=== PATIENT | female | born 2005 | race Caucasian/White ===

== ENCOUNTER 2024-11-19 21:54 | Emergency (ER) | payer MEDICAID, SELFPAY ==
[2024-11-19 22:09] VITALS: BP 130/69; PULSE 77; RESP 18; TEMP 36.3; O2SAT 99; BMI 20.7
[2024-11-19 23:28] LABS: Influenza A PCR NEGATIVE (Negative); Influenza B PCR NEGATIVE (Negative); Resp Syncy Virus RNA Qual PCR NEGATIVE (Negative); SARS COV2 PCR INHOUSE NEGATIVE (Negative)
--- NOTE | 2024-11-20 04:39 | ED.GENADULT ---
HPI - General Adult General Chief complaint: Nausea/Vomiting/Diarrhea Stated complaint: nausea/vomiting/stomach pain Time Seen by Provider: 11/20/24 04:39 History of Present Illness ED Provider: Kvng SARAVIA narrative: The patient is a 19-year-old female who says that she developed abdominal pain, nausea, vomiting this morning on Monday morning. She had symptoms all day long and ultimately came to the emergency room. She says that she has had similar episodes of symptoms like this in the past over the last several months. She says the last time she had an episode like this was around [place], less than 1 month ago. She says that she has been to [facility] for these problems before. She does not feel that she is experiencing related nausea because she has had several similar episodes before becoming . She believes that she is about 12 weeks . Her last menstrual period was on 08/25/2024. She had episodes of similar symptoms prior to her last period. According to records from [facility] the patient was hospitalized from October 22 through October 26 with symptoms of abdominal pain, nausea, and vomiting. The patient had previously been hospitalized from September 15 through September 19 with similar symptoms. At that time she had tested positive for chlamydia and she was treated for PID. Additionally at that time she had a CT of the abdomen and pelvis that showed pancolitis and mild diverticulosis. She had a colonoscopy which was unremarkable and showed no evidence of diverticulosis. At that time she was discharged on oral antibiotics. When the patient was hospitalized on October 22 at [facility] she had a negative right upper quadrant ultrasound and a normal chest x-ray. She was hospitalized on the OB service and treated symptomatically. Gastroenterology was consulted. Ultimately no additional interventions were made and she was continued on Maalox, pantoprazole, promethazine suppositories, and ondansetron. Related Data Allergies Allergy/AdvReac Type Severity Reaction Status Date / Time No Known Allergies Allergy Verified 11/19/24 22:10 Review of Systems Review of Systems: Yes all other systems are reviewed and are negative [facility] Social History Social History Alcohol intake: never Smoked in Last 30 Days: No Use of substances other than those prescribed or required for medical reasons: No Advance Directives: No Advance Directives Information Provided: No Do you have a plan to hurt others: No Plan Patient : Yes Physical Exam ED Vital Signs: Vital Signs - 24 hr 11/19/24 22:09 11/20/24 06:29 11/20/24 08:32 Temperature 97.3 F 98.9 F 98.5 F Pulse Rate 77 84 75 Respiratory Rate 18 18 Blood Pressure 130/69 148/93 H 103/68 Pulse Oximetry 99 100 98 Oxygen Delivery Method Room Air Room Air Room Air 11/20/24 10:13 11/20/24 10:26 Temperature 98 F Pulse Rate 73 Respiratory Rate 20 16 Blood Pressure 105/60 Pulse Oximetry 99 Oxygen Delivery Method Room Air BMI result Body Mass Index 20.7 Const Other: The patient is a slim 19-year-old woman who was awake and alert says she is quite uncomfortable. HENMT Other: Face is symmetrical. Mucous membranes moist. Eyes General: appearance normal, both eyes and all related structures Sclerae: sclerae normal Pupils: Equal, round and reactive pupils present EOM: EOMs intact bilaterally Neck Neck: Yes full ROM Resp Effort & Inspection: normal respiratory effort Auscultation: clear to auscultation bilaterally GI Other: The abdomen is flat and soft. The patient reports tenderness in the mid upper abdomen. No rebound or guarding. Skin Other: Skin is dry and unremarkable Neuro Other: The patient was awake and alert. Cranial nerves seemed grossly intact. She moves her extremities symmetrically and appropriately. Cranial nerves: Yes Equal, round and reactive pupils present Extrem Other: No peripheral edema Medications Administered Discontinued Medications Generic Name Dose Route Start Last Admin Trade Name Freq PRN Reason Stop Dose Admin Diphenhydramine HCl 25 mg 11/20/24 04:42 11/20/24 06:19 Diphenhydramine Hcl 50 Mg/Ml Vial IVPUSH 11/20/24 04:43 25 mg ONCE ONE Administration Famotidine 20 mg 11/20/24 08:44 11/20/24 09:27 Famotidine/Pf 20 Mg/2 Ml Vial IVPUSH 11/20/24 08:45 20 mg ONCE ONE Administration Sodium Chloride 1,000 mls @ 999 mls/hr 11/20/24 04:45 11/20/24 07:07 Ns IV 11/20/24 05:45 Infused .Q1H1M LINDA Infusion Acetaminophen 1,000 mg in 100 mls @ 400 mls/hr 11/20/24 06:21 11/20/24 07:07 Ofirmev IV 11/20/24 06:35 Infused ONCE ONE Infusion Sodium Chloride 1,000 mls @ 999 mls/hr 11/20/24 07:45 11/20/24 09:01 Ns IV 11/20/24 08:45 Infused .Q1H1M LINDA Infusion Metoclopramide HCl 10 mg 11/20/24 04:42 11/20/24 06:19 Metoclopramide Hcl 10 Mg/2 Ml Vial IVPUSH 11/20/24 04:43 10 mg ONCE ONE Administration Morphine Sulfate 2 mg 11/20/24 09:55 11/20/24 10:13 Morphine Sulfate 4 Mg/Ml Cartridge IVPUSH 11/20/24 09:56 2 mg ONCE ONE Administration Protocol Ondansetron HCl 4 mg 11/19/24 22:11 11/19/24 22:14 Ondansetron Odt 4 Mg Tab.Rapdis TRANSLINGU 11/19/24 22:12 Not Given ONCE ONE Sucralfate 1 gm 11/20/24 08:44 11/20/24 09:26 Sucralfate Oral Suspension 1 Gm/10 Ml Oral.Susp PO 11/20/24 08:45 1 gm ONCE ONE Administration Medical Decision Making Medical Decision Making [facility] Narrative: The patient is a 19-year-old female who is approximately 12 weeks . She has been having problems with intermittent episodes of abdominal pain nausea and vomiting for several months, even preceding her . Based on her description of the symptoms I would have a fairly high suspicion for cannabis hyperemesis. Her last menstrual period was 08/25/2024. She was hospitalized in August at [facility] at which time she had a CT of the abdomen and pelvis that allegedly showed pancolitis and diverticulosis but this was followed by a colonoscopy that did not apparently show either of these processes. She was treated for PID. She was subsequently hospitalized a month later at the end of September at [facility]. At that time she had a right upper quadrant ultrasound that was negative as well as a Gastroenterology consult. She was treated symptomatically with proton pump inhibitors and antacids and antiemetics. The patient now returns with symptoms she describes as similar to these previous episodes and to episodes that occurred before August as well. She says that she has had at least 5 episodes of problems with vomiting and abdominal pain. She is testing positive for cannabis today. The patient was treated symptomatically with IV fluids, IV metoclopramide, IV diphenhydramine, and IV acetaminophen. She seemed to feel considerably better although she is still complaining of epigastric pain. The patient was then given a dose of oral sucralfate and IV famotidine. She was observed some more. She did not feel that she was doing any better. She does not feel that she would likely be well enough to go home. I have presented this case to our hospitalist team and they are considering admitting the patient here. I have also contacted the transfer hotline at [facility] to see if the patient can return to the OBGYN service where the patient was hospitalized at the end of September. I will be signing the patient out to my emergency medicine colleagues at change of shift. Lab Data 11/20/24 05:59 11/20/24 05:01 Labs: Lab Results 11/19/24 11/20/24 11/20/24 Range/Units 22:47 05:01 05:59 WBC 16.1 H (4.8-10.8) X10*3/uL RBC 4.04 L (4.20-5.50) X10*6/uL Hgb 12.8 (12.0-16.0) g/dl Hct 35.8 L (37.0-47.0) % MCV 88.6 (80.0-98.0) fL MCH 31.7 (27.0-33.0) pg MCHC 35.8 H (31.0-35.0) g/dl RDW 12.9 (11.0-16.0) % Plt Count 493 H (160-400) X10*3/uL MPV 8.9 L (9.4-12.3) fL Immature Gran % (Auto) 0.4 (0.0-0.4) % Neut % (Auto) 91.2 H (45-73) % Lymph % (Auto) 5.5 L (20-40) % [facility] % (Auto) 2.8 (2-11) % Eos % (Auto) 0.0 (0-4) % Baso % (Auto) 0.1 (0-2) % Lymph # (Auto) 0.9 L (1.2-4.9) X10*3/uL [facility] # (Auto) 0.5 (0.1-1.2) X10*3/uL Eos # (Auto) 0.0 (0.0-0.4) X10*3/uL Baso # (Auto) 0.0 (0.0-0.2) X10*3/uL Abs Immat Gran (auto) 0.07 H (0.00-0.03) X10*3/uL Absolute Neuts (auto) 14.6 H (2.0-8.3) x10*3/uL Absolute Nucleated RBC 0.000 (0.0-0.012) X10*3/uL Nucleated RBC % (auto) 0.0 (0.0-0.2) /100WBC Smear Tech's Comments VERIFIED Sodium 135 (135-145) mmol/L Potassium 3.6 (3.3-5.1) mmol/L Chloride 104 (96-108) mmol/L Carbon Dioxide 20 L (22-29) mmol/L Anion Gap 15 (12-20) BUN 21 H (9-16) mg/dL Creatinine 0.63 (0.5-1.4) mg/dL Estim Creat Clear Calc 112.6 Estimated GFR > 60 Random Glucose 108 (60-115) mg/dL Calcium 10.2 (8.4-10.2) mg/dL Magnesium 2.1 (1.6-2.6) mg/dL Total Bilirubin 0.3 (0.0-1.0) mg/dL Direct Bilirubin 0.1 (0.0-0.5) mg/dL AST 32 H (5-31) U/L ALT 15 (0-31) U/L Alkaline Phosphatase 62 (39-117) U/L C-Reactive Protein 0.73 H (< or = 0.50) mg/dL Total Protein 8.3 H (6.5-8.0) g/dL Albumin 4.2 (3.5-5.0) g/dL Lipase 9 (8-78) U/L Beta HCG, Quant 68765 mIU/mL Urine Color Urine Appearance Urine pH (5.0-9.0) Ur Specific Avery (1.005-1.025) Urine Protein (Neg-Trace) mg/dL Urine Glucose (UA) (Negative) mg/dL Urine Ketones (Negative) mg/dL Urine Blood (Negative) Urine Nitrite (Negative) Ur Leukocyte Esterase (Negative) Urine RBC (0-2) /HPF Urine WBC (0-5) /HPF Ur Squamous Epith Cells (0-2) /HPF Urine Bacteria (None Seen) Hyaline Casts (0-2) /LPF Urine Opiates Screen (Not Detect) Ur Buprenorphine Scrn (Not Detect) ng/mL Ur Oxycodone Screen (Not Detect) ng/mL Urine Methadone Screen (Not Detect) ng/mL Urine Fentanyl Screen (Not Detect) Ur Barbiturates Screen (Not Detect) Ur Phencyclidine Scrn (Not Detect) Ur Amphetamines Screen (Not Detect) U Benzodiazepines Scrn (Not Detect) Urine Cocaine Screen (Not Detect) U Marijuana (THC) Screen (Not Detect) Influenza Type A (PCR) NEGATIVE (Negative) Influenza Type B (PCR) NEGATIVE (Negative) RSV RNA Qual (PCR) NEGATIVE (Negative) SARS-CoV-2 RNA (RT-PCR) NEGATIVE (Negative) 11/20/24 Range/Units 08:05 WBC (4.8-10.8) X10*3/uL RBC (4.20-5.50) X10*6/uL Hgb (12.0-16.0) g/dl Hct (37.0-47.0) % MCV (80.0-98.0) fL MCH (27.0-33.0) pg MCHC (31.0-35.0) g/dl RDW (11.0-16.0) % Plt Count (160-400) X10*3/uL MPV (9.4-12.3) fL Immature Gran % (Auto) (0.0-0.4) % Neut % (Auto) (45-73) % Lymph % (Auto) (20-40) % [facility] % (Auto) (2-11) % Eos % (Auto) (0-4) % Baso % (Auto) (0-2) % Lymph # (Auto) (1.2-4.9) X10*3/uL [facility] # (Auto) (0.1-1.2) X10*3/uL Eos # (Auto) (0.0-0.4) X10*3/uL Baso # (Auto) (0.0-0.2) X10*3/uL Abs Immat Gran (auto) (0.00-0.03) X10*3/uL Absolute Neuts (auto) (2.0-8.3) x10*3/uL Absolute Nucleated RBC (0.0-0.012) X10*3/uL Nucleated RBC % (auto) (0.0-0.2) /100WBC Smear Tech's Comments Sodium (135-145) mmol/L Potassium (3.3-5.1) mmol/L Chloride (96-108) mmol/L Carbon Dioxide (22-29) mmol/L Anion Gap (12-20) BUN (9-16) mg/dL Creatinine (0.5-1.4) mg/dL Estim Creat Clear Calc Estimated GFR Random Glucose (60-115) mg/dL Calcium (8.4-10.2) mg/dL Magnesium (1.6-2.6) mg/dL Total Bilirubin (0.0-1.0) mg/dL Direct Bilirubin (0.0-0.5) mg/dL AST (5-31) U/L ALT (0-31) U/L Alkaline Phosphatase (39-117) U/L C-Reactive Protein (< or = 0.50) mg/dL Total Protein (6.5-8.0) g/dL Albumin (3.5-5.0) g/dL Lipase (8-78) U/L Beta HCG, Quant mIU/mL Urine Color Dark Yellow Urine Appearance Cloudy Urine pH 6.0 (5.0-9.0) Ur Specific Avery >= 1.030 H (1.005-1.025) Urine Protein 100 (2+) H (Neg-Trace) mg/dL Urine Glucose (UA) Negative (Negative) mg/dL Urine Ketones 80 (Negative) mg/dL Urine Blood Negative (Negative) Urine Nitrite Negative (Negative) Ur Leukocyte Esterase Negative (Negative) Urine RBC 0-2 (0-2) /HPF Urine WBC 0-5 (0-5) /HPF Ur Squamous Epith Cells 3-5 (0-2) /HPF Urine Bacteria None Seen (None Seen) Hyaline Casts 3-5 (0-2) /LPF Urine Opiates Screen Not Detected (Not Detect) Ur Buprenorphine Scrn Not Detected (Not Detect) ng/mL Ur Oxycodone Screen Not Detected (Not Detect) ng/mL Urine Methadone Screen Not Detected (Not Detect) ng/mL Urine Fentanyl Screen Not Detected (Not Detect) Ur Barbiturates Screen Not Detected (Not Detect) Ur Phencyclidine Scrn Not Detected (Not Detect) Ur Amphetamines Screen Not Detected (Not Detect) U Benzodiazepines Scrn Not Detected (Not Detect) Urine Cocaine Screen Not Detected (Not Detect) U Marijuana (THC) Screen POSITIVE H (Not Detect) Influenza Type A (PCR) (Negative) Influenza Type B (PCR) (Negative) RSV RNA Qual (PCR) (Negative) SARS-CoV-2 RNA (RT-PCR) (Negative) Discharge Plan Discharge Clinical Impression: Nausea and vomiting, Epigastric pain, with 12 completed weeks gestation Patient Disposition: Still a Patient Print Language: Bahamian
[2024-11-20] MEDS: 0.9 % Sodium Chloride 1,000 ML 999 ML IV ×2 (05:01→07:46)
[2024-11-20 05:33] LABS: Alanine Aminotransferase 15 U/L (0-31); Albumin Level 4.2 g/dL (3.5-5.0); Alkaline Phosphatase 62 U/L (39-117); Anion Gap 15 (12-20); Aspartate Amino Transferase 32 U/L (5-31); Bilirubin Direct 0.1 mg/dL (0.0-0.5); Bilirubin Total 0.3 mg/dL (0.0-1.0); Blood Urea Nitrogen 21 mg/dL (9-16); C Reactive Protein 0.73 mg/dL (< or = 0.50); Calcium 10.2 mg/dL (8.4-10.2); Carbon Dioxide 20 mmol/L (22-29); Chloride 104 mmol/L (96-108); Creatinine Clr Calc Pharmacy 112.6; Estimated Glomerular Filt Rate > 60; Glucose Random 108 mg/dL (60-115); Lipase 9 U/L (8-78); Magnesium 2.1 mg/dL (1.6-2.6); Potassium 3.6 mmol/L (3.3-5.1); Sodium 135 mmol/L (135-145); Total Protein 8.3 g/dL (6.5-8.0)
[2024-11-20 05:49] LABS: HCG Quantitative 84065 mIU/mL
--- NOTE | 2024-11-20 05:56 | PC.NURSE ---
multiple IV attempts, unable to access IV line at this time.
[2024-11-20 06:03] LABS: Basophils Percent Auto 0.1 % (0-2); Hematocrit 35.8 % (37.0-47.0); Hemoglobin 12.8 g/dl (12.0-16.0); Imm Gran Abs Auto 0.07 X10*3/uL (0.00-0.03); Imm Gran Pct Auto 0.4 % (0.0-0.4); Lymphocytes Absolute Auto 0.9 X10*3/uL (1.2-4.9); Lymphocytes Percent Auto 5.5 % (20-40); MANUAL DIFF FLAG SCAN; Mean Corpuscular HGB Conc 35.8 g/dl (31.0-35.0); Mean Corpuscular Hemoglobin 31.7 pg (27.0-33.0); Mean Corpuscular Volume 88.6 fL (80.0-98.0); Mean Platelet Volume 8.9 fL (9.4-12.3); Monocytes Absolute Auto 0.5 X10*3/uL (0.1-1.2); Monocytes Percent Auto 2.8 % (2-11); Neutrophils Absolute Auto 14.6 x10*3/uL (2.0-8.3); Neutrophils Percent Auto 91.2 % (45-73); Platelet Count 493 X10*3/uL (160-400); Red Blood Count 4.04 X10*6/uL (4.20-5.50); Red Cell Distribution Width 12.9 % (11.0-16.0); SCAN SMEAR FLAG 1; White Blood Count 16.1 X10*3/uL (4.8-10.8)
[2024-11-20] MEDS: Metoclopramide HCl 10 MG/2 ML VIAL IVPUSH (06:19)
[2024-11-20] MEDS: diphenhydrAMINE HCL 50 MG/ML VIAL 25 MG IVPUSH (06:19)
[2024-11-20 06:29] VITALS: BP 148/93; PULSE 84; RESP 18; TEMP 37.2; O2SAT 100
[2024-11-20] MEDS: Acetaminophen 1,000 MG/100 ML PIGGYBACK 400 MG IV (06:34)
[2024-11-20 08:09] LABS: SLIDE REVIEW VERIFIED
[2024-11-20 08:16] LABS: Appearance Urine Cloudy; Color Urine Dark Yellow; Glucose Urine UA Negative (Negative); Leukocyte Esterase Urine Negative (Negative); Nitrite Urine Negative (Negative); Specific Gravity - Urine >= 1.030 (1.005-1.025); UMIC TRIGGER UACC YES; Urine Blood Negative (Negative); Urine Ketones 80 mg/dL (Negative); Urine Protein 100 (2+) mg/dL (Neg-Trace)
[2024-11-20 08:18] LABS: Bacteria Urine None Seen (None Seen); RBC Urine 0-2 /HPF (0-2); WBC Urine 0-5 /HPF (0-5)
[2024-11-20 08:23] LABS: Amphetamine Screen Urine Not Detected (Not Detect); Barbiturates, Urine Not Detected (Not Detect); Benzodiazepines Screen Urine Not Detected (Not Detect); Buprenorphine Scr Not Detected (Not Detect); Cannabinoid Screen Urine POSITIVE (Not Detect); Cocaine Screen Urine Not Detected (Not Detect); Fentanyl, urine Not Detected (Not Detect); Methadone Screen, Urine Not Detected (Not Detect); Opiate Screen Urine Not Detected (Not Detect); Oxycodone Screen Urine Not Detected (Not Detect); Phencyclidine Screen Urine Not Detected (Not Detect)
[2024-11-20 08:32] VITALS: BP 103/68; PULSE 75; TEMP 36.9; O2SAT 98
[2024-11-20] MEDS: Sucralfate Oral Suspension 1 GM/10 ML ORAL.SUSP PO (09:26)
[2024-11-20] MEDS: Famotidine/PF 20 MG/2 ML VIAL IVPUSH (09:27)
[2024-11-20 10:13] VITALS: RESP 20
[2024-11-20] MEDS: Morphine Sulfate 4 MG/ML CARTRIDGE 2 MG IVPUSH (10:13)
[2024-11-20 10:26] VITALS: BP 105/60; PULSE 73; RESP 16; TEMP 36.6; O2SAT 99
[2024-11-20] MEDS: Lactated Ringers 1,000 ML 999 ML IV (11:06)
[2024-11-20 12:41] VITALS: BP 129/76; PULSE 78; RESP 16; TEMP 36.9; O2SAT 97
[2024-11-20 13:50] VITALS: BP 129/76; PULSE 78; RESP 16; TEMP 36.9; O2SAT 97
== END 2024-11-20 13:51 | disposition short-term general hospital (02) ==
PROVIDERS: Emergency Provider Emergency Medicine
DX: O21.0 Mild hyperemesis gravidarum (principal); R10.2 Pelvic and perineal pain; R10.13 Epigastric pain; Z3A.12 12 weeks gestation of pregnancy; Z51.81 Encounter for therapeutic drug level monitoring; Z79.899 Other long term (current) drug therapy; Z03.818 Encounter for observation for suspected exposure to other biological agents ruled out
CPT/HCPCS: 0241U; 36415; 80048; 80076; 80307; 81001; 83690; 83735; 84702; 85025; 86140; 96361; 96374; 96375; 99285; J0131; J1200; J2270; J2765; J7120

== ENCOUNTER 2025-08-27 00:52 | Inpatient (IN) | payer OTHER, SELFPAY ==
[2025-08-27 00:56] VITALS: BP 153/70; PULSE 122; RESP 20; TEMP 36.4; O2SAT 97; BMI 27.6
--- NOTE | 2025-08-27 01:06 | ECG_ITS ---
Test Reason : ABD PAIN Blood Pressure : */* mmHG Vent. Rate : 103 BPM Atrial Rate : 103 BPM P-R Int : 130 ms QRS Dur : 76 ms QT Int : 330 ms P-R-T Axes : 92 70 27 degrees QTcB Int : 432 ms Sinus tachycardia Biatrial enlargement ST & T wave abnormality, consider inferior ischemia Abnormal ECG No previous ECGs available Referred By: Carmen Holguin Electronically Signed By: JAYANT STROUD
--- NOTE | 2025-08-27 01:15 | ED_ITS ---
HPI - Abdominal Pain General Chief Complaint: Abdominal Pain Stated Complaint: n/v Time Seen by Provider: 08/27/25 01:03 Source: patient Mode of arrival: ambulatory Limitations: no limitations History of Present Illness ED Provider: Dr. Carmen Holguin HPI narrative: Patient comes to the emergency room complaining of nausea and vomiting for couple of days. Patient states that she has diffuse abdominal discomfort. Denies diarrhea, denies fever chills. Patient states that in the past she has used marijuana but not anymore. Patient denies the probability of being . Patient states that she had a baby 3 months ago. Related Data Allergies Allergy/AdvReac Type Severity Reaction Status Date / Time No Known Allergies Allergy Verified 08/27/25 00:57 Review of Systems Review of Systems Constitutional : No Weight loss, No Fever, No Chills, No Night Sweats, No Fatigue, No Malaise ENT/Mouth : No Hearing loss, No Ear Pain, No Nasal Congestion, No Sinus Pain, No Hoarseness, No sore throat, No Rhinorrhea, No Swallowing Difficulty Eyes: No Eye Pain, No Swelling, No Redness, No Foreign Body, No Discharge, No Vision Changes Cardiovascular : No Chest Pain, No SOB, No Dyspnea on Exertion, No Orthopnea, No Edema, No Palpitations Respiratory : No Cough, No Sputum, No Wheezing, No Smoke Exposure, No Dyspnea Gastrointestinal : Nausea and vomit, No Diarrhea, No Constipation, complaining of diffuse abdominal discomfort, No Hematochezia, No Melena Genitourinary : no irregular bleeding, No Dysuria, No Urinary Frequency, No Hematuria, No Urinary Incontinence, No Urgency, No Flank Pain, No Urinary Flow Changes, No Hesitancy Musculoskeletal : No joint pain, No Myalgias, No Joint Swelling Skin : No Skin Lesions, No rash Neuro : No Weakness, No Numbness, No Paresthesias, No Loss of Consciousness, No Dizziness, No Headache Psych : No Anxiety/Panic, No Depression, No SI/HI/AH/VH, denies any recent use of marijuana or any drugs Heme/Lymph: No Bruising, No Bleeding,No Lymphadenopathy Endocrine : No Polyuria, No Polydipsia, No Temperature Intolerance PMFSH Social History Social History Alcohol intake: never Smoked in Last 30 Days: No Use of substances other than those prescribed or required for medical reasons: Yes Substance Use Type: Marijuana Advance Directives: No Advance Directives Information Provided: Yes Patient : No Physical Exam ED Vital Signs: Vital Signs - 24 hr 08/27/25 00:56 08/27/25 02:17 Temperature 97.6 F Pulse Rate 122 H 71 Respiratory Rate 20 22 H Blood Pressure 153/70 H 135/81 Pulse Oximetry 97 98 Oxygen Delivery Method Room Air Room Air BMI result Body Mass Index 27.6 Course Course Course Narrative: Patient comes in complaining of nausea and vomiting for couple of days. Patient known to use THC, denies any recent use for at least over a month. Patient receiving IV fluids, IV Reglan, ketorolac, Benadryl Depending on the labs and patient's physical exam, we will consider getting a CAT scan. At this time, abdominal pain and nausea/vomiting likely secondary to cyclical vomiting Medical Decision Making Medical Decision Making MDM Narrative: My interpretation of EKG 1: Sinus tachycardia, heart rate 103, no ST segment changes, nonspecific T-wave inversion in lead 3, QTC 610. Patient is very agitated, we will repeat the EKG once she is a bit more calm EKG 2: Sinus rhythm, heart rate 74, no ST segment changes. However, patient's QTC still prolonged, QTC 603. Patient receiving IV magnesium. All of patient's labs are still pending. My interpretation of labs: Patient's white blood cell count 12.6, likely reactive leukocytosis. Chemistry shows a potassium of 3.0, low chloride. Magnesium 2.4, Otherwise no significant abnormality. Patient's potassium was repleted initially IV, patient could not tolerate p.o.. Wants patient tolerates p.o., she will get potassium by mouth After patient received the initial dose of magnesium and potassium was given, EKG 3 was done. My interpretation: Sinus rhythm, heart rate 76, QTC improved to 459 Patient is still unable to tolerate p.o.. Combination of refusing and nausea. Patient was given additional nausea medication. Patient will be given more IV potassium. After rechecking it a 2nd time, there was not much improvement, potassium is still 3.0. Fortunately, the QTC is back to normal. I discussed the above-mentioned with Dr. Dela Cruz from the Medicine team, patient being admitted Until now, patient has not giving us a urine sample. Differential Diagnosis Differential Diagnoses: The differential diagnosis associated with the presentation includes (Cyclical vomiting, gastritis, gastroenteritis) Admission/Observation Consideration of admission/observation: Escalation of care including admission/observation considered Consult Healthcare Provider Management of the patient was discussed with: Hospitalist Lab Data MDM Lab Attestation statement: I reviewed the patient's lab results. 08/27/25 01:18 08/27/25 04:21 Labs: Lab Results 08/27/25 08/27/25 Range/Units 01:18 04:21 WBC 12.6 H (4.8-10.8) X10*3/uL RBC 5.61 H D (4.20-5.50) X10*6/uL Hgb 16.0 D (12.0-16.0) g/dl Hct 45.5 D (37.0-47.0) % MCV 81.1 (80.0-98.0) fL MCH 28.5 (27.0-33.0) pg MCHC 35.2 H (31.0-35.0) g/dl RDW 14.5 (11.0-16.0) % Plt Count 560 H (160-400) X10*3/uL MPV 9.1 L (9.4-12.3) fL Immature Gran % (Auto) 0.4 (0.0-0.4) % Neut % (Auto) 80.3 H (45-73) % Lymph % (Auto) 10.9 L (20-40) % [place] % (Auto) 7.5 (2-11) % Eos % (Auto) 0.8 (0-4) % Baso % (Auto) 0.1 (0-2) % Lymph # (Auto) 1.4 (1.2-4.9) X10*3/uL [place] # (Auto) 1.0 (0.1-1.2) X10*3/uL Eos # (Auto) 0.1 (0.0-0.4) X10*3/uL Baso # (Auto) 0.0 (0.0-0.2) X10*3/uL Abs Immat Gran (auto) 0.05 H (0.00-0.03) X10*3/uL Absolute Neuts (auto) 10.1 H (2.0-8.3) x10*3/uL Absolute Nucleated RBC 0.000 (0.0-0.012) X10*3/uL Nucleated RBC % (auto) 0.0 (0.0-0.2) /100WBC Sodium 142 142 (135-145) mmol/L Potassium 3.0 L 3.0 L (3.3-5.1) mmol/L Chloride 92 L 98 (96-108) mmol/L Carbon Dioxide 31 H 32 H (22-29) mmol/L Anion Gap 22 H 15 (12-20) BUN 32 H 26 H (9-16) mg/dL Creatinine 1.39 1.09 (0.5-1.4) mg/dL Estim Creat Clear Calc 58.5 74.6 Estimated GFR 48 > 60 Random Glucose 134 H 110 (60-115) mg/dL Calcium 10.7 H 9.5 D (8.4-10.2) mg/dL Phosphorus 4.1 (2.7-4.5) mg/dL Magnesium 2.4 (1.6-2.6) mg/dL Total Bilirubin 0.6 (0.0-1.0) mg/dL Direct Bilirubin 0.2 (0.0-0.5) mg/dL AST 30 (5-31) U/L ALT 29 (0-31) U/L Alkaline Phosphatase 115 (39-117) U/L Total Protein 9.5 H (6.5-8.0) g/dL Albumin 5.7 H (3.5-5.0) g/dL Lipase 14 (8-78) U/L Beta HCG, Quant < 2 mIU/mL Independent Interpretation I performed an independent interpretation of an: EKG (Three EKGs as above) Medications Administered Discontinued Medications Generic Name Dose Route Start Last Admin Trade Name Freq PRN Reason Stop Dose Admin Diphenhydramine HCl 50 mg 08/27/25 01:13 08/27/25 01:23 Diphenhydramine Hcl 50 Mg/Ml Vial IVPUSH 08/27/25 01:14 50 mg ONCE ONE Administration Famotidine 20 mg 08/27/25 01:10 08/27/25 01:23 Famotidine/Pf 20 Mg/2 Ml Vial IVPUSH 08/27/25 01:11 20 mg ONCE ONE Administration Sodium Chloride 1,000 mls @ 999 mls/hr 08/27/25 01:10 08/27/25 02:32 Ns IVCONT 08/27/25 02:10 Infused .Q1H1M ONE Infusion Magnesium Sulfate 2 gm in 50 mls @ 25 mls/hr 08/27/25 01:44 08/27/25 04:15 Magnesium Sulfate/H2o IV 08/27/25 03:43 Infused ONCE ONE Infusion Potassium Chloride 10 meq in 100 mls @ 100 mls/hr 08/27/25 02:09 08/27/25 03:35 Potassium Chloride/H20 IV 08/27/25 03:08 Infused ONCE ONE Infusion Ketorolac Tromethamine 30 mg 08/27/25 01:10 08/27/25 01:23 Ketorolac Tromethamine 30 Mg/Ml Vial IVPUSH 08/27/25 01:11 30 mg ONCE ONE Administration Metoclopramide HCl 10 mg 08/27/25 01:10 08/27/25 01:23 Metoclopramide Hcl 10 Mg/2 Ml Vial IVPUSH 08/27/25 01:11 10 mg ONCE ONE Administration Potassium Chloride 40 meq 08/27/25 02:09 08/27/25 04:14 Potassium Chloride Packet 20 Meq Packet PO 08/27/25 02:10 Not Given ONCE ONE Potassium Chloride 20 meq 08/27/25 03:56 08/27/25 04:15 Potassium Chloride Er 20 Meq Tab.Er.Prt PO 08/27/25 03:57 20 meq ONCE ONE Administration Tramadol HCl 50 mg 08/27/25 04:10 08/27/25 04:15 Tramadol Hcl 50 Mg Tablet PO 08/27/25 04:11 50 mg ONCE ONE Administration Critical Care Time Critical Care Time Critical Care Time: Yes Total Critical Care Time: 60 Attestation: I have personally provided critical care time. Time includes review of lab data, radiology results, discussion with consultants, and monitoring for potential decompensation. Intervention performed as documented. Discharge Plan Discharge Clinical Impression: Cyclical vomiting, Acute hypokalemia, Long QT interval Patient Disposition: Admitted As Inpatient Print Language: Belarusian
[2025-08-27 01:22] LABS: MANUAL DIFF FLAG NO
[2025-08-27 01:23] LABS: Hematocrit 45.5 % (37.0-47.0); Hemoglobin 16.0 g/dl (12.0-16.0); Imm Gran Abs Auto 0.05 X10*3/uL (0.00-0.03); Imm Gran Pct Auto 0.4 % (0.0-0.4); Lymphocytes Absolute Auto 1.4 X10*3/uL (1.2-4.9); Mean Corpuscular HGB Conc 35.2 g/dl (31.0-35.0); Mean Corpuscular Hemoglobin 28.5 pg (27.0-33.0); Mean Corpuscular Volume 81.1 fL (80.0-98.0); NRBC Abs Auto 0.000 X10*3/uL (0.0-0.012); NRBC Pct Auto 0.0 /100WBC (0.0-0.2); Platelet Count 560 X10*3/uL (160-400); Red Blood Count 5.61 X10*6/uL (4.20-5.50); White Blood Count 12.6 X10*3/uL (4.8-10.8)
--- NOTE | 2025-08-27 01:40 | ECG_ITS ---
Test Reason : REPEAT Blood Pressure : */* mmHG Vent. Rate : 74 BPM Atrial Rate : 74 BPM P-R Int : 120 ms QRS Dur : 94 ms QT Int : 390 ms P-R-T Axes : 66 15 70 degrees QTcB Int : 433 ms Normal sinus rhythm Incomplete right bundle branch block Nonspecific T wave abnormality Abnormal ECG When compared with ECG of 27-Aug-2025 01:10, T wave inversion no longer evident in Inferior leads Referred By: Carmen Holguin Electronically Signed By: JAYANT STROUD
[2025-08-27] MEDS: Magnesium Sulfate/H2O 2 GM/50 ML PIGGYBACK IV (01:51)
--- OUTSIDE RECORDS SUMMARY | 2025-08-27 01:59 | XMS_ITS | Clinical Summary ---
Author Organization [facility] Address [address] [place] [address] Phone Care Team Providers Care Disease Education Specialist Name Role Phone Shane Licona MD Primary Care Provider [phone] Allergies No known active allergies Medications No known medications Family History Medical History Relation Name Comments Lung cancer Aunt 1 MATERNAL Lung cancer Maternal Grandfather Other: EMPHYSEMA Maternal Grandmother Nephrolithiasis Mother Relation Name Status Comments Aunt 1 Aunt 2 Maternal Grandfather Maternal Grandmother Mother Social History Tobacco Use Types Packs/Day Years Used Date Smoking Tobacco: Never Smokeless Tobacco: Never Alcohol Use Standard Drinks/Week Comments No 0 (1 standard drink = 0.6 oz pur e alcohol) Comments Unknown Sex and Gender Information Value Date Recorded Sex Assigned at Female 12/28/2024 1:34 AM EST Legal Sex Female 1:06 PM EST Gender Identity Female 12/28/2024 1:34 AM EST Sexual Orientation Choose not to disclose 2024 1:34 AM EST Obstetrics History Last Filed Vital Signs Vital Sign Reading Time Taken Comments Blood Pressure 111/59 12/29/2024 5:45 PM EST Pulse 65 12/29/2024 5:45 PM EST Temperature 37.2 C (99 F) 12/29/2024 5:45 PM EST Respiratory Rate 15 12/29/2024 5:45 PM EST Oxygen Saturation 98% 12/29/2024 5:45 PM EST Inhaled Oxygen Concentration - - Weight 54.9 kg (121 lb) 12/29/2024 2:55 PM EST Height 157.5 cm (5' 2 ) 12/29/2024 2:55 PM EST Body Mass Index 22.13 12/29/2024 2:55 PM EST Plan of Treatment Health Maintenance Due Date Last Done Comments Gonorrhea/Chlamydia Screening 2004 Meningococcal B Vaccine (1 of 2 - Standard) 2020 HIV Screening 09/27/2022 Hepatitis C Screening 09/27/2022 Social Influencers of Health Screening 09/27/2022 Annual Well Child Visit (3-21 years old) 02/22/2024 02/21/2023, 10/20/2021, 10/19/2020, Additional history exists Depression Screening 10/30/2024 COVID-19 Vaccine ( season) 2025 09/14/2021, 09/11/2021, 09/02/2021, Additional history exists Influenza Vaccine (#1) 2025 , 10/17/2019, 10/04/2018, Additional history exists DTaP,Tdap,and Td Vaccines (7 - Td or Tdap) 08/29/2026 08/29/2016, 09/10/2009, 06/12/2007, Additional history exists RSV Immunization Adult Patients (1 - 1-dose 75+ series) 2079 Hepatitis B Vaccines Completed 07/27/2005, 04/14/2005, 2004, Additional history exists HIB Vaccines Completed 06/12/2007, 07/01, 07/27/2005, Additional history exists Pneumococcal Vaccine: Pediatrics (0 to 5 Years) and At-Risk Patients (6 to 49 Years) Completed 06/12/2007, 07/27/2005, 04/14/2005, Additional history exists IPV Vaccines Completed 09/10/2009, 07/01, 07/27/2005, Additional history exists MMR Vaccines Completed 09/10/2009, 06/12/2007 Varicella Vaccines Completed 09/10/2009, 10/24/2005 HPV Vaccines Completed 09/29/2017, 08/29/2016 Meningococcal ACWY Vaccine Completed 10/19/2020, Hepatitis A Vaccines Aged Out No long er eligible based on patient's age to complete this topic RSV Immunization Patients Under 20 months Aged Out No longer eligible based on patient's age to complete this topic Insurance MEDICAID - [place] Care Teams Disease Education Specialist Relationship Specialty Start Date End Date Shane Licona MD [address] [place] [id number] PCP - General 12/15/23
[2025-08-27 02:02] LABS: Alanine Aminotransferase 29 U/L (0-31); Albumin Level 5.7 g/dL (3.5-5.0); Alkaline Phosphatase 115 U/L (39-117); Anion Gap 22 (12-20); Aspartate Amino Transferase 30 U/L (5-31); Blood Urea Nitrogen 32 mg/dL (9-16); Calcium 10.7 mg/dL (8.4-10.2); Carbon Dioxide 31 mmol/L (22-29); Chloride 92 mmol/L (96-108); Creatinine Clr Calc Pharmacy 58.5; Estimated Glomerular Filt Rate 48; Lipase 14 U/L (8-78); Magnesium 2.4 mg/dL (1.6-2.6); Potassium 3.0 mmol/L (3.3-5.1); Sodium 142 mmol/L (135-145); Total Protein 9.5 g/dL (6.5-8.0)
[2025-08-27 02:17] VITALS: BP 135/81; PULSE 71; RESP 22; O2SAT 98
[2025-08-27] MEDS: Potassium Chloride/H20 10 MEQ/100 ML PIGGYBACK 100 MEQ IV ×5 (02:20→08:57)
--- NOTE | 2025-08-27 02:32 | PC.NURSE ---
pt unable to tolerate PO potassium. aware
--- NOTE | 2025-08-27 03:34 | ECG_ITS ---
Test Reason : REPEAT Blood Pressure : */* mmHG Vent. Rate : 76 BPM Atrial Rate : 76 BPM P-R Int : 120 ms QRS Dur : 86 ms QT Int : 408 ms P-R-T Axes : 69 20 55 degrees QTcB Int : 459 ms Normal sinus rhythm with sinus arrhythmia Nonspecific ST abnormality Abnormal ECG When compared with ECG of 27-Aug-2025 01:40, No significant changes seen Referred By: Carmen Holguin Electronically Signed By: JAYANT STROUD
--- NOTE | 2025-08-27 03:36 | PC.NURSE ---
pt tolerating PO fluids at this time.
[2025-08-27] MEDS: Potassium Chloride ER 20 MEQ TAB.ER.PRT PO (04:15)
[2025-08-27 04:46] LABS: Anion Gap 15 (12-20); Blood Urea Nitrogen 26 mg/dL (9-16); Calcium 9.5 mg/dL (8.4-10.2); Carbon Dioxide 32 mmol/L (22-29); Chloride 98 mmol/L (96-108); Creatinine Clr Calc Pharmacy 74.6; Estimated Glomerular Filt Rate > 60; Potassium 3.0 mmol/L (3.3-5.1); Sodium 142 mmol/L (135-145)
--- NOTE | 2025-08-27 05:27 | P.HPHOSP_ITS ---
History of Present Illness Date of Service: 08/27/25 Attending physician on admission: Veronica Rush Chief Complaint: intractable N/V, ABD pain Patient is a 19-year-old female with past medical history marijuana use reports last use was over 30 days ago, delivered first baby 3 months prior normal delivery and received Depo-Provera for control post delivery that lasts 3 months and is now 1 week overdue, presents to the emergency department with complaints of nausea, vomiting and significant abdominal pain that started this past Monday. Patient has not been able to keep anything down including fluids. Patient went to [facility] yesterday but the wait was over 9 hours and patient chose not to wait and returned home but her symptoms persisted. Patient denies any diarrhea or constipation. Patient is not having any abnormal vaginal discharge, odor or unusual vaginal bleeding but states she is having her usual cycle noting she gave 3 months prior. Tampons? Patient is not currently . Patient denies any recent travel or exposure to anyone with illness. Patient is reporting some GERD secondary to vomiting and last vomited here in the ED. Patient denies any urinary tract symptoms including dysuria or frequency. Patient also denies any history of STD. Pt denies use of alcohol and illicit drugs and does not smoke tobacco. Pt denies hx of blood clots. In the ED patient was found to be hypokalemic and received supplementation but potassium remained at 3.0. Patient mildly tachycardic but blood pressure and pulse ox are normal. Patient currently in sinus rhythm. Patient has a leukocytosis with neutrophilia but no bandemia. No fever since arrival. Creatinine 1.09, BUN 26, creatinine clearance 74.6 with a GFR greater than 60. Blood glucose 110. LFTs within normal limits. Lipase 14. Beta hCG negative. Urine tox screen pending. UA also pending. ECG with initial prolonged Qtc 610, after K and MG down to 459. Pt received one liter of IVF so far. LA pending. Review of Systems 2 Review of Systems: Patient reporting some GERD, abdominal pain, nausea but the vomiting has resided. Patient denies any diarrhea or constipation issues. Patient gave 3 months prior via normal delivery and is not currently . Patient did start Depo-Provera at time of discharge from her delivery and is now 1 week overdue for the next injection. Patient also states she has not use marijuana for over 30 days. Patient denies any fever or chills. Patient is not having any headaches or visual changes. Yes all other systems are reviewed and are negative [facility] Medical History (Updated 08/27/25 @ 05:43 by THOMAS Johnson) Marijuana use Status post normal delivery in completely normal case Cognitive capacity: A/O X3 Functional capacity: independent ambulation Patient : No Social History Alcohol intake: never Patient Tobacco Use Status: Never used Tobacco Substance Use Type: Marijuana Ebola Risk: Travel/Contact With Anyone From Affected Area/s: No Has Patient Experienced Ebola Symptoms: No Meds Allergies Allergy/AdvReac Type Severity Reaction Status Date / Time No Known Allergies Allergy Verified 08/27/25 00:57 Active Medications: Current Medications Acetaminophen (Acetaminophen 325 Mg Tablet) 650 mg PO Q6H PRN PRN Reason: Pain, Mild 1-3,fever,headache Albuterol/Ipratropium (Albuterol/Iprat 2.5/0.5mg 3 Ml Ampul.Neb) 3 ml INHALE Q4H PRN PRN Reason: Shortness of Breath/Wheezing Calcium Carbonate (Calcium Carbonate 750 Mg Tab.Chew) 750 mg PO Q4H PRN PRN Reason: Heartburn Potassium Chloride (Potassium Chloride/H20) 10 meq in 100 mls @ 100 mls/hr IV Q1H LINDA Stop: 08/27/25 08:59 Sodium Chloride (Ns) 1,000 mls @ 100 mls/hr IVCONT .Q10H LINDA Magnesium Hydroxide (Milk Of Magnesia 30 Ml Oral.Susp) 30 ml PO DAILY PRN PRN Reason: Constipation Melatonin (Melatonin 3 Mg Tablet) 6 mg PO BEDTIME PRN PRN Reason: Insomnia Ondansetron HCl (Ondansetron Hcl 4 Mg/2 Ml Vial) 4 mg IVPUSH Q8H PRN PRN Reason: Nausea and Vomiting Pantoprazole Sodium (Pantoprazole Sodium 40 Mg/10 Ml Vial) 40 mg IVPUSH ONCE ONE Stop: 08/27/25 05:24 Polyethylene Glycol (Polyethylene Glycol 3350 17 Gm Powd.Pack) 17 gm PO DAILY PRN PRN Reason: Constipation Potassium Chloride (Potassium Chloride Packet 20 Meq Packet) 40 meq PO ONCE ONE Stop: 08/27/25 05:24 Sodium Chloride (0.9 % Sodium Chloride Flush 3 Ml Syringe) 3 ml IVFLUSH QSHIFT [facility] Physical Exam 2 Vital Signs and Narrative: Vital Signs: Last Vital Signs Temp 97.6 F 08/27/25 00:56 Pulse 71 08/27/25 02:17 Resp 22 H 08/27/25 02:17 BP 135/81 08/27/25 02:17 Pulse Ox 98 08/27/25 02:17 O2 Del Method Room Air 08/27/25 02:17 BMI result Body Mass Index 27.6 Alert and orientated X3, able to give good history. Neuro: CN II-X11 intact, no deficits, visual acuity intact EYES: PERRLA, EOM intact, sclerae nonicteric, conjunctiva pink ENT: hearing intact, no issues with swallowing, uvula midline, lips moist, nares patent no epistaxis Cardiac: S1 S2 RRR, tachycardic, no murmur, no JVD, no edema in Lower ext Pulmonary: lungs clear to ausculation B Abdominal: BS active in all 4 quadrants, no guarding, mild tenderness, no rebounding, abdomen soft MSK: strength 5/5 upper and lower extremities : no CVA tenderness no bladder distension Extremities: no edema in lower extremities, PT and DP pulses palpable +2 Psych: mood stable, judgement and insight good Skin: No new rashes or lesions Results Labs 08/27/25 01:18 08/27/25 04:21 Labs: Laboratory Results - last 24 hr 08/27/25 08/27/25 01:18 04:21 MCV 81.1 MCH 28.5 MCHC 35.2 H RDW 14.5 Plt Count 560 H MPV 9.1 L Immature Gran % (Auto) 0.4 Neut % (Auto) 80.3 H Lymph % (Auto) 10.9 L [place] % (Auto) 7.5 Eos % (Auto) 0.8 Baso % (Auto) 0.1 Lymph # (Auto) 1.4 [place] # (Auto) 1.0 Eos # (Auto) 0.1 Baso # (Auto) 0.0 Abs Immat Gran (auto) 0.05 H Absolute Neuts (auto) 10.1 H Absolute Nucleated RBC 0.000 Nucleated RBC % (auto) 0.0 Anion Gap 22 H 15 Estim Creat Clear Calc 58.5 74.6 Estimated GFR 48 > 60 Random Glucose 134 H 110 Calcium 10.7 H 9.5 D Phosphorus 4.1 Magnesium 2.4 Total Bilirubin 0.6 Direct Bilirubin 0.2 AST 30 ALT 29 Alkaline Phosphatase 115 Total Protein 9.5 H Albumin 5.7 H Lipase 14 Beta HCG, Quant < 2 ECG Attestation: I personally reviewed and interpreted this ECG as follows: (Repeat EKG sinus tachycardia heart rate 103 QTC improved 459 from 610) Prior ECG tracings: available for review Assessment and Plan (1) Intractable nausea and vomiting: Status: Acute (2) Acute hypokalemia: Status: Acute (3) Long QT interval: Status: Acute (4) Abdominal pain: Qualifiers: Abdominal location: generalized Qualified Code(s): R10.84 - Generalized abdominal pain Status: Acute (5) Status post normal delivery in completely normal case: Status: Acute (6) GERD (gastroesophageal reflux disease): Qualifiers: Esophagitis presence: esophagitis presence not specified Qualified Code(s): K21.9 - Gastro-esophageal reflux disease without esophagitis Status: Acute Plan Patient is a 19-year-old female with past medical history marijuana use reports last use was over 30 days ago, delivered first baby 3 months prior normal delivery and received Depo-Provera for control post delivery that lasts 3 months and is now 1 week overdue, presents to the emergency department with complaints of nausea, vomiting and significant abdominal pain that started this past Monday. Patient states her last use of marijuana was over 30 days prior. Patient is not currently . Patient denies any abnormal vaginal discharge but is currently having her routine cycle. Intractable nausea and vomiting with abdominal pain/ marijuana use (toxicology screen positive)/ possible hyperemsisi cyclical syndrome Noted leukocytosis Pt is one week late for Depoprovera injection for BC, can cause shift in hormones noting pt is 3 months and cause N/V, consider [facility] consult Lactic acid 1.1, no current indication for CT abdomen Continue IV fluids, renal function stable Zofran PRN Capsaicin cream ordered topically Clear diet as tolerated, advance when possible Lipase normal Patient states last use of marijuana was over 30 days ago, toxicology screen positive for marijuana only, no reported history of hyperemesis cyclical syndrome Patient denies any alcohol, illicit drug use or tobacco use No report of diarrhea or recent eating out or recent travel Acute hypokalemia secondary to vomiting Potassium remains 3.0, we will continue supplementation Monitor potassium Prolonged QTC Now corrected to 459 after magnesium and potassium supplementation GERD/esophagitis secondary to vomiting Protonix IV ordered 3 months/ delivered at [facility] Patient reports normal delivery, was induced, not Received Depo-Provera injection at time of discharge from and hospital Patient is now 1 week overdue for her next Depo-Provera injection HCG is currently negative Patient states she is having her routine menses, denies any abnormal vaginal discharge or STDs, not using tampons UA pending, if positive start ABX and consider [facility] consultation DVT prophylaxis: Lovenox MED REC: no RX meds at home, 1 week overdue for depoprovera injection (once every 3 months) FULL CODE Quality Stroke Does the patient have a stroke diagnosis?: No Reason for No Anti-thrombotic by Day Two: N/A - Med Ordered VTE Prior VTE?: No VTE Risk Level:: Medical - moderate - high VTE Device Contraindication: N/A - Device Ordered VTE Drug Contraindication: N/A - Med Ordered
--- NOTE | 2025-08-27 06:04 | PC.NURSE ---
Pt did not tolerate PO potassium, states It alcala my throat . Primary RN made aware.
[2025-08-27 06:09] VITALS: BP 100/68; PULSE 77; RESP 17; TEMP 36.7; O2SAT 97
[2025-08-27 06:10] LABS: MANUAL DIFF FLAG NO
[2025-08-27 06:12] LABS: Appearance Urine Cloudy; Glucose Urine UA Negative (Negative); PH 6.5 (5.0-9.0); Specific Gravity - Urine >= 1.030 (1.005-1.025); UMIC TRIGGER UACC YES
[2025-08-27 06:13] LABS: Hematocrit 40.2 % (37.0-47.0); Hemoglobin 13.8 g/dl (12.0-16.0); Imm Gran Abs Auto 0.03 X10*3/uL (0.00-0.03); Imm Gran Pct Auto 0.3 % (0.0-0.4); Lymphocytes Absolute Auto 1.5 X10*3/uL (1.2-4.9); Mean Corpuscular HGB Conc 34.3 g/dl (31.0-35.0); Mean Corpuscular Hemoglobin 29.1 pg (27.0-33.0); Mean Corpuscular Volume 84.8 fL (80.0-98.0); NRBC Abs Auto 0.000 X10*3/uL (0.0-0.012); NRBC Pct Auto 0.0 /100WBC (0.0-0.2); Platelet Count 400 X10*3/uL (160-400); Red Blood Count 4.74 X10*6/uL (4.20-5.50); White Blood Count 11.1 X10*3/uL (4.8-10.8)
[2025-08-27 06:21] LABS: Cannabinoid Screen Urine POSITIVE (Not Detect)
[2025-08-27] MEDS: Potassium Chloride ER 20 MEQ TAB.ER.PRT 40 MEQ PO (06:35)
[2025-08-27 06:40] LABS: Alanine Aminotransferase 22 U/L (0-31); Albumin Level 4.5 g/dL (3.5-5.0); Alkaline Phosphatase 92 U/L (39-117); Anion Gap 15 (12-20); Aspartate Amino Transferase 32 U/L (5-31); Blood Urea Nitrogen 24 mg/dL (9-16); Calcium 9.0 mg/dL (8.4-10.2); Carbon Dioxide 28 mmol/L (22-29); Chloride 97 mmol/L (96-108); Creatinine Clr Calc Pharmacy 82.2; Estimated Glomerular Filt Rate > 60; Magnesium 3.1 mg/dL (1.6-2.6); Potassium 3.6 mmol/L (3.3-5.1); Sodium 136 mmol/L (135-145); Total Protein 7.7 g/dL (6.5-8.0)
[2025-08-27 07:56] LABS: Free T4 (Free Thyroxine) 1.35 ng/dL (0.71-1.85)
[2025-08-27 08:00] VITALS: BMI 27.6
--- NOTE | 2025-08-27 11:16 | PHA.MEDREC ---
Addendum entered by Jair Linder RPh 08/27/25 11:47: Reviewed by [facility] Original Note: Pharmacy Consult ? Medication Reconciliation Pharmacy has completed the medication reconciliation. Spoke with pt and she confirmed she is not taking any medications at this time.
[2025-08-27 12:00] VITALS: BP 103/68; PULSE 59; RESP 17; O2SAT 99
--- NOTE | 2025-08-27 13:44 | HO.NURTONUR ---
19 y/o F, A/ox3, Full Code, Independent/Ambulatory Admit: Intractable nausea/vomiting and hyperemesis cyclical syndrome Came in from home for nausea/vomiting and generalized abdominal pain x2 days. Denies diarrhea/loose stools. 3 months post Labs: WBC 12.6 --> 11.1, Potassium 3.0 --> 3.0 --> 3.6, BUN 32 --> 26 --> 24, TSH 0.08, Free T4- pending, Utox + marijuana Reports: EKG- Sinus tach, QTc prolong- she is nsr on athletic monitor now, HR 60s-70s. 20g IV Left Forearm She got 1L NS, mag, benadryl, reglan, protonix IVP. They tried PO Potassium but she was unable to tolerate it. She got 1 bag of potassium prior and is now getting 4 bags total (currently on bag 3/4- for a total of 5 bags.) She also has two 500ml NS bolus ordered- first bolus is still going. Maintenance fluids are currently paused until the two bolus are done infusing- NS @100ml/hr. She has not vomited this AM- has been tolerating clear liquids. 1345pm: Pt tolerating PO intake, no vomiting. Potassium/Fluid bolus infused per DEC- maintenance fluids running, NS @100ml/hr. Ind/Ambulatory to bathroom.
--- NOTE | 2025-08-27 13:53 | P.DS_ITS ---
DS: Providers Provider Date of Service: 08/27/25 Date of admission: 08/27/25 05:24 Date of discharge: 08/27/25 Primary care physician: Unknown Physician DS: Diagnosis Discharge Diagnosis (1) Intractable nausea and vomiting: Status: Acute (2) Acute hypokalemia: Status: Acute (3) Long QT interval: Status: Acute (4) Abdominal pain: Status: Acute (5) Status post normal delivery in completely normal case: Status: Acute (6) GERD (gastroesophageal reflux disease): Status: Acute DS: Summary Hospital Course Hospital Course: Patient is a 19-year-old female with past medical history marijuana use reports last use was over 30 days ago, delivered first baby 3 months prior normal delivery and received Depo-Provera for control post delivery that lasts 3 months and is now 1 week overdue, presents to the emergency department with complaints of nausea, vomiting and significant abdominal pain that started this past Monday. Patient stated her last use of marijuana was over 30 days prior. Patient is not currently . Patient denied any abnormal vaginal discharge but is currently having her routine cycle. Intractable nausea and vomiting with abdominal pain/ marijuana use (toxicology screen positive)/ possible hyperemesis cyclical syndrome Urine tox +ve for marijuana Noted leukocytosis, resolved Pt is one week late for Depoprovera injection for BC, can cause shift in hormones noting pt is 3 months and cause N/V, consider [employer] consult Lactic acid 1.1, no current indication for CT abdomen IV fluids inpt, renal function stable Zofran PRN for N/V Capsaicin cream ordered topically lipase wnl. tolerating PO well sx resolved with supportive treatment. Acute hypokalemia secondary to vomiting resolved repleted Prolonged QTC Now corrected to 459 after magnesium and potassium supplementation GERD/esophagitis secondary to vomiting can take OTC Maalox as needed for sx control. 3 months/ delivered at [facility] Patient reports normal delivery, was induced, not Received Depo-Provera injection at time of discharge from and hospital Patient is now 1 week overdue for her next Depo-Provera injection UA -ve see ObGYm outpt. Time spent discussing smoking cessation with patient: more than 10 minutes Time Attestation Discharge Coordination Time (in mins): 40 mins Quality: Safe Use of Opioids Does Pt have an Active Cancer Diagnosis on the Problem List?: No Quality: Stroke Does the patient have a stroke diagnosis?: No Physical Exam Exam: Exam: A&Ox 3 abdomen sift non tender on RA, CTAB no TERRY Heart RRR Vital Signs: Vital Signs: Last Vital Signs Temp 98.0 F 08/27/25 06:09 Pulse 59 08/27/25 12:00 Resp 17 08/27/25 12:00 BP 103/68 08/27/25 12:00 Pulse Ox 99 08/27/25 12:00 O2 Del Method Room Air 08/27/25 12:00 BMI result Body Mass Index 27.6 DS: Data Data Completed and Pending Labs on day of discharge: Laboratory Results - last 24 hr 08/27/25 08/27/25 08/27/25 01:18 04:21 05:30 WBC 12.6 H RBC 5.61 H D Hgb 16.0 D Hct 45.5 D MCV 81.1 MCH 28.5 MCHC 35.2 H RDW 14.5 Plt Count 560 H MPV 9.1 L Immature Gran % (Auto) 0.4 Neut % (Auto) 80.3 H Lymph % (Auto) 10.9 L [facility] % (Auto) 7.5 Eos % (Auto) 0.8 Baso % (Auto) 0.1 Lymph # (Auto) 1.4 [facility] # (Auto) 1.0 Eos # (Auto) 0.1 Baso # (Auto) 0.0 Abs Immat Gran (auto) 0.05 H Absolute Neuts (auto) 10.1 H Absolute Nucleated RBC 0.000 Nucleated RBC % (auto) 0.0 Sodium 142 142 Potassium 3.0 L 3.0 L Chloride 92 L 98 Carbon Dioxide 31 H 32 H Anion Gap 22 H 15 BUN 32 H 26 H Creatinine 1.39 1.09 Estim Creat Clear Calc 58.5 74.6 Estimated GFR 48 > 60 Random Glucose 134 H 110 Lactic Acid Calcium 10.7 H 9.5 D Phosphorus 4.1 Magnesium 2.4 Total Bilirubin 0.6 Direct Bilirubin 0.2 AST 30 ALT 29 Alkaline Phosphatase 115 Total Protein 9.5 H Albumin 5.7 H Lipase 14 TSH Free T4 Beta HCG, Quant < 2 Urine Color Dark Yellow Urine Appearance Cloudy Urine pH 6.5 Ur Specific [place] >= 1.030 H Urine Protein 100 (2+) H Urine Glucose (UA) Negative Urine Ketones 40 Urine Blood Small (1+) H Urine Nitrite Negative Ur Leukocyte Esterase Trace H Urine RBC 3-5 H Urine WBC 0-5 Ur Squamous Epith Cells 3-5 Urine Bacteria None Seen Hyaline Casts >20 Urine Opiates Screen Not Detected Ur Buprenorphine Scrn Not Detected Ur Oxycodone Screen Not Detected Urine Methadone Screen Not Detected Urine Fentanyl Screen Not Detected Ur Barbiturates Screen Not Detected Ur Phencyclidine Scrn Not Detected Ur Amphetamines Screen Not Detected U Benzodiazepines Scrn Not Detected Urine Cocaine Screen Not Detected U Marijuana (THC) Screen POSITIVE H 08/27/25 05:57 WBC 11.1 H RBC 4.74 Hgb 13.8 Hct 40.2 MCV 84.8 MCH 29.1 MCHC 34.3 RDW 14.4 Plt Count 400 D MPV 9.3 L Immature Gran % (Auto) 0.3 Neut % (Auto) 75.8 H Lymph % (Auto) 13.6 L [facility] % (Auto) 10.1 Eos % (Auto) 0.1 Baso % (Auto) 0.1 Lymph # (Auto) 1.5 [facility] # (Auto) 1.1 Eos # (Auto) 0.0 Baso # (Auto) 0.0 Abs Immat Gran (auto) 0.03 Absolute Neuts (auto) 8.5 H Absolute Nucleated RBC 0.000 Nucleated RBC % (auto) 0.0 Sodium 136 Potassium 3.6 Chloride 97 Carbon Dioxide 28 Anion Gap 15 BUN 24 H Creatinine 0.99 Estim Creat Clear Calc 82.2 Estimated GFR > 60 Random Glucose 110 Lactic Acid 1.1 Calcium 9.0 Phosphorus Magnesium 3.1 H Total Bilirubin 0.5 Direct Bilirubin AST 32 H ALT 22 Alkaline Phosphatase 92 Total Protein 7.7 Albumin 4.5 Lipase TSH 0.08 L Free T4 1.35 Beta HCG, Quant Urine Color Urine Appearance Urine pH Ur Specific [place] Urine Protein Urine Glucose (UA) Urine Ketones Urine Blood Urine Nitrite Ur Leukocyte Esterase Urine RBC Urine WBC Ur Squamous Epith Cells Urine Bacteria Hyaline Casts Urine Opiates Screen Ur Buprenorphine Scrn Ur Oxycodone Screen Urine Methadone Screen Urine Fentanyl Screen Ur Barbiturates Screen Ur Phencyclidine Scrn Ur Amphetamines Screen U Benzodiazepines Scrn Urine Cocaine Screen U Marijuana (THC) Screen Discharge Plan Discharge Anticipated Discharge Date/Time: 08/27/25 13:46 Patient Disposition: Home, Self-Care Discharge Diagnosis: 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 Her symtpoms resol mihir with supportive treatment and she was able to tolerate PO without any issues. Pt uses marijuana and was counselled re marijuana use and associated cyclical vomiting syndrome. She is being discharged on Zofran as needed. Health Concerns: see above Plan of Treatment: see above Assessment: see above
[2025-08-27 13:59] VITALS: BP 103/68; PULSE 59; RESP 17; TEMP 36.7; O2SAT 99
== END 2025-08-27 14:02 | disposition home or self-care (01) | DRG 425 ==
LOC: HO.ED 05:03 → HO.EDOVER 05:28 → HO.S3 13:39 → HO.EDOVER 13:52
PROVIDERS: Admitting Provider Nurse Practitioner Family; Emergency Provider Emergency Medicine; Visit Provider Hospitalist
DX: E87.6 Hypokalemia (principal); F12.90 Cannabis use, unspecified, uncomplicated; R11.2 Nausea with vomiting, unspecified; R94.31 Abnormal electrocardiogram [ECG] [EKG]; K21.00 Gastro-esophageal reflux disease with esophagitis, without bleeding
CPT/HCPCS: 36415; 80048; 80053; 80076; 80307; 81001; 83605; 83690; 83735; 84100; 84439; 84443; 84702; 85025; 93005; 99221; 99285; J0737; J1200; J1308; J1885; J2470; J2765; J3475; J3480

== ENCOUNTER → 2025-08-27 01:06 | Outpatient (BNV) | payer OTHER, SELFPAY | PROVIDERS: Admitting Provider Nurse Practitioner Family; Emergency Provider Emergency Medicine; Visit Provider Internal Medicine | DX: R00.0 Tachycardia, unspecified (principal); I51.7 Cardiomegaly; I49.9 Cardiac arrhythmia, unspecified; I45.10 Unspecified right bundle-branch block | CPT/HCPCS: 93010 ==

== ENCOUNTER → 2025-08-27 05:24 | Outpatient (BNV) | payer OTHER, SELFPAY | PROVIDERS: Admitting Provider Nurse Practitioner Family; Emergency Provider Emergency Medicine; Visit Provider Hospitalist | DX: R11.2 Nausea with vomiting, unspecified (principal); E87.6 Hypokalemia; R94.31 Abnormal electrocardiogram [ECG] [EKG]; R10.84 Generalized abdominal pain; O80 Encounter for full-term uncomplicated delivery; K21.9 Gastro-esophageal reflux disease without esophagitis | CPT/HCPCS: 99234; 99499 ==

== ENCOUNTER 2025-08-29 20:06 | Emergency (ER) | payer OTHER, SELFPAY ==
--- OUTSIDE RECORDS SUMMARY | 2025-08-26 07:19 | XMS_ITS | Continuity of Care Document ---
Author Organization [facility] ter Address [address] [place] [id number]- Care Team Providers Care Chief Wellness Officer Name Role Phone Not on Staff, PCP Primary Care Physician Unavail able Encounter [facility] Date(s): 08/26/25 - 08/26/[address] [address]- Discharge Disposition: A-D/C Walkout Attending Physician: Not on Staff, Attending MD Admitting Physician: Not on Staff, Admitting MD Referring Physician: Not on Staff, Referring MD Encounter Type: Disch ES Allergies, Adverse Reactions, Alerts No Known Allergies Immunizations Given and Recorded Vaccine Date Status Refusal Reason tetanus/diphtheria/pertussis, acel(Tdap) 03/06/25 Given tetanus/diphtheria/pertussis, acel(Tdap) 08/29/16 Recorded influenza virus vaccine, inactivated 10/20/21 Brandon rded influenza virus vaccine, inactivated 10/17/19 Brandon rded influenza virus vaccine, inactivated 10/04/18 Brandon rded influenza virus vaccine, inactivated 09/29/17 Brandon rded influenza virus vaccine, inactivated 08/29/16 Brandon rded influenza virus vaccine, inactivated 08/26/15 Brandon rded influenza virus vaccine, inactivated 07/03/14 Brandon rded influenza virus vaccine, inactivated 12/02/10 Brandon rded influenza virus vaccine, inactivated 09/23/08 Brandon rded SARS-CoV-2 (COVID-19) mRNA BNT-162b2 vac 09/14/21 Recorded SARS-CoV-2 (COVID-19) mRNA BNT-162b2 vac 09/11/21 Recorded SARS-CoV-2 (COVID-19) mRNA BNT-162b2 vac 09/02/21 Recorded SARS-CoV-2 (COVID-19) mRNA BNT-162b2 vac 08/12/21 Recorded Meningococcal Conjugate Vaccine 10/19/20 Recorded Meningococcal Conjugate Vaccine 08/29/16 Recorded Human Papillomavirus Vaccine 09/29/17 Recorded Human Papillomavirus Vaccine 08/29/16 Recorded Varicella Virus Vaccine 09/10/09 Recorded Varicella Virus Vaccine 10/24/05 Recorded Poliovirus Vaccine, Inactivated 09/10/09 Recorded Measles/Mumps/Rubella Virus Vaccine 09/10/09 Recor ded Measles/Mumps/Rubella Virus Vaccine 06/12/07 Recor ded diphtheria/tetanus/pertussis, acel(DTaP) 09/10/09 Recorded Diphth/HepB/Pertussis,Acel/Polio/Tet 07/27/05 Brandon rded Diphth/HepB/Pertussis,Acel/Polio/Tet 04/14/05 Brandon rded Diphth/HepB/Pertussis,Acel/Polio/Tet 04 Brandon rded hepatitis B pediatric vaccine 04 Recorded Medications ferrous sulfate 325 mg oral tablet 1 tablet = 325 mg, By Mouth, Daily, # 30 tablet, 6 Refills, Maintenance, 03/21/25 10:40:00 AM EDT, [facility]pharm[facility] #[id number], Partial fill upon patient request if the prescription is for a schedule II opioiddrug., 158, cm, 03/20/25 11:41:00 EDT, Height, 55, kg, 12/26/24 17:55:00 EST, Dry Weight Start Date: 03/21/25 Stop Date: 10/17/25 Status: Ordered Medication Dispense Status: Completed Quantity: 30.0 Unit: tablet Total Allowed Fills: 7 Fills Dispensed: 0 Indications: Anemia complicating , unspecified trimester; omeprazole 40 mg oral enteric coated capsule 1 capsule, By Mouth, 2 times a day, INSTR:30 MIN BEFORE A MEAL, # 180 capsule, 2 Refills, Maintenance, 06/17/25 7:56:00 AM EDT, [facility] STORE [id number], 158, cm, 05/22/25 15:53:00 EDT, Height, 69, kg, 05/18/25 21:11:00 EDT, Dry Weight Start Date: 06/17/25 Status: Ordered Medication Dispense Status: Completed Quantity: 180.0 Unit: capsule Total Allowed Fills: 1 Fills Dispensed: 0 Multivitamins with Folic Acid 1 mg oral tablet 1 tablet, By Mouth, Daily, # 90 tablet, 2 Refills, Maintenance, 01/09/25 12:41:00 PM EDT, Tablet, [id number], Partial fill upon patient request if the prescription is for a schedule II opioid drug., 1 tablet By Mouth Daily, 158, cm, 01/09/25 12:30:00 EDT, Height, 55, kg, 12/26/24 17:55:00 EST, Dry Weight Start Date: 01/09/25 Status: Ordered Medication Dispense Status: Completed Quantity: 90.0 Unit: tablet Total Allowed Fills: 3 Fills Dispensed: 0 Indications: Encounter for supervision of normal , unspecified, unspecified trimester; Mental Status Mental Status Assessment Assessment Assessment Component Result Effecti ve Date [place] coma score total 15 Problem List Condition Confirmation Course Effective Dates Status Health St atus Informant Chlamydia Confirmed 08/2024 Active Epigastric pain Confirmed Active Nausea and vomiting during Confirmed Active Vital Signs Most recent to oldest [Reference Range]: 1 Height 158 cm (08/26/25 5:21 AM) Weight 59.5 kg (08/26/25 5:21 AM) Oxygen Saturation [94-100 %] 96 % (08/26/25 5:21 AM) Pulse Rate [55-90 bpm] 60 bpm (08/26/25 5:21 AM) Body Mass Index [18.5-24.99 kg/m2] 23.83 kg/m2 (08/26/25 5:21 AM) Blood Pressure [90-138/55-84 mm Hg] 122/ 86mm Hg (08/26/25 5:21 AM) Respiratory Rate [16-30 br/min] 17 br/mi n (08/26/25 5:21 AM) Temperature [96.8-100.4 DegF] 98 DegF (08/26/25 5:21 AM) Mode of Delivery (Oxygen) Room air (08/26/25 5:21 AM) Blood pressure sites Arm, right (08/26/25 5:21 AM) Temperature Route Oral (08/26/25 5:21 AM) Dry Weight 59.5 kg (08/26/25 5:21 AM) Social History Social History Type Response Sexual Sexually involved in last 6 months: Yes. Gender identity: Female. Smoking Status Never (less than 100 in lifetime) entered on: 08/08/24 Sex Sex Representation Female (finding) Status Not Patient Care team information Care Team Personnel Name: Julien Davenport RN Position: [facility] RN Member Role: Primary Care Nurse Name: Zoya Gonzales RN Position: S RN Member Role: Primary Care Nurse Name: Shayla Bolanos RN Position: [facility] RN Member Role: Primary Care Nurse Name: Ryann Wilkinson RN Position: [facility] RN Member Role: Primary Care Nurse Name: Not on Staff, PCP Position: [facility] Physician (General Medicine) Member Role: PCP Name: Molly Holguin RN Position: [facility] RN Member Role: Primary Care Nurse Name: Quynh Atkinson RN Position: [facility] RN Member Role: Primary Care Nurse Name: Dora Cherry RN Position: [facility] RN Member Role: Primary Care Nurse Name: Azucena Cochran LPN Position: [facility] RN Member Role: Primary Care Nurse Care Team Related Persons Name: VALERIA DELEON Name: DARIUS PAL Name: KT PAL Insurance Providers Guarantor name: SUJATA Health Plan Information #: 1 Payer: [employer] Payer Identifier: SUJATA Member Number: [id number] Group Number: [id number] Subscriber Identifier: [id number] Relationship to Subscriber: self Coverage Type: MEDICAID Coverage Verification Date: SUJATA Telecom: SUJATA Address:
--- OUTSIDE RECORDS SUMMARY | 2025-08-28 13:38 | XMS_ITS | Encounter Summary ---
Author Organization [facility] Address [address] [place] [address] Care Team Providers Care Asphalt Paver Name Role Phone Shane Licona MD Primary Care Provider [phone] Reason for Visit * Reason Comments Abdominal Pain Encounter Details Date Type Department Care Team (Late st Contact Info) Description 08/28/2025 1:38 PM EDT - 08/28/2025 7:[address] [facility] [address] [place] [id number] Rodolfo Acevedo MD [address] [address] Gastroenteritis (Primary Dx); Nausea and vomiting, unspecified vomiting type Discharge Disposition: Home or Self Care Social History Tobacco Use Types Packs/Day Years [...] not to disclose 2024 1:34 AM EST documented as of this encounter Last Filed Vital Signs Vital Sign Reading Time Taken Comments Blood Pressure 148/101 08/28/2025 2:35 PM EDT Pulse 78 08/28/2025 2:35 PM EDT Temperature 36.8 C (98.2 F) 08/28/2025 2:35 PM EDT Respiratory Rate 16 08/28/2025 2:35 PM EDT Oxygen Saturation 98% 08/28/2025 2:35 PM EDT Inhaled Oxygen Concentration - - Weight 63.5 kg (140 lb) 08/28/2025 12:36 PM EDT Height 157.5 cm (5' 2 ) 08/28/2025 12:36 PM EDT Body Mass Index 25.61 08/28/2025 12:36 PM EDT documented in this encounter Functional Status * Calculated C-SSRS Risk Score (Lifetime/Recent) Answer Date of Assessment Author No Risk Indicated 08/28/2025 12:18 PM EDT Ingris James RN * [place] Suicide Severity Rating Scale (Screener/Recent Self-Report) Question Answer Date of Assessment Author 1. Wish to be (Past 1 Month) No 12:18 PM EDT Ingris James RN 2. Non-Specific Active Suici agustin Thoughts (Past 1 Month) No 08/28/2025 12:18 PM EDT Ingris James RN 6. Suicidal Behavior (Lifetime) No 12:18 PM EDT Ingris James RN documented as of this encounter Discharge Instructions * Discharge Instructions* Tevin Romo MD - 08/28/2025 5:21 PM EDT If your symptoms continue please follow-up with your primary physician stop smoking marijuana. * Attachments The following attachments cannot be sent through Care Everywhere. * Cannabinoid Hyperemesis Syndrome (Italian) * Nausea and Vomiting (Italian) * Clear Liquid Diet: General Info (Italian) documented in this encounter Medications at Time of Discharge capsaicin (ZOSTRIX) 0.075 % cream Apply topically 3 (three) times a day. Apply to abdomen for nausea and vomiting related to cannabis use 28.3 g 08/28/2025 famotidine (PEPCID) 20 mg tablet Take 1 tablet (20 mg total) by mouth 2 (two) times a day for 15 days. 30 tablet 08/28/2025 5 haloperidoL (HALDOL) 5 mg tablet Take 1 tablet (5 mg total) by mouth 4 (four) times a day if needed (Nausea and vomiting or abdominal pain). 120 each 08/28/2025 5 ondansetron ODT (ZOFRAN-ODT) 4 mg disintegrating tablet Let 1 tablet dissolve under the tongue three times daily as needed for nausea or vomiting. 10 tablet 08/28/2025 5 documented as of this encounter Ordered Prescriptions Prescription Sig Dispense Quantity Refills Last Filled Start Date End Date capsaicin (ZOSTRIX) 0.075 % cream Apply topically 3 (three) times a day. Apply to abdomen for nausea and vomiting related to cannabis use 28.3 g 08/28/2025 6 haloperidoL (HALDOL) 5 mg tablet Take 1 tablet (5 mg total) by mouth 4 (four) times a day if needed (Nausea and vomiting or abdominal pain). 120 each 08/28/2025 5 famotidine (PEPCID) 20 mg tablet Take 1 tablet (20 mg total) by mouth 2 (two) times a day for 15 days. 30 tablet 08/28/2025 5 ondansetron ODT (ZOFRAN-ODT) 4 mg disintegrating tablet Let 1 tablet dissolve under the tongue three times daily as needed for nausea or vomiting. 10 tablet 08/28/2025 5 documented in this encounter Discharge Disposition Disposition Code Departure Means Destination Comment s Home or Self Care documented in this encounter Progress Notes * Ingris James RN - 08/28/2025 12:14 PM EDT Pt c/o abd pain that started on Monday +nausea and vomiting documented in this encounter Plan of Treatment Not on file documented as of this encounter Procedures Procedure Name Priority Date/Time Associated Diagnosis Comments URINALYSIS WITH REFLEX MICROSCOPIC STAT 08/28/2025 4:20 PM EDT URINALYSIS WITH REFLEX MICROSCOPIC STAT 08/28/2025 4:20 PM EDT DRUG ABUSE SCREEN 8A PANEL, URINE STAT 08/28/2025 4:[address] ABDOMEN PELVIS W CONTRAST STAT 08/28/2025 2:55 PM EDT CBC WITH AUTO DIFFERENTIAL STAT 08/28/2025 12:48 PM EDT CBC AND DIFFERENTIAL STAT 08/28/2025 12:48 PM EDT HCG, SERUM, QUALITATIVE STAT Add-on 08/28/2025 12:48 PM EDT MAGNESIUM STAT Add-on 08/28/2025 12:48 PM EDT LIPASE STAT 08/28/2025 12:48 PM EDT COMPREHENSIVE METABOLIC PANEL STAT 08/28/2025 12:48 PM EDT documented in this encounter Results * (ABNORMAL) Urinalysis with reflex microscopic (08/28/2025 4:20 PM EDT) Specific [place] Urine >1.045(H) 1.003 - 1.030 LAB URINALYSIS - AUTOMATED METHOD 08/28/2025 4:51 PM EDT [facility] pH, Urine 8.0 5.0 - 8.0 pH LAB URINALYSIS - AUTOMATED METHOD 08/28/2025 4:51 PM EDT [facility] Leukocytes, Urine Negative Negative LAB URINALYSIS - AUTOMATED METHOD 08/28/2025 4:51 PM EDT [facility] Nitrite, Urine Negative Negative LAB URINALYSIS - AUTOMATED METHOD 08/28/2025 4:51 PM EDT [facility] Protein, Urine Negative <=Trace mg/dL LAB URINALYSIS - AUTOMATED METHOD 08/28/2025 4:51 PM EDT [facility] Glucose, Urine Negative Negative mg/dL LAB URINALYSIS - AUTOMATED METHOD 08/28/2025 4:51 PM T [facility] Ketones, Urine 40(A) Negative mg/dL LAB URINALYSIS - AUTOMATED METHOD 08/28/2025 4:51 PM [facility] Urobilinogen , Urine 1.0 0.2 - 1.0 mg/dL LAB URINALYSIS - AUTOMATED METHOD 08/28/2025 4:51 PM [facility] Bilirubin, Urine Negative Negative LAB URINALYSIS - AUTOMATED METHOD 08/28/2025 4:51 PM [facility] Blood, Urine Large(A) Negative LAB URINALYSIS - AUTOMATED METHOD 08/28/2025 4:51 PM [facility] RBC, Urine 28.6(H) 0 - 4 /HPF LAB URINALYSIS - AUTOMATED METHOD 08/28/2025 4:51 PM [facility] WBC, Urine 1.9 0 - 4 /HPF LAB URINALYSIS - AUTOMATED METHOD 08/28/2025 4:51 PM [facility] Squamous Epithelial, Urine 20 0 - 60 /LPF LAB URINALYSIS - AUTOMATED METHOD 08/28/2025 4:51 PM [facility] Bacteria, Urine Negative Negative /HPF LAB URINALYSIS - AUTOMATED METHOD 08/28/2025 4:51 PM [facility] Hyaline Casts, Urine 0.8 0 - 3 /LPF LAB URINALYSIS - AUTOMATED METHOD 08/28/2025 4:51 PM [facility] Urine Urine specimen obtained by clean catch procedure / Unknown Non-blood Collection / Unknown 08/28/2025 4:20 PM EDT 08/28/2025 4:39 PM EDT us Rodolfo Acevedo MD LAB URINE ORDERABLES Final Result [facility] [address] [place] [address], [place] [phone] * (ABNORMAL) Drug abuse screen 8a panel, urine (08/28/2025 4:20 PM EDT) [facility] Signature Amphetamine Screen, Ur Negative Negative [facility] Comment:Certain OTC medicati ons containing ephedrine, phenylephrine, pseudoephedrine and phenylpropanolamine can cause false positive results. Barbiturate Screen, Ur Negative Negative [facility] 5 5[facility] Benzodiazepine Screen, Ur Negative Negative LAB CHEMISTRY METHOD 5 5:00 PM [facility] Cocaine Screen, Ur Negative Negative LAB CHEMISTRY METHOD 5 5:00 PM [facility] Opiate Screen, Ur Positive(A ) Negative LAB CHEMISTRY METHOD 5 5:00 PM [facility] Cannabinoid (THC) Screen, Ur Positive(A ) Negative LAB CHEMISTRY METHOD 5 5:00 PM [facility] Comment:Specimens from patie nts taking pantoprazole sodium (Protonix) have been shown to produce false positive results. Oxycodone Screen, Ur Negative Negative LAB CHEMISTRY METHOD 5 5:00 PM [facility] Fentanyl, Ur Negative Negative LAB CHEMISTRY METHOD 5 5:00 PM [facility] Urine Urine specimen obtained by clean catch procedure / Unknown Non-blood Collection / Unknown 08/28/2025 4:20 PM EDT 08/28/2025 4:39 PM EDT [facility] - 08/28/2025 5:00 PM EDT Assay cutoffs: Amphetamines 1000 ng/mL Barbiturates 200 ng/mL Benzodiazepines 200 ng/mL Cocaine 300 ng/mL Fentanyl 1 ng/mL Opiates 300 ng/mL Oxycodone 100 ng/mL THC 50 ng/mL Semi-quantitative assay for screening purposes only. Unconfirmed screening result should not be used for non-medical purposes. *ALTERNATE METHOD CONFIRMATION DONE UPON REQUEST ONLY* Rodolfo Acevedo MD LAB URINE ORDERABLES Final Result [facility] [address] [place] [address], * CT Abdomen Pelvis w Contrast (08/28/2025 2:55 PM EDT) Anatomical Region Laterality Modality Body Computed Tomogra phy 08/28/2025 4:11 PM EDT Impressions 08/28/2025 4:13 PM EDT Findings could represent sequelae of gastroenteritis. Otherwise no infectious or inflammatory process in the abdomen or pelvis. -------- FINAL REPORT -------- Dictated By: Roseline Tinsley Dictated Date: 08/28/2025 16:11 ET Assigned Physician: Roseline Tinsley Reviewed and Electronically Signed By: Roseline Tinsley Signed Date: 08/28/2025 16:13 ET Workstation ID: [id number] Transcribed By: Self Edit Transcribed Date: 08/28/2025 16:11 ET Narrative 08/28/2025 4:13 PM EDT PROCEDURE: CT ABDOMEN/PELVIS WITH CONTRAST INDICATION: Abdominal pain, acute, no prior medical history TECHNIQUE: CT of the abdomen and pelvis following the intravenous administration of 90cc Isovue 370. Multiplanar reformats. The examination was performed utilizing dose reduction techniques. Total DLP 416 COMPARISON: No priors available. FINDINGS: LOWER THORAX: Lung bases are clear. HEPATOBILIARY: No focal liver lesions. No cholelithiasis or biliary duct dilatation. SPLEEN: No focal lesion. PANCREAS: No focal mass or ductal dilatation. ADRENALS: No nodules. KIDNEYS/URETERS: No hydronephrosis, stones, or solid mass. PELVIC ORGANS/BLADDER: Unremarkable. PERITONEUM / RETROPERITONEUM: No ascites or free air. No retroperitoneal lymphadenopathy. VESSELS: Scattered atherosclerotic calcifications throughout the aorta and its major branches. No aneurysm. GI TRACT: There is fluid in thickened/decompressed small bowel loops as well as the cecum which can be sequelae of gastroenteritis. Thickening of the transverse colon presumably related to underdistention. BONES AND SOFT TISSUES: Scattered degenerative changes seen throughout the bones. Soft tissues are unremarkable. Procedure Note Roseline Tinsley MD - 08/28/2025 PROCEDURE: CT ABDOMEN/PELVIS WITH CONTRAST INDICATION: Abdominal pain, acute, no prior medical history TECHNIQUE: CT of the abdomen and pelvis following the intravenousadministration of 90cc Isovue 370. Multiplanar reformats. The examinationwas performed utilizing dose reduction techniques. Total DLP 416 COMPARISON: No priors available. FINDINGS: LOWER THORAX: Lung bases are clear. HEPATOBILIARY: No focal liver lesions. No cholelithiasis or biliary ductdilatation. SPLEEN: No focal lesion. PANCREAS: No focal mass or ductal dilatation. ADRENALS: No nodules. KIDNEYS/URETERS: No hydronephrosis, stones, or solid mass. PELVIC ORGANS/BLADDER: Unremarkable. PERITONEUM / RETROPERITONEUM: No ascites or free air. No retroperitoneallymphadenopathy. VESSELS: Scattered atherosclerotic calcifications throughout the aorta andits major branches. No aneurysm. GI TRACT: There is fluid in thickened/decompressed small bowel loops aswell as the cecum which can be sequelae of gastroenteritis. Thickening ofthe transverse colon presumably related to underdistention. BONES AND SOFT TISSUES: Scattered degenerative changes seen throughout thebones. Soft tissues are unremarkable. IMPRESSION: Findings could represent sequelae of gastroenteritis. Otherwise noinfectious or inflammatory process in the abdomen or pelvis. -------- FINAL REPORT -------- Dictated By: Roseline Tinsley Dictated Date: 08/28/2025 16:11 ET Assigned Physician: Roseline Tinsley Reviewed and Electronically Signed By: Roseline Tinsley Signed Date: 08/28/2025 16:13 ET Workstation ID: [id number] Transcribed By: Self Edit Transcribed Date: 08/28/2025 16:11 ET us Rodolfo Acevedo MD [facility] PROCEDURES Final Res ult * Magnesium (08/28/2025 12:48 PM EDT) Magnesium 2.5 1.9 - 2.6 mg/dL LAB CHEMISTRY METHOD 08/28/2025 2:04 PM EDT [facility] Blood Venous blood specimen / Unknown Venipuncture / Unknown 08/28/2025 12:48 PM EDT 08/28/2025 1:19 PM EDT Rodolfo Acevedo MD LAB BLOOD ORDERABLES Final Result Performing Organization Address City/[facility]/ZIP Co de Phone Number [facility] [address] [place] [address], [place] [phone] * hCG, serum, qualitative (08/28/2025 12:48 PM EDT) Pathologist [facility] hCG Qual Negative Negative 08/28/2025 2:16 PM EDT [facility] Blood Venous blood specimen / Unknown Venipuncture / Unknown 08/28/2025 12:48 PM EDT 08/28/2025 1:19 PM EDT Rodolfo Acevedo MD LAB BLOOD ORDERABLES Final Result Performing Organization Address City/[facility]/ZIP Co de Phone Number [facility] [address] [place] [address], [place] [phone] * (ABNORMAL) CBC auto differential (08/28/2025 12:48 PM EDT) WBC 10.3 4.8 - 10.8 K/[facility] LAB HEMETOLOGY METHOD 08/28/2025 1:59 PM EDT [facility] RBC 5.00(H) 3.80 - 4.80 M/[facility] LAB HEMETOLOGY METHOD 08/28/2025 1:59 PM EDT [facility] Hemoglobin 14.4 11.5 - 16.0 g/dL LAB HEMETOLOGY METHOD 08/28/2025 1:59 PM EDT [facility] Hematocrit 42.9 35.0 - 47.0 % LAB HEMETOLOGY METHOD 08/28/2025 1:59 PM [facility] MCV 86.0 79.0 - 98.0 FL LAB HEMETOLOGY METHOD 08/28/2025 1:59 PM [facility] MCH 28.9 27.0 - 32.0 pcg LAB HEMETOLOGY METHOD 08/28/2025 1:59 PM [facility] MCHC 33.6 32.0 - 37.0 g/dL LAB HEMETOLOGY METHOD 08/28/2025 1:59 PM [facility] RDW 14.2 11.0 - 15.0 % LAB HEMETOLOGY METHOD 08/28/2025 1:59 PM [facility] Platelets 451(H) 130 - 400 K/mcL LAB HEMETOLOGY METHOD 08/28/2025 1:59 PM [facility] MPV 10.5 7.0 - 11.0 FL LAB HEMETOLOGY METHOD 08/28/2025 1:59 PM [facility] NRBC 0.0 <1.0 % LAB HEMETOLOGY METHOD 08/28/2025 1:59 PM [facility] NRBC Absolute 0.00 <0.10 K/mcL LAB HEMETOLOGY METHOD 08/28/2025 1:59 PM [facility] Neutrophils Relative 79.9 % LAB HEMETOLOGY METHOD 08/28/2025 1:59 PM [facility] Lymphocytes Relative 10.8 % LAB HEMETOLOGY METHOD 08/28/2025 1:59 PM [facility] Monocytes Relative 8.7 % LAB HEMETOLOGY METHOD 08/28/2025 1:59 PM [facility] Eosinophils Relative 0.1 % LAB HEMETOLOGY METHOD 08/28/2025 1:59 PM [facility] Basophils Relative 0.2 % LAB HEMETOLOGY METHOD 08/28/2025 1:59 PM EDT [facility] Immature Granulocytes Relative 0.3 % LAB HEMETOLOGY METHOD 08/28/2025 1:59 PM EDT [facility] Neutrophils Absolute 8.23(H) 1.50 - 7.00 K/mcL LAB HEMETOLOGY METHOD 08/28/2025 1:59 PM EDT [facility] Lymphocytes Absolute 1.11 1.00 - 5.00 K/mcL LAB HEMETOLOGY METHOD 08/28/2025 1:59 PM EDT [facility] Monocytes Absolute 0.90 0.20 - 1.00 K/mcL LAB HEMETOLOGY METHOD 08/28/2025 1:59 PM EDT [facility] Eosinophils Absolute 0.01 0.00 - 0.50 K/mcL LAB HEMETOLOGY METHOD 08/28/2025 1:59 PM EDT [facility] Basophils Absolute 0.02 0.00 - 0.20 K/mcL LAB HEMETOLOGY METHOD 08/28/2025 1:59 PM EDT [facility] Immature Granulocytes Absolute 0.03 0.00 - 0.03 K/mcL LAB HEMETOLOGY METHOD 08/28/2025 1:59 PM EDT [facility] Blood Venous blood specimen / Unknown Venipuncture / Unknown 08/28/2025 12:48 PM EDT 08/28/2025 1:19 PM EDT us Tevin Romo MD LAB BLOOD ORDERABLES Final Resul t [facility] [address] [place] [address], * Lipase (08/28/2025 12:48 PM EDT) Lipase 21 13 - 75 unit/L LAB CHEMISTRY METHOD 08/28/2025 2:04 PM EDT [facility] Blood Venous blood specimen / Unknown Venipuncture / Unknown 08/28/2025 12:48 PM EDT 08/28/2025 1:19 PM EDT us Tevin Romo MD LAB BLOOD ORDERABLES Final Resul t [facility] [address] [place] [address], [place] [phone] * (ABNORMAL) Comprehensive metabolic panel (08/28/2025 12:48 PM EDT) Sodium 135 133 - 145 mmol/L LAB CHEMISTRY METHOD 08/28/2025 2:08 PM [facility] Potassium 3.9 3.5 - 5.5 mmol/L LAB CHEMISTRY METHOD 08/28/2025 2:08 PM [facility] Chloride 101 96 - 110 mmol/L LAB CHEMISTRY METHOD 08/28/2025 2:08 PM [facility] CO2 26 21 - 32 mmol/L LAB CHEMISTRY METHOD 08/28/2025 2:08 PM [facility] Anion Gap 8 3 - 11 LAB CHEMISTRY METHOD 08/28/2025 2:08 PM [facility] Glucose 88 70 - 100 mg/dL LAB CHEMISTRY METHOD 08/28/2025 2:08 PM [facility] BUN 18 5 - 25 mg/dL LAB CHEMISTRY METHOD 08/28/2025 2:08 PM [facility] Creatinine 0.88 0.50 - 1.10 mg/dL LAB CHEMISTRY METHOD 08/28/2025 2:08 PM [facility] eGFR 97 >=60 mL/min/1. 73m2 LAB CHEMISTRY METHOD 08/28/2025 2:08 PM [facility] Comment:Calculation based on the Chronic Kidney Disease Epidemiology Collaboration (CKD-EPI) equation refit without adjustment for race. BUN/Creatinine Ratio 20.5 LAB CHEMISTRY METHOD 08/28/2025 2:08 PM EDT [facility] Calcium 9.7 8.5 - 10.5 mg/dL LAB CHEMISTRY METHOD 08/28/2025 2:08 PM T [facility] AST (SGOT) 70(H) 10 - 42 unit/L LAB CHEMISTRY METHOD 08/28/2025 2:08 PM [facility] ALT (SGPT) 57 10 - 60 unit/L LAB CHEMISTRY METHOD 08/28/2025 2:08 PM EDT [facility] Alkaline Phosphatase 107 42 - 121 unit/L LAB CHEMISTRY METHOD 08/28/2025 2:08 PM T [facility] Total Protein 7.6 6.0 - 8.0 g/dL LAB CHEMISTRY METHOD 08/28/2025 2:08 PM [facility] Albumin 4.2 3.2 - 5.0 g/dL LAB CHEMISTRY METHOD 08/28/2025 2:08 PM [facility] Total Bilirubin 0.7 0.0 - 1.4 mg/dL LAB CHEMISTRY METHOD 08/28/2025 2:08 PM [facility] Blood Venous blood specimen / Unknown Venipuncture / Unknown 08/28/2025 12:48 PM EDT 08/28/2025 1:19 PM EDT us Tevin Romo MD LAB BLOOD ORDERABLES Final Resul t [facility] [address] [place] [address], documented in this encounter Visit Diagnoses Diagnosis Gastroenteritis- Primary Other and unspecified noninfectious gastroenteritis and colitis Nausea and vomiting, unspecified vomiting type documented in this encounter Administered Medications Inactive Administered Medications - up to 3 most recent administrations Medication Order MAR Action Action Date Dose Rate Site aluminum-magnesium hydroxide-simethicone (MAALOX) 200-200-20 mg/5 mL suspension 30 mL 30 mL, oral, Once, On Brittni 08/28/25 at 1637, For 1 dose Given 08/28/2025 5:17 PM EDT 30 mL famotidine (PF) (PEPCID) injection 20 mg 20 mg, intravenous, Administer over 2 Minutes, Once, On Brittni 08/28/25 at 1242, For 1 dose Given 08/28/2025 2:06 PM EDT 20 mg haloperidol lactate (HALDOL) injection 2 mg 2 mg, intramuscular, Once, On Brittni 08/28/25 at 1805, For 1 dose, May be ordered via either intramuscular or intravenous route. If ordered IV, maximum of 5 mg/minute. Given 08/28/2025 6:22 PM EDT 2 mg Right Deltoid iopamidoL (ISOVUE-370) 370 mg iodine /mL (76 %) injection 90 mL 90 mL, intravenous, Once in imaging, Starting on Brittni 08/28/25 at 1447, For 1 dose Given 08/28/2025 2:51 PM EDT 90 mL LORazepam (ATIVAN) injection 1 mg 1 mg, intravenous, Once, On Brittni 08/28/25 at 1636, For 1 dose, Prior to IV use, lorazepam injection should be DILUTED with an equal volume of compatible solution; Rate of administration should NOT exceed 2 mg/min. Given 08/28/2025 5:17 PM EDT 1 mg morphine injection 4 mg 4 mg, intravenous, Once, On Brittni 08/28/25 at 1242, For 1 dose Given 08/28/2025 2:06 PM EDT 4 mg ondansetron (PF) (ZOFRAN) injection 4 mg 4 mg, intravenous, Once, On Brittni 08/28/25 at 1242, For 1 dose Given 08/28/2025 2:06 PM EDT 4 mg sodium chloride 0.9 % bolus 1,000 mL 1,000 mL, intravenous, at 1,000 mL/hr, Administer over 1 Hours, Once, On Brittni 08/28/25 at 1243, For 1 dose New Bag 08/28/2025 2:05 PM EDT 1,000 mL 1000 mL/hr sodium chloride 0.9 % flush 10 mL 10 mL, intravenous, Once, On Brittni 08/28/25 at 1449, For 1 dose Given 08/28/2025 2:51 PM EDT 10 mL documented in this encounter Active and Recently Administered Medications Times are shown in EDT. Scheduled Medication Order 08/26/2025 08/27/2025 08/28/2025 aluminum-magnesium hydroxide-simethicone (MAALOX) 200-200-20 mg/5 mL suspension 30 mL (COMPLETED) 30 mL, oral, Once, On Brittni 08/28/25 at 1637, For 1 dose 1716 (Given - Provid er: Martha Patrick RN) famotidine (PF) (PEPCID) injection 20 mg (COMPLETED) 20 mg, intravenous, Administer over 2 Minutes, Once, On Brittni 08/28/25 at 1242, For 1 dose 140 (Given - Provid er: Martha Patrick RN - Comment: first interaction with pt) haloperidol lactate (HALDOL) injection 2 mg (COMPLETED) 2 mg, intramuscular, Once, On Brittni 08/28/25 at 1805, For 1 dose, May be ordered via either intramuscular or intravenous route. If ordered IV, maximum of 5 mg/minute. 1821 (Given - Provid er: Martha Patrick RN) iopamidoL (ISOVUE-370) 370 mg iodine /mL (76 %) injection 90 mL (COMPLETED) 90 mL, intravenous, Once in imaging, Starting on Brittni 08/28/25 at 1447, For 1 dose 145 (Given - Provid er: Jyoti Hogan) LORazepam (ATIVAN) injection 1 mg (COMPLETED) 1 mg, intravenous, Once, On Brittni 08/28/25 at 1636, For 1 dose, Prior to IV use, lorazepam injection should be DILUTED with an equal volume of compatible solution; Rate of administration should NOT exceed 2 mg/min. 1716 (Given - Provid er: Martha Patrick RN) morphine injection 4 mg (COMPLETED) 4 mg, intravenous, Once, On Brittni 08/28/25 at 1242, For 1 dose 1406 (Given - Provid er: Martha Patrick RN - Comment: first interaction with pt) ondansetron (PF) (ZOFRAN) injection 4 mg (COMPLETED) 4 mg, intravenous, Once, On Brittni 08/28/25 at 1242, For 1 dose 1406 (Given - Provid er: Martha Patrick RN - Comment: first interaction with pt) sodium chloride 0.9 % bolus 1,000 mL (COMPLETED) 1,000 mL, intravenous, at 1,000 mL/hr, Administer over 1 Hours, Once, On Brittni 08/28/25 at 1243, For 1 dose 1405 (New Bag - Prov ider: Martha Patrick RN)1608 (Stopped - Provider: Martha Patrick RN) sodium chloride 0.9 % flush 10 mL (COMPLETED) 10 mL, intravenous, Once, On Brittni 08/28/25 at 1449, For 1 dose 1451 (Given - Provid er: Jyoti Hogan) documented in this encounter Care Teams Asphalt Paver Relationship Specialty Start Date End Date Shane Licona MD [address] [place] [address] [place] [id number] PCP - General 12/15/23 documented as of this encounter
--- NOTE | ~2025-08-29 | US_ITS ---
CLINICAL HISTORY: Elevated AST, ALT, normal alk-phos and lipase --- Additional Notes or Special Instructions: Rule out biliary obstruction, stones. Liver and gallbladder US abdomen limited Comparison: None provided Findings: Majority of the pancreas is obscured by overlying bowel gas. Imaged liver measures 14 cm with mixed echogenicity of the liver. No hydronephrosis of the imaged right kidney, which measures greater than 7 cm by ultrasound. Imaged CBD is nondilated measuring 5 mm diameter. Gallbladder wall is at the upper limits of normal. No significant pericholecystic fluid by ultrasound. Portions of the gallbladder are obscured. No definite shadowing stones in the imaged gallbladder lumen where reverberation artifacts noted. Prominent bowel-gas noted at this time. No right upper quadrant ascites or right pleural effusion in the [id number]. Hepatopetal flow in the imaged main portal vein. IMPRESSION: 1. No definite ultrasound findings of acute cholecystitis at this time. 2. Imaged CBD is nondilated. This document has been electronically signed by: Riley Reyes MD on 08/30/2025 02:24:12
[2025-08-29 20:08] VITALS: BP 134/91; PULSE 77; RESP 18; TEMP 37.1; O2SAT 96; BMI 20.7
--- OUTSIDE RECORDS SUMMARY | 2025-08-29 20:43 | XMS_ITS | Clinical Summary ---
Author Organization [facility] Address [address] [place] [address] Phone Care Team Providers Care Supervisor Chemical Name Role Phone Shane Licona MD Primary Care Provider Allergies No known active allergies Medications ondansetron ODT (ZOFRAN-ODT) 4 mg disintegrating tablet Let 1 tablet dissolve under the tongue three times daily as needed for nausea or vomiting. 10 tablet 5 09/04/20 25 Active famotidine (PEPCID) 20 mg tablet Take 1 tablet (20 mg total) by mouth 2 (two) times a day for 15 days. 30 tablet 5 09/12/20 25 Active haloperidoL (HALDOL) 5 mg tablet Take 1 tablet (5 mg total) by mouth 4 (four) times a day if needed (Nausea and vomiting or abdominal pain). 120 each 5 09/27/20 25 Active capsaicin (ZOSTRIX) 0.075 % cream Apply topically 3 (three) times a day. Apply to abdomen for nausea and vomiting related to cannabis use 28.3 g 5 08/28/20 26 Active Encounters Date Type Department Care Team Description 08/28/2025 1:38 PM EDT - 08/28/2025 7:14 PM EDT Emergency [facility] Emergency [address] [place] [address] Rodolfo Acevedo MD Gastroenteritis (Primary Dx); Nausea and vomiting, unspecified vomiting type Discharge Disposition: Home or Self Care from Last 3 Months Family History Medical History Relation Name Comments [...] Mass Index 25.61 08/28/2025 12:36 PM EDT Plan of Treatment Health Maintenance Due Date [...] 10/04/2018, Additional history exists DTaP,Tdap,and Td Vaccines (8 - Td or Tdap) 03/06/2035 03/06/2025, 08/29/2016, 09/10/2009, Additional history exists RSV Immunization Adult Patients [...] on patient's age to complete this topic Procedures Procedure Name Priority Date/Time Associated Diagnosis Comments URINALYSIS WITH REFLEX MICROSCOPIC STAT 08/28/2025 4:20 PM EDT DRUG ABUSE SCREEN 8A PANEL, URINE STAT 08/28/2025 4:20 PM EDT URINALYSIS WITH REFLEX MICROSCOPIC STAT 08/28/2025 4:[address] ABDOMEN PELVIS W CONTRAST STAT 08/28/2025 2:55 PM EDT MAGNESIUM STAT Add-on 08/28/2025 12:48 PM EDT HCG, SERUM, QUALITATIVE STAT Add-on 08/28/2025 12:48 PM EDT CBC WITH AUTO DIFFERENTIAL STAT 08/28/2025 12:48 PM EDT LIPASE STAT 08/28/2025 12:48 PM EDT COMPREHENSIVE METABOLIC PANEL STAT 08/28/2025 12:48 PM EDT CBC AND DIFFERENTIAL STAT 08/28/2025 12:48 PM EDT from Last 3 Months Results * (ABNORMAL) Urinalysis with reflex microscopic (08/28/2025 4:20 PM EDT) Specific [place] Urine >1.045(H) 1.003 - 1.030 LAB URINALYSIS - AUTOMATED METHOD 08/28/2025 4:[address] [facility] pH, Urine 8.0 5.0 - 8.0 pH LAB URINALYSIS - AUTOMATED METHOD 08/28/2025 4:[address] [facility] Leukocytes, Urine Negative Negative LAB URINALYSIS - AUTOMATED METHOD 08/28/2025 4:[address] [facility] Nitrite, Urine Negative Negative LAB URINALYSIS - AUTOMATED METHOD 08/28/2025 4:[address] [facility] Protein, Urine Negative <=Trace mg/dL LAB URINALYSIS - AUTOMATED METHOD 08/28/2025 4:[address] [facility] Glucose, Urine Negative Negative mg/dL LAB URINALYSIS - AUTOMATED METHOD 08/28/2025 4:[address] [facility] Ketones, Urine 40(A) Negative mg/dL LAB URINALYSIS - AUTOMATED METHOD 08/28/2025 4:[address] [facility] Urobilinogen , Urine 1.0 0.2 - 1.0 mg/dL LAB URINALYSIS - AUTOMATED METHOD 08/28/2025 4:[address] [facility] Bilirubin, Urine Negative Negative LAB URINALYSIS - AUTOMATED METHOD 08/28/2025 4:51 PM EDT [facility] Blood, Urine Large(A) Negative LAB URINALYSIS - AUTOMATED METHOD 08/28/2025 4:51 PM EDT [facility] RBC, Urine 28.6(H) 0 - 4 /HPF LAB URINALYSIS - AUTOMATED METHOD 08/28/2025 4:51 PM EDT [facility] WBC, Urine 1.9 0 - 4 /HPF LAB URINALYSIS - AUTOMATED METHOD 08/28/2025 4:51 PM EDT [facility] Squamous Epithelial, Urine 20 0 - 60 /LPF LAB URINALYSIS - AUTOMATED METHOD 08/28/2025 4:51 PM EDT [facility] Bacteria, Urine Negative Negative /HPF LAB URINALYSIS - AUTOMATED METHOD 08/28/2025 4:51 PM EDT [facility] Hyaline Casts, Urine 0.8 0 - 3 /LPF LAB URINALYSIS - AUTOMATED METHOD 08/28/2025 4:51 PM EDT [facility] Urine Urine specimen obtained by clean catch procedure / Unknown Non-blood Collection / Unknown 08/28/2025 4:20 PM EDT 08/28/2025 4:39 PM EDT us Rodolfo Acevedo MD LAB URINE ORDERABLES Final Result [facility] [address] [place] [address], * (ABNORMAL) Drug abuse screen 8a panel, urine (08/28/2025 4:20 PM EDT) Amphetamine Screen, Ur Negative Negative LAB CHEMISTRY METHOD 5:00 PM EDT [facility] Comment:Certain OTC medicati ons containing ephedrine, phenylephrine, pseudoephedrine and phenylpropanolamine can cause false positive results. Barbiturate Screen, Ur Negative Negative LAB CHEMISTRY METHOD 10/30/202 5 5:00 PM EDT [facility] Benzodiazepine Screen, Ur Negative Negative LAB CHEMISTRY METHOD 5 5:00 PM EDT [facility] Cocaine Screen, Ur Negative Negative LAB CHEMISTRY METHOD 5 5:00 PM EDT [facility] Opiate Screen, Ur Positive(A ) Negative LAB CHEMISTRY METHOD 5 5:00 PM EDT [facility] Cannabinoid (THC) Screen, Ur Positive(A ) Negative LAB CHEMISTRY METHOD 5:00 PM EDT [facility] Comment:Specimens from patie nts taking pantoprazole sodium (Protonix) have been shown to produce false positive results. Oxycodone Screen, Ur Negative Negative LAB CHEMISTRY METHOD 5:00 PM EDT [facility] Fentanyl, Ur Negative Negative LAB CHEMISTRY METHOD 5:00 PM T [facility] Urine Urine specimen obtained by clean catch procedure / Unknown Non-blood Collection / Unknown 08/28/2025 4:20 PM EDT 08/28/2025 4:39 PM EDT Narrative [facility] - 08/28/2025 5:00 PM EDT Assay cutoffs: Amphetamines 1000 ng/mL Barbiturates 200 ng/mL Benzodiazepines 200 ng/mL Cocaine 300 ng/mL Fentanyl 1 ng/mL Opiates 300 ng/mL Oxycodone 100 ng/mL THC 50 ng/mL Semi-quantitative assay for screening purposes only. Unconfirmed screening result should not be used for non-medical purposes. *ALTERNATE METHOD CONFIRMATION DONE UPON REQUEST ONLY* us Rodolfo Aceveod MD LAB URINE ORDERABLES Final Result [facility] [address] [place] [address], * CT Abdomen Pelvis w Contrast (08/28/2025 [...] Signed Date: 08/28/2025 16:13 ET Workstation ID: [id number] Transcribed By: Self Edit Transcribed Date: 08/28/2025 [...] Signed Date: 08/28/2025 16:13 ET Workstation ID: [id number] Transcribed By: Self Edit Transcribed Date: 08/28/2025 16:11 ET Rodolfo Acevedo MD IM CT PROCEDURES Final Res ult * (ABNORMAL) CBC auto differential (08/28/2025 12:48 PM EDT) WBC 10.3 4.8 - 10.8 K/mcL LAB HEMETOLOGY METHOD 08/28/2025 1:59 PM EDT [facility] RBC 5.00(H) 3.80 - 4.80 M/mcL LAB HEMETOLOGY METHOD 08/28/2025 1:59 PM EDT [facility] Hemoglobin 14.4 11.5 - 16.0 g/dL LAB HEMETOLOGY METHOD 08/28/2025 1:59 PM EDT [facility] Hematocrit 42.9 35.0 - 47.0 % LAB HEMETOLOGY METHOD 08/28/2025 1:59 PM EDT [facility] MCV 86.0 79.0 - 98.0 FL LAB HEMETOLOGY METHOD 08/28/2025 1:59 PM EDT [facility] MCH 28.9 27.0 - 32.0 pcg LAB HEMETOLOGY METHOD 08/28/2025 1:59 PM EDT [facility] MCHC 33.6 32.0 - 37.0 g/dL LAB HEMETOLOGY METHOD 08/28/2025 1:59 PM EDT [facility] RDW 14.2 11.0 - 15.0 % LAB HEMETOLOGY METHOD 08/28/2025 1:59 PM EDT [facility] Platelets 451(H) 130 - 400 K/mcL LAB HEMETOLOGY METHOD 08/28/2025 1:59 PM EDT [facility] MPV 10.5 7.0 - 11.0 FL LAB HEMETOLOGY METHOD 08/28/2025 1:59 PM EDT [facility] NRBC 0.0 <1.0 % LAB HEMETOLOGY METHOD 08/28/2025 1:59 PM EDT [facility] NRBC Absolute 0.00 <0.10 K/mcL LAB HEMETOLOGY METHOD 08/28/2025 1:59 PM EDT [facility] Neutrophils Relative 79.9 % LAB HEMETOLOGY METHOD 08/28/2025 1:59 PM EDT [facility] Lymphocytes Relative 10.8 % LAB HEMETOLOGY METHOD 08/28/2025 1:59 PM EDT [facility] Monocytes Relative 8.7 % LAB HEMETOLOGY METHOD 08/28/2025 1:59 PM EDT [facility] Eosinophils Relative 0.1 % LAB HEMETOLOGY METHOD 08/28/2025 1:59 PM EDT [facility] Basophils Relative 0.2 % LAB HEMETOLOGY METHOD 08/28/2025 1:59 PM EDT [facility] Immature Granulocytes Relative 0.3 % LAB HEMETOLOGY METHOD 08/28/2025 1:59 PM EDT [facility] Neutrophils Absolute 8.23(H) 1.50 - 7.00 K/mcL LAB HEMETOLOGY METHOD 08/28/2025 1:59 PM EDT [facility] Lymphocytes Absolute 1.11 1.00 - 5.00 K/mcL LAB HEMETOLOGY METHOD 08/28/2025 1:59 PM EDT [facility] Monocytes Absolute 0.90 0.20 - 1.00 K/mcL LAB HEMETOLOGY METHOD 08/28/2025 1:59 PM EDT [facility] Eosinophils Absolute 0.01 0.00 - 0.50 K/mcL LAB HEMETOLOGY METHOD 08/28/2025 1:59 PM EDT [facility] Basophils Absolute 0.02 0.00 - 0.20 K/mcL LAB HEMETOLOGY METHOD 08/28/2025 1:59 PM EDT [facility] Immature Granulocytes Absolute 0.03 0.00 - 0.03 K/mcL LAB HEMETOLOGY METHOD 08/28/2025 1:59 PM EDT [facility] Blood Venous blood specimen / Unknown Venipuncture / Unknown 08/28/2025 12:48 PM EDT 08/28/2025 1:19 PM EDT us Tevin Romo MD LAB BLOOD ORDERABLES Final Resul t [facility] [address] [place] [address], * hCG, serum, qualitative (08/28/2025 12:48 PM EDT) hCG Qual Negative Negative 08/28/2025 2:16 PM EDT [facility] Blood Venous blood specimen / Unknown Venipuncture / Unknown 08/28/2025 12:48 PM EDT 08/28/2025 1:19 PM EDT us Rodolfo Acevedo MD LAB BLOOD ORDERABLES Final Result Performing Organization Address [facility]/ZIP Co de Phone Number [facility] [address] [place] [address], [place] [phone] * Magnesium (08/28/2025 12:48 PM EDT) Magnesium 2.5 1.9 - 2.6 mg/dL LAB CHEMISTRY METHOD 08/28/2025 2:04 PM EDT [facility] Blood Venous blood specimen / Unknown Venipuncture / Unknown 08/28/2025 12:48 PM EDT 08/28/2025 1:19 PM EDT us Rodolfo Acevedo MD LAB BLOOD ORDERABLES Final Result Performing Organization Address [facility] Co de Phone Number [facility] [address] [place] [address], [place] [phone] * Lipase (08/28/2025 12:48 PM EDT) Lipase 21 13 - 75 unit/L LAB CHEMISTRY METHOD 08/28/2025 2:04 PM EDT [facility] Blood Venous blood specimen / Unknown Venipuncture / Unknown 08/28/2025 12:48 PM EDT 08/28/2025 1:19 PM EDT us Tevin Romo MD LAB BLOOD ORDERABLES Final Resul t Performing Organization Address City/[facility]/ZIP Co de Phone Number [facility] [address] [place] [address], [place] [phone] * (ABNORMAL) Comprehensive metabolic panel (08/28/2025 12:48 PM EDT) Sodium 135 133 - 145 mmol/L LAB CHEMISTRY METHOD 08/28/2025 2:[address] [facility] Potassium 3.9 3.5 - 5.5 mmol/L LAB CHEMISTRY METHOD 08/28/2025 2:[address] [facility] Chloride 101 96 - 110 mmol/L LAB CHEMISTRY METHOD 08/28/2025 2:[address] [facility] CO2 26 21 - 32 mmol/L LAB CHEMISTRY METHOD 08/28/2025 2:[address] [facility] Anion Gap 8 3 - 11 LAB CHEMISTRY METHOD 08/28/2025 2:[address] [facility] Glucose 88 70 - 100 mg/dL LAB CHEMISTRY METHOD 08/28/2025 2:[address] [facility] BUN 18 5 - 25 mg/dL LAB CHEMISTRY METHOD 08/28/2025 2:[address] [facility] Creatinine 0.88 0.50 - 1.10 mg/dL LAB CHEMISTRY METHOD 08/28/2025 2:[address] [facility] eGFR 97 >=60 mL/min/1. 73m2 LAB CHEMISTRY METHOD 08/28/2025 2:[address] [facility] Comment:Calculation based on the Chronic Kidney Disease Epidemiology Collaboration (CKD-EPI) equation refit without adjustment for race. BUN/Creatinine Ratio 20.5 LAB CHEMISTRY METHOD 08/28/2025 2:[address] [facility] Calcium 9.7 8.5 - 10.5 mg/dL LAB CHEMISTRY METHOD 08/28/2025 2:[address] [facility] AST (SGOT) 70(H) 10 - 42 unit/L LAB CHEMISTRY METHOD 08/28/2025 2:[address] [facility] ALT (SGPT) 57 10 - 60 unit/L LAB CHEMISTRY METHOD 08/28/2025 2:[address] [facility] Alkaline Phosphatase 107 42 - 121 unit/L LAB CHEMISTRY METHOD 08/28/2025 2:08 PM EDT [facility] Total Protein 7.6 6.0 - 8.0 g/dL LAB CHEMISTRY METHOD 08/28/2025 2:08 PM EDT [facility] Albumin 4.2 3.2 - 5.0 g/dL LAB CHEMISTRY METHOD 08/28/2025 2:08 PM EDT [facility] Total Bilirubin 0.7 0.0 - 1.4 mg/dL LAB CHEMISTRY METHOD 08/28/2025 2:08 PM EDT [facility] Blood Venous blood specimen / Unknown Venipuncture / Unknown 08/28/2025 12:48 PM EDT 08/28/2025 1:19 PM EDT us Tevin Romo MD LAB BLOOD ORDERABLES Final Resul t [facility] [address] [place] [address], [place] [phone] from Last 3 Months Insurance MEDICAID - [place] Care Teams Supervisor Chemical Relationship Specialty Start Date End Date Shane Licona MD [address] [place] [address] [facility] - General 12/15/23
[2025-08-29 21:09] LABS: MANUAL DIFF FLAG NO
[2025-08-29 21:10] LABS: Hematocrit 43.9 % (37.0-47.0); Hemoglobin 14.6 g/dl (12.0-16.0); Imm Gran Abs Auto 0.02 X10*3/uL (0.00-0.03); Imm Gran Pct Auto 0.2 % (0.0-0.4); Lymphocytes Absolute Auto 1.7 X10*3/uL (1.2-4.9); Mean Corpuscular HGB Conc 33.3 g/dl (31.0-35.0); Mean Corpuscular Hemoglobin 28.5 pg (27.0-33.0); Mean Corpuscular Volume 85.7 fL (80.0-98.0); NRBC Abs Auto 0.000 X10*3/uL (0.0-0.012); NRBC Pct Auto 0.0 /100WBC (0.0-0.2); Platelet Count 450 X10*3/uL (160-400); Red Blood Count 5.12 X10*6/uL (4.20-5.50); White Blood Count 8.2 X10*3/uL (4.8-10.8)
[2025-08-29 21:26] LABS: Alanine Aminotransferase 235 U/L (0-31); Albumin Level 4.6 g/dL (3.5-5.0); Alkaline Phosphatase 102 U/L (39-117); Anion Gap 13 (12-20); Aspartate Amino Transferase 239 U/L (5-31); Blood Urea Nitrogen 16 mg/dL (9-16); Calcium 9.2 mg/dL (8.4-10.2); Carbon Dioxide 25 mmol/L (22-29); Chloride 105 mmol/L (96-108); Creatinine Clr Calc Pharmacy 83.3; Estimated Glomerular Filt Rate > 60; Potassium 4.1 mmol/L (3.3-5.1); Sodium 139 mmol/L (135-145); Total Protein 8.0 g/dL (6.5-8.0)
[2025-08-29 22:00] VITALS: BP 96/55; PULSE 67; RESP 16; TEMP 36.9; O2SAT 96
[2025-08-29 22:04] LABS: Appearance Urine Clear; Glucose Urine UA Negative (Negative); PH 8.0 (5.0-9.0); Specific Gravity - Urine 1.010 (1.005-1.025); UMIC TRIGGER UACC YES
[2025-08-29 22:07] LABS: UPreg QC Valid YES
--- NOTE | 2025-08-29 22:07 | ED.NAVMDI ---
HPI - Nausea/Vomiting/Diarrhea General Chief complaint: Nausea/Vomiting/Diarrhea Stated complaint: 72hrs stomach pain/vomiting Time Seen by Provider: 08/29/25 21:57 Source: patient Mode of arrival: ambulatory Limitations: no limitations History of Present Illness ED Provider: Dr. Reji Freitas HPI Narrative: 19-year-old female with past medical history cyclic vomiting, marijuana use, times 3 months from uncommon vaginal delivery who presents emergency department for evaluation of diffuse, severe, abdominal pain with intractable nausea and vomiting x 5 days (symptoms starting on Monday08/25/2025). Patient was seen in the emergency department on 08/27/2025 for intractable vomiting, admitted for 1 day to the hospitalist service. Patient had hypokalemia at that time. Patient states after she is discharged she continued to have abdominal pain, nausea and vomiting and was seen at [facility]. She was treated and discharged with prescriptions for famotidine 20 mg q.day, Zofran 4 mg q.8 hours and Haldol 5 mg q.i.d.. She states she has been taking these medications without any relief for symptoms. She is complaining of 10/10 abdominal pain. She denied diarrhea, fever, chills, chest pain or shortness of breath. The patient states that a heating pad does help with her pain and she is currently using her own heating pad here in the emergency department. Related Data Previous Rx's ?Medication ?Instructions ?Recorded ondansetron 4 mg disintegrating 4 mg PO Q8H PRN nausea and 08/27/25 tablet vomiting #7 tabs ondansetron 4 mg disintegrating 4 mg PO Q6-8H PRN nausea and 08/30/25 tablet vomiting #20 tabs Allergies Allergy/AdvReac Type Severity Reaction Status Date / Time No Known Allergies Allergy Verified 08/29/25 20:09 Review of Systems Review of Systems: Yes all other systems are reviewed and are negative [facility] Past Medical History [facility] Narrative: Social history: She denies tobacco and alcohol use. She states that she does not smoke marijuana however she did have a urine tox screen that has positive for THC on 08/27/2025. Medical History (Updated 08/30/25 @ 02:23 by Reji Freitas MD) Marijuana use Status post normal delivery in completely normal case Social History Social History Alcohol intake: never Patient Tobacco Use Status: Never used Tobacco Substance Use Type: Marijuana Physical Exam Vital Signs: Vital Signs: Last Vital Signs Temp 97.6 F 08/30/25 03:02 Pulse 70 08/30/25 03:02 Resp 18 08/30/25 03:02 BP 130/79 08/30/25 03:02 Pulse Ox 99 08/30/25 03:02 O2 Del Method Room Air 08/30/25 03:02 BMI result Body Mass Index 20.7 Vital signs were normal Exam: General: Awake, alert, appears to be in distress secondary to abdominal pain. Head: Normocephalic, atraumatic EENT: PERRL, sclera and conjunctiva are normal, mouth with no erythema or exudates Neck: Supple, no adenopathy Lung: breath sounds symmetric, no wheezing, no rales and no rhonchi Chest: symmetric movement, nontender Heart: regular rate and rhythm, normal S1, S2 no murmurs or rubs Abdomen: soft, mild to moderate diffuse abdominal tenderness, negative Ortiz sign Back: no vertebral tenderness, no CVAT Extremities: no deformities, moves all extremities symmetrically, no edema Neuro: Awake, alert, oriented, normal speech, cranial nerves 2-12 intact, moves all extremities symmetrically Psych: Pleasant, cooperative Medications Administered Discontinued Medications Generic Name Dose Route Start Last Admin Trade Name Paulq PRN Reason Stop Dose Admin Diphenhydramine HCl 50 mg 08/29/25 22:40 08/29/25 22:48 Diphenhydramine Hcl 50 Mg/Ml Vial IVPUSH 08/29/25 22:41 50 mg ONCE STA Administration Sodium Chloride 1,000 mls @ 999 mls/hr 08/29/25 22:40 08/30/25 00:51 Ns IV 08/29/25 23:40 Infused .Q1H1M STA Infusion Ketorolac Tromethamine 15 mg 08/29/25 22:40 08/29/25 22:48 Ketorolac Tromethamine 15 Mg/Ml Vial IVPUSH 08/29/25 22:41 15 mg ONCE STA Administration Metoclopramide HCl 10 mg 08/29/25 22:40 08/29/25 22:51 Metoclopramide Hcl 10 Mg/2 Ml Vial IVPUSH 08/29/25 22:41 10 mg ONCE STA Administration Morphine Sulfate 4 mg 08/29/25 23:46 08/29/25 23:58 Morphine Sulfate 4 Mg/Ml Cartridge IVPUSH 08/29/25 23:47 4 mg ONCE STA Administration Protocol Morphine Sulfate 4 mg 08/30/25 01:55 08/30/25 02:22 Morphine Sulfate 4 Mg/Ml Cartridge IVPUSH 08/30/25 01:56 4 mg ONCE STA Administration Protocol Medical Decision Making Medical Decision Making [facility] Narrative: 19-year-old female with past medical history cyclic vomiting, marijuana use, times 3 months from uncommon vaginal delivery who presents emergency department for evaluation of diffuse, severe, abdominal pain with intractable nausea and vomiting x 5 days (symptoms starting on Monday08/25/2025). Patient was seen in the emergency department on 08/27/2025 for intractable vomiting, admitted for 1 day to the hospitalist service. Patient had hypokalemia at that time. Patient states after she is discharged she continued to have abdominal pain, nausea and vomiting and was seen at [facility]. She was treated and discharged with prescriptions for famotidine 20 mg q.day, Zofran 4 mg q.8 hours and Haldol 5 mg q.i.d.. She states she has been taking these medications without any relief for symptoms. She is complaining of 10/10 abdominal pain. She denied diarrhea, fever, chills, chest pain or shortness of breath. The patient states that a heating pad does help with her pain and she is currently using her own heating pad here in the emergency department. Vital signs were normal. Exam revealed diffuse abdominal tenderness with no localizing tenderness, negative Ortiz sign. Differential diagnosis: ?Includes but is not limited to cyclic vomiting syndrome, marijuana hyperemesis syndrome, pancreatitis, diverticulitis, gastritis, cholecystitis, anemia, electrolyte abnormalities Course: 22:49 My interpretation patient's laboratory evaluation is as follows: Platelet count elevated 450,000. CMP revealed elevated AST and ALT of 239 and 235 with a normal alk-phos and normal total bilirubin. Lipase is pending. Patient's presentation is consistent with cyclic vomiting syndrome most likely caused by marijuana use. I did discuss this with her. I ordered Toradol 15 mg, Reglan 10 mg, Benadryl 50 mg IV. Patient will also be treated with normal saline IV x1 L. given her elevated transaminases, therefore I will order a right upper quadrant ultrasound. 02:04 The patient's right upper quadrant ultrasound revealed no gallstones or other significant abnormalities. The patient got relief of her nausea with the above treatment however she continued to complain of abdominal pain. She received 2 doses of morphine 4 mg IV with significant improvement of her discomfort. Patient was able to drink apple juice with out any vomiting. Patient was given a prescription for Zofran 4 mg ODT q.6 hours as needed. I instructed her to take the medications prescribed by [facility] as well . I told her that the haloperidol as for nausea and abdominal pain in the famotidine in his to help reduce the acid in her stomach. Differential Diagnosis Differential Diagnoses: The differential diagnosis associated with the presentation includes Admission/Observation Consideration of admission/observation: Escalation of care including admission/observation considered (Yes) Lab Data MDM Lab Attestation statement: I reviewed the patient's lab results. 08/29/25 21:01 08/29/25 21:01 Labs: Lab Results 08/29/25 08/29/25 Range/Units 21:01 21:57 WBC 8.2 (4.8-10.8) X10*3/uL RBC 5.12 (4.20-5.50) X10*6/uL Hgb 14.6 (12.0-16.0) g/dl Hct 43.9 (37.0-47.0) % MCV 85.7 (80.0-98.0) fL MCH 28.5 (27.0-33.0) pg MCHC 33.3 (31.0-35.0) g/dl RDW 13.9 (11.0-16.0) % Plt Count 450 H (160-400) X10*3/uL MPV 9.0 L (9.4-12.3) fL Immature Gran % (Auto) 0.2 (0.0-0.4) % Neut % (Auto) 69.5 (45-73) % Lymph % (Auto) 20.4 (20-40) % [place] % (Auto) 8.9 (2-11) % Eos % (Auto) 0.6 (0-4) % Baso % (Auto) 0.4 (0-2) % Lymph # (Auto) 1.7 (1.2-4.9) X10*3/uL [place] # (Auto) 0.7 (0.1-1.2) X10*3/uL Eos # (Auto) 0.1 (0.0-0.4) X10*3/uL Baso # (Auto) 0.0 (0.0-0.2) X10*3/uL Abs Immat Gran (auto) 0.02 (0.00-0.03) X10*3/uL Absolute Neuts (auto) 5.7 (2.0-8.3) x10*3/uL Absolute Nucleated RBC 0.000 (0.0-0.012) X10*3/uL Nucleated RBC % (auto) 0.0 (0.0-0.2) /100WBC Sodium 139 (135-145) mmol/L Potassium 4.1 (3.3-5.1) mmol/L Chloride 105 (96-108) mmol/L Carbon Dioxide 25 (22-29) mmol/L Anion Gap 13 (12-20) BUN 16 (9-16) mg/dL Creatinine 0.99 (0.5-1.4) mg/dL Estim Creat Clear Calc 83.3 Estimated GFR > 60 Random Glucose 101 (60-115) mg/dL Calcium 9.2 (8.4-10.2) mg/dL Total Bilirubin 0.7 (0.0-1.0) mg/dL AST 239 H (5-31) U/L ALT 235 H (0-31) U/L Alkaline Phosphatase 102 (39-117) U/L Total Protein 8.0 (6.5-8.0) g/dL Albumin 4.6 (3.5-5.0) g/dL Lipase 16 (8-78) U/L Urine Color Yellow Urine Appearance Clear Urine pH 8.0 (5.0-9.0) Ur Specific Agency 1.010 (1.005-1.025) Urine Protein Trace (Neg-Trace) mg/dL Urine Glucose (UA) Negative (Negative) mg/dL Urine Ketones Trace (Negative) mg/dL Urine Blood Large (3+) H (Negative) Urine Nitrite Negative (Negative) Ur Leukocyte Esterase Trace H (Negative) Urine RBC 0-2 (0-2) /HPF Urine WBC 0-5 (0-5) /HPF Ur Squamous Epith Cells 0-2 (0-2) /HPF Urine Bacteria None Seen (None Seen) Hyaline Casts 0-2 (0-2) /LPF Urine Test NEGATIVE (NEGATIVE) Independent Interpretation I performed an independent interpretation of an: Ultrasound Radiology Impression Discussion of test interpretation with radiology: I have reviewed the radiologist's reading. Radiologist Impression: Majority of the pancreas is obscured by overlying bowel gas. Imaged liver measures 14 cm with mixed echogenicity of the liver. No hydronephrosis of the imaged right kidney, which measures greater than 7 cm by ultrasound. Imaged CBD is nondilated measuring 5 mm diameter. Gallbladder wall is at the upper limits of normal. No significant pericholecystic fluid by ultrasound. Portions of the gallbladder are obscured. No definite shadowing stones in the imaged gallbladder lumen where reverberation artifacts noted. Prominent bowel-gas noted at this time. No right upper quadrant ascites or right pleural effusion in the [id number]. Hepatopetal flow in the imaged main portal vein. IMPRESSION: 1. No definite ultrasound findings of acute cholecystitis at this time. 2. Imaged CBD is nondilated Critical Care Time Critical Care Time Critical Care Time: Yes Total Critical Care Time: 45 Attestation: Critical Care: The patient was critically ill with a high probability of imminent or life threatening deterioration. I spent greater than 30 minutes of discontinuous time evaluating the patient,delivering critical care at the bedside, discussing and evaluating pertinent data with consultants. Critical care time does not include time spent performing separately billable procedures or teaching. Total time spent performing critical care was 45 minutes. Discharge Plan Discharge Clinical Impression: Cyclical vomiting, Abdominal pain, Elevated liver transaminase level Patient Disposition: Home, Self-Care Instructions: Cyclic Vomiting Syndrome (ED) Additional Instructions: Your persistent nausea vomiting and abdominal pain is caused by your marijuana use. Smoking marijuana multiple times a day can lead to cannabis (marijuana) hyperemesis syndrome which is a form of cyclic vomiting syndrome (see printed instructions). Smoking marijuana daily changes your brain chemistries and these changes activate the ?nausea and vomiting center? in your brain. The treatment is to stop smoking marijuana for 3-6 months and this will reset your brain chemistries and eventually cause your symptoms to go away. [facility] prescribed the following medications: Famotidine 20 mg pills, take 1 pill once a day. This medication reduces the amount of acid in your stomach and helps your stomach heal. Haloperidol, 1 pill 4 times a day. This i medication helps with nausea, vomiting and abdominal pain caused by cyclic vomiting syndrome Take Zofran ODT 4 mg pills, 1 pill dissolved in your mouth every 8 hours as needed for nausea and vomiting. Your liver tests were elevated and I believe this has caused by your nausea and vomiting. The ultrasound of your liver did not reveal any significant abnormalities which is reassuring. Follow-up with your doctor in 2 days. Please return to the emergency department if your symptoms get worse or if you develop any symptoms that are concerning to you. Prescriptions: New ondansetron 4 mg tablet,disintegrating 4 mg PO Q6-8H PRN (Reason: nausea and vomiting) Qty: 20 0RF No Action ondansetron 4 mg tablet,disintegrating 4 mg PO Q8H PRN (Reason: nausea and vomiting) Qty: 7 0RF Interventions: ED Discharge Assessment Last Done: 08/30/25 03:02 Discharge Date/Time: 08/30/25 03:15 Print Language: [place]
[2025-08-29 23:01] LABS: Lipase 16 U/L (8-78)
[2025-08-29 23:58] VITALS: RESP 16
[2025-08-30 00:01] VITALS: BP 107/69; PULSE 73
[2025-08-30 02:06] VITALS: BP 142/97; PULSE 70; RESP 16; TEMP 36.4; O2SAT 100
[2025-08-30 02:22] VITALS: RESP 18
--- NOTE | 2025-08-30 02:34 | PC.NURSE ---
drank apple juice, states very mild increase in abd pain, no vomiting
[2025-08-30 03:02] VITALS: BP 130/79; PULSE 70; RESP 18; TEMP 36.4; O2SAT 99
--- NOTE | 2025-08-30 03:15 | PC.NURSE ---
states she is ready or d/c, requests ice and apple juice to go. ambulates steadily no assist, family member picking up from dept
== END 2025-08-30 03:15 | disposition home or self-care (01) ==
PROVIDERS: Emergency Medicine Emergency Medical Services; Emergency Provider Emergency Medicine
DX: R11.15 Cyclical vomiting syndrome unrelated to migraine (principal); R10.9 Unspecified abdominal pain; R74.01 Elevation of levels of liver transaminase levels; F12.10 Cannabis abuse, uncomplicated
CPT/HCPCS: 36415; 76705; 80053; 81001; 81025; 83690; 85025; 96361; 96374; 96375; 96376; 99284; J1200; J1885; J2270; J2765

== ENCOUNTER → 2025-08-30 | Outpatient (BNV) | payer OTHER, SELFPAY | PROVIDERS: Emergency Provider Emergency Medicine; Visit Provider Radiology Neuroradiology | DX: R74.01 Elevation of levels of liver transaminase levels (principal) | CPT/HCPCS: 76705 ==

== ENCOUNTER 2025-08-31 09:18 | Observation (INO) | payer OTHER, SELFPAY ==
[2025-08-31] VITALS (9 sets, daily range): BP systolic 107–179; BP diastolic 67–107; PULSE 72–154; RESP 18–48; TEMP 36.8–37.2; O2SAT 95–99; BMI 24.9; BMI 25.7
--- NOTE | 2025-08-31 09:24 | ED.GENADULT ---
HPI - General Adult General Chief complaint: General Medical Stated complaint: allergic rection Time Seen by Provider: 08/31/25 09:22 Source: patient and family (patient's mother in law) Mode of arrival: wheelchair Limitations: physical limitation (difficulty speaking) History of Present Illness ED Provider: Lo Lock PA-C HPI narrative: Patient is a 19 year old assigned female at with a history of GERD, prolonged QT, and cyclical vomiting presenting to the emergency department today with a possible allergic reaction. Patient's mother in law states that the patient was recently seen at [facility] emergency department for nausea, vomiting, and abdominal pain and was discharged home on PO Haldol. Patient's mother in law states that the patient took the Haldol and began to have sweating and act bizarre. Patient unable to participate in HPI at this time as she is having difficulty speaking. Related Data Home Medications ?Medication ?Instructions ?Recorded ?Confirmed acetaminophen 325 mg tablet 650 mg PO Q4H PRN pain, 08/31/25 08/31/25 alternating with ibuprofen famotidine 20 mg tablet 20 mg PO BID 08/31/25 08/31/25 haloperidol 5 mg tablet 5 mg PO QID 08/31/25 08/31/25 ibuprofen 200 mg tablet 200 mg PO Q6H PRN pain, 08/31/25 08/31/25 alternating with tylenol Previous Rx's ?Medication ?Instructions ?Recorded ondansetron 4 mg disintegrating 4 mg PO Q8H PRN nausea and 08/27/25 tablet vomiting #7 tabs Allergies Allergy/AdvReac Type Severity Reaction Status Date / Time No Known Allergies Allergy Verified 08/31/25 09:35 Review of Systems Constitutional: Constitutional: Reports as per HPI Eyes: Eyes: Reports as per HPI ENT: Reports as per HPI Cardiovascular: Cardiovascular: Reports as per HPI Respiratory: Respiratory: Reports as per HPI Gastrointestinal: Gastrointestinal: Reports as per HPI Genitourinary: Genitourinary: Reports as per HPI Musculoskeletal: Musculoskeletal: Reports as per HPI Integumentary/Breasts: Skin/Breast: Reports as per HPI Neurologic: Reports as per HPI Psychiatric: Psychiatric: Reports as per HPI Endocrine: Endocrine: Reports as per HPI Hematologic/Lymphatic: Hematologic/Lymphatic: Reports as per HPI Allergic/Immunologic: Allergic/Immunologic: Reports as per HPI [facility] Past Medical History Attestation statement: The following information was validated with the patient. (all information validated with the patient's mother in law) Source: old records reviewed, obtained from family (patient's mother in law provided additional history and confirmed the history provided by the patient. ) and nursing notes reviewed Medical History Marijuana use Status post normal delivery in completely normal case Social History Social History Alcohol intake: never Patient Tobacco Use Status: Never used Tobacco Smoked in Last 30 Days: No Substance Use Type: Marijuana Advance Directives: No Advance Directives Information Provided: Yes Do you have a plan to hurt others: No Plan Patient : No Physical Exam ED Vital Signs: Vital Signs - 24 hr 08/31/25 09:32 08/31/25 11:06 Temperature 98.4 F Pulse Rate 154 H 92 Respiratory Rate 48 H 23 H Blood Pressure 179/107 H 114/67 Pulse Oximetry 96 98 Oxygen Delivery Method Room Air Room Air BMI result Body Mass Index 24.9 Const General: alert, awake and in distress moderate Nutritional Appearance: well nourished Orientation/consciousness: oriented to person and oriented to place HENMT Head: Yes normal to inspection and Yes atraumatic Ears: hearing grossly normal bilaterally and external ears normal General nose exam: Normal external nose present, no nasal discharge noted and no epistaxis Face and sinus: Yes normal facial exam, No abrasion and No laceration Mouth: Normal oral and palatal mucosa present, no drooling and no muffled voice Eyes General: appearance normal, both eyes and all related structures Periorbital: periorbital findings normal Eyelids: Yes eyelids normal Conjunctivae: conjunctivae normal Pupils: Equal, round and reactive pupils present EOM: EOMs intact bilaterally Neck Neck: Yes normal visual inspection and Yes full ROM Resp Effort & Inspection: normal respiratory effort and able to speak in complete sentences Cardio Rate: tachycardic Rhythm: regular rhythm Skin Other: diaphoretic Neuro General: oriented to person, oriented to place, moves all extremities and CN's II-XI intact bilaterally Cranial nerves: Yes Equal, round and reactive pupils present Cognition (Neuro): normal cognition Extrem Other: contractured right hand General: Yes full ROM and Yes capillary refill normal Psych Appearance: grossly normal Mental Status: mental status grossly normal Affect: normal affect Attitude: cooperative Thought process: Normal thought process present Thought content: Normal thought content present Insight: Good insight present (Psych) Medications Administered Discontinued Medications Generic Name Dose Route Start Last Admin Trade Name Paulq PRN Reason Stop Dose Admin Benztropine Mesylate 1 mg 08/31/25 11:01 08/31/25 11:15 Benztropine Mesylate 2 Mg/2 Ml Vial IVPUSH 08/31/25 11:02 1 mg ONCE ONE Administration Dexamethasone Sodium Phosphate 10 mg 08/31/25 09:25 08/31/25 09:37 Dexamethasone Sod Phosphate 10 Mg/Ml Vial IVPUSH 08/31/25 09:26 10 mg ONCE ONE Administration Diazepam 5 mg 08/31/25 09:25 08/31/25 09:36 Diazepam 10 Mg/2 Ml Cartridge IVPUSH 08/31/25 09:26 5 mg STAT STA Administration Diazepam 5 mg 08/31/25 11:01 08/31/25 11:02 Diazepam 10 Mg/2 Ml Cartridge IVPUSH 08/31/25 11:02 5 mg STAT STA Administration Diazepam 5 mg 08/31/25 13:27 08/31/25 13:29 Diazepam 10 Mg/2 Ml Cartridge IVPUSH 08/31/25 13:28 5 mg STAT STA Administration Diphenhydramine HCl 25 mg 08/31/25 09:25 08/31/25 09:36 Diphenhydramine Hcl 50 Mg/Ml Vial IVPUSH 08/31/25 09:26 25 mg ONCE ONE Administration Sodium Chloride 1,000 mls @ 999 mls/hr 08/31/25 09:30 08/31/25 10:14 Ns IV 08/31/25 10:30 Infused .Q1H1M LINDA Infusion Magnesium Sulfate 2 gm in 50 mls @ 25 mls/hr 08/31/25 10:03 08/31/25 12:45 Magnesium Sulfate/H2o IV 08/31/25 12:02 Infused ONCE ONE Infusion Medical Decision Making Medical Decision Making MDM Narrative: Patient is a 19 year old assigned female at with a history of GERD, prolonged QT, and cyclical vomiting presenting to the emergency department today with a medication reaction. Patient's physical exam was as noted in the physical exam portion of this note and consistent with a dyskinetic type reaction. Patient's blood work showed Calcium 8.3, AST 91, ALT 132, total CK 757, and albumin 3.4. Patient's EKG showed prolonged QTC of 469 but otherwise unremarkable I explained my physical exam findings as well as all test results to the patient and the patient's mother in law. I answered all questions asked by the patient and the patient's mother in law. Patient was given IV Benadryl (25mg), 5mg of IV Valium, 10mg of IV decadron, and IV fluids which helped her symptoms significantly. Patient was re-assessed and back to baseline with no contractures, resolved tachycardia, resolved diaphoresis, and stated she felt much better. Approximately 1.5 hours after resolution of symptoms - the patient had another episode where she became tachycardic + diaphoretic + and her right hand began to contracture / spasm. Patient was given Valium + cogentin (recommended by my attending physician, Dr. Quesada). Patient was given 2 grams of IV magnesium for prolonged QTC. Given the patient continues to have these episodes - I spoke with the hospitalist team who agreed to admission for continued observation. Patient and the patient's mother in law verbalized agreement and understanding with this treatment plan and admission. Differential Diagnosis Differential Diagnoses: The differential diagnosis associated with the presentation includes Dyskinetic reaction Medication reaction Allergic reaction Admission/Observation Consideration of admission/observation: Escalation of care including admission/observation considered Patient admitted as noted in the MDM Rationale portion of this note. Consult Healthcare Provider Management of the patient was discussed with: Hospitalist (agreed to admission as noted in the MDM Rationale portion of this note. ) Lab Data [facility] Lab Attestation statement: I reviewed the patient's lab results. My interpretation of these results are in the MDM Rationale portion of this note. 08/31/25 09:31 08/31/25 10:27 Labs: Lab Results 08/31/25 08/31/25 Range/Units 09:31 10:27 WBC 9.4 (4.8-10.8) X10*3/uL RBC 5.05 (4.20-5.50) X10*6/uL Hgb 14.5 (12.0-16.0) g/dl Hct 44.0 (37.0-47.0) % MCV 87.1 (80.0-98.0) fL MCH 28.7 (27.0-33.0) pg MCHC 33.0 (31.0-35.0) g/dl RDW 14.2 (11.0-16.0) % Plt Count 435 H (160-400) X10*3/uL MPV 9.6 (9.4-12.3) fL Immature Gran % (Auto) 0.2 (0.0-0.4) % Neut % (Auto) 62.3 (45-73) % Lymph % (Auto) 27.7 (20-40) % [place] % (Auto) 6.1 (2-11) % Eos % (Auto) 3.2 (0-4) % Baso % (Auto) 0.5 (0-2) % Lymph # (Auto) 2.6 (1.2-4.9) X10*3/uL [place] # (Auto) 0.6 (0.1-1.2) X10*3/uL Eos # (Auto) 0.3 (0.0-0.4) X10*3/uL Baso # (Auto) 0.1 (0.0-0.2) X10*3/uL Abs Immat Gran (auto) 0.02 (0.00-0.03) X10*3/uL Absolute Neuts (auto) 5.8 (2.0-8.3) x10*3/uL Absolute Nucleated RBC 0.000 (0.0-0.012) X10*3/uL Nucleated RBC % (auto) 0.0 (0.0-0.2) /100WBC Smear Tech's Comments VERIFIED Sodium 139 (135-145) mmol/L Potassium 4.5 (3.3-5.1) mmol/L Chloride 114 H (96-108) mmol/L Carbon Dioxide 15 L (22-29) mmol/L Anion Gap 15 (12-20) BUN 12 (9-16) mg/dL Creatinine 0.95 (0.5-1.4) mg/dL Estim Creat Clear Calc 81.7 Estimated GFR > 60 Random Glucose 101 (60-115) mg/dL Calcium 8.3 L D (8.4-10.2) mg/dL Total Bilirubin 0.4 (0.0-1.0) mg/dL AST 91 H (5-31) U/L ALT 132 H (0-31) U/L Alkaline Phosphatase 96 (39-117) U/L Total Creatine Kinase 757 H (26-140) U/L Total Protein 6.9 (6.5-8.0) g/dL Albumin 3.4 L (3.5-5.0) g/dL TSH 0.01 L (0.32-4.0) uIU/mL Free T4 1.34 (0.71-1.85) ng/dL Independent Interpretation I performed an independent interpretation of an: EKG Interpretation: I independently interpreted this EKG and am in agreement with the below findings: Vent. Rate: 95 BPM Atrial Rate: 95 BPM P-R Int: 120 ms QRS Dur: 82 ms QT Int: 374 ms P-R-T Axes: 39 27 14 degrees QTcB Int: 469 ms Normal sinus rhythm Nonspecific T wave abnormality When compared with ECG of 27-Aug-2025 03:37, Nonspecific T wave abnormality now evident in Inferior leads Referred By: Lo Lock Electronically Signed By: GAVIN STROUD Dictated By: Gavin Stroud MD Signed By: Electronically signed by Gavin Stroud MD 08/31/25 [id number] Independent Historian Clinical information obtained from an independent historian. History obtained from or confirmed by: Other (patient's mother in law provided additional history and confirmed the history provided by the patient. ) Critical Care Time Critical Care Time Critical Care Time: Yes Total Critical Care Time: 46 Attestation: I spent 46 minutes of Critical Care Time with this patient. This does not include time spent on separately reported billable procedures. Discharge Plan Discharge Clinical Impression: Dyskinesia Patient Disposition: Admitted as Observation
--- NOTE | 2025-08-31 09:26 | ECG_ITS ---
Test Reason : ALLERGIC REACTION Blood Pressure : */* mmHG Vent. Rate : 95 BPM Atrial Rate : 95 BPM P-R Int : 120 ms QRS Dur : 82 ms QT Int : 374 ms P-R-T Axes : 39 27 14 degrees QTcB Int : 469 ms Normal sinus rhythm Nonspecific T wave abnormality Borderline ECG When compared with ECG of 27-Aug-2025 03:37, Nonspecific T wave abnormality now evident in Inferior leads Referred By: Lo Lock Electronically Signed By: JAYANT STROUD
[2025-08-31] MEDS: diazePAM 10 MG/2 ML CARTRIDGE 5 MG IVPUSH ×3 (09:36→13:29)
[2025-08-31 09:40] LABS: Hematocrit 44.0 % (37.0-47.0); Hemoglobin 14.5 g/dl (12.0-16.0); Imm Gran Abs Auto 0.02 X10*3/uL (0.00-0.03); Imm Gran Pct Auto 0.2 % (0.0-0.4); Lymphocytes Absolute Auto 2.6 X10*3/uL (1.2-4.9); MANUAL DIFF FLAG SCAN; Mean Corpuscular HGB Conc 33.0 g/dl (31.0-35.0); Mean Corpuscular Hemoglobin 28.7 pg (27.0-33.0); Mean Corpuscular Volume 87.1 fL (80.0-98.0); NRBC Abs Auto 0.000 X10*3/uL (0.0-0.012); NRBC Pct Auto 0.0 /100WBC (0.0-0.2); Platelet Count 435 X10*3/uL (160-400); Red Blood Count 5.05 X10*6/uL (4.20-5.50); SCAN SMEAR FLAG 1; White Blood Count 9.4 X10*3/uL (4.8-10.8)
--- NOTE | 2025-08-31 10:14 | PC.NURSE ---
Back charting to pt arrival, this RN was notified that pt was being brought back from triage d/t unknown allergic reaction/ distonic reaction, pt recently started on halidol q4 hours from [facility], Resp called to bedside, PA at bedside, IV obtained, MAR meds given and had good effect. Pt stopped douglas, was able to retract her tongue, and swallow effectively. Pt became less diaphoretic. IVF just stopped d/t infusion completing. [facility] providing information to ED staff at this time. At this time currently of 1015 pt able to walk to bathroom with steady gait, vitals remain stable, on return she reports no dizziness or CP or SOB
[2025-08-31] MEDS: Magnesium Sulfate/H2O 2 GM/50 ML PIGGYBACK IV (10:35)
[2025-08-31 11:07] LABS: Alanine Aminotransferase 132 U/L (0-31); Albumin Level 3.4 g/dL (3.5-5.0); Alkaline Phosphatase 96 U/L (39-117); Anion Gap 15 (12-20); Aspartate Amino Transferase 91 U/L (5-31); Blood Urea Nitrogen 12 mg/dL (9-16); Calcium 8.3 mg/dL (8.4-10.2); Carbon Dioxide 15 mmol/L (22-29); Chloride 114 mmol/L (96-108); Creatinine Clr Calc Pharmacy 81.7; Estimated Glomerular Filt Rate > 60; Potassium 4.5 mmol/L (3.3-5.1); Sodium 139 mmol/L (135-145); Total Protein 6.9 g/dL (6.5-8.0)
--- NOTE | 2025-08-31 12:30 | PM.IMHP ---
History of Present Illness Date of Service: 08/31/25 Attending physician on admission: Sarthak Castaneda Chief Complaint: tongue swelling This is a 19-year-old female with a history of cyclical vomiting syndrome who was recently seen at [facility] for the same and was prescribed Haldol reportedly for 4 times daily to be taken in conjunction with famotidine and Zofran. One month supply was prescribed and she was told to take it until completion. She began taking the medication on and had no issues until today. Today she reports taking a dose of Haldol falling which time she had tongue swelling and difficulty swallowing associated with chest tightness and leg numbness. She reportedly had associated tachycardia and diaphoresis. In the emergency department she received IV Benadryl and Cogentin with improvement in her symptoms. She denies any previous similar episodes. She is not allergic to any other medication. Review of Systems Review of Systems: Yes all other systems are reviewed and are negative Constitutional: Constitutional: Denies chills and Denies fever(s) Cardiovascular: Cardiovascular: Denies dyspnea Respiratory: Respiratory: Denies cough and Denies dyspnea [facility] Medical History Marijuana use Status post normal delivery in completely normal case Social History Household Members: Family Housing: House Do you presently have visiting nurse or other home services: No Alcohol intake: never Patient Tobacco Use Status: Never used Tobacco Smoked in Last 30 Days: No Substance Use Type: Marijuana Currently Displaying Signs/Symptoms of Drug Intoxication Withdrawal: No Advance Directives: No Advance Directives Information Provided: Yes Do you have a plan to hurt others: No Plan Recently lost weight without trying: No Nutrition Risks: No Nutritional Risk Patient : No (currently menstruating) : No service: No Meds Allergies Allergy/AdvReac Type Severity Reaction Status Date / Time No Known Allergies Allergy Verified 08/31/25 09:35 Home Medications ?Medication ?Instructions ?Recorded ?Confirmed ?Last Taken ?Type acetaminophen 325 mg tablet 650 mg PO Q4H PRN pain, 08/31/25 08/31/25 08/31/25 08:00 History alternating with ibuprofen famotidine 20 mg tablet 20 mg PO BID 08/31/25 08/31/25 08/31/25 08:00 History Physical Exam Vital Signs and Narrative: Vital Signs: Last Vital Signs Temp 98.5 F 08/31/25 12:06 Pulse 92 08/31/25 11:06 Resp 23 H 08/31/25 11:06 BP 114/67 08/31/25 11:06 Pulse Ox 98 08/31/25 11:06 O2 Del Method Room Air 08/31/25 11:06 BMI result Body Mass Index 24.9 Const: General: cooperative, comfortable, alert and awake Nutritional Appearance: average body habitus Orientation/consciousness: patient oriented x3 HEENT: Other: no tongue or lips swelling Resp: Effort & Inspection: normal respiratory effort, able to speak in complete sentences, no respiratory distress and no use of accessory muscles GI: Inspection: No distended Palpation (GI): Soft to palpation and nontender Neuro: General: patient oriented x3, moves all extremities and CN's II-XI intact bilaterally Results Labs 09/01/25 06:24 08/31/25 10:27 Labs: Laboratory Results - last 24 hr 08/31/25 08/31/25 09:31 10:27 MCV 87.1 MCH 28.7 MCHC 33.0 RDW 14.2 Plt Count 435 H MPV 9.6 Immature Gran % (Auto) 0.2 Neut % (Auto) 62.3 Lymph % (Auto) 27.7 [place] % (Auto) 6.1 Eos % (Auto) 3.2 Baso % (Auto) 0.5 Lymph # (Auto) 2.6 [place] # (Auto) 0.6 Eos # (Auto) 0.3 Baso # (Auto) 0.1 Abs Immat Gran (auto) 0.02 Absolute Neuts (auto) 5.8 Absolute Nucleated RBC 0.000 Nucleated RBC % (auto) 0.0 Smear Tech's Comments VERIFIED Anion Gap 15 Estim Creat Clear Calc 81.7 Estimated GFR > 60 Random Glucose 101 Calcium 8.3 L D Total Bilirubin 0.4 AST 91 H ALT 132 H Alkaline Phosphatase 96 Total Creatine Kinase 757 H Total Protein 6.9 Albumin 3.4 L TSH 0.01 L Assessment and Plan (1) Allergic reaction: Status: Acute Plan This is a 19-year-old female with a history of cyclical vomiting syndrome who presents to the emergency department with tongue swelling Allergic reaction Likely due to Haldol which was recently started due to nausea/vomiting Symptoms including tongue swelling, chest tightness, tachycardia seem more like allergic rxn but also having intermittent muscle contractions and drooling are more c/w sever dystonic reaction ?atypical NMS also possible. d/w psych less likely without fever, but will trend CPK, WBC and LDH q6h no tongue swelling at this time, able to manage secretions, no sob continue prn benedryl, valium stop haldol cogentin 0.5 bid IV hydration mild rhabdo cpk 757 IVF trend mild transaminitis appears chronic, lower then previous dvt ppx - early ambulation, mechaincal devices Quality Stroke Does the patient have a stroke diagnosis?: No VTE Prior VTE?: No VTE Risk Level:: Medical - low VTE Device Contraindication: N/A - Device Ordered VTE Drug Contraindication: Treatment Not Indicated
[2025-08-31 12:33] LABS: Free T4 (Free Thyroxine) 1.34 ng/dL (0.71-1.85)
--- NOTE | 2025-08-31 12:38 | PHA.MEDREC ---
Pharmacy Consult ? Medication Reconciliation Pharmacy has completed the medication reconciliation. Spoke with patient and family at bedside. Patient also had RX bottles at bedside. Patient stated she took all her medications this morning including tylenol and ibuprofen for pain. She also states she was taking her zofran around the clock. Patient stated she had a rxn to her haldol this AM. Patient also stated she will only be on famotidine for 15 days so last administration should be on 09/12
--- NOTE | 2025-08-31 13:51 | PC.NURSE ---
At approx 1330, family member came out to alert staff pt was having another episode, pt noted to be having the same symptoms as prior episodes (stops being able to speak, starts drooling, her extremities get very contracted, tongue starts to stick out) ED provider ordered 5mg Valium to be given IVP, this RN reached out to admitting PA to alert of situation, noted that there is Benadryl PRN this RN did discuss medications that have been given, and situation, at this time no new orders. Primary RN aware.
[2025-08-31] MEDS: Lactated Ringers 1,000 ML 100 ML IVCONT (14:31)
[2025-08-31] MEDS: 0.9 % Sodium Chloride Flush 3 ML SYRINGE IVFLUSH (20:42)
[2025-08-31] MEDS: Lactated Ringers 1,000 ML 125 ML IVCONT (23:04)
[2025-09-01 03:01] VITALS: BP 98/60; PULSE 65; RESP 18; TEMP 37.2; O2SAT 97
[2025-09-01 06:44] LABS: Hematocrit 35.3 % (37.0-47.0); Hemoglobin 11.4 g/dl (12.0-16.0); Mean Corpuscular HGB Conc 32.3 g/dl (31.0-35.0); Mean Corpuscular Hemoglobin 28.6 pg (27.0-33.0); Mean Corpuscular Volume 88.5 fL (80.0-98.0); NRBC Abs Auto 0.000 X10*3/uL (0.0-0.012); NRBC Pct Auto 0.0 /100WBC (0.0-0.2); Platelet Count 282 X10*3/uL (160-400); Red Blood Count 3.99 X10*6/uL (4.20-5.50); White Blood Count 8.5 X10*3/uL (4.8-10.8)
[2025-09-01] MEDS: Lactated Ringers 1,000 ML 125 ML IVCONT (07:26)
[2025-09-01 08:00] VITALS: BP 112/88; PULSE 76; RESP 20; TEMP 36.7; O2SAT 100
--- NOTE | 2025-09-01 08:24 | MHC.CM.PN ---
CM met with Patient at bedside and addressed the JOHNSON with her, providing Patient with the original and a copy has been placed on the chart. Patient lives in a house with her Parents, 3 siblings and her 3 month old Son. Patient is functionally independent and home self care is her goal. CM has initiated and will follow for dc planning. PCP is from [facility] and Parents will transport @ dc.
--- NOTE | 2025-09-01 11:08 | P.DS_ITS ---
DS: Providers Provider Date of Service: 09/01/25 Date of admission: 08/31/25 12:01 Date of discharge: 09/01/25 Primary care physician: [facility] DS: Diagnosis Discharge Diagnosis (1) Allergic reaction: Status: Acute DS: Summary Hospital Course Hospital Course: 19-year-old female with a history of cyclical vomiting syndrome who was recently seen at [facility] for the same and was prescribed Haldol reportedly for 4 times daily to be taken in conjunction with famotidine and Zofran. One month supply was prescribed and she was told to take it until completion. She began taking the medication on and had no issues until today. Today she reports taking a dose of Haldol falling which time she had tongue swelling and difficulty swallowing associated with chest tightness and leg numbness. She reportedly had associated tachycardia and diaphoresis. In the emergency department she received IV Benadryl and Cogentin with improvement in her symptoms. She denies any previous similar episodes. She is not allergic to any other medication. [facility] Patient admitted to telemetry where monitor failed to demonstrate any dysrhythmias. She had no further symptoms overnight and today she is feeling well without nausea or vomiting or signs of reaction. She will be discharged home and will not take any Haldol further. She is strongly advised to stop smoking marijuana Time Attestation Discharge Coordination Time (in mins): 35 Quality: Safe Use of Opioids Does Pt have an Active Cancer Diagnosis on the Problem List?: No Quality: Stroke Does the patient have a stroke diagnosis?: No Physical Exam Vital Signs: Vital Signs: Last Vital Signs Temp 98.1 F 09/01/25 08:00 Pulse 76 09/01/25 08:00 Resp 20 09/01/25 08:00 BP 112/88 09/01/25 08:00 Pulse Ox 100 09/01/25 08:00 O2 Del Method Room Air 09/01/25 08:00 BMI result Body Mass Index 25.7 Const: Other: Awake alert no acute distress Resp: Other: Clear to auscultation bilaterally no rales rhonchi or wheezes Cardio: Other: No S4; positive S1-S2; no S3 murmurs rubs or gallops GI: Other: Soft nontender nondistended normoactive bowel sounds Extrem: Other: No edema bilaterally DS: Data Data Completed and Pending Labs on day of discharge: Laboratory Results - last 24 hr 08/31/25 08/31/25 08/31/25 10:27 13:03 18:33 WBC RBC Hgb Hct MCV MCH MCHC RDW Plt Count MPV Absolute Nucleated RBC Nucleated RBC % (auto) Lactate Dehydrogenase 593 H 259 H Total Creatine Kinase TSH 0.01 L Free T4 1.34 Beta HCG, Quant < 2 09/01/25 06:24 WBC 8.5 RBC 3.99 L D Hgb 11.4 L D Hct 35.3 L MCV 88.5 MCH 28.6 MCHC 32.3 RDW 14.2 Plt Count 282 D MPV 10.9 Absolute Nucleated RBC 0.000 Nucleated RBC % (auto) 0.0 Lactate Dehydrogenase Total Creatine Kinase 285 H TSH Free T4 Beta HCG, Quant Discharge Plan Discharge Anticipated Discharge Date/Time: 09/01/25 11:04 Patient Disposition: Home, Self-Care Discharge Diagnosis: Allergic reaction Referrals: Group,[facility] [Primary Care Provider, Primary Care] - 1 Week Discharge Medications: Continued acetaminophen 325 mg Tablet 650 mg PO Q4H PRN (Reason: pain, alternating with ibuprofen) famotidine 20 mg tablet 20 mg PO BID Rx Instructions: for 15 days, last day should be 09/12/25 ondansetron 4 mg tablet,disintegrating 4 mg PO Q8H PRN (Reason: nausea and vomiting) Qty: 7 0RF Discontinued haloperidol 5 mg tablet 5 mg PO QID ibuprofen 200 mg Tablet 200 mg PO Q6H PRN (Reason: pain, alternating with tylenol) Discharge Orders: Discharge Order (Routine); Ordered 09/01/25 Ordered By: Sarthak Castaneda Diet: Advance to usual diet Activity on Discharge: As tolerated Stand Alone Forms: Patient Portal Discharge page Print Language: Citizen Of [place] Care Plan Goals: Stop Haldol and Benadryl at this time. Health Concerns: Avoid smoking cannabis Plan of Treatment: Resume all meds as taken prior except for the Haldol Assessment: See discharge summary
--- NOTE | 2025-09-01 11:18 | MHC.CM.PN ---
Patient has been medically cleared for dc to home today, self care.
[2025-09-01 12:00] VITALS: BP 114/68; PULSE 62; RESP 16; TEMP 36.7; O2SAT 98
== END 2025-09-01 14:48 | disposition home or self-care (01) ==
LOC: HO.ED 11:55 → HO.EDOVER 12:35 → HO.IMC 16:34
PROVIDERS: Physician Assistant Medical; Admitting Provider Physician Assistant Medical; Emergency Provider Emergency Medicine Emergency Medical Services; Visit Provider Hospitalist
DX: T78.49XA Other allergy, initial encounter (principal); X58.XXXA Exposure to other specified factors, initial encounter; Y92.9 Unspecified place or not applicable; R11.2 Nausea with vomiting, unspecified; G24.9 Dystonia, unspecified; R00.0 Tachycardia, unspecified; R61 Generalized hyperhidrosis; R07.89 Other chest pain; K14.9 Disease of tongue, unspecified; R74.01 Elevation of levels of liver transaminase levels; R10.9 Unspecified abdominal pain; Z79.899 Other long term (current) drug therapy
CPT/HCPCS: 36415; 80053; 82550; 83615; 84439; 84443; 84702; 85025; 85027; 93005; 96361; 96365; 96366; 96372; 96375; 96376; 99222; 99285; J0515; J1100; J1200; J1650; J3360; J3475; J7120

== ENCOUNTER → 2025-08-31 09:26 | Outpatient (BNV) | payer OTHER, SELFPAY | PROVIDERS: Admitting Provider Physician Assistant Medical; Emergency Provider Emergency Medicine Emergency Medical Services; Visit Provider Internal Medicine | DX: R53.1 Weakness (principal) | CPT/HCPCS: 93010 ==

== ENCOUNTER → 2025-08-31 12:01 | Outpatient (BNV) | payer OTHER, SELFPAY | PROVIDERS: Admitting Provider Physician Assistant Medical; Emergency Provider Emergency Medicine Emergency Medical Services; Visit Provider Physician Assistant Medical | DX: T78.40XA Allergy, unspecified, initial encounter (principal) | CPT/HCPCS: 99222; 99239 ==

== ENCOUNTER 2025-09-09 13:09 | Emergency (ER) | payer OTHER, SELFPAY ==
[2025-09-09 13:14] VITALS: BP 131/93; PULSE 101; O2SAT 98
[2025-09-09 13:28] VITALS: BP 136/80; PULSE 118; RESP 20; TEMP 35.7; O2SAT 98; BMI 24.2
--- NOTE | 2025-09-09 13:29 | ED.GENADULT ---
HPI - General Adult General Chief complaint: Abdominal Pain Stated complaint: ABD PAIN,N/V PER EMS Related Data Home Medications ?Medication ?Instructions ?Recorded ?Confirmed acetaminophen 325 mg tablet 650 mg PO Q4H PRN pain, 08/31/25 09/12/25 alternating with ibuprofen Previous Rx's ?Medication ?Instructions ?Recorded ondansetron 4 mg disintegrating 4 mg PO Q8H PRN nausea and 09/10/25 tablet vomiting #7 tabs Allergies Allergy/AdvReac Type Severity Reaction Status Date / Time haloperidol (From Haldol) Allergy Mild Anaphylaxis Verified 09/11/25 19:11 [facility] Past Medical History Medical History GERD (gastroesophageal reflux disease) Long QT interval Acute hypokalemia Marijuana use Status post normal delivery in completely normal case Social History Social History Household Members: Family Housing: House Do you presently have visiting nurse or other home services: No Alcohol intake: never Patient Tobacco Use Status: Never used Tobacco Substance Use Type: Marijuana service: No Physical Exam ED Vital Signs: BMI result Body Mass Index 24.2 Course Course Course Narrative: This is a rapid medical exam performed by Yvonne Pace NP: Additional HPI, ROS, PE not included below will be deferred to primary provider. Patient is a 19-year-old female with history of GERD, prolonged, QT, and marijuana use presenting with complaint of epigastric pain, nausea, vomiting, and blood tinged emesis. Denies cannabis use. Plan: EKG, labs, viral swabs Patient left the emergency department before myself or any of the other clinicians could review or explain physical exam findings, test results, need or lack there of for additional testing, treatment options, or a treatment plan. Medical Decision Making Lab Data Labs: Lab Results 09/09/25 Range/Units 14:01 Influenza Type A (PCR) NEGATIVE (Negative) Influenza Type B (PCR) NEGATIVE (Negative) RSV RNA Qual (PCR) NEGATIVE (Negative) SARS-CoV-2 RNA (RT-PCR) NEGATIVE (Negative) Discharge Plan Discharge Clinical Impression: Abdominal pain Patient Disposition: Left W/O Completing Treatment Prescriptions: No Action acetaminophen 325 mg Tablet 650 mg PO Q4H PRN (Reason: pain, alternating with ibuprofen) ondansetron 4 mg tablet,disintegrating 4 mg PO Q8H PRN (Reason: nausea and vomiting) Qty: 7 0RF Discharge Date/Time: 09/09/25 14:46
--- NOTE | 2025-09-09 13:31 | ECG_ITS ---
Test Reason : ABD PAIN Blood Pressure : */* mmHG Vent. Rate : 109 BPM Atrial Rate : 109 BPM P-R Int : 150 ms QRS Dur : 82 ms QT Int : 334 ms P-R-T Axes : 67 41 39 degrees QTcB Int : 449 ms Sinus tachycardia Otherwise normal ECG When compared with ECG of 31-Aug-2025 09:39, Nonspecific T wave abnormality no longer evident in Anterior leads Referred By: Isaura Pace Electronically Signed By: NANDINI SANTACRUZ MD
--- NOTE | 2025-09-09 13:40 | MHC.EDTECH ---
Addendum entered by Gladis Khoury 09/09/25 14:00: Pt responded on third attempt. EKG completed at 1356. Original Note: Attempted to call Pt back for EKG 2x with no response at 1334 and 1340.
--- NOTE | 2025-09-09 14:12 | MHC.EDTECH ---
Difficult stick, no labs obtained. Pt did not want to be stuck again.
[2025-09-09 14:50] LABS: Resp Syncy Virus RNA Qual PCR NEGATIVE (Negative); SARS COV2 PCR INHOUSE NEGATIVE (Negative)
--- OUTSIDE RECORDS SUMMARY | 2025-09-09 15:54 | XMS_ITS | Clinical Summary ---
Author Organization [facility] Address [address] [place] [address] Phone Care Team Providers Care Control Systems Technician Name Role Phone Shane Licona MD Primary Care Provider [phone] Allergies No known active allergies Medications famotidine (PEPCID) 20 mg tablet Take 1 tablet (20 mg total) by mouth 2 (two) times a day for 15 days. 30 tablet 5 025 Active haloperidoL (HALDOL) 5 mg tablet Take 1 tablet (5 mg total) by mouth 4 (four) times a day if needed (Nausea and vomiting or abdominal pain). 120 each 5 025 Active capsaicin (ZOSTRIX) 0.075 % cream Apply topically 3 (three) times a day. Apply to abdomen for nausea and vomiting related to cannabis use 28.3 g 5 026 Active ondansetron ODT (ZOFRAN-ODT) 4 mg disintegrating tablet Let 1 tablet dissolve under the tongue three times daily as needed for nausea or vomiting. 10 tablet 5 025 Encounters Date Type Department Care Team Description 08/28/2025 1:38 PM EDT - 08/28/2025 7:14 PM EDT Emergency [facility] Emergency [address] [place] [address] Rodolfo Acevedo MD Gastroenteritis (Primary [...] reflex microscopic (08/28/2025 4:20 PM EDT) Specific [place] Urine >1.045(H) 1.003 - 1.030 LAB URINALYSIS - AUTOMATED METHOD 08/28/2025 4:51 PM [facility] pH, Urine 8.0 5.0 - 8.0 pH LAB URINALYSIS - AUTOMATED METHOD 08/28/2025 4:51 PM [facility] Leukocytes, Urine Negative Negative LAB URINALYSIS - AUTOMATED METHOD 08/28/2025 4:51 PM [facility] Nitrite, Urine Negative Negative LAB URINALYSIS - AUTOMATED METHOD 08/28/2025 4:51 PM [facility] Protein, Urine Negative <=Trace mg/dL LAB URINALYSIS - AUTOMATED METHOD 08/28/2025 4:51 PM [facility] Glucose, Urine Negative Negative mg/dL LAB URINALYSIS - AUTOMATED METHOD 08/28/2025 4:51 PM [facility] Ketones, Urine 40(A) Negative mg/dL LAB URINALYSIS - AUTOMATED METHOD 08/28/2025 4:51 PM [facility] Urobilinogen , Urine 1.0 0.2 - 1.0 mg/dL LAB URINALYSIS - AUTOMATED METHOD 08/28/2025 4:51 PM [facility] Bilirubin, Urine Negative Negative LAB URINALYSIS - AUTOMATED METHOD 08/28/2025 4:51 PM EDT [facility] Blood, Urine Large(A) Negative LAB URINALYSIS - AUTOMATED METHOD 08/28/2025 4:51 PM EDT [facility] RBC, Urine 28.6(H) 0 - 4 /HPF LAB URINALYSIS - AUTOMATED METHOD 08/28/2025 4:51 PM EDT [facility] WBC, Urine 1.9 0 - 4 /HPF LAB URINALYSIS - AUTOMATED METHOD 08/28/2025 4:51 PM EDT [facility] Squamous Epithelial, Urine 20 0 - 60 /LPF LAB URINALYSIS - AUTOMATED METHOD 08/28/2025 4:51 PM EDT [facility] Bacteria, Urine Negative Negative /HPF LAB URINALYSIS - AUTOMATED METHOD 08/28/2025 4:51 PM EDT [facility] Hyaline Casts, Urine 0.8 0 - 3 /LPF LAB URINALYSIS - AUTOMATED METHOD 08/28/2025 4:51 PM EDT [facility] Urine Urine specimen obtained by clean catch procedure / Unknown Non-blood Collection / Unknown 08/28/2025 4:20 PM EDT 08/28/2025 4:39 PM EDT us Rodolfo Acevedo MD LAB URINE ORDERABLES Final Result [facility] [address] [place] [address], * (ABNORMAL) Drug abuse screen 8a panel, urine (08/28/2025 4:20 PM EDT) Amphetamine Screen, Ur Negative Negative LAB CHEMISTRY METHOD 5:00 PM EDT [facility] Comment:Certain OTC medicati ons containing ephedrine, phenylephrine, pseudoephedrine and phenylpropanolamine can cause false positive results. Barbiturate Screen, Ur Negative Negative LAB CHEMISTRY METHOD 5 5:00 PM EDT [facility] Benzodiazepine Screen, Ur Negative Negative LAB CHEMISTRY METHOD 5 5:00 PM EDT [facility] Cocaine Screen, Ur Negative Negative LAB CHEMISTRY METHOD 5 5:00 PM EDT [facility] Opiate Screen, Ur Positive(A ) Negative LAB CHEMISTRY METHOD 5 5:00 PM EDT [facility] Cannabinoid (THC) Screen, Ur Positive(A ) Negative LAB CHEMISTRY METHOD 5:00 PM EDT [facility] Comment:Specimens from patie nts taking pantoprazole sodium (Protonix) have been shown to produce false positive results. Oxycodone Screen, Ur Negative Negative LAB CHEMISTRY METHOD 5:00 PM EDT [facility] Fentanyl, Ur Negative Negative LAB CHEMISTRY METHOD 5:00 PM T [facility] Urine Urine specimen obtained by clean catch procedure / Unknown Non-blood Collection / Unknown 08/28/2025 4:20 PM EDT 08/28/2025 4:39 PM EDT Narrative [facility] - 08/28/2025 5:00 PM EDT Assay cutoffs: Amphetamines 1000 ng/mL Barbiturates 200 ng/mL Benzodiazepines 200 ng/mL Cocaine 300 ng/mL Fentanyl 1 ng/mL Opiates 300 ng/mL Oxycodone 100 ng/mL THC 50 ng/mL Semi-quantitative assay for screening purposes only. Unconfirmed screening result should not be used for non-medical purposes. *ALTERNATE METHOD CONFIRMATION DONE UPON REQUEST ONLY* us Rodolfo Acevedo MD LAB URINE ORDERABLES Final Result [facility] [address] [place] [address], * CT Abdomen Pelvis w Contrast (08/28/2025 [...] Signed Date: 08/28/2025 16:13 ET Workstation ID: [id number] Transcribed By: Self Edit Transcribed Date: 08/28/2025 [...] Signed Date: 08/28/2025 16:13 ET Workstation ID: [id number] Transcribed By: Self Edit Transcribed Date: 08/28/2025 16:11 ET Rodolfo Acevedo MD IM CT PROCEDURES Final Res ult * (ABNORMAL) CBC auto differential (08/28/2025 12:48 PM EDT) WBC 10.3 4.8 - 10.8 K/mcL LAB HEMETOLOGY METHOD 08/28/2025 1:59 PM EDT [facility] RBC 5.00(H) 3.80 - 4.80 M/mcL LAB HEMETOLOGY METHOD 08/28/2025 1:59 PM EDT [facility] Hemoglobin 14.4 11.5 - 16.0 g/dL LAB HEMETOLOGY METHOD 08/28/2025 1:59 PM EDT [facility] Hematocrit 42.9 35.0 - 47.0 % LAB HEMETOLOGY METHOD 08/28/2025 1:59 PM EDT [facility] MCV 86.0 79.0 - 98.0 FL LAB HEMETOLOGY METHOD 08/28/2025 1:59 PM EDT [facility] MCH 28.9 27.0 - 32.0 pcg LAB HEMETOLOGY METHOD 08/28/2025 1:59 PM EDT [facility] MCHC 33.6 32.0 - 37.0 g/dL LAB HEMETOLOGY METHOD 08/28/2025 1:59 PM EDT [facility] RDW 14.2 11.0 - 15.0 % LAB HEMETOLOGY METHOD 08/28/2025 1:59 PM EDT [facility] Platelets 451(H) 130 - 400 K/mcL LAB HEMETOLOGY METHOD 08/28/2025 1:59 PM EDT [facility] MPV 10.5 7.0 - 11.0 FL LAB HEMETOLOGY METHOD 08/28/2025 1:59 PM EDT [facility] NRBC 0.0 <1.0 % LAB HEMETOLOGY METHOD 08/28/2025 1:59 PM EDT [facility] NRBC Absolute 0.00 <0.10 K/mcL LAB HEMETOLOGY METHOD 08/28/2025 1:59 PM EDT [facility] Neutrophils Relative 79.9 % LAB HEMETOLOGY METHOD 08/28/2025 1:59 PM EDT [facility] Lymphocytes Relative 10.8 % LAB HEMETOLOGY METHOD 08/28/2025 1:59 PM EDT [facility] Monocytes Relative 8.7 % LAB HEMETOLOGY METHOD 08/28/2025 1:59 PM EDT [facility] Eosinophils Relative 0.1 % LAB HEMETOLOGY METHOD 08/28/2025 1:59 PM EDT [facility] Basophils Relative 0.2 % LAB HEMETOLOGY METHOD 08/28/2025 1:59 PM EDT [facility] Immature Granulocytes Relative 0.3 % LAB HEMETOLOGY METHOD 08/28/2025 1:59 PM EDT [facility] Neutrophils Absolute 8.23(H) 1.50 - 7.00 K/mcL LAB HEMETOLOGY METHOD 08/28/2025 1:59 PM EDT [facility] Lymphocytes Absolute 1.11 1.00 - 5.00 K/mcL LAB HEMETOLOGY METHOD 08/28/2025 1:59 PM EDT [facility] Monocytes Absolute 0.90 0.20 - 1.00 K/mcL LAB HEMETOLOGY METHOD 08/28/2025 1:59 PM EDT [facility] Eosinophils Absolute 0.01 0.00 - 0.50 K/mcL LAB HEMETOLOGY METHOD 08/28/2025 1:59 PM EDT [facility] Basophils Absolute 0.02 0.00 - 0.20 K/mcL LAB HEMETOLOGY METHOD 08/28/2025 1:59 PM EDT [facility] Immature Granulocytes Absolute 0.03 0.00 - 0.03 K/mcL LAB HEMETOLOGY METHOD 08/28/2025 1:59 PM EDT [facility] Blood Venous blood specimen / Unknown Venipuncture / Unknown 08/28/2025 12:48 PM EDT 08/28/2025 1:19 PM EDT us Tevin Romo MD LAB BLOOD ORDERABLES Final Resul t [facility] [address] [place] [address], * hCG, serum, qualitative (08/28/2025 12:48 PM EDT) hCG Qual Negative Negative 08/28/2025 2:16 PM EDT [facility] Blood Venous blood specimen / Unknown Venipuncture / Unknown 08/28/2025 12:48 PM EDT 08/28/2025 1:19 PM EDT us Rodolfo Acevedo MD LAB BLOOD ORDERABLES Final Result Performing Organization Address [facility]/ZIP Co de Phone Number [facility] [address] [place] [address], [place] [phone] * Magnesium (08/28/2025 12:48 PM EDT) Magnesium 2.5 1.9 - 2.6 mg/dL LAB CHEMISTRY METHOD 08/28/2025 2:04 PM EDT [facility] Blood Venous blood specimen / Unknown Venipuncture / Unknown 08/28/2025 12:48 PM EDT 08/28/2025 1:19 PM EDT Rodolfo Acevedo MD LAB BLOOD ORDERABLES Final Result Performing Organization Address [facility] Co de Phone Number [facility] [address] [place] [address], [place] [phone] * Lipase (08/28/2025 12:48 PM EDT) Lipase 21 13 - 75 unit/L LAB CHEMISTRY METHOD 08/28/2025 2:04 PM EDT [facility] Blood Venous blood specimen / Unknown Venipuncture / Unknown 08/28/2025 12:48 PM EDT 08/28/2025 1:19 PM EDT us Tevin Romo MD LAB BLOOD ORDERABLES Final Resul t Performing Organization Address City/[facility]/ZIP Co de Phone Number [facility] [address] [place] [address], [place] [phone] * (ABNORMAL) Comprehensive metabolic panel (08/28/2025 12:48 PM EDT) Sodium 135 133 - 145 mmol/L LAB CHEMISTRY METHOD 08/28/2025 2:08 PM [facility] Potassium 3.9 3.5 - 5.5 mmol/L LAB CHEMISTRY METHOD 08/28/2025 2:08 PM [facility] Chloride 101 96 - 110 mmol/L LAB CHEMISTRY METHOD 08/28/2025 2:08 PM [facility] CO2 26 21 - 32 mmol/L LAB CHEMISTRY METHOD 08/28/2025 2:08 PM [facility] Anion Gap 8 3 - 11 LAB CHEMISTRY METHOD 08/28/2025 2:08 PM [facility] Glucose 88 70 - 100 mg/dL LAB CHEMISTRY METHOD 08/28/2025 2:08 PM [facility] BUN 18 5 - 25 mg/dL LAB CHEMISTRY METHOD 08/28/2025 2:08 PM [facility] Creatinine 0.88 0.50 - 1.10 mg/dL LAB CHEMISTRY METHOD 08/28/2025 2:08 PM [facility] eGFR 97 >=60 mL/min/1. 73m2 LAB CHEMISTRY METHOD 08/28/2025 2:08 PM [facility] Comment:Calculation based on the Chronic Kidney Disease Epidemiology Collaboration (CKD-EPI) equation refit without adjustment for race. BUN/Creatinine Ratio 20.5 LAB CHEMISTRY METHOD 08/28/2025 2:08 PM [facility] Calcium 9.7 8.5 - 10.5 mg/dL LAB CHEMISTRY METHOD 08/28/2025 2:08 PM [facility] AST (SGOT) 70(H) 10 - 42 unit/L LAB CHEMISTRY METHOD 08/28/2025 2:08 PM [facility] ALT (SGPT) 57 10 - 60 unit/L LAB CHEMISTRY METHOD 08/28/2025 2:08 PM [facility] Alkaline Phosphatase 107 42 - 121 unit/L LAB CHEMISTRY METHOD 08/28/2025 2:08 PM EDT [facility] Total Protein 7.6 6.0 - 8.0 g/dL LAB CHEMISTRY METHOD 08/28/2025 2:08 PM EDT [facility] Albumin 4.2 3.2 - 5.0 g/dL LAB CHEMISTRY METHOD 08/28/2025 2:08 PM EDT [facility] Total Bilirubin 0.7 0.0 - 1.4 mg/dL LAB CHEMISTRY METHOD 08/28/2025 2:08 PM EDT [facility] Blood Venous blood specimen / Unknown Venipuncture / Unknown 08/28/2025 12:48 PM EDT 08/28/2025 1:19 PM EDT us Tevin Romo MD LAB BLOOD ORDERABLES Final Resul t [facility] [address] [place] [address], [place] [phone] from Last 3 Months Insurance MEDICAID - [place] Care Teams Control Systems Technician Relationship Specialty Start Date End Date Shane Licona MD [address] [place] [address] [facility] - General 12/15/23
== END 2025-09-09 14:46 | disposition left against medical advice (07) ==
PROVIDERS: Registered Nurse Emergency; Emergency Provider Emergency Medicine
DX: R10.9 Unspecified abdominal pain (principal); R11.2 Nausea with vomiting, unspecified; Z03.818 Encounter for observation for suspected exposure to other biological agents ruled out; R00.0 Tachycardia, unspecified; Z53.29 Procedure and treatment not carried out because of patient's decision for other reasons
CPT/HCPCS: 87637; 93005; 99283

== ENCOUNTER → 2025-09-09 13:31 | Outpatient (BNV) | payer OTHER, SELFPAY | PROVIDERS: Emergency Provider Emergency Medicine; Visit Provider Internal Medicine Cardiovascular Disease | DX: R00.0 Tachycardia, unspecified (principal) | CPT/HCPCS: 93010 ==

== ENCOUNTER 2025-09-09 18:02 | Emergency (ER) | payer OTHER, SELFPAY ==
--- NOTE | ~2025-09-09 | XR_ITS ---
CLINICAL HISTORY: pain constipation - Patient refused to remove belly piercing for x-ray. 1 view abdomen Comparison: None provided Findings: No pneumoperitoneum or pneumatosis. No abnormal calcifications. No acute fractures. IMPRESSION: Normal bowel gas pattern This document has been electronically signed by: Ernesto Martinez MD, PHD on 09/10/2025 02:44:52
[2025-09-09 18:48] VITALS: BP 151/91; PULSE 96; RESP 18; TEMP 36.2; O2SAT 100; BMI 24.0
--- NOTE | 2025-09-09 18:58 | ED_ITS ---
HPI - General Adult General Chief complaint: Abdominal Pain Stated complaint: Nausea Vomiting Diarrhea Time Seen by Provider: 09/09/25 22:36 Source: patient Limitations: no limitations History of Present Illness ED Provider: Charlotte Piña PA-C HPI narrative: 19-year-old female with a history of cyclic vomiting secondary to marijuana use, presents with upper abdominal pain with nausea vomiting since this morning. Associated diarrhea at times. History limited as the patient is quite hostile and belligerent, screaming at staff to ?give me pain medicine?. The patient denies recent hospitalization, use the antibiotics or travel. No sick contacts with similar symptoms. Related Data Home Medications ?Medication ?Instructions ?Recorded ?Confirmed acetaminophen 325 mg tablet 650 mg PO Q4H PRN pain, 08/31/25 alternating with ibuprofen famotidine 20 mg tablet 20 mg PO BID 08/31/25 Previous Rx's ?Medication ?Instructions ?Recorded ondansetron 4 mg disintegrating 4 mg PO Q8H PRN nausea and 08/27/25 tablet vomiting #7 tabs dicyclomine 20 mg tablet 20 mg PO TID PRN abdominal p ain 09/10/25 #10 tabs ondansetron 4 mg disintegrating 4 mg PO Q8H PRN nausea and 09/10/25 tablet vomiting #7 tabs Allergies Allergy/AdvReac Type Severity Reaction Status Date / Time haloperidol (From Haldol) Allergy Anaphylaxis Verified 09/09/25 18:50 Review of Systems 2 Review of Systems: Unable to completely obtain secondary to the fact that the patient is quite hostile and belligerent Yes all other systems are reviewed and are negative [facility] Past Medical History Attestation statement: The following information was validated with the patient. Medical History Marijuana use Status post normal delivery in completely normal case Social History Social History Household Members: Family Housing: House Do you presently have visiting nurse or other home services: No Alcohol intake: never Patient Tobacco Use Status: Never used Tobacco Smoked in Last 30 Days: No Use of substances other than those prescribed or required for medical reasons: No Substance Use Type: Marijuana Advance Directives: No Advance Directives Information Provided: Yes Do you have a plan to hurt others: No Plan Patient : No service: No Physical Exam ED Vital Signs: Vital Signs - 24 hr 09/09/25 18:48 09/10/25 01:10 Temperature 97.2 F 98.4 F Pulse Rate 96 86 Respiratory Rate 18 16 Blood Pressure 151/91 H 139/96 H Pulse Oximetry 100 97 Oxygen Delivery Method Room Air Room Air BMI result Body Mass Index 24.0 Const Other: Alert, on her phone speaking to someone while I am trying to assess her Orientation/consciousness: patient oriented x3 Resp Effort & Inspection: normal respiratory effort Cardio Other: Normal peripheral perfusion GI Other: Soft nontender nondistended no guarding with distraction Skin Other: Warm dry no rash Neuro General: patient oriented x3, gait normal, no focal motor deficits and CN's II- XI intact bilaterally Psych Other: Uncooperative, hostile, belligerent, Course Course Course Narrative: This is a rapid medical exam performed by Yvonne Pace NP: Additional HPI, ROS, PE not included below will be deferred to primary provider. Patient is a 19y/o F pmhx GERD, prolonged QT, and marijuana use presenting with epigastric pain, nausea and vomiting since this am. Presented to this ED via EMS earlier today but left from waiting room without completing treatment prior to labs being drawn. Plan: labs Reevaluation(s) Reevaluation #1: The moment that I walked out of her exam room, after obtaining an ultrasound- guided IV, the patient began yelling ?no one is doing anything, I want apple juice? Reevaluation #2: Patient has not vomited since arrival, she is asking for more apple juice, she has been tolerating oral intake Reevaluation #3: Patient was just up to the bathroom, she reported to nursing staff that she threw up in the bathroom. KUB is pending at this point, x-ray just took her for her film Additional Reevaluation(s): 405 am at the time of discharge, after the patient's nurse removed her ultrasound-guided IV, The patient then stated that she had just vomited in the bathroom after drinking yet more apple juice. The patient has not had any active nausea /vomiting for over an hour, she has been sleeping. I verbalized her discharge instructions with her at bedside. I relayed to her that it is concerning that she has presented to the emergency department multiple times with the same presentation, then in turn required hospital admission, and has been seen at outside facility for same presentation. She has been instructed on numerous occasions that she should strongly consider abstaining from the use of marijuana. Her urine toxicology screen has continually been positive for marijuana. Her mom is at bed side, I relayed the same information to the mother. I also provided a list of outpatient resources for detox, if the patient felt she needed help to stop using marijuana. I inquired if she was breast-feeding her child, the child is just about 4-month-old, she states she is not breast-feeding the child drinks formula. I also expressed concern that there is an in the home, in the setting of ongoing substance use, that this is a concerning scenario. Medications Administered Discontinued Medications Generic Name Dose Route Start Last Admin Trade Name Freq PRN Reason Stop Dose Admin Diazepam 5 mg 09/09/25 23:45 09/10/25 00:08 Diazepam 10 Mg/2 Ml Cartridge IVPUSH 09/09/25 23:46 5 mg STAT STA Administration Dicyclomine HCl 20 mg 09/09/25 23:43 09/10/25 00:06 Dicyclomine Hcl 10 Mg Capsule PO 09/09/25 23:44 20 mg ONCE ONE Administration Famotidine 20 mg 09/10/25 00:51 09/10/25 01:21 Famotidine/Pf 20 Mg/2 Ml Vial IVPUSH 09/10/25 00:52 20 mg ONCE ONE Administration Sodium Chloride 1,000 mls @ 999 mls/hr 09/09/25 22:45 09/10/25 02:00 Ns IV 09/09/25 23:45 Infused .Q1H1M LINDA Infusion Sodium Chloride 1,000 mls @ 999 mls/hr 09/09/25 23:45 09/10/25 02:00 Ns IV 09/10/25 00:45 Infused .Q1H1M LINDA Infusion Ketorolac Tromethamine 15 mg 09/09/25 23:43 09/10/25 00:08 Ketorolac Tromethamine 15 Mg/Ml Vial IVPUSH 09/09/25 23:44 15 mg ONCE ONE Administration Midazolam HCl 2 mg 09/10/25 02:53 09/10/25 03:20 Midazolam Hcl 2 Mg/2 Ml Vial IVPUSH 09/10/25 02:54 2 mg ONCE ONE Administration Sucralfate 1 gm 09/10/25 00:51 09/10/25 01:21 Sucralfate Oral Suspension 1 Gm/10 Ml Oral.Susp PO 09/10/25 00:52 1 gm ONCE ONE Administration Procedures Procedure Narrative Procedure Narrative: Ultrasound-guided IV 20 gauge 1-3/4 inch IV placed in right upper extremity. Adequate blood return, flushes well secured with Tegaderm Medical Decision Making Medical Decision Making [facility] Narrative: 19-year-old female with a history of cyclic vomiting secondary to marijuana use, presents with upper abdominal pain with nausea vomiting since this morning. Associated diarrhea at times. History limited as the patient is quite hostile and belligerent, screaming at staff to ?give me pain medicine?. The patient denies recent hospitalization, use the antibiotics or travel. No sick contacts with similar symptoms. Problem: Cannabinoid induced hyperemesis History: Per patient which is limited I have considered the following differential diagnoses: Cyclic vomiting, cannabinoid hyperemesis, biliary colic, cholecystitis, GERD, pancreatitis, viral gastritis , viral gastroenteritis, C diff, traveler's diarrhea Plan: Per the patient she is having upper abdominal discomfort, then she states she is having a diffuse pain. I have considered underlying gastric versus biliary versus pancreatic etiology as cause for her symptoms. With distraction her exam was completely unremarkable, her screening labs were completed from triage, she has no elevation in her LFTs or lipase. Her presentation is quite consistent with cannabinoid hyperemesis, I see she has an allergy to Haldol, she has been prescribed in the past, we will give Valium, Toradol and dicyclomine with the IV fluid. Obtaining a KUB. She has no sick contacts to suggest viral gastroenteritis. She has no risk factors for C diff or traveler's diarrhea. I have independently reviewed the following tests: Labs: Leukocytosis of 13.3, not anemic, no electrolyte abnormality, not , urine not infected, viral panel negative KUB: Comparison: None provided Findings: No pneumoperitoneum or pneumatosis. No abnormal calcifications. No acute fractures. IMPRESSION: Normal bowel gas pattern Differential Diagnosis Differential Diagnoses: The differential diagnosis associated with the presentation includes See medical decision-making Admission/Observation Consideration of admission/observation: Escalation of care including admission/observation considered Not applicable Lab Data [facility] Lab Attestation statement: I reviewed the patient's lab results. 09/09/25 19:12 09/09/25 19:12 Labs: Lab Results 09/09/25 09/09/25 09/09/25 Range/Units 19:12 22:33 22:55 WBC 13.3 H (4.8-10.8) X10*3/uL RBC 4.61 (4.20-5.50) X10*6/uL Hgb 13.3 (12.0-16.0) g/dl Hct 40.3 (37.0-47.0) % MCV 87.4 (80.0-98.0) fL MCH 28.9 (27.0-33.0) pg MCHC 33.0 (31.0-35.0) g/dl RDW 14.3 (11.0-16.0) % Plt Count 447 H D (160-400) X10*3/uL MPV 8.7 L (9.4-12.3) fL Immature Gran % (Auto) 0.3 (0.0-0.4) % Neut % (Auto) 94.7 H (45-73) % Lymph % (Auto) 4.0 L (20-40) % [place] % (Auto) 0.9 L (2-11) % Eos % (Auto) 0.0 (0-4) % Baso % (Auto) 0.1 (0-2) % Lymph # (Auto) 0.5 L (1.2-4.9) X10*3/uL [place] # (Auto) 0.1 (0.1-1.2) X10*3/uL Eos # (Auto) 0.0 (0.0-0.4) X10*3/uL Baso # (Auto) 0.0 (0.0-0.2) X10*3/uL Abs Immat Gran (auto) 0.04 H (0.00-0.03) X10*3/uL Absolute Neuts (auto) 12.6 H (2.0-8.3) x10*3/uL Absolute Nucleated RBC 0.000 (0.0-0.012) X10*3/uL Nucleated RBC % (auto) 0.0 (0.0-0.2) /100WBC Smear Tech's Comments VERIFIED Sodium 142 (135-145) mmol/L Potassium 3.7 (3.3-5.1) mmol/L Chloride 106 (96-108) mmol/L Carbon Dioxide 26 (22-29) mmol/L Anion Gap 14 (12-20) BUN 17 H (9-16) mg/dL Creatinine 0.76 (0.5-1.4) mg/dL Estim Creat Clear Calc 93.3 Estimated GFR > 60 Random Glucose 127 H (60-115) mg/dL Calcium 9.4 D (8.4-10.2) mg/dL Total Bilirubin 0.3 (0.0-1.0) mg/dL AST 26 (5-31) U/L ALT 46 H (0-31) U/L Alkaline Phosphatase 105 (39-117) U/L Total Protein 7.6 (6.5-8.0) g/dL Albumin 4.6 (3.5-5.0) g/dL Lipase 8 (8-78) U/L Beta HCG, Quant < 2 mIU/mL Urine Color Yellow Urine Appearance Clear Urine pH 8.5 (5.0-9.0) Ur Specific [place] >= 1.030 H (1.005-1.025) Urine Protein 100 (2+) H (Neg-Trace) mg/dL Urine Glucose (UA) Negative (Negative) mg/dL Urine Ketones Trace (Negative) mg/dL Urine Blood Negative (Negative) Urine Nitrite Negative (Negative) Ur Leukocyte Esterase Trace H (Negative) Urine RBC 0-2 (0-2) /HPF Urine WBC 0-5 (0-5) /HPF Ur Squamous Epith Cells 0-2 (0-2) /HPF Urine Bacteria None Seen (None Seen) Hyaline Casts 0-2 (0-2) /LPF Urine Opiates Screen Not Detected (Not Detect) Ur Buprenorphine Scrn Not Detected (Not Detect) ng/mL Ur Oxycodone Screen Not Detected (Not Detect) ng/mL Urine Methadone Screen Not Detected (Not Detect) ng/mL Urine Fentanyl Screen Not Detected (Not Detect) Ur Barbiturates Screen Not Detected (Not Detect) Ur Phencyclidine Scrn Not Detected (Not Detect) Ur Amphetamines Screen Not Detected (Not Detect) U Benzodiazepines Scrn POSITIVE H (Not Detect) Urine Cocaine Screen Not Detected (Not Detect) U Marijuana (THC) Screen POSITIVE H (Not Detect) Ethyl Alcohol < 10 mg/dL COVID-19 (FILIBERTO) Negative (Negative) COVID-19 Clin Com See Note Influenza Type A (BEBETO) Negative (Negative) Influenza Type B (BEBETO) Negative (Negative) Influenza A & B Note See Note Radiology Impression Discussion of test interpretation with radiology: I have reviewed the radiologist's reading. Discharge Plan Discharge Clinical Impression: Cannabis abuse, Cyclic vomiting syndrome Patient Disposition: Home, Self-Care Instructions: Cannabis Use Disorder (ED), Cyclic Vomiting Syndrome (ED) Additional Instructions: You were treated for your marijuana induced cyclic vomiting syndrome. You had no lab abnormalities today. Your urine is not infected. The viral panel was negative, you were screened for influenza and COVID. The abdominal film was negative. Given you have had multiple recent hospital admissions, secondary to your cyclic vomiting, you should seriously consider abstaining from the use of marijuana. It is medically proven that taking a hot shower can alleviate your symptoms associated with the cyclic vomiting caused by your marijuana use. Use of dicyclomine as needed for abdominal pain. Uses Zofran as needed for nausea Prescriptions: New dicyclomine 20 mg tablet 20 mg PO TID PRN (Reason: abdominal pain) Qty: 10 0RF ondansetron 4 mg tablet,disintegrating 4 mg PO Q8H PRN (Reason: nausea and vomiting) Qty: 7 0RF No Action acetaminophen 325 mg Tablet 650 mg PO Q4H PRN (Reason: pain, alternating with ibuprofen) famotidine 20 mg tablet 20 mg PO BID Rx Instructions: for 15 days, last day should be 09/12/25 ondansetron 4 mg tablet,disintegrating 4 mg PO Q8H PRN (Reason: nausea and vomiting) Qty: 7 0RF Print Language: Micronesian
[2025-09-09 19:22] LABS: Hematocrit 40.3 % (37.0-47.0); Hemoglobin 13.3 g/dl (12.0-16.0); Imm Gran Abs Auto 0.04 X10*3/uL (0.00-0.03); Imm Gran Pct Auto 0.3 % (0.0-0.4); Lymphocytes Absolute Auto 0.5 X10*3/uL (1.2-4.9); MANUAL DIFF FLAG SCAN; Mean Corpuscular HGB Conc 33.0 g/dl (31.0-35.0); Mean Corpuscular Hemoglobin 28.9 pg (27.0-33.0); Mean Corpuscular Volume 87.4 fL (80.0-98.0); NRBC Abs Auto 0.000 X10*3/uL (0.0-0.012); NRBC Pct Auto 0.0 /100WBC (0.0-0.2); Platelet Count 447 X10*3/uL (160-400); Red Blood Count 4.61 X10*6/uL (4.20-5.50); SCAN SMEAR FLAG 1; White Blood Count 13.3 X10*3/uL (4.8-10.8)
[2025-09-09 19:38] LABS: Alanine Aminotransferase 46 U/L (0-31); Albumin Level 4.6 g/dL (3.5-5.0); Alkaline Phosphatase 105 U/L (39-117); Anion Gap 14 (12-20); Aspartate Amino Transferase 26 U/L (5-31); Blood Urea Nitrogen 17 mg/dL (9-16); Calcium 9.4 mg/dL (8.4-10.2); Carbon Dioxide 26 mmol/L (22-29); Chloride 106 mmol/L (96-108); Creatinine Clr Calc Pharmacy 93.3; Estimated Glomerular Filt Rate > 60; Lipase 8 U/L (8-78); Potassium 3.7 mmol/L (3.3-5.1); Sodium 142 mmol/L (135-145); Total Protein 7.6 g/dL (6.5-8.0)
[2025-09-09 22:49] LABS: Appearance Urine Clear; Glucose Urine UA Negative (Negative); PH 8.5 (5.0-9.0); Specific Gravity - Urine >= 1.030 (1.005-1.025); UMIC TRIGGER UACC YES
[2025-09-09 23:17] LABS: COVID-19 Test Negative (Negative); IDNOW Serial# 58CA691E
[2025-09-09 23:35] LABS: IDNOW Serial# 08D9AD1C; Influenza B2 Negative (Negative)
[2025-09-10] MEDS: diazePAM 10 MG/2 ML CARTRIDGE 5 MG IVPUSH (00:08)
--- NOTE | 2025-09-10 00:12 | PC.NURSE ---
report received and care assumed around 0000. Pt could be heard from the nurses station yelling they aren't doing anything for me . RN to bedside with patient's medications and she was noted to be awake, alert, skin warm and dry, without apparent distress however whining and conversing on the phone. The pt is endorsing 10/10 abdominal pain. MISBAH was just previously at bedside placing an US guided IV to allow for medication administration. Pt inquired about what pain medications she was set to receive and was advised that this is like any other visit she has had for similar as the patient is well known and presents often for abdominal pain. Pt encouraged to use her callbell vs yelling out and disturbing the area which she verbalized understanding to. Medication administered per MAR, lights dimmed and door closed for comfort. RN will continue to reassess
[2025-09-10 01:10] VITALS: BP 139/96; PULSE 86; RESP 16; TEMP 36.9; O2SAT 97
[2025-09-10] MEDS: Sucralfate Oral Suspension 1 GM/10 ML ORAL.SUSP PO (01:21)
[2025-09-10 02:31] LABS: Cannabinoid Screen Urine POSITIVE (Not Detect)
--- NOTE | 2025-09-10 05:03 | PC.NURSE ---
RN to bedside at approx 0410 to review and discuss dc. Pt found to be resting comfortably in the stretcher with eyes closed, respirations even/unlabored and no distress noted. The pt was easily arousable. She verbalized understanding of dc instructions, allowed this RN to removed her US Guided IV and offered no complaints, even going as far as to ask for additional Apple juice. Upon RN's return to the room the pt reports (after returning from the bathroom) that she is still vomiting and still in discomfort. MISBAH made aware and new orders obtained. The pt is certainly more calm and overall more well appearing than before. MISBAH to bedside to discuss findings with the pt and plan for additional IM medication prior to dc. Pt's mother arrived at bedside shortly thereafter and was educated on the same, questions/concerns addressed. All parties agreeable to plan, pt noted to be more conversational and well appearing upon mom's arrival, with no vomiting, outward s/s of discomfort noted. She denies smoking cannabis in 2 weeks however did later admit to continuing to use maritza adding that it is nicotine and thc carts that she uses/smokes; pt advised that any form of THC or cannabis can negatively impact her cannabis induced cyclical vomiting. Pt ambulated out of the ed with even and steady gait.
[2025-09-10 05:12] VITALS: BP 139/96; PULSE 86; RESP 16; TEMP 36.9; O2SAT 97
== END 2025-09-10 05:13 | disposition home or self-care (01) ==
PROVIDERS: Physician Assistant Medical; Registered Nurse Emergency; Emergency Provider Emergency Medicine
DX: F12.10 Cannabis abuse, uncomplicated (principal); R11.15 Cyclical vomiting syndrome unrelated to migraine; R10.9 Unspecified abdominal pain; R19.7 Diarrhea, unspecified; Z03.818 Encounter for observation for suspected exposure to other biological agents ruled out; R11.0 Nausea
CPT/HCPCS: 36415; 74018; 80053; 80307; 81001; 83690; 84702; 85025; 87502; 87635; 96361; 96372; 96374; 96375; 99284; J0737; J1200; J1308; J1885; J2250; J3360

== ENCOUNTER → 2025-09-10 01:40 | Outpatient (BNV) | payer OTHER, SELFPAY | PROVIDERS: Emergency Provider Emergency Medicine; Visit Provider General Practice | DX: R10.10 Upper abdominal pain, unspecified (principal) | CPT/HCPCS: 74018 ==

== ENCOUNTER 2025-09-11 02:02 | Emergency (ER) | payer OTHER, SELFPAY ==
--- NOTE | ~2025-09-11 | CT_ITS ---
CLINICAL HISTORY: pain out of proprotion upper abdomen CT abdomen and pelvis with contrast Comparison: None provided Findings: No consolidation or effusion. Unremarkable gallbladder and solid organs. No urolithiasis. No bowel obstruction, pneumoperitoneum, or pneumatosis. Pelvic contents unremarkable. Normal appendix. No fluid collections or adenopathy. No vascular dilation. No acute fracture. No destructive osseous lesion. IMPRESSION: No acute findings. This document has been electronically signed by: Lili Schwartz MD on 09/11/2025 05:27:23
[2025-09-11 02:09] VITALS: BP 141/80; PULSE 89; RESP 20; TEMP 36.1; O2SAT 96; BMI 23.9
--- OUTSIDE RECORDS SUMMARY | 2025-09-11 02:21 | XMS_ITS | Clinical Summary ---
Author Organization [facility] Address [address] [place] [address] Phone Care Team Providers Care Creative Coordinator Name Role Phone Shane Licona MD Primary Care Provider [phone] Allergies No known active allergies Medications famotidine [...] EDT - 08/28/2025 7:14 PM EDT Emergency [facility] Emergency [address] [place] [address] Rodolfo Acevedo MD Gastroenteritis (Primary [...] reflex microscopic (08/28/2025 4:20 PM EDT) Specific [place] Urine >1.045(H) 1.003 - 1.030 LAB URINALYSIS - AUTOMATED METHOD 08/28/2025 4:51 PM [facility] pH, Urine 8.0 5.0 - 8.0 pH LAB URINALYSIS - AUTOMATED METHOD 08/28/2025 4:51 PM [facility] Leukocytes, Urine Negative Negative LAB URINALYSIS - AUTOMATED METHOD 08/28/2025 4:51 PM [facility] Nitrite, Urine Negative Negative LAB URINALYSIS - AUTOMATED METHOD 08/28/2025 4:51 PM [facility] Protein, Urine Negative <=Trace mg/dL LAB URINALYSIS - AUTOMATED METHOD 08/28/2025 4:51 PM [facility] Glucose, Urine Negative Negative mg/dL LAB URINALYSIS - AUTOMATED METHOD 08/28/2025 4:51 PM [facility] Ketones, Urine 40(A) Negative mg/dL LAB URINALYSIS - AUTOMATED METHOD 08/28/2025 4:51 PM [facility] Urobilinogen , Urine 1.0 0.2 - 1.0 mg/dL LAB URINALYSIS - AUTOMATED METHOD 08/28/2025 4:51 PM [facility] Bilirubin, Urine Negative Negative LAB URINALYSIS - AUTOMATED METHOD 08/28/2025 4:51 PM EDT [facility] Blood, Urine Large(A) Negative LAB URINALYSIS - AUTOMATED METHOD 08/28/2025 4:51 PM EDT [facility] RBC, Urine 28.6(H) 0 - 4 /HPF LAB URINALYSIS - AUTOMATED METHOD 08/28/2025 4:51 PM EDT [facility] WBC, Urine 1.9 0 - 4 /HPF LAB URINALYSIS - AUTOMATED METHOD 08/28/2025 4:51 PM EDT [facility] Squamous Epithelial, Urine 20 0 - 60 /LPF LAB URINALYSIS - AUTOMATED METHOD 08/28/2025 4:51 PM EDT [facility] Bacteria, Urine Negative Negative /HPF LAB URINALYSIS - AUTOMATED METHOD 08/28/2025 4:51 PM EDT [facility] Hyaline Casts, Urine 0.8 0 - 3 /LPF LAB URINALYSIS - AUTOMATED METHOD 08/28/2025 4:51 PM EDT [facility] Urine Urine specimen obtained by clean catch procedure / Unknown Non-blood Collection / Unknown 08/28/2025 4:20 PM EDT 08/28/2025 4:39 PM EDT us Rodolfo Acevedo MD LAB URINE ORDERABLES Final Result [facility] [address] [place] [address], * (ABNORMAL) Drug abuse screen 8a panel, urine (08/28/2025 4:20 PM EDT) Amphetamine Screen, Ur Negative Negative LAB CHEMISTRY METHOD 5:00 PM EDT [facility] Comment:Certain OTC medicati ons containing ephedrine, phenylephrine, pseudoephedrine and phenylpropanolamine can cause false positive results. Barbiturate Screen, Ur Negative Negative LAB CHEMISTRY METHOD 5 5:00 PM EDT [facility] Benzodiazepine Screen, Ur Negative Negative LAB CHEMISTRY METHOD 5 5:00 PM EDT [facility] Cocaine Screen, Ur Negative Negative LAB CHEMISTRY METHOD 5 5:00 PM EDT [facility] Opiate Screen, Ur Positive(A ) Negative LAB CHEMISTRY METHOD 5 5:00 PM EDT [facility] Cannabinoid (THC) Screen, Ur Positive(A ) Negative LAB CHEMISTRY METHOD 5:00 PM EDT [facility] Comment:Specimens from patie nts taking pantoprazole sodium (Protonix) have been shown to produce false positive results. Oxycodone Screen, Ur Negative Negative LAB CHEMISTRY METHOD 5:00 PM EDT [facility] Fentanyl, Ur Negative Negative LAB CHEMISTRY METHOD 5:00 PM T [facility] Urine Urine specimen obtained by clean catch procedure / Unknown Non-blood Collection / Unknown 08/28/2025 4:20 PM EDT 08/28/2025 4:39 PM EDT Narrative [facility] - 08/28/2025 5:00 PM EDT Assay [...] Acevedo MD LAB URINE ORDERABLES Final Result [facility] [address] [place] [address], * CT Abdomen Pelvis w Contrast (08/28/2025 [...] Signed Date: 08/28/2025 16:13 ET Workstation ID: [id number] Transcribed By: Self Edit Transcribed Date: 08/28/2025 [...] Signed Date: 08/28/2025 16:13 ET Workstation ID: [id number] Transcribed By: Self Edit Transcribed Date: 08/28/2025 16:11 ET Rodolfo Acevedo MD IM CT PROCEDURES Final Res ult * (ABNORMAL) CBC auto differential (08/28/2025 12:48 PM EDT) WBC 10.3 4.8 - 10.8 K/mcL LAB HEMETOLOGY METHOD 08/28/2025 1:59 PM EDT [facility] RBC 5.00(H) 3.80 - 4.80 M/mcL LAB HEMETOLOGY METHOD 08/28/2025 1:59 PM EDT [facility] Hemoglobin 14.4 11.5 - 16.0 g/dL LAB HEMETOLOGY METHOD 08/28/2025 1:59 PM EDT [facility] Hematocrit 42.9 35.0 - 47.0 % LAB HEMETOLOGY METHOD 08/28/2025 1:59 PM EDT [facility] MCV 86.0 79.0 - 98.0 FL LAB HEMETOLOGY METHOD 08/28/2025 1:59 PM EDT [facility] MCH 28.9 27.0 - 32.0 pcg LAB HEMETOLOGY METHOD 08/28/2025 1:59 PM EDT [facility] MCHC 33.6 32.0 - 37.0 g/dL LAB HEMETOLOGY METHOD 08/28/2025 1:59 PM EDT [facility] RDW 14.2 11.0 - 15.0 % LAB HEMETOLOGY METHOD 08/28/2025 1:59 PM EDT [facility] Platelets 451(H) 130 - 400 K/mcL LAB HEMETOLOGY METHOD 08/28/2025 1:59 PM EDT [facility] MPV 10.5 7.0 - 11.0 FL LAB HEMETOLOGY METHOD 08/28/2025 1:59 PM EDT [facility] NRBC 0.0 <1.0 % LAB HEMETOLOGY METHOD 08/28/2025 1:59 PM EDT [facility] NRBC Absolute 0.00 <0.10 K/mcL LAB HEMETOLOGY METHOD 08/28/2025 1:59 PM EDT [facility] Neutrophils Relative 79.9 % LAB HEMETOLOGY METHOD 08/28/2025 1:59 PM EDT [facility] Lymphocytes Relative 10.8 % LAB HEMETOLOGY METHOD 08/28/2025 1:59 PM EDT [facility] Monocytes Relative 8.7 % LAB HEMETOLOGY METHOD 08/28/2025 1:59 PM EDT [facility] Eosinophils Relative 0.1 % LAB HEMETOLOGY METHOD 08/28/2025 1:59 PM EDT [facility] Basophils Relative 0.2 % LAB HEMETOLOGY METHOD 08/28/2025 1:59 PM EDT [facility] Immature Granulocytes Relative 0.3 % LAB HEMETOLOGY METHOD 08/28/2025 1:59 PM EDT [facility] Neutrophils Absolute 8.23(H) 1.50 - 7.00 K/mcL LAB HEMETOLOGY METHOD 08/28/2025 1:59 PM EDT [facility] Lymphocytes Absolute 1.11 1.00 - 5.00 K/mcL LAB HEMETOLOGY METHOD 08/28/2025 1:59 PM EDT [facility] Monocytes Absolute 0.90 0.20 - 1.00 K/mcL LAB HEMETOLOGY METHOD 08/28/2025 1:59 PM EDT [facility] Eosinophils Absolute 0.01 0.00 - 0.50 K/mcL LAB HEMETOLOGY METHOD 08/28/2025 1:59 PM EDT [facility] Basophils Absolute 0.02 0.00 - 0.20 K/mcL LAB HEMETOLOGY METHOD 08/28/2025 1:59 PM EDT [facility] Immature Granulocytes Absolute 0.03 0.00 - 0.03 K/mcL LAB HEMETOLOGY METHOD 08/28/2025 1:59 PM EDT [facility] Blood Venous blood specimen / Unknown Venipuncture / Unknown 08/28/2025 12:48 PM EDT 08/28/2025 1:19 PM EDT us Tevin Romo MD LAB BLOOD ORDERABLES Final Resul t [facility] [address] [place] [address], * hCG, serum, qualitative (08/28/2025 12:48 PM EDT) hCG Qual Negative Negative 08/28/2025 2:16 PM EDT [facility] Blood Venous blood specimen / Unknown Venipuncture / Unknown 08/28/2025 12:48 PM EDT 08/28/2025 1:19 PM EDT us Rodolfo Acevedo MD LAB BLOOD ORDERABLES Final Result Performing Organization Address [facility]/ZIP Co de Phone Number [facility] [address] [place] [address], [place] [phone] * Magnesium (08/28/2025 12:48 PM EDT) Magnesium 2.5 1.9 - 2.6 mg/dL LAB CHEMISTRY METHOD 08/28/2025 2:04 PM EDT [facility] Blood Venous blood specimen / Unknown Venipuncture / Unknown 08/28/2025 12:48 PM EDT 08/28/2025 1:19 PM EDT Rodolfo Acevedo MD LAB BLOOD ORDERABLES Final Result Performing Organization Address [facility] Co de Phone Number [facility] [address] [place] [address], [place] [phone] * Lipase (08/28/2025 12:48 PM EDT) Lipase 21 13 - 75 unit/L LAB CHEMISTRY METHOD 08/28/2025 2:04 PM EDT [facility] Blood Venous blood specimen / Unknown Venipuncture / Unknown 08/28/2025 12:48 PM EDT 08/28/2025 1:19 PM EDT us Tevin Romo MD LAB BLOOD ORDERABLES Final Resul t Performing Organization Address City/[facility]/ZIP Co de Phone Number [facility] [address] [place] [address], [place] [phone] * (ABNORMAL) Comprehensive metabolic panel (08/28/2025 12:48 PM EDT) Sodium 135 133 - 145 mmol/L LAB CHEMISTRY METHOD 08/28/2025 2:08 PM [facility] Potassium 3.9 3.5 - 5.5 mmol/L LAB CHEMISTRY METHOD 08/28/2025 2:08 PM [facility] Chloride 101 96 - 110 mmol/L LAB CHEMISTRY METHOD 08/28/2025 2:08 PM [facility] CO2 26 21 - 32 mmol/L LAB CHEMISTRY METHOD 08/28/2025 2:08 PM [facility] Anion Gap 8 3 - 11 LAB CHEMISTRY METHOD 08/28/2025 2:08 PM [facility] Glucose 88 70 - 100 mg/dL LAB CHEMISTRY METHOD 08/28/2025 2:08 PM [facility] BUN 18 5 - 25 mg/dL LAB CHEMISTRY METHOD 08/28/2025 2:08 PM [facility] Creatinine 0.88 0.50 - 1.10 mg/dL LAB CHEMISTRY METHOD 08/28/2025 2:08 PM [facility] eGFR 97 >=60 mL/min/1. 73m2 LAB CHEMISTRY METHOD 08/28/2025 2:08 PM [facility] Comment:Calculation based on the Chronic Kidney Disease Epidemiology Collaboration (CKD-EPI) equation refit without adjustment for race. BUN/Creatinine Ratio 20.5 LAB CHEMISTRY METHOD 08/28/2025 2:08 PM [facility] Calcium 9.7 8.5 - 10.5 mg/dL LAB CHEMISTRY METHOD 08/28/2025 2:08 PM [facility] AST (SGOT) 70(H) 10 - 42 unit/L LAB CHEMISTRY METHOD 08/28/2025 2:08 PM [facility] ALT (SGPT) 57 10 - 60 unit/L LAB CHEMISTRY METHOD 08/28/2025 2:08 PM [facility] Alkaline Phosphatase 107 42 - 121 unit/L LAB CHEMISTRY METHOD 08/28/2025 2:08 PM EDT [facility] Total Protein 7.6 6.0 - 8.0 g/dL LAB CHEMISTRY METHOD 08/28/2025 2:08 PM EDT [facility] Albumin 4.2 3.2 - 5.0 g/dL LAB CHEMISTRY METHOD 08/28/2025 2:08 PM EDT [facility] Total Bilirubin 0.7 0.0 - 1.4 mg/dL LAB CHEMISTRY METHOD 08/28/2025 2:08 PM EDT [facility] Blood Venous blood specimen / Unknown Venipuncture / Unknown 08/28/2025 12:48 PM EDT 08/28/2025 1:19 PM EDT us Tevin Romo MD LAB BLOOD ORDERABLES Final Resul t [facility] [address] [place] [address], [place] [phone] from Last 3 Months Insurance MEDICAID - [place] Care Teams Creative Coordinator Relationship Specialty Start Date End Date Shane Licona MD [address] [place] [address] [facility] - General 12/15/23
[2025-09-11 02:38] LABS: MANUAL DIFF FLAG NO
[2025-09-11 02:41] LABS: Appearance Urine Clear; Glucose Urine UA Negative (Negative); Hematocrit 39.6 % (37.0-47.0); Hemoglobin 13.1 g/dl (12.0-16.0); Imm Gran Abs Auto 0.03 X10*3/uL (0.00-0.03); Imm Gran Pct Auto 0.3 % (0.0-0.4); Lymphocytes Absolute Auto 2.2 X10*3/uL (1.2-4.9); Mean Corpuscular HGB Conc 33.1 g/dl (31.0-35.0); Mean Corpuscular Hemoglobin 29.0 pg (27.0-33.0); Mean Corpuscular Volume 87.8 fL (80.0-98.0); NRBC Abs Auto 0.000 X10*3/uL (0.0-0.012); NRBC Pct Auto 0.0 /100WBC (0.0-0.2); PH 6.0 (5.0-9.0); Platelet Count 449 X10*3/uL (160-400); Red Blood Count 4.51 X10*6/uL (4.20-5.50); Specific Gravity - Urine 1.025 (1.005-1.025); White Blood Count 10.8 X10*3/uL (4.8-10.8)
--- NOTE | 2025-09-11 02:42 | ED.GENADULT ---
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 The patient was seen in the emergency room last night for the same presentation. No change in symptoms. Related Data Home Medications ?Medication ?Instructions ?Recorded ?Confirmed acetaminophen 325 mg tablet 650 mg PO Q4H PRN pain, 08/31/25 08/31/25 alternating with ibuprofen famotidine 20 mg tablet 20 mg PO BID 08/31/25 08/31/25 Previous Rx's ?Medication ?Instructions ?Recorded ondansetron 4 mg disintegrating 4 mg PO Q8H PRN nausea and 08/27/25 tablet vomiting #7 tabs dicyclomine 20 mg tablet 20 mg PO TID PRN abdominal pain 09/10/25 #10 tabs ondansetron 4 mg disintegrating 4 mg PO Q8H PRN nausea and 09/10/25 tablet vomiting #7 tabs sucralfate 100 mg/mL oral 10 ml PO QID PRN indigestion #400 09/11/25 suspension (Carafate) mL Allergies Allergy/AdvReac Type Severity Reaction Status Date / Time haloperidol (From Haldol) Allergy Mild Anaphylaxis Verified 09/11/25 02:10 Review of Systems Review of Systems: Yes all other systems are reviewed and are negative Constitutional: Constitutional: Denies fatigue and Denies fever(s) Cardiovascular: Cardiovascular: Denies chest pain and Denies dyspnea Respiratory: Respiratory: Denies dyspnea Gastrointestinal: Gastrointestinal: Reports abdominal pain, Reports nausea and Reports vomiting Endocrine: Endocrine: Denies fatigue PMF Past Medical History Attestation statement: The following information was validated with the patient. Medical History Marijuana use Status post normal delivery in completely normal case Social History Social History Household Members: Family Housing: House Do you presently have visiting nurse or other home services: No Alcohol intake: never Patient Tobacco Use Status: Never used Tobacco Substance Use Type: Marijuana Advance Directives: No Advance Directives Information Provided: Yes Do you have a plan to hurt others: No Plan service: No Physical Exam ED Vital Signs: Vital Signs - 24 hr 09/11/25 02:09 09/11/25 03:57 Temperature 97.0 F 99.0 F Pulse Rate 89 86 Respiratory Rate 20 18 Blood Pressure 141/80 H 142/85 H Pulse Oximetry 96 98 Oxygen Delivery Method Room Air Room Air BMI result Body Mass Index 23.9 Const Other: Alert Orientation/consciousness: patient oriented x3 Resp Effort & Inspection: normal respiratory effort Cardio Other: Normal peripheral perfusion GI Other: Guarding against my exam performed palpating the abdomen. Otherwise soft, no focality of pain that has objective Skin Other: Warm dry no rash Neuro General: patient oriented x3, gait normal, no focal motor deficits and CN's II-XI intact bilaterally Psych Other: Uncooperative at times Course Reevaluation(s) Reevaluation #1: speaking with Tatyana from the Care team, I discussed my concern in regard to the patient's repeated visits over the past 2 weeks, that she has a child at home. I relayed to Tatyana that I gave the patient and her family member resources for outpatient detox, if she felt she required help to abstain from using marijuana. I want to offer quality assurance coach to the patient, I will make the patient aware that we are considering filing 51A. I had obtain records from [facility], surrounding her obstetric care and delivery, there was no comments made about concern for cannabinoid induced hyperemesis. In chart review, the patient was seen here on November 20 of this year, she was positive for marijuana at that time, she was 12 weeks , there was concern for cannabinoid induced hyperemesis at that time. Umm, is the 5th visit for very similar presentation, her U tox remains positive for marijuana, she states she has not used in 2 weeks. However, her symptoms remain refractory, they are not improving. If she is abstaining from the use of marijuana, she should not have severe ongoing symptoms. Time: 04:19 Reevaluation #2: Tatyana from the care team is on the phone with DCF right now....... There was no value in filing at this time, the patient is stating that she is abstaining from her marijuana use, even though we have suspicion that she is not. We have no suspicion that the child is in harms way at this time. Tatyana and I had further discussion with the patient again at bedside together, I reiterated all the information that I had told the patient yesterday, that we do have concern for the welfare of the child and for the patient, and that we want to help. She is aware that we are not filing today, however if this pattern continues, we will be forced to file a 51 a. The patient verbalizes understanding. Time: 05:43 Medications Administered Discontinued Medications Generic Name Dose Route Start Last Admin Trade Name Freq PRN Reason Stop Dose Admin Diphenhydramine HCl 50 mg 09/11/25 02:36 09/11/25 02:47 Diphenhydramine Hcl 50 Mg/Ml Vial IVPUSH 09/11/25 02:37 50 mg ONCE ONE Administration Famotidine 20 mg 09/11/25 03:52 09/11/25 04:09 Famotidine/Pf 20 Mg/2 Ml Vial IVPUSH 09/11/25 03:53 20 mg ONCE ONE Administration Lactated Ringer's 1,000 mls @ 999 mls/hr 09/11/25 02:45 09/11/25 03:52 Lr IV 09/11/25 03:45 Infused .Q1H1M LINDA Infusion Potassium Chloride 10 meq in 100 mls @ 100 mls/hr 09/11/25 03:30 09/11/25 05:00 Potassium Chloride/H20 IV 09/11/25 05:29 100 mls/hr Q1H LINDA Administration Sodium Chloride 500 mls @ 500 mls/hr 09/11/25 04:00 09/11/25 04:09 Ns IV 09/11/25 04:59 500 mls/hr .Q1H ONE Administration Iohexol 85 ml 09/11/25 03:47 09/11/25 03:48 Iohexol 350 Mg/Ml 100 Ml Infus..Btl IV 09/11/25 03:48 85 ml ONCE ONE Administration Ondansetron HCl 4 mg 09/11/25 04:00 09/11/25 04:09 Ondansetron Hcl 4 Mg/2 Ml Vial IVPUSH 09/11/25 04:01 4 mg ONCE ONE Administration Prochlorperazine Edisylate 10 mg 09/11/25 02:36 09/11/25 02:47 Prochlorperazine Edisylate 10 Mg/2 Ml Vial IVPUSH 09/11/25 02:37 10 mg ONCE ONE Administration Procedures Procedure Narrative Procedure Narrative: Ultrasound-guided IV 20 gauge 1-3/4 inch IV placed in left upper extremity. 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 The patient was seen in the emergency room last night for the same presentation. No change in symptoms. Problem: Cannabinoid induced hyperemesis History: Per patient which is limited I have considered the following differential diagnoses: Cyclic vomiting, cannabinoid hyperemesis, biliary colic, cholecystitis, GERD, pancreatitis, viral gastritis , Plan: Patient here with same presentation as last evening, she is not complaining of diarrhea tonight. Pt complains of upper abdominal discomfort. I have considered underlying gastric versus biliary versus pancreatic etiology as cause for her symptoms. With distraction her exam was completely unremarkable. The patient had a KUB that was negative last night. She has also had a recent upper abdominal ultrasound on August 30, that was also unremarkable. I will be again screening broad labs with ethanol and drug screen. Today I will obtain a CT scan of the abdomen and pelvis, to assess for any objective intra-abdominal pathology. We will be starting fluids giving Compazine and Benadryl. Again, I had discussion with the patient and her mother at the time of discharge yesterday, that it is concerning that the patient repeatedly returns to the emergency room, with cyclic vomiting secondary to her marijuana use, in the setting that she has been advised to abstain from cannabinoid use, yet still continues to use, and she has a 4-month-old under her care. In chart review, the patient was seen here on November 20, she was 12 weeks at that time, her U tox was positive for marijuana. Her presentation was concerning for cannabinoid induced hyperemesis at that time. The patient states, she abstained from marijuana use throughout her . To note, we obtained records from [facility] surrounding her labor and delivery, there was no mention of marijuana use at that time. She sts she started using again 2 months after the of her child; in April, then started using in June. She has been seen in the emergency department on August 18August 29 of August 31, September 09 and now September 11, and admitted to the hospital following 2 of her ED visits. I have independently reviewed the following tests: Labs: No leukocytosis, chronic thrombocytosis noted, no anemia, potassium subtly low at 3.2, no additional electrolyte abnormalities, not , urine not infected, ethanol less than 10, drug screen positive for marijuana and benzodiazepine, although she did receive both Valium and Versed last night, she could potentially still have the Valium in her system as the half-life is arrange of 20-[address] abdomen and pelvis:Findings: No consolidation or effusion. Unremarkable gallbladder and solid organs. No urolithiasis. No bowel obstruction, pneumoperitoneum, or pneumatosis. Pelvic contents unremarkable. Normal appendix. No fluid collections or adenopathy. No vascular dilation. No acute fracture. No destructive osseous lesion. IMPRESSION: No acute findings. Differential Diagnosis Differential Diagnoses: The differential diagnosis associated with the presentation includes See medical decision-making Admission/Observation Consideration of admission/observation: Escalation of care including admission/observation considered Lab Data MDM Lab Attestation statement: I reviewed the patient's lab results. 09/11/25 02:22 09/11/25 02:22 Labs: Lab Results 09/11/25 Range/Units 02:22 WBC 10.8 (4.8-10.8) X10*3/uL RBC 4.51 (4.20-5.50) X10*6/uL Hgb 13.1 (12.0-16.0) g/dl Hct 39.6 (37.0-47.0) % MCV 87.8 (80.0-98.0) fL MCH 29.0 (27.0-33.0) pg MCHC 33.1 (31.0-35.0) g/dl RDW 14.4 (11.0-16.0) % Plt Count 449 H (160-400) X10*3/uL MPV 8.6 L (9.4-12.3) fL Immature Gran % (Auto) 0.3 (0.0-0.4) % Neut % (Auto) 70.6 (45-73) % Lymph % (Auto) 20.6 (20-40) % [place] % (Auto) 8.1 (2-11) % Eos % (Auto) 0.1 (0-4) % Baso % (Auto) 0.3 (0-2) % Lymph # (Auto) 2.2 (1.2-4.9) X10*3/uL [place] # (Auto) 0.9 (0.1-1.2) X10*3/uL Eos # (Auto) 0.0 (0.0-0.4) X10*3/uL Baso # (Auto) 0.0 (0.0-0.2) X10*3/uL Abs Immat Gran (auto) 0.03 (0.00-0.03) X10*3/uL Absolute Neuts (auto) 7.6 (2.0-8.3) x10*3/uL Absolute Nucleated RBC 0.000 (0.0-0.012) X10*3/uL Nucleated RBC % (auto) 0.0 (0.0-0.2) /100WBC Sodium 143 (135-145) mmol/L Potassium 3.2 L (3.3-5.1) mmol/L Chloride 107 (96-108) mmol/L Carbon Dioxide 26 (22-29) mmol/L Anion Gap 13 (12-20) BUN 15 (9-16) mg/dL Creatinine 0.74 (0.5-1.4) mg/dL Estim Creat Clear Calc 95.9 Estimated GFR > 60 Random Glucose 105 (60-115) mg/dL Calcium 9.2 (8.4-10.2) mg/dL Magnesium 2.2 (1.6-2.6) mg/dL Total Bilirubin 0.6 (0.0-1.0) mg/dL AST 48 H (5-31) U/L ALT 44 H (0-31) U/L Alkaline Phosphatase 99 (39-117) U/L Total Protein 7.5 (6.5-8.0) g/dL Albumin 4.5 (3.5-5.0) g/dL Lipase 22 (8-78) U/L Beta HCG, Quant < 2 mIU/mL Urine Color Yellow Urine Appearance Clear Urine pH 6.0 (5.0-9.0) Ur Specific [place] 1.025 (1.005-1.025) Urine Protein Trace (Neg-Trace) mg/dL Urine Glucose (UA) Negative (Negative) mg/dL Urine Ketones 15 (Negative) mg/dL Urine Blood Negative (Negative) Urine Nitrite Negative (Negative) Ur Leukocyte Esterase Negative (Negative) Urine Opiates Screen Not Detected (Not Detect) Ur Buprenorphine Scrn Not Detected (Not Detect) ng/mL Ur Oxycodone Screen Not Detected (Not Detect) ng/mL Urine Methadone Screen Not Detected (Not Detect) ng/mL Urine Fentanyl Screen Not Detected (Not Detect) Ur Barbiturates Screen Not Detected (Not Detect) Ur Phencyclidine Scrn Not Detected (Not Detect) Ur Amphetamines Screen Not Detected (Not Detect) U Benzodiazepines Scrn POSITIVE H (Not Detect) Urine Cocaine Screen Not Detected (Not Detect) U Marijuana (THC) Screen POSITIVE H (Not Detect) Ethyl Alcohol < 10 mg/dL Radiology Impression Discussion of test interpretation with radiology: I have reviewed the radiologist's reading. Discharge Plan Discharge Clinical Impression: Cannabis abuse, Cannabinoid hyperemesis syndrome Patient Disposition: Home, Self-Care Instructions: Cannabis Use Disorder (ED) Additional Instructions: All of your screening labs were normal with the exception that your potassium was subtly low, it was replenished with IV potassium. The CT scan was completely normal of the abdomen and pelvis. We discussed resources, in regard to outpatient detox, to help you abstain from marijuana use. You were given a pamphlet yesterday. Use the prescribed gastrointestinal associated medications as directed, for abdominal pain, nausea and indigestion. Follow up with your primary care provider as needed. Prescriptions: New sucralfate [Carafate] 100 mg/mL suspension 10 ml PO QID PRN (Reason: indigestion) Qty: 400 0RF Rx Instructions: swish in mouth and swallow; use after food/drink No Action acetaminophen 325 mg Tablet 650 mg PO Q4H PRN (Reason: pain, alternating with ibuprofen) famotidine 20 mg tablet 20 mg PO BID Rx Instructions: for 15 days, last day should be 09/12/25 dicyclomine 20 mg tablet 20 mg PO TID PRN (Reason: abdominal pain) Qty: 10 0RF ondansetron 4 mg tablet,disintegrating 4 mg PO Q8H PRN (Reason: nausea and vomiting) Qty: 7 0RF ondansetron 4 mg tablet,disintegrating 4 mg PO Q8H PRN (Reason: nausea and vomiting) Qty: 7 0RF Print Language: Lao
[2025-09-11] MEDS: Lactated Ringers 1,000 ML 999 ML IV (02:51)
--- NOTE | 2025-09-11 02:54 | PC.NURSE ---
Briana LUIS obtained u/s IV to [facility] and obtained labs as pt is known to be a difficult stick. patient yelling from room upon her exit someone needs to help me. Briana LUSI back in room to educate needs to order meds for patient to be given. meds ordered per dec. pt heard to be crying before entering room upon entering crying stopped. pt asked what meds am i being given. educated on meds ordered. meds given per dec. pt noted to be resting comfortably and call mauricio within reach upon exiting room. pt also given emesis bag per request.
[2025-09-11 02:57] LABS: Cannabinoid Screen Urine POSITIVE (Not Detect)
[2025-09-11 03:10] LABS: Alanine Aminotransferase 44 U/L (0-31); Albumin Level 4.5 g/dL (3.5-5.0); Alkaline Phosphatase 99 U/L (39-117); Anion Gap 13 (12-20); Aspartate Amino Transferase 48 U/L (5-31); Blood Urea Nitrogen 15 mg/dL (9-16); Calcium 9.2 mg/dL (8.4-10.2); Carbon Dioxide 26 mmol/L (22-29); Chloride 107 mmol/L (96-108); Creatinine Clr Calc Pharmacy 95.9; Estimated Glomerular Filt Rate > 60; Lipase 22 U/L (8-78); Magnesium 2.2 mg/dL (1.6-2.6); Potassium 3.2 mmol/L (3.3-5.1); Sodium 143 mmol/L (135-145); Total Protein 7.5 g/dL (6.5-8.0)
[2025-09-11] MEDS: iohexoL 350 MG/ML 100 ML INFUS..BTL 85 ML IV (03:48)
[2025-09-11] MEDS: Potassium Chloride/H20 10 MEQ/100 ML PIGGYBACK 100 MEQ IV ×2 (03:56→05:00)
[2025-09-11 03:57] VITALS: BP 142/85; PULSE 86; RESP 18; TEMP 37.2; O2SAT 98
--- NOTE | 2025-09-11 05:19 | PC.NURSE ---
Pt provided with heat packs for abd discomfort
--- NOTE | 2025-09-11 05:54 | PC.NURSE ---
Pt given apple juice and saltines for PO trial.
[2025-09-11 06:10] VITALS: BP 142/85; PULSE 86; RESP 18; TEMP 37.2; O2SAT 98
== END 2025-09-11 06:10 | disposition home or self-care (01) ==
PROVIDERS: Physician Assistant Medical; Emergency Provider Emergency Medicine
DX: R11.16 Cannabis hyperemesis syndrome (principal); R11.2 Nausea with vomiting, unspecified; R10.22 Pelvic and perineal pain left side; Z51.81 Encounter for therapeutic drug level monitoring
CPT/HCPCS: 36415; 74177; 80053; 80307; 81003; 83690; 83735; 84702; 85025; 99284; J0737; J1200; J1308; J2405; J3480; J7120; Q9967

== ENCOUNTER → 2025-09-11 02:35 | Outpatient (BNV) | payer OTHER, SELFPAY | PROVIDERS: Emergency Provider Emergency Medicine; Visit Provider Radiology Diagnostic Radiology | DX: R10.10 Upper abdominal pain, unspecified (principal) | CPT/HCPCS: 74177 ==

== ENCOUNTER 2025-09-11 19:08 | Inpatient (IN) | payer OTHER, SELFPAY ==
[2025-09-11 19:08] VITALS: BP 118/89; BP 145/92; PULSE 76; PULSE 82; RESP 22; TEMP 36.9; O2SAT 100; O2SAT 99; BMI 26.2
--- OUTSIDE RECORDS SUMMARY | 2025-09-11 20:05 | XMS_ITS | Clinical Summary ---
Author Organization [facility] Address [address] [place] [address] Phone Care Team Providers Care Cabin Supervisor Name Role Phone Shane Licona MD Primary Care Provider [phone] Allergies No known active allergies Medications famotidine [...] EDT - 08/28/2025 7:14 PM EDT Emergency [facility] Emergency [address] [place] [address] Rodolfo Acevedo MD Gastroenteritis (Primary [...] reflex microscopic (08/28/2025 4:20 PM EDT) Specific [place] Urine >1.045(H) 1.003 - 1.030 LAB URINALYSIS [...] - AUTOMATED METHOD 08/28/2025 4:51 PM EDT [facility] Blood, Urine Large(A) Negative LAB URINALYSIS - AUTOMATED METHOD 08/28/2025 4:51 PM EDT [facility] RBC, Urine 28.6(H) 0 - 4 /HPF LAB URINALYSIS - AUTOMATED METHOD 08/28/2025 4:51 PM EDT [facility] WBC, Urine 1.9 0 - 4 /HPF LAB URINALYSIS - AUTOMATED METHOD 08/28/2025 4:51 PM EDT [facility] Squamous Epithelial, Urine 20 0 - 60 /LPF LAB URINALYSIS - AUTOMATED METHOD 08/28/2025 4:51 PM EDT [facility] Bacteria, Urine Negative Negative /HPF LAB URINALYSIS - AUTOMATED METHOD 08/28/2025 4:51 PM EDT [facility] Hyaline Casts, Urine 0.8 0 - 3 /LPF LAB URINALYSIS - AUTOMATED METHOD 08/28/2025 4:51 PM EDT [facility] Urine Urine specimen obtained by clean catch procedure / Unknown Non-blood Collection / Unknown 08/28/2025 4:20 PM EDT 08/28/2025 4:39 PM EDT us Rodolfo Acevedo MD LAB URINE ORDERABLES Final Result [facility] [address] [place] [address], * (ABNORMAL) Drug abuse screen 8a panel, urine (08/28/2025 4:20 PM EDT) Amphetamine Screen, Ur Negative Negative LAB CHEMISTRY METHOD 5:00 PM EDT [facility] Comment:Certain OTC medicati ons containing ephedrine, phenylephrine, pseudoephedrine and phenylpropanolamine can cause false positive results. Barbiturate Screen, Ur Negative Negative LAB CHEMISTRY METHOD 5 5:00 PM EDT [facility] Benzodiazepine Screen, Ur Negative Negative LAB CHEMISTRY METHOD 5 5:00 PM EDT [facility] Cocaine Screen, Ur Negative Negative LAB CHEMISTRY METHOD 5 5:00 PM EDT [facility] Opiate Screen, Ur Positive(A ) Negative LAB CHEMISTRY METHOD 5 5:00 PM EDT [facility] Cannabinoid (THC) Screen, Ur Positive(A ) Negative LAB CHEMISTRY METHOD 5:00 PM EDT [facility] Comment:Specimens from patie nts taking pantoprazole sodium (Protonix) have been shown to produce false positive results. Oxycodone Screen, Ur Negative Negative LAB CHEMISTRY METHOD 5:00 PM EDT [facility] Fentanyl, Ur Negative Negative LAB CHEMISTRY METHOD 5:00 PM T [facility] Urine Urine specimen obtained by clean catch procedure / Unknown Non-blood Collection / Unknown 08/28/2025 4:20 PM EDT 08/28/2025 4:39 PM EDT Narrative [facility] - 08/28/2025 5:00 PM EDT [...] Acevedo MD LAB URINE ORDERABLES Final Result [facility] [address] [place] [address], * CT Abdomen Pelvis w Contrast (08/28/2025 [...] Signed Date: 08/28/2025 16:13 ET Workstation ID: [id number] Transcribed By: Self Edit Transcribed Date: 08/28/2025 [...] Signed Date: 08/28/2025 16:13 ET Workstation ID: [id number] Transcribed By: Self Edit Transcribed Date: 08/28/2025 16:11 ET Rodolfo Acevedo MD IM CT PROCEDURES Final Res ult * (ABNORMAL) CBC auto differential (08/28/2025 12:48 PM EDT) WBC 10.3 4.8 - 10.8 K/mcL LAB HEMETOLOGY METHOD 08/28/2025 1:59 PM EDT [facility] RBC 5.00(H) 3.80 - 4.80 M/mcL LAB HEMETOLOGY METHOD 08/28/2025 1:59 PM EDT [facility] Hemoglobin 14.4 11.5 - 16.0 g/dL LAB HEMETOLOGY METHOD 08/28/2025 1:59 PM EDT [facility] Hematocrit 42.9 35.0 - 47.0 % LAB HEMETOLOGY METHOD 08/28/2025 1:59 PM EDT [facility] MCV 86.0 79.0 - 98.0 FL LAB HEMETOLOGY METHOD 08/28/2025 1:59 PM EDT [facility] MCH 28.9 27.0 - 32.0 pcg LAB HEMETOLOGY METHOD 08/28/2025 1:59 PM EDT [facility] MCHC 33.6 32.0 - 37.0 g/dL LAB HEMETOLOGY METHOD 08/28/2025 1:59 PM EDT [facility] RDW 14.2 11.0 - 15.0 % LAB HEMETOLOGY METHOD 08/28/2025 1:59 PM EDT [facility] Platelets 451(H) 130 - 400 K/mcL LAB HEMETOLOGY METHOD 08/28/2025 1:59 PM EDT [facility] MPV 10.5 7.0 - 11.0 FL LAB HEMETOLOGY METHOD 08/28/2025 1:59 PM EDT [facility] NRBC 0.0 <1.0 % LAB HEMETOLOGY METHOD 08/28/2025 1:59 PM EDT [facility] NRBC Absolute 0.00 <0.10 K/mcL LAB HEMETOLOGY METHOD 08/28/2025 1:59 PM EDT [facility] Neutrophils Relative 79.9 % LAB HEMETOLOGY METHOD 08/28/2025 1:59 PM EDT [facility] Lymphocytes Relative 10.8 % LAB HEMETOLOGY METHOD 08/28/2025 1:59 PM EDT [facility] Monocytes Relative 8.7 % LAB HEMETOLOGY METHOD 08/28/2025 1:59 PM EDT [facility] Eosinophils Relative 0.1 % LAB HEMETOLOGY METHOD 08/28/2025 1:59 PM EDT [facility] Basophils Relative 0.2 % LAB HEMETOLOGY METHOD 08/28/2025 1:59 PM EDT [facility] Immature Granulocytes Relative 0.3 % LAB HEMETOLOGY METHOD 08/28/2025 1:59 PM EDT [facility] Neutrophils Absolute 8.23(H) 1.50 - 7.00 K/mcL LAB HEMETOLOGY METHOD 08/28/2025 1:59 PM EDT [facility] Lymphocytes Absolute 1.11 1.00 - 5.00 K/mcL LAB HEMETOLOGY METHOD 08/28/2025 1:59 PM EDT [facility] Monocytes Absolute 0.90 0.20 - 1.00 K/mcL LAB HEMETOLOGY METHOD 08/28/2025 1:59 PM EDT [facility] Eosinophils Absolute 0.01 0.00 - 0.50 K/mcL LAB HEMETOLOGY METHOD 08/28/2025 1:59 PM EDT [facility] Basophils Absolute 0.02 0.00 - 0.20 K/mcL LAB HEMETOLOGY METHOD 08/28/2025 1:59 PM EDT [facility] Immature Granulocytes Absolute 0.03 0.00 - 0.03 K/mcL LAB HEMETOLOGY METHOD 08/28/2025 1:59 PM EDT [facility] Blood Venous blood specimen / Unknown Venipuncture / Unknown 08/28/2025 12:48 PM EDT 08/28/2025 1:19 PM EDT us Tevin Romo MD LAB BLOOD ORDERABLES Final Resul t [facility] [address] [place] [address], * hCG, serum, qualitative (08/28/2025 12:48 PM EDT) hCG Qual Negative Negative 08/28/2025 2:16 PM EDT [facility] Blood Venous blood specimen / Unknown Venipuncture / Unknown 08/28/2025 12:48 PM EDT 08/28/2025 1:19 PM EDT us Rodolfo Acevedo MD LAB BLOOD ORDERABLES Final Result Performing Organization Address [facility]/ZIP Co de Phone Number [facility] [address] [place] [address], [place] [phone] * Magnesium (08/28/2025 12:48 PM EDT) Magnesium 2.5 1.9 - 2.6 mg/dL LAB CHEMISTRY METHOD 08/28/2025 2:04 PM EDT [facility] Blood Venous blood specimen / Unknown Venipuncture / Unknown 08/28/2025 12:48 PM EDT 08/28/2025 1:19 PM EDT Rodolfo Acevedo MD LAB BLOOD ORDERABLES Final Result Performing Organization Address [facility] Co de Phone Number [facility] [address] [place] [address], [place] [phone] * Lipase (08/28/2025 12:48 PM EDT) Lipase 21 13 - 75 unit/L LAB CHEMISTRY METHOD 08/28/2025 2:04 PM EDT [facility] Blood Venous blood specimen / Unknown Venipuncture / Unknown 08/28/2025 12:48 PM EDT 08/28/2025 1:19 PM EDT us Tevin Romo MD LAB BLOOD ORDERABLES Final Resul t Performing Organization Address City/[facility]/ZIP Co de Phone Number [facility] [address] [place] [address], [place] [phone] * (ABNORMAL) Comprehensive metabolic panel (08/28/2025 12:48 [...] LAB CHEMISTRY METHOD 08/28/2025 2:08 PM EDT [facility] Total Protein 7.6 6.0 - 8.0 g/dL LAB CHEMISTRY METHOD 08/28/2025 2:08 PM EDT [facility] Albumin 4.2 3.2 - 5.0 g/dL LAB CHEMISTRY METHOD 08/28/2025 2:08 PM EDT [facility] Total Bilirubin 0.7 0.0 - 1.4 mg/dL LAB CHEMISTRY METHOD 08/28/2025 2:08 PM EDT [facility] Blood Venous blood specimen / Unknown Venipuncture / Unknown 08/28/2025 12:48 PM EDT 08/28/2025 1:19 PM EDT us Tevin Romo MD LAB BLOOD ORDERABLES Final Resul t [facility] [address] [place] [address], [place] [phone] from Last 3 Months Insurance MEDICAID - [place] Care Teams Cabin Supervisor Relationship Specialty Start Date End Date Shane Licona MD [address] [place] [address] [facility] - General 12/15/23
--- NOTE | 2025-09-11 20:14 | PC.NURSE ---
MD Valle made aware pt had similar work up last night and she is a tough stick, Briana LUIS stated she will be in to obtain an u/s IV & labs. pt was previously given heat pack per request and has been calm/resting since.
--- NOTE | 2025-09-11 20:14 | ED.GENADULT ---
HPI - General Adult General Chief complaint: Abdominal Pain Stated complaint: NAUSEA AND VOMITING ER EMS Time Seen by Provider: 09/11/25 20:02 Source: patient and EMS Mode of arrival: EMS Limitations: no limitations History of Present Illness ED Provider: DR. Valle HPI narrative: 19-year-old female history of cyclic vomiting syndrome and cannabinoid induced hyperemesis today is her 3rd visit to our ED for evaluation of persistent vomiting and generalized body ache. Patient stated that she is trying to stop smoking marijuana last smoke was Monday. Patient was sent home yesterday and Carafate and ondansetron returned today for persistent of the symptoms. Patient had CT abdomen pelvis yesterday was unremarkable. Related Data Home Medications ?Medication ?Instructions ?Recorded ?Confirmed acetaminophen 325 mg tablet 650 mg PO Q4H PRN pain, 08/31/25 08/31/25 alternating with ibuprofen famotidine 20 mg tablet 20 mg PO BID 08/31/25 08/31/25 haloperidol 5 mg tablet 5 mg PO QID PRN NAUSEA/VOMITING OR 09/11/25 ABDOMINAL PAIN Previous Rx's ?Medication ?Instructions ?Recorded dicyclomine 20 mg tablet 20 mg PO TID PRN abdominal pain 09/10/25 #10 tabs ondansetron 4 mg disintegrating 4 mg PO Q8H PRN nausea and 09/10/25 tablet vomiting #7 tabs sucralfate 100 mg/mL oral 10 ml PO QID PRN indigestion #400 09/11/25 suspension (Carafate) mL Allergies Allergy/AdvReac Type Severity Reaction Status Date / Time haloperidol (From Haldol) Allergy Mild Anaphylaxis Verified 09/11/25 19:11 Review of Systems Review of Systems: All other systems are reviewed and are negative Constitutional: Reports as per HPI and Reports no additional constitutional complaints Eyes: Reports as per HPI and Reports no additional eye complaints Reports system reviewed and no additional complaints, except as documented Cardiovascular: Reports as per HPI and Reports no additional cardiovascular complaints Respiratory: Reports as per HPI and Reports no additional respiratory complaints Gastrointestinal: Reports as per HPI and Reports no additional gastrointestinal complaints Genitourinary: Reports no additional female genitourinary complaints Musculoskeletal: Reports no additional musculoskeletal complaints Skin/Breast: Reports system reviewed and no additional complaints, except as docu Psychiatric: Reports no additional psychiatric complaints Endocrine: Reports no additional endocrine complaints Hematologic/Lymphatic: Reports no additional hematologic/lymphatic complaints Allergic/Immunologic: Reports no additional allergic/immunologic complaints Reports system reviewed and no additional complaints, except as documented and Reports Abnormal speech present [facility] Past Medical History Medical History GERD (gastroesophageal reflux disease) Long QT interval Acute hypokalemia Marijuana use Status post normal delivery in completely normal case Social History Social History Household Members: Family Housing: House Do you presently have visiting nurse or other home services: No Alcohol intake: never Patient Tobacco Use Status: Never used Tobacco Substance Use Type: Marijuana Advance Directives: No Advance Directives Information Provided: No Nutrition Risks: Acute nausea or vomiting x1 week service: No Physical Exam ED Vital Signs: Vital Signs - 24 hr 09/11/25 19:08 Temperature 98.4 F Pulse Rate 76 Respiratory Rate 22 H Blood Pressure 118/89 Pulse Oximetry 100 Oxygen Delivery Method Room Air BMI result Body Mass Index 26.2 Vital signs have been reviewed and appear to be correct. Blood pressure elevated. Heart rate normal. Respiratory rate normal. Temperature normal. Oxygen saturation normal. Appearance: Alert. Oriented X3. No acute distress. Head: Normal external exam. Normocephalic. Atraumatic. No Lopez signs noted. No raccoon eyes noted Eyes: PERRLA. EOMI. Conjunctiva and sclera normal. Eyelids normal. ENT: TM's Normal. Pharynx normal. Uvula midline. Moist mucous membranes. No trismus noted. No drooling noted. No muffled voice noted. Neck: Normal inspection. Neck supple. FROM. No adenopathy. Thyroid Normal. No meningeal signs. No neck mass noted. CVS: Normal heart rate and rhythm. Heart sound normal. No murmurs noted. Pulses normal throughout. Respiratory: No respiratory distress. Painless inspiration. Breath sounds normal. No wheezes/rales/rhonchi noted. Chest nontender. No accessory muscle usage noted or decreased air movement noted. Abdomen: Soft and nontender. Bowel sounds normal in all 4 quadrants. No distention noted. No organomegaly noted. No visible injury noted. Back: No CVA tenderness. Full range of motion noted. Skin: Skin warm and dry. Normal skin color. Normal skin turgor. No rashes/lesions/lacerations noted. Extremities: No lower extremity edema. Extremities exhibit normal range of motion. Extremities nontender. Neuro: Oriented X 3. Cranial nerve exam: II-XII are grossly intact No motor deficit. No sensory deficit. Reflexes normal. Course Reevaluation(s) Reevaluation #1: multiple ED visits last week for persistent nausea and vomiting likely after smoking marijuana, patient failed multiple outpatient therapy keep returning to the ED. Will admit this time for inpatient IV treatment. Time: 21:12 Medications Administered Generic Name Dose Route Start Last Admin Trade Name Freq PRN Reason Stop Dose Admin Famotidine 20 mg 09/11/25 21:00 09/11/25 21:06 Famotidine/Pf 20 Mg/2 Ml Vial IVPUSH 20 mg BID LINDA Administration Lactated Ringer's 1,000 mls @ 125 mls/hr 09/11/25 21:00 09/11/25 21:40 Lr IVCONT 09/12/25 04:59 125 mls/hr .Q8H LINDA Administration Metoclopramide HCl 5 mg 09/11/25 22:00 09/11/25 21:47 Metoclopramide Hcl 10 Mg/2 Ml Vial IVPUSH 5 mg Q6H LINDA Administration Sodium Chloride 3 ml 09/12/25 00:00 09/11/25 21:07 0.9 % Sodium Chloride Flush 3 Ml Syringe IVFLUSH Not Given QSHIFT LINDA Discontinued Medications Generic Name Dose Route Start Last Admin Trade Name Paulq PRN Reason Stop Dose Admin Diazepam 5 mg 09/11/25 20:34 09/11/25 20:46 Diazepam 10 Mg/2 Ml Cartridge IVPUSH 09/11/25 20:35 5 mg STAT STA Administration Sodium Chloride 1,000 mls @ 999 mls/hr 09/11/25 20:12 09/11/25 21:40 Ns IV 09/11/25 21:12 Infused .Q1H1M ONE Infusion Omeprazole 40 mg 09/11/25 20:45 09/11/25 21:39 Omeprazole/Na Bicarb Oral Susp 20 Mg/10 Ml Ud Cup PO 09/11/25 20:46 40 mg ONCE ONE Administration Ondansetron HCl 4 mg 09/11/25 20:34 09/11/25 20:46 Ondansetron Hcl 4 Mg/2 Ml Vial IVPUSH 09/11/25 20:35 4 mg ONCE ONE Administration Promethazine HCl 12.5 mg 09/11/25 20:12 09/11/25 20:32 Promethazine Hcl 25 Mg/Ml Vial IM 09/11/25 20:13 12.5 mg ONCE ONE Administration Procedures Procedure Narrative Procedure Narrative: ultrasound-guided IV 20 gauge 1-3/4 inch IV placed in left upper extremity, adequate blood return, flushes well secured with Tegaderm. Performed by Charlotte Piña PA-C Medical Decision Making Differential Diagnosis Differential Diagnoses: The differential diagnosis associated with the presentation includes ( Electrolyte derangement, severe dehydration, severe anemia, cyclic vomiting syndrome, , cannabinoid hyperemesis syndrome. Gastritis.) Admission/Observation Consideration of admission/observation: Escalation of care including admission/observation considered Consult Healthcare Provider Management of the patient was discussed with: Hospitalist ( Dr. Dela Cruz) Lab Data MDM Lab Attestation statement: I reviewed the patient's lab results. 09/11/25 20:28 09/11/25 20:28 Labs: Lab Results 09/11/25 09/11/25 Range/Units 20:27 20:28 WBC 9.0 (4.8-10.8) X10*3/uL RBC 4.57 (4.20-5.50) X10*6/uL Hgb 13.3 (12.0-16.0) g/dl Hct 39.6 (37.0-47.0) % MCV 86.7 (80.0-98.0) fL MCH 29.1 (27.0-33.0) pg MCHC 33.6 (31.0-35.0) g/dl RDW 13.9 (11.0-16.0) % Plt Count 430 H (160-400) X10*3/uL MPV 8.5 L (9.4-12.3) fL Immature Gran % (Auto) 0.3 (0.0-0.4) % Neut % (Auto) 80.0 H (45-73) % Lymph % (Auto) 14.5 L (20-40) % Owen % (Auto) 4.9 (2-11) % Eos % (Auto) 0.0 (0-4) % Baso % (Auto) 0.3 (0-2) % Lymph # (Auto) 1.3 (1.2-4.9) X10*3/uL [place] # (Auto) 0.4 (0.1-1.2) X10*3/uL Eos # (Auto) 0.0 (0.0-0.4) X10*3/uL Baso # (Auto) 0.0 (0.0-0.2) X10*3/uL Abs Immat Gran (auto) 0.03 (0.00-0.03) X10*3/uL Absolute Neuts (auto) 7.2 (2.0-8.3) x10*3/uL Absolute Nucleated RBC 0.000 (0.0-0.012) X10*3/uL Nucleated RBC % (auto) 0.0 (0.0-0.2) /100WBC Sodium 138 (135-145) mmol/L Potassium 3.5 (3.3-5.1) mmol/L Chloride 104 (96-108) mmol/L Carbon Dioxide 22 (22-29) mmol/L Anion Gap 16 (12-20) BUN 8 L (9-16) mg/dL Creatinine 0.70 (0.5-1.4) mg/dL Estim Creat Clear Calc 113.3 Estimated GFR > 60 Random Glucose 97 (60-115) mg/dL Calcium 9.1 (8.4-10.2) mg/dL Total Bilirubin 0.6 (0.0-1.0) mg/dL Direct Bilirubin 0.2 (0.0-0.5) mg/dL AST 47 H (5-31) U/L ALT 42 H (0-31) U/L Alkaline Phosphatase 102 (39-117) U/L Total Protein 7.6 (6.5-8.0) g/dL Albumin 4.6 (3.5-5.0) g/dL Lipase 12 (8-78) U/L Beta HCG, Quant < 2 mIU/mL Urine Color Yellow Urine Appearance Cloudy Urine pH >= 9.0 (5.0-9.0) Ur Specific [place] 1.020 (1.005-1.025) Urine Protein Trace (Neg-Trace) mg/dL Urine Glucose (UA) Negative (Negative) mg/dL Urine Ketones 80 (Negative) mg/dL Urine Blood Negative (Negative) Urine Nitrite Negative (Negative) Ur Leukocyte Esterase Trace H (Negative) Urine RBC 0-2 (0-2) /HPF Urine WBC 0-5 (0-5) /HPF Ur Squamous Epith Cells 3-5 (0-2) /HPF Urine Bacteria Trace (None Seen) Hyaline Casts 0-2 (0-2) /LPF Discharge Plan Discharge Clinical Impression: Cyclical vomiting, intractable Patient Disposition: Admitted As Inpatient
[2025-09-11 20:31] LABS: MANUAL DIFF FLAG NO
[2025-09-11 20:33] LABS: Hematocrit 39.6 % (37.0-47.0); Hemoglobin 13.3 g/dl (12.0-16.0); Imm Gran Abs Auto 0.03 X10*3/uL (0.00-0.03); Imm Gran Pct Auto 0.3 % (0.0-0.4); Lymphocytes Absolute Auto 1.3 X10*3/uL (1.2-4.9); Mean Corpuscular HGB Conc 33.6 g/dl (31.0-35.0); Mean Corpuscular Hemoglobin 29.1 pg (27.0-33.0); Mean Corpuscular Volume 86.7 fL (80.0-98.0); NRBC Abs Auto 0.000 X10*3/uL (0.0-0.012); NRBC Pct Auto 0.0 /100WBC (0.0-0.2); Platelet Count 430 X10*3/uL (160-400); Red Blood Count 4.57 X10*6/uL (4.20-5.50); White Blood Count 9.0 X10*3/uL (4.8-10.8)
[2025-09-11 20:35] LABS: Appearance Urine Cloudy; Glucose Urine UA Negative (Negative); PH >= 9.0 (5.0-9.0); Specific Gravity - Urine 1.020 (1.005-1.025); UMIC TRIGGER UACC YES
[2025-09-11] MEDS: diazePAM 10 MG/2 ML CARTRIDGE 5 MG IVPUSH (20:46)
--- NOTE | 2025-09-11 20:47 | PC.NURSE ---
pt ambulated with steady gait to the bathroom and back to obtain urine sample. jose manuel rendon obtained u/s iv to [facility]. labs and ua sent. pt medicated per dec. valium order changed to ivp per MD as now IV available. pt medicated per dec. PO Konvomep not available in [facility]. pharmacy notified awaiting arrival to ed. pt resting comfortably at this time.
--- NOTE | 2025-09-11 20:50 | PC.NURSE ---
Ultrasound guided IV 20 g placed in the left upper arm by provider.
[2025-09-11 20:59] LABS: Alanine Aminotransferase 42 U/L (0-31); Albumin Level 4.6 g/dL (3.5-5.0); Alkaline Phosphatase 102 U/L (39-117); Anion Gap 16 (12-20); Aspartate Amino Transferase 47 U/L (5-31); Blood Urea Nitrogen 8 mg/dL (9-16); Calcium 9.1 mg/dL (8.4-10.2); Carbon Dioxide 22 mmol/L (22-29); Chloride 104 mmol/L (96-108); Creatinine Clr Calc Pharmacy 113.3; Estimated Glomerular Filt Rate > 60; Lipase 12 U/L (8-78); Potassium 3.5 mmol/L (3.3-5.1); Sodium 138 mmol/L (135-145); Total Protein 7.6 g/dL (6.5-8.0)
--- NOTE | 2025-09-11 21:14 | HO.NURTONUR ---
Addendum entered by Jewell Allred RN 09/11/25 21:19: Medicated per MAR orders. LR running at 125 mL/hr. Original Note: Pt is a 19 y.o. female coming in with n/v and abd pain. Pt has been seen multiple times this week for the same, all work-ups negative. Pt has cyclic vomiting from marijuana use and reports last use Monday. Labs today are unremarkable. Urine negative. 20 g IV in the left upper arm, ultrasound guided. A&Ox4, ambulates independently. Pt needs frequent redirection on using the call mauricio and that it is not appropriate to yell out from her room.
--- NOTE | 2025-09-11 21:29 | PM.IMHP ---
History of Present Illness Date of Service: 09/11/25 Attending physician on admission: Veronica Rush Chief Complaint: vomiting Lidia Trejo is a 19 years old woman with no significant past medical history presents to the emergency department for the 3rd time with same symptoms including nausea, vomiting and generalized abdominal pain. HPI was limited as the patient was very sleepy. Denied diarrhea or fever. She smokes marijuana, last use Monday. Denied illicit drug use. In the ED, she was found to have stable vital signs. Blood workup showed no leukocytosis. Hemoglobin is 13.3 and platelets 430. There are no significant electrolyte imbalances. BUN is 8 and creatinine 0.70. Transaminases are mildly elevated, normal alk-phos arm bilirubin. Lipase is normal and test is negative. UA showed no obvious evidence of UTI, various ketonuria. Toxicology test is positive for benzos and marijuana. Abdominal pelvis CT scan with IV contrast showed no acute findings.. ED tx: Phenergan 12.5 mg IM, Valium 5 mg IM, NS 1 L bolus, Valium 5 mg IV, Zofran 4 mg IV, omeprazole 40 mg p.o. Review of Systems Review of Systems: limited, pt very sleepy [facility] Medical History GERD (gastroesophageal reflux disease) Long QT interval Acute hypokalemia Marijuana use Status post normal delivery in completely normal case Social History Household Members: Family Housing: House Do you presently have visiting nurse or other home services: No Alcohol intake: never Patient Tobacco Use Status: Never used Tobacco Substance Use Type: Marijuana Advance Directives: No Advance Directives Information Provided: No Nutrition Risks: Acute nausea or vomiting x1 week service: No Meds Allergies Allergy/AdvReac Type Severity Reaction Status Date / Time haloperidol (From Haldol) Allergy Mild Anaphylaxis Verified 09/11/25 19:11 Active Medications: Current Medications Acetaminophen (Acetaminophen 325 Mg Tablet) 650 mg PO Q6H PRN PRN Reason: Pain, Mild 1-3,fever,headache Calcium Carbonate (Calcium Carbonate 750 Mg Tab.Chew) 750 mg PO Q4H PRN PRN Reason: Heartburn Enoxaparin Sodium (Enoxaparin Sodium 40 Mg/0.4 Ml Syringe) 40 mg SUBCUT Q24H [facility] Famotidine (Famotidine/Pf 20 Mg/2 Ml Vial) 20 mg IVPUSH BID [facility] Last Admin: 09/11/25 21:06 Dose: 20 mg Lactated Ringer's (Lr) 1,000 mls @ 125 mls/hr IVCONT .Q8H [facility] Stop: 09/12/25 04:59 Magnesium Hydroxide (Milk Of Magnesia 30 Ml Oral.Susp) 30 ml PO DAILY PRN PRN Reason: Constipation Melatonin (Melatonin 3 Mg Tablet) 6 mg PO BEDTIME PRN PRN Reason: Insomnia Metoclopramide HCl (Metoclopramide Hcl 10 Mg/2 Ml Vial) 5 mg IVPUSH Q6H [facility] Ondansetron HCl (Ondansetron Hcl 4 Mg/2 Ml Vial) 4 mg IVPUSH Q8H PRN PRN Reason: Nausea and Vomiting Sodium Chloride (0.9 % Sodium Chloride Flush 3 Ml Syringe) 3 ml IVFLUSH QSHIFT [facility] Last Admin: 09/11/25 21:07 Dose: Not Given Home Medications ?Medication ?Instructions ?Recorded ?Confirmed ?Last Taken ?Type acetaminophen 325 mg tablet 650 mg PO Q4H PRN pain, 08/31/25 08/31/25 08/31/25 08:00 History alternating with ibuprofen famotidine 20 mg tablet 20 mg PO BID 08/31/25 08/31/25 08/31/25 08:00 History haloperidol 5 mg tablet 5 mg PO QID PRN NAUSEA/VOMITING OR 09/11/25 Unknown History ABDOMINAL PAIN Physical Exam Vital Signs and Narrative: Vital Signs: Last Vital Signs Temp 98.4 F 09/11/25 19:08 Pulse 76 09/11/25 19:08 Resp 22 H 09/11/25 19:08 BP 118/89 09/11/25 19:08 Pulse Ox 100 09/11/25 19:08 O2 Del Method Room Air 09/11/25 19:08 BMI result Body Mass Index 26.2 General: Somnolent. Well nourished and cooperative. Afebrile. HEENT: Head normocephalic, atraumatic. PER, EOMI. Sclerae anicteric, conjunctiva clear. Mucous membranes dry Neck: Supple. Heart: RRR, no murmurs, rubs or gallops. Lungs: Clear to auscultation bilaterally. No wheezes, rales, or rhonchi. Normal respiratory effort. Abdomen: Soft, generalized tenderness to palpation without rebound or guarding, nondistended, encouraged bowel sounds. No hepatosplenomegaly, masses or masses. Extremities: No calf tenderness bilaterally, no swelling Musculoskeletal: Full range of motion. No joint swelling, deformity, or tenderness. Normal muscle tone and strength. Skin: Warm/Dry. No pallor. No jaundice. Neurologic: Alert & oriented x4. Moving all extremities spontaneously. Normal speech. Psychological: Normal mood and affect. Thought process coherent. Results Labs 09/11/25 20:28 09/11/25 20:28 Labs: Laboratory Results - last 24 hr 09/11/25 09/11/25 20:27 20:28 MCV 86.7 MCH 29.1 MCHC 33.6 RDW 13.9 Plt Count 430 H MPV 8.5 L Immature Gran % (Auto) 0.3 Neut % (Auto) 80.0 H Lymph % (Auto) 14.5 L [place] % (Auto) 4.9 Eos % (Auto) 0.0 Baso % (Auto) 0.3 Lymph # (Auto) 1.3 [place] # (Auto) 0.4 Eos # (Auto) 0.0 Baso # (Auto) 0.0 Abs Immat Gran (auto) 0.03 Absolute Neuts (auto) 7.2 Absolute Nucleated RBC 0.000 Nucleated RBC % (auto) 0.0 Anion Gap 16 Estim Creat Clear Calc 113.3 Estimated GFR > 60 Random Glucose 97 Calcium 9.1 Total Bilirubin 0.6 Direct Bilirubin 0.2 AST 47 H ALT 42 H Alkaline Phosphatase 102 Total Protein 7.6 Albumin 4.6 Lipase 12 Beta HCG, Quant < 2 Urine Color Yellow Urine Appearance Cloudy Urine pH >= 9.0 Ur Specific [place] 1.020 Urine Protein Trace Urine Glucose (UA) Negative Urine Ketones 80 Urine Blood Negative Urine Nitrite Negative Ur Leukocyte Esterase Trace H Urine RBC 0-2 Urine WBC 0-5 Ur Squamous Epith Cells 3-5 Urine Bacteria Trace Hyaline Casts 0-2 Assessment and Plan (1) Cannabinoid hyperemesis syndrome: Status: Acute (2) Cyclical vomiting, intractable: Status: Acute (3) Elevated transaminase level: Status: Acute Plan Lidia Trejo is a 19 y/o who presents with: Hyperemesis cannabinoid syndrome. Marijuana use abstinence. Supportive therapy with IV fluids, antiemetic therapy and anti-reflux therapy. Diet as tolerated. Elevated transaminases, chronic. Unclear etiology. Abdominal pelvis CT scan showed normal liver. Abd US (Aug 30) normal. Check lipid panel. Code status: Full DVT prophylaxis: Lovenox Patient will need hospitalization for at least 2 midnights for hyperemesis cannabinoid syndrome treatment with IV antiemetic and IV fluids; patient has been seen in the emergency department 3 times recently with recurrent symptoms. This documentation was generated using dictation software; minor spreading or library monitor errors may be present. Quality Stroke Does the patient have a stroke diagnosis?: No VTE Prior VTE?: No VTE Risk Level:: Medical - moderate - high VTE Device Contraindication: Treatment Not Indicated VTE Drug Contraindication: N/A - Med Ordered
[2025-09-11] MEDS: Omeprazole/Na Bicarb Oral Susp 20 MG/10 ML UD Cup 40 MG PO (21:39)
[2025-09-11] MEDS: Lactated Ringers 1,000 ML 125 ML IVCONT (21:40)
[2025-09-11 21:50] VITALS: BP 150/86; PULSE 76; RESP 18; TEMP 37; O2SAT 98
[2025-09-12] VITALS: BP 111/65; PULSE 77; RESP 18; TEMP 36.3; O2SAT 98
[2025-09-12 03:19] VITALS: BP 118/62; PULSE 80; RESP 18; TEMP 36.3; O2SAT 94
[2025-09-12 06:59] LABS: Hematocrit 38.9 % (37.0-47.0); Hemoglobin 13.1 g/dl (12.0-16.0); Mean Corpuscular HGB Conc 33.7 g/dl (31.0-35.0); Mean Corpuscular Hemoglobin 29.0 pg (27.0-33.0); Mean Corpuscular Volume 86.1 fL (80.0-98.0); NRBC Abs Auto 0.000 X10*3/uL (0.0-0.012); NRBC Pct Auto 0.0 /100WBC (0.0-0.2); Platelet Count 394 X10*3/uL (160-400); Red Blood Count 4.52 X10*6/uL (4.20-5.50); White Blood Count 7.9 X10*3/uL (4.8-10.8)
[2025-09-12 07:15] LABS: Anion Gap 16 (12-20); Blood Urea Nitrogen 6 mg/dL (9-16); Calcium 8.9 mg/dL (8.4-10.2); Carbon Dioxide 21 mmol/L (22-29); Chloride 105 mmol/L (96-108); Creatinine Clr Calc Pharmacy 122.1; Estimated Glomerular Filt Rate > 60; Magnesium 1.8 mg/dL (1.6-2.6); Potassium 3.5 mmol/L (3.3-5.1); Sodium 138 mmol/L (135-145)
[2025-09-12 07:38] LABS: HBS Num1 3.92 mIU/mL (0-7.99); HBc Num1 0.09 S/CO (0.00-0.79); HBsAGNum1 0.54 S/CO (0.00-0.99); Hepatitis A Antibody IgM 0.22 Index (0-0.79); Hepatitis B Surface Antigen Negative (Negative); ~HepC Num1 0.08 S/CO (0.00-0.79); ~Hepatitis A Antibody IgM Nonreactive (Nonreactive); ~Hepatitis B Surface Antibody NONREACTIVE (Nonreactive); ~Hepatitis C Antibody Nonreactive (Nonreactive)
[2025-09-12 07:44] VITALS: BP 129/83; PULSE 67; RESP 16; TEMP 36.4; O2SAT 98
[2025-09-12] MEDS: 0.9 % Sodium Chloride Flush 3 ML SYRINGE IVFLUSH (08:02)
--- NOTE | 2025-09-12 10:28 | PHA.MEDREC ---
Pharmacy Consult ? Medication Reconciliation Pharmacy has completed the medication reconciliation. Spoke to patient to confirm medication list. Per patient, she took a dose of sucralfate (10 ml) and dicyclomine 20 mg and then her body/chest/stomach felt tight so she assumed those meds caused that bad reaction. Those meds were removed from patient's med list, Dr. Tinsley was made aware of reaction.
--- NOTE | 2025-09-12 11:28 | PM.DS ---
DS: Providers Provider Date of Service: 09/12/25 Date of admission: 09/11/25 20:51 Date of discharge: 09/12/25 Primary care physician: Unknown Physician Attending physician on discharge: Tomas Tinsley Discharging clinician: Tomas Tinsley DS: Diagnosis Discharge Diagnosis (1) Cannabinoid hyperemesis syndrome: Status: Inactive (2) Cyclical vomiting, intractable: Status: Acute (3) Elevated transaminase level: Status: Acute DS: Summary Hospital Course Hospital Course: HPI: 19 years old woman with no significant past medical history presents to the emergency department for the 3rd time with same symptoms including nausea, vomiting and generalized abdominal pain. HPI was limited as the patient was very sleepy. Denied diarrhea or fever. She smokes marijuana, last use Monday. Denied illicit drug use. In the ED, she was found to have stable vital signs. Blood workup showed no leukocytosis. Hemoglobin is 13.3 and platelets 430. There are no significant electrolyte imbalances. BUN is 8 and creatinine 0.70. Transaminases are mildly elevated, normal alk-phos arm bilirubin. Lipase is normal and test is negative. UA showed no obvious evidence of UTI, various ketonuria. Toxicology test is positive for benzos and marijuana. Abdominal pelvis CT scan with IV contrast showed no acute findings.. ED tx: Phenergan 12.5 mg IM, Valium 5 mg IM, NS 1 L bolus, Valium 5 mg IV, Zofran 4 mg IV, omeprazole 40 mg p.o. Hospital course: Patient was admitted for nausea vomiting secondary to marijuana use- Improved with the hydration, antiemetics, if tolerates diet the will be going home. patient was strongly advised to abstain from marijuana use. Patient has mild elevated LFTs which is improving- chronic. Unclear etiology. Abdominal pelvis CT scan showed normal liver. Abd US (Aug 30) normal.follow Lft's outpatient and follow up with pcp. advised strongly to avoid hepatotoxic medications. Plan: Avoid further marijuana use Encouraged for p.o. hydration and intake Monitor LFT outpatient and further workup outpatient Above management discussed with the patient detail length she understand and in agreement with the above plan, time spent 45 minute. Time Attestation Total time managing care of this patient today: 45 mintues. Discharge Coordination Time (in mins): 45 minute Quality: Safe Use of Opioids Does Pt have an Active Cancer Diagnosis on the Problem List?: No Quality: Stroke Does the patient have a stroke diagnosis?: No Physical Exam Exam: Exam: Appearance: Alert.? Oriented X3.? cvs: rrr, [id number] , no murmur res: clear to auscultation ,no rhonchii or wheezing abd: no rebound or guarding ,nt, bs present. ext pulses present , no cyanosis. neuro: axo3 , nonfocal. Vital Signs: Vital Signs: Last Vital Signs Temp 97.5 F 09/12/25 07:44 Pulse 67 09/12/25 07:44 Resp 16 09/12/25 07:44 BP 129/83 09/12/25 07:44 Pulse Ox 98 09/12/25 07:44 O2 Del Method Room Air 09/12/25 07:44 BMI result Body Mass Index 26.2 DS: Data Data Completed and Pending Labs on day of discharge: Laboratory Results - last 24 hr 09/11/25 09/11/25 09/12/25 20:27 20:28 06:51 WBC 9.0 7.9 RBC 4.57 4.52 Hgb 13.3 13.1 Hct 39.6 38.9 MCV 86.7 86.1 MCH 29.1 29.0 MCHC 33.6 33.7 RDW 13.9 13.6 Plt Count 430 H 394 MPV 8.5 L 8.6 L Immature Gran % (Auto) 0.3 Neut % (Auto) 80.0 H Lymph % (Auto) 14.5 L [place] % (Auto) 4.9 Eos % (Auto) 0.0 Baso % (Auto) 0.3 Lymph # (Auto) 1.3 [place] # (Auto) 0.4 Eos # (Auto) 0.0 Baso # (Auto) 0.0 Abs Immat Gran (auto) 0.03 Absolute Neuts (auto) 7.2 Absolute Nucleated RBC 0.000 0.000 Nucleated RBC % (auto) 0.0 0.0 Sodium 138 138 Potassium 3.5 3.5 Chloride 104 105 Carbon Dioxide 22 21 L Anion Gap 16 16 BUN 8 L 6 L Creatinine 0.70 0.65 Estim Creat Clear Calc 113.3 122.1 Estimated GFR > 60 > 60 Random Glucose 97 81 Calcium 9.1 8.9 Magnesium 1.8 Total Bilirubin 0.6 Direct Bilirubin 0.2 AST 47 H ALT 42 H Alkaline Phosphatase 102 Total Protein 7.6 Albumin 4.6 Lipase 12 Beta HCG, Quant < 2 Urine Color Yellow Urine Appearance Cloudy Urine pH >= 9.0 Ur Specific [place] 1.020 Urine Protein Trace Urine Glucose (UA) Negative Urine Ketones 80 Urine Blood Negative Urine Nitrite Negative Ur Leukocyte Esterase Trace H Urine RBC 0-2 Urine WBC 0-5 Ur Squamous Epith Cells 3-5 Urine Bacteria Trace Hyaline Casts 0-2 Hepatitis A IgM Ab Nonreactive Hep Bs Antigen Negative Hep Bs Antibody NONREACTIVE Hep B Core Total Ab Nonreactive Hepatitis C Ab (EIA) Nonreactive Discharge Plan Discharge Anticipated Discharge Date/Time: 09/12/25 11:14 Patient Disposition: Home, Self-Care Discharge Diagnosis: Intractable nausea vomiting likely secondary to marijuana use. Referrals: Physician,Unknown J [Primary Care Provider, Medical] - 1 Week Discharge Medications: Continued ondansetron 4 mg tablet,disintegrating 4 mg PO Q8H PRN (Reason: nausea and vomiting) Qty: 7 0RF Discontinued acetaminophen 325 mg Tablet 650 mg PO Q4H PRN (Reason: pain, alternating with ibuprofen) Discharge Orders: Discharge Order (Routine); Ordered 09/12/25 Ordered By: Tomas Tinsley Diet: Advance to usual diet Activity on Discharge: As tolerated Stand Alone Forms: Patient Portal Discharge page Print Language: Trinidadian Care Plan Goals: Patient was admitted for nausea vomiting secondary to marijuana use- Improved with the hydration, antiemetics, if tolerates diet the will be going home. patient was strongly advised to abstain from marijuana use. Patient has mild elevated LFTs which is improving- chronic. Unclear etiology. Abdominal pelvis CT scan showed normal liver. Abd US (Aug 30) normal.follow Lft's outpatient and follow up with pcp. advised strongly to avoid hepatotoxic medications. Health Concerns: as above. Plan of Treatment: as above. Assessment: as above. Discharge Date/Time: 09/12/25 12:16
[2025-09-12 12:00] VITALS: BP 113/72; PULSE 67; RESP 17; TEMP 36.2; O2SAT 97
--- NOTE | 2025-09-12 13:32 | MHC.CM.PN ---
PT REPORTS SHE LIVES WITH FAMILY AND IS INDEPENDENT WITH CARE SHE HAS NO DME OR SERVICES DECLINES A HCP PCP @ [facility] PT CLEARED TO DC HOME TODAY WITH NO SERVICES PT TO ARRANGE TRANSPORT
== END 2025-09-12 12:16 | disposition home or self-care (01) | DRG 249 ==
LOC: HO.ED 20:42 → HO.EDOVER 20:55 → HO.S3 23:56
PROVIDERS: Admitting Provider Internal Medicine; Emergency Provider Emergency Medicine; Visit Provider Internal Medicine
DX: R11.16 Cannabis hyperemesis syndrome (principal); F12.99 Cannabis use, unspecified with unspecified cannabis-induced disorder; R74.01 Elevation of levels of liver transaminase levels
CPT/HCPCS: 36415; 80048; 80076; 81001; 83690; 83735; 84702; 85025; 85027; 86704; 86706; 86709; 86803; 87340; 99285; J1171; J1308; J1650; J2405; J2550; J2765; J3360; J7120

== ENCOUNTER → 2025-09-11 20:51 | Outpatient (BNV) | payer OTHER, SELFPAY | PROVIDERS: Admitting Provider Internal Medicine; Emergency Provider Emergency Medicine; Visit Provider Internal Medicine | DX: R11.2 Nausea with vomiting, unspecified (principal); F12.90 Cannabis use, unspecified, uncomplicated; R11.15 Cyclical vomiting syndrome unrelated to migraine; R74.01 Elevation of levels of liver transaminase levels | CPT/HCPCS: 99222 ==

== ENCOUNTER 2025-09-15 14:09 | Emergency (ER) | payer OTHER, SELFPAY ==
[2025-09-15 14:25] VITALS: BP 125/85; PULSE 109; O2SAT 98
[2025-09-15 15:09] VITALS: BP 149/91; PULSE 108; RESP 18; TEMP 36.1; O2SAT 99; BMI 21.9
--- NOTE | 2025-09-15 15:12 | ED_ITS ---
HPI - General Adult General Chief complaint: Abdominal Pain Stated complaint: ABD PAIN,VOMITING, ABD PAIN,STS NO CHANCE OF PREG Time Seen by Provider: 09/15/25 17:04 Source: patient, RN notes reviewed and old records reviewed Mode of arrival: EMS Limitations: no limitations History of Present Illness ED Provider: Stewart SARAVIA narrative: 19-year-old female presents for evaluation of nausea and vomiting. This is the patient's 8th visit to this ER in the last 3 weeks for similar complaints. She was diagnosed with cyclic vomiting and cannabis hyperemesis syndrome. She was admitted overnight on 09/11/2025 and discharged the following day The patient reports continued upper abdominal pain that radiates into her chest, her pain is described as burning She reports that she is unable tolerate anything orally Denies any fevers or chills pain She does endorse a dry cough She did have a CT scan ordered on 09/11/2025 that did not show any acute findings Related Data Previous Rx's ?Medication ?Instructions ?Recorded ondansetron 4 mg disintegrating 4 mg PO Q8H PRN nausea and 09/10/25 tablet vomiting #7 tabs Allergies Allergy/AdvReac Type Severity Reaction Status Date / Time haloperidol (From Haldol) Allergy Mild Anaphylaxis Verified 09/15/25 15:11 Review of Systems 2 Constitutional: Constitutional: Denies body ache(s), Denies chills and Denies fever(s) Eyes: Eyes: Denies blurry vision ENT: Denies dizziness Cardiovascular: Cardiovascular: Reports chest pain, Reports Epigastric Pain, Reports epigastric discomfort and Denies dyspnea on exertion Respiratory: Respiratory: Reports cough and Denies dyspnea on exertion Gastrointestinal: Gastrointestinal: Reports abdominal pain, Denies melena, Denies hematochezia, Reports nausea and Reports vomiting Genitourinary: Genitourinary: Denies pelvic pain Musculoskeletal: Musculoskeletal: Denies back pain Integumentary/Breasts: Skin/Breast: Denies rash Neurologic: Denies dizziness PMFSH Past Medical History Medical History GERD (gastroesophageal reflux disease) Long QT interval Acute hypokalemia Marijuana use Status post normal delivery in completely normal case Social History Social History Household Members: Family Housing: House Do you presently have visiting nurse or other home services: No Alcohol intake: never Patient Tobacco Use Status: Never used Tobacco Substance Use Type: Marijuana Advance Directives: No Advance Directives Information Provided: No Do you have a plan to hurt others: No Plan service: No Physical Exam ED Vital Signs: Vital Signs - 24 hr 09/15/25 15:09 09/15/25 18:03 09/15/25 19:14 Temperature 97 F 98.1 F Pulse Rate 108 H 88 Respiratory Rate 18 16 16 Blood Pressure 149/91 H 110/74 Pulse Oximetry 99 97 Oxygen Delivery Method Room Air Room Air 09/15/25 19:14 09/15/25 20:36 Temperature 98.3 F Pulse Rate 82 93 Respiratory Rate 16 Blood Pressure 141/88 H 148/96 H Pulse Oximetry 96 Oxygen Delivery Method Room Air BMI result Body Mass Index 21.9 Const General: healthy appearing, comfortable, no acute distress, alert and awake Nutritional Appearance: well nourished Orientation/consciousness: patient oriented x3 HENMT Head: Yes normocephalic and Yes atraumatic Eyes Eyelids: Yes eyelids normal Conjunctivae: conjunctivae normal Sclerae: sclerae normal Corneas: corneas normal Pupils: Equal, round and reactive pupils present EOM: EOMs intact bilaterally Neck Neck: Yes full ROM Resp Effort & Inspection: normal respiratory effort, able to speak in complete sentences and not labored Cardio Rate: regular rate Rhythm: regular rhythm Skin General skin exam: elasticity normal Neuro General: patient oriented x3 Cranial nerves: Yes Equal, round and reactive pupils present and Yes Bilaterally intact EOM present Cognition (Neuro): normal cognition Extrem Other: Moving all extremities well without any obvious deformities Course Course Course Narrative: RME: 19-year-old female presents to ED for vomiting abdominal pain. Patient has been to the ED multiple times for same complaint. Repeat labs ordered Reevaluation(s) Reevaluation #1: Patient continues to complain of abdominal pain after receiving morphine 2 mg IV. She specifically requests Dilaudid that she was given on her last admission. I discussed long-term treatment of chronic abdominal pain. Opiates are not a good source of management for chronic pain of any type especially abdominal pain. This will likely cause constipation. The patient is requesting a dose of Dilaudid. I agree to give her your a 0.25 mg IV. She still has a reassuring exam and workup I do not see any indication for CT imaging. The patient needs to follow up with GI for likely upper endoscopy and chronic abdominal pain Time: 20:28 Medications Administered Discontinued Medications Generic Name Dose Route Start Last Admin Trade Name Michael PRN Reason Stop Dose Admin Hydromorphone HCl 0.25 mg 09/15/25 20:27 09/15/25 20:37 Hydromorphone Hcl 0.5 Mg/0.5 Ml Syringe IVPUSH 09/15/25 20:28 0.25 mg ONCE ONE Administration Protocol Lactated Ringer's 1,000 mls @ 999 mls/hr 09/15/25 17:30 09/15/25 18:45 Lr IV 09/15/25 18:30 Infused .Q1H1M LINDA Infusion Morphine Sulfate 2 mg 09/15/25 19:09 09/15/25 19:14 Morphine Sulfate 4 Mg/Ml Cartridge IVPUSH 09/15/25 19:10 2 mg ONCE ONE Administration Protocol Ondansetron HCl 4 mg 09/15/25 17:21 09/15/25 17:48 Ondansetron Hcl 4 Mg/2 Ml Vial IVPUSH 09/15/25 17:22 4 mg ONCE ONE Administration Pantoprazole Sodium 40 mg 09/15/25 17:20 09/15/25 17:48 Pantoprazole Sodium 40 Mg/10 Ml Vial IVPUSH 09/15/25 17:21 40 mg ONCE ONE Administration Potassium Chloride 60 meq 09/15/25 17:20 09/15/25 19:04 Potassium Chloride Er 20 Meq Tab.Er.Prt PO 09/15/25 17:21 60 meq ONCE ONE Administration Medical Decision Making Medical Decision Making [facility] Narrative: 19-year-old female presents for evaluation of abdominal pain nausea and vomiting. I reviewed her recent ER and inpatient notes. She was diagnosed with cyclic vomiting and cannabis hyperemesis syndrome. She reports that she last saw GI about a year ago. The patient has an allergy listed to haloperidol which is listed its anaphylaxis. Her external medication history shows that few filled a prescription for haloperidol 5 mg tablets on 08/28/2025 with instructions to take q.6 hours as needed for nausea and vomiting. The patient states that her [id number] picks up the prescription and she is not sure if she is taking it. She believes that she had an allergy to Haldol when it was given to her in the emergency department. The patient is quite well appearing, she has a mild leukocytosis which is likely due to her vomiting. She is not . At the moment I do not see any indication for repeat imaging at this time. Potassium is low at 3.1, we will treat with IV fluids, lactated Ringer's, oral potassium as well as pantoprazole, Zofran Differential Diagnosis Differential Diagnoses: The differential diagnosis associated with the presentation includes Cannabis hyperemesis syndrome Hypokalemia Cyclic vomiting Gastroenteritis Crohn's disease Lab Data MDM Lab Attestation statement: I reviewed the patient's lab results. Mild leukocytosis, no significant anemia. Electrolytes significant for a slightly low potassium of 3.1 and an elevated BUN to 20 both knees are likely due to vomiting and GI loss. The patient has a very slight elevation of ALT which she has had in the past, her AST has normalized and alk phos within normal limits. The patient is not 09/15/25 15:19 09/15/25 15:19 Labs: Lab Results 09/15/25 09/15/25 Range/Units 15:19 19:01 WBC 13.3 H (4.8-10.8) X10*3/uL RBC 5.14 (4.20-5.50) X10*6/uL Hgb 15.0 (12.0-16.0) g/dl Hct 44.5 (37.0-47.0) % MCV 86.6 (80.0-98.0) fL MCH 29.2 (27.0-33.0) pg MCHC 33.7 (31.0-35.0) g/dl RDW 13.7 (11.0-16.0) % Plt Count 539 H D (160-400) X10*3/uL MPV 8.7 L (9.4-12.3) fL Immature Gran % (Auto) 0.2 (0.0-0.4) % Neut % (Auto) 81.6 H (45-73) % Lymph % (Auto) 13.0 L (20-40) % [place] % (Auto) 4.7 (2-11) % Eos % (Auto) 0.3 (0-4) % Baso % (Auto) 0.2 (0-2) % Lymph # (Auto) 1.7 (1.2-4.9) X10*3/uL [place] # (Auto) 0.6 (0.1-1.2) X10*3/uL Eos # (Auto) 0.0 (0.0-0.4) X10*3/uL Baso # (Auto) 0.0 (0.0-0.2) X10*3/uL Abs Immat Gran (auto) 0.03 (0.00-0.03) X10*3/uL Absolute Neuts (auto) 10.8 H (2.0-8.3) x10*3/uL Absolute Nucleated RBC 0.000 (0.0-0.012) X10*3/uL Nucleated RBC % (auto) 0.0 (0.0-0.2) /100WBC Sodium 138 (135-145) mmol/L Potassium 3.1 L (3.3-5.1) mmol/L Chloride 101 (96-108) mmol/L Carbon Dioxide 27 (22-29) mmol/L Anion Gap 13 (12-20) BUN 20 H (9-16) mg/dL Creatinine 0.96 (0.5-1.4) mg/dL Estim Creat Clear Calc 73.9 Estimated GFR > 60 Random Glucose 106 (60-115) mg/dL Calcium 9.6 D (8.4-10.2) mg/dL Total Bilirubin 0.6 (0.0-1.0) mg/dL AST 30 (5-31) U/L ALT 38 H (0-31) U/L Alkaline Phosphatase 107 (39-117) U/L Total Protein 8.0 (6.5-8.0) g/dL Albumin 4.8 (3.5-5.0) g/dL Lipase 11 (8-78) U/L Beta HCG, Quant < 2 mIU/mL Urine Color Dark Yellow Urine Appearance Cloudy Urine pH 8.5 (5.0-9.0) Ur Specific [place] >= 1.030 H (1.005-1.025) Urine Protein 100 (2+) H (Neg-Trace) mg/dL Urine Glucose (UA) Negative (Negative) mg/dL Urine Ketones >=160 (Negative) mg/dL Urine Blood Negative (Negative) Urine Nitrite Negative (Negative) Ur Leukocyte Esterase Trace H (Negative) Urine RBC 0-2 (0-2) /HPF Urine WBC 0-5 (0-5) /HPF Ur Squamous Epith Cells 6-10 (0-2) /HPF Urine Bacteria 2+ (None Seen) Hyaline Casts 0-2 (0-2) /LPF Urine Opiates Screen Not Detected (Not Detect) Ur Buprenorphine Scrn Not Detected (Not Detect) ng/mL Ur Oxycodone Screen Not Detected (Not Detect) ng/mL Urine Methadone Screen Not Detected (Not Detect) ng/mL Urine Fentanyl Screen Not Detected (Not Detect) Ur Barbiturates Screen Not Detected (Not Detect) Ur Phencyclidine Scrn Not Detected (Not Detect) Ur Amphetamines Screen Not Detected (Not Detect) U Benzodiazepines Scrn POSITIVE H (Not Detect) Urine Cocaine Screen Not Detected (Not Detect) U Marijuana (THC) Screen POSITIVE H (Not Detect) Influenza Type A (PCR) NEGATIVE (Negative) Influenza Type B (PCR) NEGATIVE (Negative) RSV RNA Qual (PCR) NEGATIVE (Negative) SARS-CoV-2 RNA (RT-PCR) NEGATIVE (Negative) S. pyogenes GrpA BEBETO Negative (Negative) Discharge Plan Discharge Clinical Impression: Abdominal pain, chronic, epigastric, Acute hypokalemia Patient Disposition: Home, Self-Care Instructions: Cannabis Use Disorder (ED), Abdominal Pain (ED) Additional Instructions: Your workup in the ER today was reassuring. Your potassium was slightly low and was repleted with IV fluids and oral potassium. You should follow up with your primary doctor next week to have your blood work rechecked In his important that you follow up with GI. You will likely require an upper endoscopy. Prescriptions: No Action ondansetron 4 mg tablet,disintegrating 4 mg PO Q8H PRN (Reason: nausea and vomiting) Qty: 7 0RF Referrals: [facility] [place] [facility] [Provider Group, Gastroenterology] Referral Note: chronic abdominal pain, recurrent ER visits Discharge Date/Time: 09/15/25 21:38 Print Language: Prydeinig
[2025-09-15 15:27] LABS: MANUAL DIFF FLAG NO
[2025-09-15 15:28] LABS: Hematocrit 44.5 % (37.0-47.0); Hemoglobin 15.0 g/dl (12.0-16.0); Imm Gran Abs Auto 0.03 X10*3/uL (0.00-0.03); Imm Gran Pct Auto 0.2 % (0.0-0.4); Lymphocytes Absolute Auto 1.7 X10*3/uL (1.2-4.9); Mean Corpuscular HGB Conc 33.7 g/dl (31.0-35.0); Mean Corpuscular Hemoglobin 29.2 pg (27.0-33.0); Mean Corpuscular Volume 86.6 fL (80.0-98.0); NRBC Abs Auto 0.000 X10*3/uL (0.0-0.012); NRBC Pct Auto 0.0 /100WBC (0.0-0.2); Platelet Count 539 X10*3/uL (160-400); Red Blood Count 5.14 X10*6/uL (4.20-5.50); White Blood Count 13.3 X10*3/uL (4.8-10.8)
[2025-09-15 15:36] LABS: IDNOW Serial# 58CA691E; Strep A Nucleic Acid Negative (Negative)
[2025-09-15 16:06] LABS: Alanine Aminotransferase 38 U/L (0-31); Albumin Level 4.8 g/dL (3.5-5.0); Alkaline Phosphatase 107 U/L (39-117); Anion Gap 13 (12-20); Aspartate Amino Transferase 30 U/L (5-31); Blood Urea Nitrogen 20 mg/dL (9-16); Calcium 9.6 mg/dL (8.4-10.2); Carbon Dioxide 27 mmol/L (22-29); Chloride 101 mmol/L (96-108); Creatinine Clr Calc Pharmacy 73.9; Estimated Glomerular Filt Rate > 60; Lipase 11 U/L (8-78); Potassium 3.1 mmol/L (3.3-5.1); Sodium 138 mmol/L (135-145); Total Protein 8.0 g/dL (6.5-8.0)
[2025-09-15 16:07] LABS: Resp Syncy Virus RNA Qual PCR NEGATIVE (Negative); SARS COV2 PCR INHOUSE NEGATIVE (Negative)
[2025-09-15] MEDS: Lactated Ringers 1,000 ML 999 ML IV (17:42)
[2025-09-15 18:03] VITALS: BP 110/74; PULSE 88; RESP 16; TEMP 36.7; O2SAT 97
[2025-09-15] MEDS: Potassium Chloride ER 20 MEQ TAB.ER.PRT 60 MEQ PO (19:04)
[2025-09-15 19:10] LABS: Appearance Urine Cloudy; Glucose Urine UA Negative (Negative); PH 8.5 (5.0-9.0); Specific Gravity - Urine >= 1.030 (1.005-1.025); UMIC TRIGGER UACC YES
[2025-09-15 19:14] VITALS: BP 141/88; PULSE 82; RESP 16
[2025-09-15 19:21] LABS: Cannabinoid Screen Urine POSITIVE (Not Detect)
[2025-09-15 20:36] VITALS: BP 148/96; PULSE 93; RESP 16; TEMP 36.8; O2SAT 96
--- OUTSIDE RECORDS SUMMARY | 2025-09-16 07:33 | XMS_ITS | Clinical Summary ---
Author Organization [facility] Address [address] [place] [address] Phone Care Team Providers Care Chin Strap Cutter Name Role Phone Shane Licona MD Primary Care Provider [phone] Allergies No known active allergies Medications haloperidoL (HALDOL) 5 mg tablet Take 1 [...] nausea or vomiting. 10 tablet 5 025 famotidine (PEPCID) 20 mg tablet Take 1 tablet (20 mg total) by mouth 2 (two) times a day for 15 days. 30 tablet 5 025 Encounters Date Type Department Care Team Description 08/28/2025 1:38 PM EDT - 08/28/2025 7:14 PM EDT Emergency [facility] Emergency [address] [place] [address] Rodolfo Acevedo MD Gastroenteritis (Primary [...] reflex microscopic (08/28/2025 4:20 PM EDT) Specific [place] Urine >1.045(H) 1.003 - 1.030 LAB URINALYSIS - AUTOMATED METHOD 08/28/2025 4:51 PM [facility] pH, Urine 8.0 5.0 - 8.0 pH LAB URINALYSIS - AUTOMATED METHOD 08/28/2025 4:51 PM [facility] Leukocytes, Urine Negative Negative LAB URINALYSIS - AUTOMATED METHOD 08/28/2025 4:51 PM [facility] Nitrite, Urine Negative Negative LAB URINALYSIS - AUTOMATED METHOD 08/28/2025 4:51 PM [facility] Protein, Urine Negative <=Trace mg/dL LAB URINALYSIS - AUTOMATED METHOD 08/28/2025 4:51 PM [facility] Glucose, Urine Negative Negative mg/dL LAB URINALYSIS - AUTOMATED METHOD 08/28/2025 4:51 PM [facility] Ketones, Urine 40(A) Negative mg/dL LAB URINALYSIS - AUTOMATED METHOD 08/28/2025 4:51 PM [facility] Urobilinogen , Urine 1.0 0.2 - 1.0 mg/dL LAB URINALYSIS - AUTOMATED METHOD 08/28/2025 4:51 PM [facility] Bilirubin, Urine Negative Negative LAB URINALYSIS - AUTOMATED METHOD 08/28/2025 4:51 PM EDT [facility] Blood, Urine Large(A) Negative LAB URINALYSIS - AUTOMATED METHOD 08/28/2025 4:51 PM EDT [facility] RBC, Urine 28.6(H) 0 - 4 /HPF LAB URINALYSIS - AUTOMATED METHOD 08/28/2025 4:51 PM EDT [facility] WBC, Urine 1.9 0 - 4 /HPF LAB URINALYSIS - AUTOMATED METHOD 08/28/2025 4:51 PM EDT [facility] Squamous Epithelial, Urine 20 0 - 60 /LPF LAB URINALYSIS - AUTOMATED METHOD 08/28/2025 4:51 PM EDT [facility] Bacteria, Urine Negative Negative /HPF LAB URINALYSIS - AUTOMATED METHOD 08/28/2025 4:51 PM EDT [facility] Hyaline Casts, Urine 0.8 0 - 3 /LPF LAB URINALYSIS - AUTOMATED METHOD 08/28/2025 4:51 PM EDT [facility] Urine Urine specimen obtained by clean catch procedure / Unknown Non-blood Collection / Unknown 08/28/2025 4:20 PM EDT 08/28/2025 4:39 PM EDT us Rodolfo Acevedo MD LAB URINE ORDERABLES Final Result [facility] [address] [place] [address], * (ABNORMAL) Drug abuse screen 8a panel, urine (08/28/2025 4:20 PM EDT) Amphetamine Screen, Ur Negative Negative LAB CHEMISTRY METHOD 5:00 PM EDT [facility] Comment:Certain OTC medicati ons containing ephedrine, phenylephrine, pseudoephedrine and phenylpropanolamine can cause false positive results. Barbiturate Screen, Ur Negative Negative LAB CHEMISTRY METHOD 5 5:00 PM EDT [facility] Benzodiazepine Screen, Ur Negative Negative LAB CHEMISTRY METHOD 5 5:00 PM EDT [facility] Cocaine Screen, Ur Negative Negative LAB CHEMISTRY METHOD 5 5:00 PM EDT [facility] Opiate Screen, Ur Positive(A ) Negative LAB CHEMISTRY METHOD 5 5:00 PM EDT [facility] Cannabinoid (THC) Screen, Ur Positive(A ) Negative LAB CHEMISTRY METHOD 5 5:00 PM EDT [facility] Comment:Specimens from patie nts taking pantoprazole sodium (Protonix) have been shown to produce false positive results. Oxycodone Screen, Ur Negative Negative LAB CHEMISTRY METHOD 5 5:00 PM EDT [facility] Fentanyl, Ur Negative Negative LAB CHEMISTRY METHOD 5 5:00 PM T [facility] Urine Urine specimen obtained by clean catch procedure / Unknown Non-blood Collection / Unknown 08/28/2025 4:20 PM EDT 08/28/2025 4:39 PM EDT Narrative [facility] - 08/28/2025 5:00 PM EDT [...] Acevedo MD LAB URINE ORDERABLES Final Result [facility] [address] [place] [address], * CT Abdomen Pelvis w Contrast (08/28/2025 [...] Signed Date: 08/28/2025 16:13 ET Workstation ID: [id number] Transcribed By: Self Edit Transcribed Date: 08/28/2025 [...] Signed Date: 08/28/2025 16:13 ET Workstation ID: [id number] Transcribed By: Self Edit Transcribed Date: 08/28/2025 16:11 ET Rodolfo Acevedo MD IM CT PROCEDURES Final Res ult * (ABNORMAL) CBC auto differential (08/28/2025 12:48 PM EDT) WBC 10.3 4.8 - 10.8 K/mcL LAB HEMETOLOGY METHOD 08/28/2025 1:59 PM EDT [facility] RBC 5.00(H) 3.80 - 4.80 M/mcL LAB HEMETOLOGY METHOD 08/28/2025 1:59 PM EDT [facility] Hemoglobin 14.4 11.5 - 16.0 g/dL LAB HEMETOLOGY METHOD 08/28/2025 1:59 PM EDT [facility] Hematocrit 42.9 35.0 - 47.0 % LAB HEMETOLOGY METHOD 08/28/2025 1:59 PM EDT [facility] MCV 86.0 79.0 - 98.0 FL LAB HEMETOLOGY METHOD 08/28/2025 1:59 PM EDT [facility] MCH 28.9 27.0 - 32.0 pcg LAB HEMETOLOGY METHOD 08/28/2025 1:59 PM EDT [facility] MCHC 33.6 32.0 - 37.0 g/dL LAB HEMETOLOGY METHOD 08/28/2025 1:59 PM EDT [facility] RDW 14.2 11.0 - 15.0 % LAB HEMETOLOGY METHOD 08/28/2025 1:59 PM EDT [facility] Platelets 451(H) 130 - 400 K/mcL LAB HEMETOLOGY METHOD 08/28[facility]2025 1:[facility] MPV 10.5 7.0 - 11.0 FL LAB HEMETOLOGY METHOD 08/28/2025 1:59 PM EDT [facility] NRBC 0.0 <1.0 % LAB HEMETOLOGY METHOD 08/28/2025 1:59 PM EDT [facility] NRBC Absolute 0.00 <0.10 K/mcL LAB HEMETOLOGY METHOD 08/28/2025 1:59 [facility] Neutrophils Relative 79.9 % LAB HEMETOLOGY METHOD 08/28/2025 1:59 PM EDT [facility] Lymphocytes Relative 10.8 % LAB HEMETOLOGY METHOD 08/28/2025 1:59 PM EDT [facility] Monocytes Relative 8.7 % LAB HEMETOLOGY METHOD 08/28/2025 1:59 PM EDT [facility] Eosinophils Relative 0.1 % LAB HEMETOLOGY METHOD 08/28/2025 1:59 PM EDT [facility] Basophils Relative 0.2 % LAB HEMETOLOGY METHOD 08/28/2025 1:59 PM EDT [facility] Immature Granulocytes Relative 0.3 % LAB HEMETOLOGY METHOD 08/28/2025 1:59 PM EDT [facility] Neutrophils Absolute 8.23(H) 1.50 - 7.00 K/mcL LAB HEMETOLOGY METHOD 08/28/2025 1:59 PM EDT [facility] Lymphocytes Absolute 1.11 1.00 - 5.00 K/mcL LAB HEMETOLOGY METHOD 08/28/2025 1:59 PM EDT [facility] Monocytes Absolute 0.90 0.20 - 1.00 K/mcL LAB HEMETOLOGY METHOD 08/28/2025 1:59 PM EDT [facility] Eosinophils Absolute 0.01 0.00 - 0.50 K/mcL LAB HEMETOLOGY METHOD 08/28/2025 1:59 PM EDT [facility] Basophils Absolute 0.02 0.00 - 0.20 K/mcL LAB HEMETOLOGY METHOD 08/28/2025 1:59 PM EDT [facility] Immature Granulocytes Absolute 0.03 0.00 - 0.03 K/mcL LAB HEMETOLOGY METHOD 08/28/2025 1:59 PM EDT [facility] Blood Venous blood specimen / Unknown Venipuncture / Unknown 08/28/2025 12:48 PM EDT 08/28/2025 1:19 PM EDT us Tevin Romo MD LAB BLOOD ORDERABLES Final Resul t [facility] [address] [place] [address], * hCG, serum, qualitative (08/28/2025 12:48 PM EDT) hCG Qual Negative Negative 08/28/2025 2:16 PM EDT [facility] Blood Venous blood specimen / Unknown Venipuncture / Unknown 08/28/2025 12:48 PM EDT 08/28/2025 1:19 PM EDT Rodolfo Acevedo MD LAB BLOOD ORDERABLES Final Result Performing Organization Address [facility]/ZIP Co de Phone Number [facility] [address] [place] [address], [place] [phone] * Magnesium (08/28/2025 12:48 PM EDT) Magnesium 2.5 1.9 - 2.6 mg/dL LAB CHEMISTRY METHOD 08/28/2025 2:04 PM EDT [facility] Blood Venous blood specimen / Unknown Venipuncture / Unknown 08/28/2025 12:48 PM EDT 08/28/2025 1:19 PM EDT Rodolfo Acevedo MD LAB BLOOD ORDERABLES Final Result Performing Organization Address [facility] Co de Phone Number [facility] [address] [place] [address], [place] [phone] * Lipase (08/28/2025 12:48 PM EDT) Lipase 21 13 - 75 unit/L LAB CHEMISTRY METHOD 08/28/2025 2:04 PM EDT [facility] Blood Venous blood specimen / Unknown Venipuncture / Unknown 08/28/2025 12:48 PM EDT 08/28/2025 1:19 PM EDT us Tevin Romo MD LAB BLOOD ORDERABLES Final Resul t Performing Organization Address City/[facility]/ZIP Co de Phone Number [facility] [address] [place] [address], [place] [phone] * (ABNORMAL) Comprehensive metabolic panel (08/28/2025 12:48 PM EDT) Sodium 135 133 - 145 mmol/L LAB CHEMISTRY METHOD 08/28/2025 2:08 PM [facility] Potassium 3.9 3.5 - 5.5 mmol/L LAB CHEMISTRY METHOD 08/28/2025 2:08 PM [facility] Chloride 101 96 - 110 mmol/L LAB CHEMISTRY METHOD 08/28/2025 2:08 PM [facility] CO2 26 21 - 32 mmol/L LAB CHEMISTRY METHOD 08/28/2025 2:08 PM [facility] Anion Gap 8 3 - 11 LAB CHEMISTRY METHOD 08/28/2025 2:08 PM [facility] Glucose 88 70 - 100 mg/dL LAB CHEMISTRY METHOD 08/28/2025 2:08 PM [facility] BUN 18 5 - 25 mg/dL LAB CHEMISTRY METHOD 08/28/2025 2:08 PM [facility] Creatinine 0.88 0.50 - 1.10 mg/dL LAB CHEMISTRY METHOD 08/28/2025 2:08 PM [facility] eGFR 97 >=60 mL/min/1. 73m2 LAB CHEMISTRY METHOD 08/28/2025 2:08 PM [facility] Comment:Calculation based on the Chronic Kidney Disease Epidemiology Collaboration (CKD-EPI) equation refit without adjustment for race. BUN/Creatinine Ratio 20.5 LAB CHEMISTRY METHOD 08/28/2025 2:08 PM [facility] Calcium 9.7 8.5 - 10.5 mg/dL LAB CHEMISTRY METHOD 08/28/2025 2:08 PM [facility] AST (SGOT) 70(H) 10 - 42 unit/L LAB CHEMISTRY METHOD 08/28/2025 2:08 PM [facility] ALT (SGPT) 57 10 - 60 unit/L LAB CHEMISTRY METHOD 08/28/2025 2:08 PM [facility] Alkaline Phosphatase 107 42 - 121 unit/L LAB CHEMISTRY METHOD 08/28/2025 2:08 PM EDT [facility] Total Protein 7.6 6.0 - 8.0 g/dL LAB CHEMISTRY METHOD 08/28/2025 2:08 PM EDT [facility] Albumin 4.2 3.2 - 5.0 g/dL LAB CHEMISTRY METHOD 08/28/2025 2:08 PM EDT [facility] Total Bilirubin 0.7 0.0 - 1.4 mg/dL LAB CHEMISTRY METHOD 08/28/2025 2:08 PM EDT [facility] Blood Venous blood specimen / Unknown Venipuncture / Unknown 08/28/2025 12:48 PM EDT 08/28/2025 1:19 PM EDT us Tevin Romo MD LAB BLOOD ORDERABLES Final Resul t [facility] [address] [place] [address], [place] [phone] from Last 3 Months Insurance MEDICAID - [place] Care Teams Chin Strap Cutter Relationship Specialty Start Date End Date Shane Licona MD [address] [place] [address] PCP - General 12/15/23
== END 2025-09-15 21:38 | disposition home or self-care (01) ==
PROVIDERS: Physician Assistant; Emergency Provider Emergency Medicine
DX: R10.13 Epigastric pain (principal); E87.6 Hypokalemia; R11.2 Nausea with vomiting, unspecified; R11.16 Cannabis hyperemesis syndrome; Z03.818 Encounter for observation for suspected exposure to other biological agents ruled out; Z79.899 Other long term (current) drug therapy; Z51.81 Encounter for therapeutic drug level monitoring
CPT/HCPCS: 80053; 80307; 81001; 83690; 84702; 85025; 87637; 87651; 96365; 96375; 99284; J1171; J2270; J2405; J2470; J7120

== ENCOUNTER 2025-09-16 09:08 | Emergency (ER) | payer OTHER, SELFPAY ==
[2025-09-16 09:12] VITALS: BP 128/94; BP 143/96; PULSE 84; PULSE 89; RESP 18; TEMP 36.6; O2SAT 100; O2SAT 98; BMI 23.6
--- NOTE | 2025-09-16 09:38 | ED_ITS ---
HPI - Abdominal Pain General Chief Complaint: Abdominal Pain Stated Complaint: ABD PAIN Time Seen by Provider: 09/16/25 09:14 Source: patient and old records reviewed Mode of arrival: ambulatory Limitations: no limitations History of Present Illness ED Provider: AYDEN SARAVIA narrative: 19-year-old female with past medical history of cyclical vomiting and recurrent positive THC toxicology test who presents again with complaint of epigastric burning pain and nausea vomiting. This is her 9th visit in 4 weeks for similar issue she states she has abstained from THC use for 1 week. During her recent 4 week workup in our ED with a normal CT scan, ultrasound as well of the gallbladder and CBD. She states she is having similar symptoms she has pain only he improves it. She has no fevers. She can not eat or drink. She has no diarrhea, she notes no prior abdominal surgery. MD elicited complaint: abdominal pain Pertinent past history: other Onset (ago): month(s) Pain Consistency: constant Location: epigastric Severity: severe Quality: sharp and burning Radiation: epigastric Migration to: no migration Exacerbating factors: eating and vomiting Relieving factors: nothing Context: other (Marijuana use) Associated symptoms: nausea and vomiting Related Data Previous Rx's ?Medication ?Instructions ?Recorded ondansetron 4 mg disintegrating 4 mg PO Q8H PRN nausea and 09/10/25 tablet vomiting #7 tabs lorazepam 1 mg tablet (Ativan) 1 mg PO BEDTIME PRN anx iety #7 tabs 09/16/25 promethazine 25 mg rectal 25 mg IL Q6H PRN nausea and 09/16/25 suppository vomiting #12 ea Allergies Allergy/AdvReac Type Severity Reaction Status Date / Time haloperidol (From Haldol) Allergy Mild Anaphylaxis Verified 09/16/25 09:15 Review of Systems Review of Systems Constitutional : No Weight loss, No Fever, No Chills ENT/Mouth : No sore throat, No Rhinorrhea Eyes: No Swelling, No Redness Cardiovascular : No Chest Pain, No SOB, NoEdema Respiratory : No Cough, No Sputum, No Wheezing Gastrointestinal : Positive Nausea, Positive Vomiting, no Diarrhea, positive abdominal Pain, No Hematochezia, No Melena Genitourinary : No Dysuria, No Urinary Frequency, No Hematuria, No Urgency Musculoskeletal : No joint pain, No Myalgias, No Joint Swelling Skin : No Skin Lesions, No rash All other systems reviewed and are negative. Yes all other systems are reviewed and are negative [facility] Past Medical History Attestation statement: The following information was validated with the patient. Source: old records reviewed Medical History GERD (gastroesophageal reflux disease) Long QT interval Acute hypokalemia Marijuana use Status post normal delivery in completely normal case Social History Social History Household Members: Family Housing: House Do you presently have visiting nurse or other home services: No Alcohol intake: never Patient Tobacco Use Status: Never used Tobacco Smoked in Last 30 Days: No Use of substances other than those prescribed or required for medical reasons: No Substance Use Type: Marijuana Advance Directives: No Advance Directives Information Provided: Yes Do you have a plan to hurt others: No Plan Patient : No service: No Physical Exam ED Vital Signs: Vital Signs - 24 hr 09/16/25 09:12 09/16/25 10:52 09/16/25 11:34 Temperature 98 F 97.6 F Pulse Rate 89 88 Respiratory Rate 18 15 18 Blood Pressure 143/96 H 91/69 Pulse Oximetry 100 100 Oxygen Delivery Method Room Air Room Air 09/16/25 11:58 Temperature Pulse Rate 92 Respiratory Rate 16 Blood Pressure 126/79 Pulse Oximetry Oxygen Delivery Method BMI result Body Mass Index 23.6 Appearance: Alert. Oriented X3. Anxious crying out loud, mild acute distress. The patient has marijuana odor Eyes: Pupils equal, round and reactive to light. ENT: Pharynx mildly dry mucous membranes Neck: Normal inspection. Neck supple. CVS: Normal heart rate and rhythm. Pulses normal. Respiratory: No respiratory distress. Breath sounds normal. Abdomen: Soft but has diffuse epigastric tenderness to palpation, no rebound Skin: Skin warm and dry. Normal skin color. Normal skin turgor. Extremities: No lower extremity edema. Neuro: Oriented X 3. No motor deficit. No sensory deficit. Course Course Course Narrative: 11:52 AM 09/16/2025 (AYDEN RODRIGUEZ): Patient again loud and screaming after IV Valium at this time I have ordered Zofran, Toradol, IV morphine Reevaluation(s) Reevaluation #1: 1:34 PM 09/16/2025 (AYDEN DO): Her symptoms have improved she can be discharged home with supportive meds Medical Decision Making Medical Decision Making [facility] Narrative: 19-year-old female with past medical history of cyclical vomiting and recurrent positive THC toxicology test who is here again with similar symptoms this is her 9th visit in about 4 weeks I can still smell marijuana on her some not sure if she is truly abstaining are there is a individual in her house who is still actively using but she adamantly denies at this time we will obtain basic labs, hydrate, attempt IV Valium, EKG for history of prolonged QT Differential Diagnosis Differential Diagnoses: The differential diagnosis associated with the presentation includes Cyclical vomiting syndrome, marijuana use Admission/Observation Consideration of admission/observation: Escalation of care including admission/observation considered Patient is able to tolerate p.o. she feels much better at this time stable for DC Lab Data [facility] Lab Attestation statement: I reviewed the patient's lab results. 09/16/25 10:11 09/16/25 10:11 Labs: Lab Results 09/16/25 Range/Units 10:11 WBC 11.9 H (4.8-10.8) X10*3/uL RBC 4.73 (4.20-5.50) X10*6/uL Hgb 13.8 (12.0-16.0) g/dl Hct 41.4 (37.0-47.0) % MCV 87.5 (80.0-98.0) fL MCH 29.2 (27.0-33.0) pg MCHC 33.3 (31.0-35.0) g/dl RDW 14.1 (11.0-16.0) % Plt Count 491 H (160-400) X10*3/uL MPV 9.0 L (9.4-12.3) fL Immature Gran % (Auto) 0.3 (0.0-0.4) % Neut % (Auto) 80.2 H (45-73) % Lymph % (Auto) 12.4 L (20-40) % [place] % (Auto) 6.1 (2-11) % Eos % (Auto) 0.7 (0-4) % Baso % (Auto) 0.3 (0-2) % Lymph # (Auto) 1.5 (1.2-4.9) X10*3/uL [place] # (Auto) 0.7 (0.1-1.2) X10*3/uL Eos # (Auto) 0.1 (0.0-0.4) X10*3/uL Baso # (Auto) 0.0 (0.0-0.2) X10*3/uL Abs Immat Gran (auto) 0.03 (0.00-0.03) X10*3/uL Absolute Neuts (auto) 9.6 H (2.0-8.3) x10*3/uL Absolute Nucleated RBC 0.000 (0.0-0.012) X10*3/uL Nucleated RBC % (auto) 0.0 (0.0-0.2) /100WBC Sodium 138 (135-145) mmol/L Potassium 3.4 (3.3-5.1) mmol/L Chloride 106 (96-108) mmol/L Carbon Dioxide 24 (22-29) mmol/L Anion Gap 11 L (12-20) BUN 18 H (9-16) mg/dL Creatinine 0.96 (0.5-1.4) mg/dL Estim Creat Clear Calc 73.9 Estimated GFR > 60 Random Glucose 101 (60-115) mg/dL Calcium 9.2 (8.4-10.2) mg/dL Magnesium 2.1 (1.6-2.6) mg/dL Total Bilirubin 0.8 (0.0-1.0) mg/dL Direct Bilirubin 0.2 (0.0-0.5) mg/dL AST 31 (5-31) U/L ALT 35 H (0-31) U/L Alkaline Phosphatase 99 (39-117) U/L Total Protein 7.3 (6.5-8.0) g/dL Albumin 4.4 (3.5-5.0) g/dL Lipase 11 (8-78) U/L Beta HCG, Quant < 2 mIU/mL Independent Interpretation I performed an independent interpretation of an: EKG Interpretation: Rate: 96 Rhythm: Normal sinus rhythm [place]: So normal Normal P waves. Normal ERYN. Appearance of incomplete right bundle-branch block ST T wave : Inverted T-waves V1 no ST-elevation qTC: 464 prior studies: No acute ischemia The study has been interpreted contemporaneously by me. . External Record Review External record reviewed: Outpatient record, Prior outpatient labs and Prior outpatient radiology Prescription Management I considered prescription management with: Other Medications Administered Generic Name Dose Route Start Last Admin Trade Name Freq PRN Reason Stop Dose Admin Capsaicin 1 appl 09/16/25 09:54 09/16/25 11:31 Capsaicin 0.025% Cream 60 Gm Tube TOPICAL 1 appl BID PRN Administration abdominal pain Protocol Discontinued Medications Generic Name Dose Route Start Last Admin Trade Name Freq PRN Reason Stop Dose Admin Diazepam 5 mg 09/16/25 09:54 09/16/25 10:05 Diazepam 10 Mg/2 Ml Cartridge IVPUSH 09/16/25 09:55 5 mg STAT STA Administration Lactated Ringer's 1,000 mls @ 999 mls/hr 09/16/25 09:54 09/16/25 11:34 Lr IV 09/16/25 10:54 Infused .Q1H1M ONE Infusion Ketorolac Tromethamine 15 mg 09/16/25 11:37 09/16/25 11:54 Ketorolac Tromethamine 15 Mg/Ml Vial IVPUSH 09/16/25 11:38 15 mg ONCE ONE Administration Morphine Sulfate 4 mg 09/16/25 11:37 09/16/25 11:54 Morphine Sulfate 4 Mg/Ml Cartridge IVPUSH 09/16/25 11:38 4 mg ONCE ONE Administration Protocol Ondansetron HCl 4 mg 09/16/25 11:37 09/16/25 11:54 Ondansetron Hcl 4 Mg/2 Ml Vial IVPUSH 09/16/25 11:38 4 mg ONCE ONE Administration Critical Care Time Critical Care Time Critical Care Time: Yes Total Critical Care Time: 35 Attestation: Time is exclusive of separately billable procedures. Time includes: direct patient care, patient reassessment, coordination of patient care, interpretation of data (laboratory data, pulse oximetry, arterial blood gases and chest xrays), review of patient's medical records, medical consultation and documentation of patient care. IV morphine, with improvement in pain Procedures excluded from critical care time: electrocardiography. I attest to this time spent taking care of the patient Discharge Plan Discharge Clinical Impression: Cyclical vomiting syndrome Patient Disposition: Home, Self-Care Instructions: Cyclic Vomiting Syndrome (ED) Additional Instructions: Please continue to not use marijuana Your labs are reassuring at this time Rest and stay hydrated, please advance her diet slowly over 48 hours, drink plenty of fluids Prescriptions: New promethazine 25 mg suppository 25 mg IL Q6H PRN (Reason: nausea and vomiting) Qty: 12 0RF lorazepam [Ativan] 1 mg tablet 1 mg PO BEDTIME PRN (Reason: anxiety) Qty: 7 0RF No Action ondansetron 4 mg tablet,disintegrating 4 mg PO Q8H PRN (Reason: nausea and vomiting) Qty: 7 0RF Print Language: Mongolian
[2025-09-16] MEDS: Lactated Ringers 1,000 ML 999 ML IV (10:05)
[2025-09-16] MEDS: diazePAM 10 MG/2 ML CARTRIDGE 5 MG IVPUSH (10:05)
--- NOTE | 2025-09-16 10:11 | ECG_ITS ---
Test Reason : QT CHECK Blood Pressure : */* mmHG Vent. Rate : 96 BPM Atrial Rate : 96 BPM P-R Int : 122 ms QRS Dur : 84 ms QT Int : 368 ms P-R-T Axes : 79 22 48 degrees QTcB Int : 464 ms Normal sinus rhythm Normal ECG When compared with ECG of 09-Sep-2025 13:56, Nonspecific T wave abnormality now evident in Anterior leads Referred By: Annita Cuevas Electronically Signed By: JAYANT STROUD
[2025-09-16 10:14] LABS: MANUAL DIFF FLAG NO
[2025-09-16 10:30] LABS: Hematocrit 41.4 % (37.0-47.0); Hemoglobin 13.8 g/dl (12.0-16.0); Imm Gran Abs Auto 0.03 X10*3/uL (0.00-0.03); Imm Gran Pct Auto 0.3 % (0.0-0.4); Lymphocytes Absolute Auto 1.5 X10*3/uL (1.2-4.9); Mean Corpuscular HGB Conc 33.3 g/dl (31.0-35.0); Mean Corpuscular Hemoglobin 29.2 pg (27.0-33.0); Mean Corpuscular Volume 87.5 fL (80.0-98.0); NRBC Abs Auto 0.000 X10*3/uL (0.0-0.012); NRBC Pct Auto 0.0 /100WBC (0.0-0.2); Platelet Count 491 X10*3/uL (160-400); Red Blood Count 4.73 X10*6/uL (4.20-5.50); White Blood Count 11.9 X10*3/uL (4.8-10.8)
[2025-09-16 10:39] LABS: Alanine Aminotransferase 35 U/L (0-31); Albumin Level 4.4 g/dL (3.5-5.0); Alkaline Phosphatase 99 U/L (39-117); Anion Gap 11 (12-20); Aspartate Amino Transferase 31 U/L (5-31); Blood Urea Nitrogen 18 mg/dL (9-16); Calcium 9.2 mg/dL (8.4-10.2); Carbon Dioxide 24 mmol/L (22-29); Chloride 106 mmol/L (96-108); Creatinine Clr Calc Pharmacy 73.9; Estimated Glomerular Filt Rate > 60; Lipase 11 U/L (8-78); Magnesium 2.1 mg/dL (1.6-2.6); Potassium 3.4 mmol/L (3.3-5.1); Sodium 138 mmol/L (135-145); Total Protein 7.3 g/dL (6.5-8.0)
[2025-09-16 10:52] VITALS: RESP 15
[2025-09-16 11:34] VITALS: BP 91/69; PULSE 88; RESP 18; TEMP 36.4; O2SAT 100
[2025-09-16 11:58] VITALS: BP 126/79; PULSE 92; RESP 16
--- NOTE | 2025-09-16 12:09 | PC.NURSE ---
pt noted to be screaming out reporting increase in abd pain despite previous medication administration. pt remedicated per provider order. effectiveness pending.
--- NOTE | 2025-09-16 13:30 | PC.NURSE ---
pt provided w/ gingerale/crackers. passed PO challenge w/o difficulty. provider aware.
[2025-09-16 13:45] VITALS: BP 126/79; PULSE 92; RESP 16; TEMP 36.4; O2SAT 100
== END 2025-09-16 13:57 | disposition home or self-care (01) ==
PROVIDERS: Emergency Provider Emergency Medicine
DX: R11.15 Cyclical vomiting syndrome unrelated to migraine (principal); F12.91 Cannabis use, unspecified, in remission; Z88.8 Allergy status to other drugs, medicaments and biological substances
CPT/HCPCS: 36415; 80048; 80076; 83690; 83735; 84702; 85025; 93005; 96361; 96374; 96375; 99284; 99285; J1885; J2270; J2405; J3360; J7120

== ENCOUNTER → 2025-09-16 10:11 | Outpatient (BNV) | payer OTHER, SELFPAY | PROVIDERS: Emergency Provider Emergency Medicine; Visit Provider Internal Medicine | DX: Z13.6 Encounter for screening for cardiovascular disorders (principal) | CPT/HCPCS: 93010 ==

== ENCOUNTER 2025-10-07 09:38 | Emergency (ER) | payer OTHER, SELFPAY ==
[2025-10-07 09:40] VITALS: BP 122/71; PULSE 86; O2SAT 98
== END 2025-10-07 11:50 | disposition left against medical advice (07) ==
PROVIDERS: Emergency Provider Emergency Medicine
DX: R11.2 Nausea with vomiting, unspecified (principal); R19.7 Diarrhea, unspecified; Z53.21 Procedure and treatment not carried out due to patient leaving prior to being seen by health care provider

== ENCOUNTER 2025-10-08 03:04 | Emergency (ER) | payer OTHER, SELFPAY ==
[2025-10-08] VITALS (9 sets, daily range): BP systolic 96–122; BP diastolic 50–77; PULSE 68–108; RESP 16–20; TEMP 36.6–37; O2SAT 94–97; BMI 22.0
[2025-10-08 04:35] LABS: MANUAL DIFF FLAG NO
[2025-10-08 04:36] LABS: Hematocrit 43.6 % (37.0-47.0); Hemoglobin 14.9 g/dl (12.0-16.0); Imm Gran Abs Auto 0.04 X10*3/uL (0.00-0.03); Imm Gran Pct Auto 0.3 % (0.0-0.4); Lymphocytes Absolute Auto 1.6 X10*3/uL (1.2-4.9); Mean Corpuscular HGB Conc 34.2 g/dl (31.0-35.0); Mean Corpuscular Hemoglobin 29.2 pg (27.0-33.0); Mean Corpuscular Volume 85.5 fL (80.0-98.0); NRBC Abs Auto 0.000 X10*3/uL (0.0-0.012); NRBC Pct Auto 0.0 /100WBC (0.0-0.2); Platelet Count 588 X10*3/uL (160-400); Red Blood Count 5.10 X10*6/uL (4.20-5.50); White Blood Count 12.1 X10*3/uL (4.8-10.8)
[2025-10-08 04:40] LABS: Appearance Urine Cloudy; Glucose Urine UA Negative (Negative); PH 5.5 (5.0-9.0); Specific Gravity - Urine >= 1.030 (1.005-1.025); UMIC TRIGGER UACC YES
[2025-10-08 04:51] LABS: UACC Culture Trigger YES
[2025-10-08 05:05] LABS: Alanine Aminotransferase 19 U/L (0-31); Albumin Level 4.8 g/dL (3.5-5.0); Alkaline Phosphatase 98 U/L (39-117); Anion Gap 20 (12-20); Aspartate Amino Transferase 27 U/L (5-31); Blood Urea Nitrogen 25 mg/dL (9-16); Calcium 9.6 mg/dL (8.4-10.2); Carbon Dioxide 24 mmol/L (22-29); Chloride 96 mmol/L (96-108); Creatinine Clr Calc Pharmacy 73.9; Estimated Glomerular Filt Rate > 60; Lipase 9 U/L (8-78); Potassium 2.9 mmol/L (3.3-5.1); Sodium 137 mmol/L (135-145); Total Protein 8.3 g/dL (6.5-8.0)
[2025-10-08 05:15] LABS: Resp Syncy Virus RNA Qual PCR NEGATIVE (Negative); SARS COV2 PCR INHOUSE NEGATIVE (Negative)
--- NOTE | 2025-10-08 07:01 | ED_ITS ---
HPI - Abdominal Pain General Chief Complaint: Abdominal Pain Stated Complaint: n/v/d left AMA earlier Time Seen by Provider: 10/08/25 06:28 Source: patient and old records reviewed Mode of arrival: ambulatory Limitations: no limitations History of Present Illness ED Provider: AYDEN SARAVIA narrative: 19-year-old female with past medical history of recurrent cyclical vomiting syndrome and repeat positive THC urine test she has been seen here 7 or 8 times in the last month she presents again with the same complaint. she notes on Monday she ate Villegas[employer] and after that became sick again with nausea and vomiting. She denies any urinary symptoms or diarrhea. She states there is no change from her prior visits and this is her similar nausea vomiting. She was not able to take any medications prior to arrival. In the past she has had abdominal ultrasounds that were negative for any biliary colic. She also had a normal CT scan on 09/11/2025 MD elicited complaint: abdominal pain Pertinent past history: other Onset (ago): day(s) ( started Monday) Pain Consistency: constant Location: epigastric and periumbilical Severity: severe Quality: stabbing Radiation: none Migration to: no migration Exacerbating factors: eating and movement Relieving factors: nothing Context: history of similar episodes Associated symptoms: nausea and vomiting Related Data Previous Rx's ?Medication ?Instructions ?Recorded ondansetron 4 mg disintegrating 4 mg PO Q8H PRN nausea and 09/10/25 tablet vomiting #7 tabs lorazepam 1 mg tablet (Ativan) 1 mg PO BEDTIME PRN anx iety #7 tabs 09/16/25 promethazine 25 mg rectal 25 mg SC Q6H PRN nausea and 09/16/25 suppository vomiting #12 ea ondansetron HCl 4 mg tablet 4 mg PO Q8H PRN nausea and 10/08/25 vomiting #14 tabs Allergies Allergy/AdvReac Type Severity Reaction Status Date / Time haloperidol (From Haldol) Allergy Mild Anaphylaxis Verified 10/08/25 03:50 Review of Systems Review of Systems Constitutional : No Weight loss, No Fever, No Chills ENT/Mouth : No sore throat, No Rhinorrhea Eyes: No Swelling, No Redness Cardiovascular : No Chest Pain, No SOB, NoEdema Respiratory : No Cough, No Sputum, No Wheezing Gastrointestinal : Positive Nausea, Positive Vomiting, no Diarrhea, positive abdominal Pain, No Hematochezia, No Melena Genitourinary : No Dysuria, No Urinary Frequency, No Hematuria, No Urgency Musculoskeletal : No joint pain, No Myalgias, No Joint Swelling Skin : No Skin Lesions, No rash All other systems reviewed and are negative. [facility] Past Medical History Attestation statement: The following information was validated with the patient. Source: old records reviewed Medical History GERD (gastroesophageal reflux disease) Long QT interval Acute hypokalemia Marijuana use Status post normal delivery in completely normal case Social History Social History Household Members: Family Housing: House Do you presently have visiting nurse or other home services: No Unable to assess alcohol history related to: Unknown Alcohol intake: never Patient Tobacco Use Status: Never used Tobacco Use of substances other than those prescribed or required for medical reasons: Unknown Substance Use Type: Marijuana Advance Directives: No Advance Directives Information Provided: Yes service: No Physical Exam ED Vital Signs: Vital Signs - 24 hr 10/08/25 03:45 10/08/25 06:31 10/08/25 07:37 Temperature 98.6 F 98.5 F Pulse Rate 108 H 81 Respiratory Rate 18 20 20 Blood Pressure 117/56 L 106/71 Pulse Oximetry 94 97 Oxygen Delivery Method Room Air Room Air 10/08/25 07:41 10/08/25 10:28 10/08/25 10:35 Temperature 97.8 F Pulse Rate 85 69 Respiratory Rate 16 16 16 Blood Pressure 115/77 109/50 L Pulse Oximetry 96 96 Oxygen Delivery Method Room Air Room Air 10/08/25 13:29 Temperature Pulse Rate 68 Respiratory Rate 18 Blood Pressure 96/56 L Pulse Oximetry 97 Oxygen Delivery Method Room Air BMI result Body Mass Index 22.0 Appearance: Alert. Oriented X3. No acute distress. Eyes: Pupils equal, round and reactive to light. ENT: Pharynx dry MM Neck: Normal inspection. Neck supple. CVS: Normal heart rate and rhythm. Pulses normal. Respiratory: No respiratory distress. Breath sounds normal. Abdomen: Soft and mild diffuse tenderness to palpation no Skin: Skin warm and dry. Normal skin color. Normal skin turgor. Extremities: No lower extremity edema. No calf ttp Neuro: Oriented X 3. No motor deficit. No sensory deficit. Course Reevaluation(s) Reevaluation #1: Did take over for this patient repeat potassium still pending. I evaluated patient at the bedside she states she is feeling much better at this time. No longer having nausea and vomiting she is tolerating p.o. eating Jack crackers and drinking juice. As long as potassium improves patient will be discharged home Time: 12:48 Reevaluation #2: Potassium improved 3.5. Educated patient on diagnosis and treatment plan, answered all question, patient verbalizes understanding. At this time patient will be discharged home, advised to return with new or worsening symptoms. Educated on worrisome signs and symptoms and when to return. At this time I feel comfortable discharge home. Time: 14:07 Medical Decision Making Medical Decision Making [facility] Narrative: 19-year-old female with cyclical vomiting and persistent THC positive studies of the urine she comes in again with complaint of abdominal pain after eating Villegas's on Monday and nausea vomiting. She has had recent negative CT scan and ultrasound in the last month for her symptoms. At this time she will need basic labs, IV analgesia and IV fluids x2 L. given no change in the history of her symptoms I am going to not proceed with any further imaging. I suspect her potassium will be low I have ordered repletion at this time if she is able to tolerate p.o. I will start her on oral capsules as well Differential Diagnosis Differential Diagnoses: The differential diagnosis associated with the presentation includes cyclical vomiting, electrolyte abdomen Admission/Observation Consideration of admission/observation: Escalation of care including admission/observation considered if tolerated PO would DC and sign out to Basim LUIS Lab Data [facility] Lab Attestation statement: I reviewed the patient's lab results. potassium 2.9 started IV repletion 10/08/25 04:28 10/08/25 13:36 Labs: Lab Results 10/08/25 10/08/25 Range/Units 04:28 13:36 WBC 12.1 H (4.8-10.8) X10*3/uL RBC 5.10 (4.20-5.50) X10*6/uL Hgb 14.9 (12.0-16.0) g/dl Hct 43.6 (37.0-47.0) % MCV 85.5 (80.0-98.0) fL MCH 29.2 (27.0-33.0) pg MCHC 34.2 (31.0-35.0) g/dl RDW 14.3 (11.0-16.0) % Plt Count 588 H (160-400) X10*3/uL MPV 9.2 L (9.4-12.3) fL Immature Gran % (Auto) 0.3 (0.0-0.4) % Neut % (Auto) 77.7 H (45-73) % Lymph % (Auto) 13.3 L (20-40) % [place] % (Auto) 8.3 (2-11) % Eos % (Auto) 0.1 (0-4) % Baso % (Auto) 0.3 (0-2) % Lymph # (Auto) 1.6 (1.2-4.9) X10*3/uL [place] # (Auto) 1.0 (0.1-1.2) X10*3/uL Eos # (Auto) 0.0 (0.0-0.4) X10*3/uL Baso # (Auto) 0.0 (0.0-0.2) X10*3/uL Abs Immat Gran (auto) 0.04 H (0.00-0.03) X10*3/uL Absolute Neuts (auto) 9.4 H (2.0-8.3) x10*3/uL Absolute Nucleated RBC 0.000 (0.0-0.012) X10*3/uL Nucleated RBC % (auto) 0.0 (0.0-0.2) /100WBC Sodium 137 (135-145) mmol/L Potassium 2.9 L* 3.5 D (3.3-5.1) mmol/L Chloride 96 (96-108) mmol/L Carbon Dioxide 24 (22-29) mmol/L Anion Gap 20 (12-20) BUN 25 H (9-16) mg/dL Creatinine 0.96 (0.5-1.4) mg/dL Estim Creat Clear Calc 73.9 Estimated GFR > 60 Random Glucose 99 (60-115) mg/dL Calcium 9.6 (8.4-10.2) mg/dL Total Bilirubin 0.9 (0.0-1.0) mg/dL AST 27 (5-31) U/L ALT 19 (0-31) U/L Alkaline Phosphatase 98 (39-117) U/L Total Protein 8.3 H (6.5-8.0) g/dL Albumin 4.8 (3.5-5.0) g/dL Lipase 9 (8-78) U/L Beta HCG, Quant < 2 mIU/mL Urine Color Dark Yellow Urine Appearance Cloudy Urine pH 5.5 (5.0-9.0) Ur Specific [place] >= 1.030 H (1.005-1.025) Urine Protein 100 (2+) H (Neg-Trace) mg/dL Urine Glucose (UA) Negative (Negative) mg/dL Urine Ketones 15 (Negative) mg/dL Urine Blood Negative (Negative) Urine Nitrite Negative (Negative) Ur Leukocyte Esterase Small (1+) H (Negative) Urine RBC 0-2 (0-2) /HPF Urine WBC >50 H (0-5) /HPF Ur Squamous Epith Cells 11-20 (0-2) /HPF Urine Bacteria 4+ (None Seen) Hyaline Casts 3-5 (0-2) /LPF Urine Opiates Screen Not Detected (Not Detect) Ur Buprenorphine Scrn Not Detected (Not Detect) ng/mL Ur Oxycodone Screen Not Detected (Not Detect) ng/mL Urine Methadone Screen Not Detected (Not Detect) ng/mL Urine Fentanyl Screen Not Detected (Not Detect) Ur Barbiturates Screen Not Detected (Not Detect) Ur Phencyclidine Scrn Not Detected (Not Detect) Ur Amphetamines Screen Not Detected (Not Detect) U Benzodiazepines Scrn Not Detected (Not Detect) Urine Cocaine Screen Not Detected (Not Detect) U Marijuana (THC) Screen POSITIVE H (Not Detect) Influenza Type A (PCR) NEGATIVE (Negative) Influenza Type B (PCR) NEGATIVE (Negative) RSV RNA Qual (PCR) NEGATIVE (Negative) SARS-CoV-2 RNA (RT-PCR) NEGATIVE (Negative) Independent Interpretation I performed an independent interpretation of an: EKG Interpretation: Rate: 65 Rhythm: NSR [place]: normal Normal P waves. Normal ERYN. Normal QRS complex. ST T wave : inverted T-wave V1, no JEAN MARIE qTC: 430 prior studies: no acute ischemia The study has been interpreted contemporaneously by me. . Independent Historian Clinical information obtained from an independent historian. History obtained from or confirmed by: Spouse External Record Review External record reviewed: Outpatient record, Prior outpatient labs and Prior outpatient radiology Medications Administered Generic Name Dose Route Start Last Admin Trade Name Freq PRN Reason Stop Dose Admin Lactated Ringer's 1,000 mls @ 80 mls/hr 10/08/25 06:30 10/08/25 08:23 Lr IVCONT Not Given .[id number] LINDA Discontinued Medications Generic Name Dose Route Start Last Admin Trade Name Freq PRN Reason Stop Dose Admin Diazepam 5 mg 10/08/25 06:29 10/08/25 07:37 Diazepam 10 Mg/2 Ml Cartridge IVPUSH 10/08/25 06:30 5 mg STAT STA Administration Potassium Chloride 10 meq in 100 mls @ 100 mls/hr 10/08/25 06:30 10/08/25 13:27 Potassium Chloride/H20 IV 10/08/25 10:29 Infused Q1H LINDA Infusion Lactated Ringer's 1,000 mls @ 999 mls/hr 10/08/25 06:29 10/08/25 08:54 Lr IV 10/08/25 07:29 Infused .Q1H1M ONE Infusion Lactated Ringer's 1,000 mls @ 999 mls/hr 10/08/25 07:31 10/08/25 11:24 Lr IV 10/08/25 08:31 Infused .Q1H1M ONE Infusion Morphine Sulfate 2 mg 10/08/25 06:29 10/08/25 07:37 Morphine Sulfate 4 Mg/Ml Cartridge IVPUSH 10/08/25 06:30 2 mg ONCE ONE Administration Protocol Morphine Sulfate 4 mg 10/08/25 09:38 10/08/25 10:28 Morphine Sulfate 4 Mg/Ml Cartridge IVPUSH 10/08/25 09:39 4 mg ONCE ONE Administration Protocol Potassium Chloride 20 meq 10/08/25 08:13 10/08/25 10:43 Potassium Chloride Packet 20 Meq Packet PO 10/08/25 08:14 20 meq ONCE ONE Administration Critical Care Time Critical Care Time Critical Care Time: Yes Total Critical Care Time: 45 Attestation: Time is exclusive of separately billable procedures. Time includes: direct patient care, patient reassessment, coordination of patient care, interpretation of data (laboratory data, pulse oximetry, repeat labs), review of patient's medical records, medical consultation and documentation of patient care. Procedures excluded from critical care time: electrocardiography. I attest to this time spent taking care of the patient Discharge Plan Discharge Clinical Impression: Cyclical vomiting syndrome, Hypokalemia Patient Disposition: Home, Self-Care Instructions: Hypokalemia (ED), Acute Nausea and Vomiting (ED), Cyclic Vomiting Syndrome (ED) Additional Instructions: your labs showed mild dehydration and a low potassium remember to avoid triggers such as spicy food, fatty food, fried food, heavy dairy you should be eating a well-balanced bland diet bland diet Please avoid triggers such as marijuana use return for any worsening symptoms or concerns Prescriptions: New ondansetron HCl 4 mg tablet 4 mg PO Q8H PRN (Reason: nausea and vomiting) Qty: 14 0RF No Action ondansetron 4 mg tablet,disintegrating 4 mg PO Q8H PRN (Reason: nausea and vomiting) Qty: 7 0RF promethazine 25 mg suppository 25 mg SC Q6H PRN (Reason: nausea and vomiting) Qty: 12 0RF lorazepam [Ativan] 1 mg tablet 1 mg PO BEDTIME PRN (Reason: anxiety) Qty: 7 0RF Referrals: Aris Owens MD [Primary Care Provider, Medical] Print Language: Tajik
[2025-10-08 07:04] LABS: Cannabinoid Screen Urine POSITIVE (Not Detect)
[2025-10-08] MEDS: Potassium Chloride/H20 10 MEQ/100 ML PIGGYBACK 100 MEQ IV ×4 (07:37→11:53)
[2025-10-08] MEDS: diazePAM 10 MG/2 ML CARTRIDGE 5 MG IVPUSH (07:37)
[2025-10-08] MEDS: Lactated Ringers 1,000 ML 999 ML IV ×2 (07:38→08:52)
--- NOTE | 2025-10-08 07:47 | ECG_ITS ---
Test Reason : hypok Blood Pressure : */* mmHG Vent. Rate : 65 BPM Atrial Rate : 65 BPM P-R Int : 100 ms QRS Dur : 76 ms QT Int : 414 ms P-R-T Axes : 54 28 36 degrees QTcB Int : 430 ms Sinus rhythm with short MI Otherwise normal ECG When compared with ECG of 16-Sep-2025 10:18, Nonspecific T wave abnormality no longer evident in Anterior leads Referred By: Annita Cuevas Electronically Signed By: NANDINI SANTACRUZ MD
--- NOTE | 2025-10-08 08:24 | PC.NURSE ---
Patient medicated per the MAR. IV established in the R AC. Resting quietly, call mauricio placed within reach.
[2025-10-08] MEDS: Potassium Chloride Packet 20 MEQ PACKET PO (10:43)
[2025-10-08 13:55] LABS: Potassium 3.5 mmol/L (3.3-5.1)
== END 2025-10-08 14:21 | disposition home or self-care (01) ==
PROVIDERS: Emergency Provider Emergency Medicine; PCP Internal Medicine
DX: R11.15 Cyclical vomiting syndrome unrelated to migraine (principal); E87.6 Hypokalemia; F12.90 Cannabis use, unspecified, uncomplicated; Z03.818 Encounter for observation for suspected exposure to other biological agents ruled out; Z79.899 Other long term (current) drug therapy
CPT/HCPCS: 36415; 80053; 80307; 81001; 83690; 84132; 84702; 85025; 87086; 87637; 93005; 96365; 96366; 96375; 96376; 99285; 99291; J2270; J3360; J3480; J7120

== ENCOUNTER → 2025-10-08 07:47 | Outpatient (BNV) | payer OTHER, SELFPAY | PROVIDERS: Emergency Provider Emergency Medicine; PCP Internal Medicine; Visit Provider Internal Medicine Cardiovascular Disease | DX: Z13.6 Encounter for screening for cardiovascular disorders (principal) | CPT/HCPCS: 93010 ==

== ENCOUNTER 2025-10-19 05:57 | Emergency (ER) | payer OTHER, SELFPAY ==
[2025-10-19] VITALS (7 sets, daily range): BP systolic 117–160; BP diastolic 00–98; PULSE 87–105; RESP 14–26; TEMP 36.3–36.6; O2SAT 95–100; BMI 25.1
--- NOTE | 2025-10-19 | ECG_ITS ---
Test Reason : ABD PAIN Blood Pressure : */* mmHG Vent. Rate : 87 BPM Atrial Rate : 87 BPM P-R Int : 112 ms QRS Dur : 86 ms QT Int : 368 ms P-R-T Axes : 76 49 60 degrees QTcB Int : 442 ms Normal sinus rhythm with sinus arrhythmia Normal ECG When compared with ECG of 08-Oct-2025 08:47, T wave amplitude has increased in Anterior leads Referred By: Reji Freitas Electronically Signed By: Arsenio Banks
--- NOTE | 2025-10-19 06:10 | ED_ITS ---
HPI - Abdominal Pain General Chief Complaint: Abdominal Pain Stated Complaint: Ab pain Time Seen by Provider: 10/19/25 06:06 Source: patient Mode of arrival: EMS Limitations: no limitations History of Present Illness ED Provider: Dr. Reji Freitas HPI narrative: 20-year-old female with a history of GERD, cyclic vomiting syndrome, marijuana use disorder who presents emergency department for evaluation of nausea, vomiting abdominal pain. Patient states that she had sudden onset of sharp, severe, abdominal pain associated with several episodes of vomiting and dry heaving. The patient's has a history of cyclic vomiting syndrome most cannabis hyperemesis syndrome. On presentation to the emergency department the patient appears to be in significant distress secondary to her abdominal pain, she is screaming and writhing on the bed. Related Data Previous Rx's ?Medication ?Instructions ?Recorded ondansetron 4 mg disintegrating 4 mg PO Q8H PRN nausea and 09/10/25 tablet vomiting #7 tabs lorazepam 1 mg tablet (Ativan) 1 mg PO BEDTIME PRN anx iety #7 tabs 09/16/25 promethazine 25 mg rectal 25 mg WA Q6H PRN nausea and 09/16/25 suppository vomiting #12 ea ondansetron HCl 4 mg tablet 4 mg PO Q8H PRN nausea and 10/08/25 vomiting #14 tabs diphenhydramine HCl 25 mg capsule 50 mg (2 x 25 mg) PO Q6H PRN 10/19/25 headache, nausea, vomiting #20 caps metoclopramide HCl 10 mg tablet 10 mg PO Q6H PRN Heada jinny, nausea 10/19/25 (Reglan) and vomiting #20 tabs Allergies Allergy/AdvReac Type Severity Reaction Status Date / Time haloperidol (From Haldol) Allergy Mild Anaphylaxis Verified 10/19/25 06:03 Review of Systems Review of Systems Yes Unobtainable due to mental status (Severe pain) PMFSH Past Medical History Medical History GERD (gastroesophageal reflux disease) Long QT interval Acute hypokalemia Marijuana use Status post normal delivery in completely normal case Social History Social History Household Members: Family Housing: House Do you presently have visiting nurse or other home services: No Alcohol intake: never Patient Tobacco Use Status: Never used Tobacco Substance Use Type: Marijuana Advance Directives: No Advance Directives Information Provided: Yes service: No Physical Exam ED Vital Signs: Vital Signs - 24 hr 10/19/25 06:01 10/19/25 06:08 10/19/25 07:06 Temperature 97.4 F 97.6 F 97.8 F Pulse Rate 96 95 91 Respiratory Rate 24 H 26 H 14 Blood Pressure 147/92 H 150/98 H Pulse Oximetry 100 100 95 Oxygen Delivery Method Room Air Room Air Room Air 10/19/25 09:28 10/19/25 11:04 10/19/25 12:12 Temperature 97.3 F Pulse Rate 95 105 H 87 Respiratory Rate 26 H 18 24 H Blood Pressure 139/91 H 117/81 130/85 Pulse Oximetry 100 99 99 Oxygen Delivery Method Room Air Room Air Room Air BMI result Body Mass Index 25.1 Initial vital signs revealed an elevated respiratory rate of 24 otherwise unremarkable Exam: General: Awake, in distress secondary to abdominal pain Head: Normocephalic, atraumatic EENT: PERRL, sclera and conjunctiva are normal, mouth with no erythema or exudates Neck: Supple, no adenopathy Lung: breath sounds symmetric, no wheezing, no rales and no rhonchi Chest: symmetric movement, nontender Heart: regular rate and rhythm, normal S1, S2 no murmurs or rubs Abdomen: soft, moderate diffuse tenderness, voluntary guarding Extremities: no deformities, moves all extremities symmetrically, no edema Neuro: Awake, alert, oriented, normal speech, cranial nerves 2-12 intact, moves all extremities symmetrically Procedures Procedure Narrative Procedure Narrative: Ultrasound guided IV Under real time ultrasound guidance. a 20 gauge needle was placed into the right forearm vein. Draws well and flushes well. Medical Decision Making Medical Decision Making MDM Narrative: 20-year-old female with a history of GERD, cyclic vomiting syndrome, marijuana use disorder who presents emergency department for evaluation of nausea, vomiting abdominal pain. Patient states that she had sudden onset of sharp, severe, abdominal pain associated with several episodes of vomiting and dry heaving. The patient's has a history of cyclic vomiting syndrome most cannabis hyperemesis syndrome. On presentation to the emergency department the patient appears to be in significant distress secondary to her abdominal pain, she is screaming and writhing on the bed. Vital signs revealed an elevated respiratory rate otherwise unremarkable. Patient had diffuse abdominal tenderness with voluntary guarding. Differential diagnosis: ?Includes but is not limited to cyclic vomiting syndrome, gastritis, anemia, electrolyte abnormalities Course: 06:11 I ordered laboratory evaluation, normal saline IV x1 L, Toradol 15 mg IV, Reglan 10 mg IV, Benadryl 50 mg IV and Versed 4 mg IV. 08:09 The patient is resting comfortably after the above treatment. My independent interpretation patient's laboratory evaluation is as follows: CBC was normal except for an elevated platelet count of 527. CMP revealed a low bicarb of 20, elevated chloride of 110 consistent with her vomiting. AST was elevated 33. Quantitative beta-hCG test was below detectable limits. UA revealed an elevated specific gravity, positive protein, positive leukocyte esterase. Microscopic revealed 0-2 RBCs, 12-50 WBCs, 11-50 RBCs, 2+ bacteria- not a clean catch specimen. Urine tox screen was positive for benzodiazepines and marijuana. COVID-19 was negative. 11:34 The patient did get some improvement with the initial treatment. She continued to complain of nausea and abdominal pain therefore she was given Zofran 4 mg IV and morphine 4 mg IV. The patient is feeling better. Patient will be discharged home with prescriptions for Reglan 10 mg q.6 hours as needed for nausea and vomiting take with Benadryl 50 mg q.6 hours as needed for nausea and vomiting. She was given printed and verbal instructions and discharged home 13:08 We attempted to discharge the patient but she states that her pain and nausea returned. She was treated with morphine 4 mg IV, Benadryl 25 mg IV and Reglan 10 mg IV. The patient is feeling better and states that her pain is down to 5/10 and she wants to try to go home, therefore she was discharged. Differential Diagnosis Differential Diagnoses: The differential diagnosis associated with the presentation includes (See above) Admission/Observation Consideration of admission/observation: Escalation of care including admission/observation considered (Yes) Lab Data 10/19/25 06:34 10/19/25 06:34 Labs: Lab Results 10/19/25 10/19/25 Range/Units 06:34 06:35 WBC 8.6 (4.8-10.8) X10*3/uL RBC 4.67 (4.20-5.50) X10*6/uL Hgb 13.5 (12.0-16.0) g/dl Hct 40.8 (37.0-47.0) % MCV 87.4 (80.0-98.0) fL MCH 28.9 (27.0-33.0) pg MCHC 33.1 (31.0-35.0) g/dl RDW 14.7 (11.0-16.0) % Plt Count 527 H (160-400) X10*3/uL MPV 9.2 L (9.4-12.3) fL Immature Gran % (Auto) 0.2 (0.0-0.4) % Neut % (Auto) 57.0 (45-73) % Lymph % (Auto) 30.5 (20-40) % Haskell % (Auto) 10.1 (2-11) % Eos % (Auto) 1.6 (0-4) % Baso % (Auto) 0.6 (0-2) % Lymph # (Auto) 2.6 (1.2-4.9) X10*3/uL [place] # (Auto) 0.9 (0.1-1.2) X10*3/uL Eos # (Auto) 0.1 (0.0-0.4) X10*3/uL Baso # (Auto) 0.1 (0.0-0.2) X10*3/uL Abs Immat Gran (auto) 0.02 (0.00-0.03) X10*3/uL Absolute Neuts (auto) 4.9 (2.0-8.3) x10*3/uL Absolute Nucleated RBC 0.000 (0.0-0.012) X10*3/uL Nucleated RBC % (auto) 0.0 (0.0-0.2) /100WBC Smear Tech's Comments VERIFIED Sodium 141 (135-145) mmol/L Potassium 3.8 (3.3-5.1) mmol/L Chloride 110 H (96-108) mmol/L Carbon Dioxide 20 L (22-29) mmol/L Anion Gap 15 (12-20) BUN 16 (9-16) mg/dL Creatinine 0.94 (0.5-1.4) mg/dL Estim Creat Clear Calc 82.0 Estimated GFR > 60 Random Glucose 101 (60-115) mg/dL Calcium 9.6 (8.4-10.2) mg/dL Total Bilirubin 0.4 (0.0-1.0) mg/dL AST 33 H (5-31) U/L ALT 31 (0-31) U/L Alkaline Phosphatase 102 (39-117) U/L Total Protein 7.8 (6.5-8.0) g/dL Albumin 4.6 (3.5-5.0) g/dL Lipase 10 (8-78) U/L Beta HCG, Quant < 2 mIU/mL Urine Color Dark Yellow Urine Appearance Cloudy Urine pH 6.0 (5.0-9.0) Ur Specific [place] >= 1.030 H (1.005-1.025) Urine Protein 30 (1+) H (Neg-Trace) mg/dL Urine Glucose (UA) Negative (Negative) mg/dL Urine Ketones Trace (Negative) mg/dL Urine Blood Negative (Negative) Urine Nitrite Negative (Negative) Ur Leukocyte Esterase Small (1+) H (Negative) Urine RBC 0-2 (0-2) /HPF Urine WBC 21-50 H (0-5) /HPF Ur Squamous Epith Cells 11-20 (0-2) /HPF Urine Bacteria 2+ (None Seen) Hyaline Casts 3-5 (0-2) /LPF Urine Opiates Screen Not Detected (Not Detect) Ur Buprenorphine Scrn Not Detected (Not Detect) ng/mL Ur Oxycodone Screen Not Detected (Not Detect) ng/mL Urine Methadone Screen Not Detected (Not Detect) ng/mL Urine Fentanyl Screen Not Detected (Not Detect) Ur Barbiturates Screen Not Detected (Not Detect) Ur Phencyclidine Scrn Not Detected (Not Detect) Ur Amphetamines Screen Not Detected (Not Detect) U Benzodiazepines Scrn POSITIVE H (Not Detect) Urine Cocaine Screen Not Detected (Not Detect) U Marijuana (THC) Screen POSITIVE H (Not Detect) COVID-19 (FILIBERTO) Negative (Negative) COVID-19 Clin Com See Note External Record Review External record reviewed: Inpatient record Prescription Management I considered prescription management with: Other (Antiemetic: Reglan and Benadryl) Medications Administered Discontinued Medications Generic Name Dose Route Start Last Admin Trade Name Freq PRN Reason Stop Dose Admin Diphenhydramine HCl 50 mg 10/19/25 06:11 10/19/25 06:34 Diphenhydramine Hcl 50 Mg/Ml Vial IVPUSH 10/19/25 06:12 50 mg ONCE STA Administration Diphenhydramine HCl 25 mg 10/19/25 13:08 10/19/25 13:16 Diphenhydramine Hcl 50 Mg/Ml Vial IVPUSH 10/19/25 13:09 25 mg ONCE ONE Administration Sodium Chloride 1,000 mls @ 999 mls/hr 10/19/25 06:11 10/19/25 10:17 Ns IV 10/19/25 07:11 Infused .Q1H1M STA Infusion Ketorolac Tromethamine 15 mg 10/19/25 06:11 10/19/25 06:35 Ketorolac Tromethamine 15 Mg/Ml Vial IVPUSH 10/19/25 06:12 15 mg ONCE STA Administration Metoclopramide HCl 10 mg 10/19/25 06:11 10/19/25 06:34 Metoclopramide Hcl 10 Mg/2 Ml Vial IVPUSH 10/19/25 06:12 10 mg ONCE STA Administration Metoclopramide HCl 10 mg 10/19/25 13:08 10/19/25 13:16 Metoclopramide Hcl 10 Mg/2 Ml Vial IVPUSH 10/19/25 13:09 10 mg ONCE STA Administration Midazolam HCl 4 mg 10/19/25 06:41 10/19/25 07:02 Midazolam Hcl 2 Mg/2 Ml Vial IVPUSH 10/19/25 06:42 4 mg ONCE ONE Administration Morphine Sulfate 4 mg 10/19/25 09:48 10/19/25 10:16 Morphine Sulfate 4 Mg/Ml Cartridge IVPUSH 10/19/25 09:49 4 mg ONCE STA Administration Protocol Morphine Sulfate 4 mg 10/19/25 13:08 10/19/25 13:16 Morphine Sulfate 4 Mg/Ml Cartridge IVPUSH 10/19/25 13:09 4 mg ONCE STA Administration Protocol Ondansetron HCl 4 mg 10/19/25 09:48 10/19/25 10:16 Ondansetron Hcl 4 Mg/2 Ml Vial IVPUSH 10/19/25 09:49 4 mg ONCE ONE Administration Discharge Plan Discharge Clinical Impression: Cyclic vomiting syndrome, Abdominal pain, Acute dehydration Patient Disposition: Home, Self-Care Additional Instructions: Your persistent nausea and inflammation is most likely caused by your marijuana use. ? Smoking marijuana multiple times a day can lead to cannabis (marijuana) hyperemesis syndrome which is a form of cyclic vomiting syndrome. Smoking marijuana daily changes your brain chemistries which then caused nausea, vomiting abdominal pain. The treatment for cannabis hyperemesis syndrome, is to stop smoking marijuana for 3-6 months in order to allow your brain chemistries to returned to normal. If you continue to smoke marijuana you will continued to have cyclic vomiting and abdominal pain Take Reglan (metoclopramide) 10 mg every 6 hours as needed for nausea and vomiting. When you take Reglan I want you to take Benadryl (diphenhydramine) 25 mg pills, 2 pills every 6 hours. Continue taking your other medications as prescribed by your providers. Follow-up with your doctor in 2 days. Please return to the emergency department if your symptoms get worse or if you develop any symptoms that are concerning to you. Prescriptions: New diphenhydramine HCl 25 mg capsule 50 mg PO Q6H PRN (Reason: headache, nausea, vomiting) Qty: 20 0RF metoclopramide HCl [Reglan] 10 mg tablet 10 mg PO Q6H PRN (Reason: Headache, nausea and vomiting) Qty: 20 0RF No Action ondansetron 4 mg tablet,disintegrating 4 mg PO Q8H PRN (Reason: nausea and vomiting) Qty: 7 0RF promethazine 25 mg suppository 25 mg WA Q6H PRN (Reason: nausea and vomiting) Qty: 12 0RF lorazepam [Ativan] 1 mg tablet 1 mg PO BEDTIME PRN (Reason: anxiety) Qty: 7 0RF ondansetron HCl 4 mg tablet 4 mg PO Q8H PRN (Reason: nausea and vomiting) Qty: 14 0RF Print Language: Yoruba
--- OUTSIDE RECORDS SUMMARY | 2025-10-19 06:39 | XMS_ITS | Clinical Summary ---
Author Organization [facility] Address [address] [place] [address] Phone Care Team Providers Care Bookkeeping Manager Name Role Phone Shane Licona MD Primary Care Provider [phone] Allergies No known active allergies Medications haloperidoL (HALDOL) 5 mg tablet Take 1 tablet (5 mg total) by mouth 4 (four) times a day if needed (Nausea and vomiting or abdominal pain). 120 each 5 Active capsaicin (ZOSTRIX) 0.075 % cream Apply topically 3 (three) times a day. Apply to abdomen for nausea and vomiting related to cannabis use 28.3 g 5 08/28/20 26 Active Encounters Date Type Department Care Team Description 08/28/2025 1:38 PM EDT - 08/28/2025 7:14 PM EDT Emergency [facility] Emergency [address] [place] [address] Rodolfo Acevedo MD Gastroenteritis (Primary [...] not to disclose 2024 1:34 AM EST Last Filed Vital Signs Vital Sign Reading [...] reflex microscopic (08/28/2025 4:20 PM EDT) Specific [place] Urine >1.045(H) 1.003 - 1.030 LAB URINALYSIS - AUTOMATED METHOD 08/28/2025 4:51 PM [facility] pH, Urine 8.0 5.0 - 8.0 pH LAB URINALYSIS - AUTOMATED METHOD 08/28/2025 4:51 PM [facility] Leukocytes, Urine Negative Negative LAB URINALYSIS - AUTOMATED METHOD 08/28/2025 4:51 PM [facility] Nitrite, Urine Negative Negative LAB URINALYSIS - AUTOMATED METHOD 08/28/2025 4:51 PM [facility] Protein, Urine Negative <=Trace mg/dL LAB URINALYSIS - AUTOMATED METHOD 08/28/2025 4:51 PM [facility] Glucose, Urine Negative Negative mg/dL LAB URINALYSIS - AUTOMATED METHOD 08/28/2025 4:51 PM [facility] Ketones, Urine 40(A) Negative mg/dL LAB URINALYSIS - AUTOMATED METHOD 08/28/2025 4:51 PM [facility] Urobilinogen , Urine 1.0 0.2 - 1.0 mg/dL LAB URINALYSIS - AUTOMATED METHOD 08/28/2025 4:51 PM [facility] Bilirubin, Urine Negative Negative LAB URINALYSIS - AUTOMATED METHOD 08/28/2025 4:51 PM [facility] Blood, Urine Large(A) Negative LAB URINALYSIS - AUTOMATED METHOD 08/28/2025 4:51 PM [facility] RBC, Urine 28.6(H) 0 - 4 /HPF LAB URINALYSIS - AUTOMATED METHOD 08/28/2025 4:51 PM [facility] WBC, Urine 1.9 0 - 4 /HPF LAB URINALYSIS - AUTOMATED METHOD 08/28/2025 4:51 PM EDT [facility] Squamous Epithelial, Urine 20 0 - 60 /LPF LAB URINALYSIS - AUTOMATED METHOD 08/28/2025 4:51 PM EDT [facility] Bacteria, Urine Negative Negative /HPF LAB URINALYSIS - AUTOMATED METHOD 08/28/2025 4:51 PM EDT [facility] Hyaline Casts, Urine 0.8 0 - 3 /LPF LAB URINALYSIS - AUTOMATED METHOD 08/28/2025 4:51 PM EDT [facility] Urine Urine specimen obtained by clean catch procedure / Unknown Non-blood Collection / Unknown 08/28/2025 4:20 PM EDT 08/28/2025 4:39 PM EDT Rodolfo Acevedo MD LAB URINE ORDERABLES Final Result [facility] [address] [place] [address], [place] [phone] * (ABNORMAL) Drug abuse screen 8a panel, urine (08/28/2025 4:20 PM EDT) Amphetamine Screen, Ur Negative Negative LAB CHEMISTRY METHOD 5 5:00 PM EDT [facility] Comment:Certain OTC medicati ons containing ephedrine, phenylephrine, pseudoephedrine and phenylpropanolamine can cause false positive results. Barbiturate Screen, Ur Negative Negative LAB CHEMISTRY METHOD 5 5:00 PM EDT [facility] Benzodiazepine Screen, Ur Negative Negative LAB CHEMISTRY METHOD 5 5:00 PM EDT [facility] Cocaine Screen, Ur Negative Negative LAB CHEMISTRY METHOD 5 5:00 PM EDT [facility] Opiate Screen, Ur Positive(A ) Negative LAB CHEMISTRY METHOD 5 5:00 PM EDT [facility] Cannabinoid (THC) Screen, Ur Positive(A ) Negative LAB CHEMISTRY METHOD 5:00 PM EDT [facility] Comment:Specimens from patie nts taking pantoprazole sodium (Protonix) have been shown to produce false positive results. Oxycodone Screen, Ur Negative Negative LAB CHEMISTRY METHOD 5 5:00 PM EDT [facility] Fentanyl, Ur Negative Negative LAB CHEMISTRY METHOD 5 5:00 PM EDT [facility] Urine Urine specimen obtained by clean catch procedure / Unknown Non-blood Collection / Unknown 08/28/2025 4:20 PM EDT 08/28/2025 4:39 PM EDT Narrative [facility] - 08/28/2025 5:00 PM [...] Acevedo MD LAB URINE ORDERABLES Final Result [facility] [address] [place] [address], * CT Abdomen Pelvis w Contrast (08/28/2025 [...] Signed Date: 08/28/2025 16:13 ET Workstation ID: [id number] Transcribed By: Self Edit Transcribed Date: 08/28/2025 [...] Signed Date: 08/28/2025 16:13 ET Workstation ID: [id number] Transcribed By: Self Edit Transcribed Date: 08/28/2025 16:11 ET us Rodolfo Acevedo MD IMG CT PROCEDURES Final Res ult * (ABNORMAL) CBC auto differential (08/28/2025 12:48 PM EDT) WBC 10.3 4.8 - 10.8 K/mcL LAB HEMETOLOGY METHOD 08/28/2025 1:59 PM EDT [facility] RBC 5.00(H) 3.80 - 4.80 M/mcL LAB HEMETOLOGY METHOD 08/28/2025 1:59 PM EDT [facility] Hemoglobin 14.4 11.5 - 16.0 g/dL LAB HEMETOLOGY METHOD 08/28/2025 1:59 PM EDT [facility] Hematocrit 42.9 35.0 - 47.0 % LAB HEMETOLOGY METHOD 08/28/2025 1:59 PM EDT [facility] MCV 86.0 79.0 - 98.0 FL LAB HEMETOLOGY METHOD 08/28/2025 1:59 PM EDT [facility] MCH 28.9 27.0 - 32.0 pcg LAB [facility]OLOGY [facility] MCHC 33.6 32.0 - 37.0 g/dL LAB HEMETOLOGY METHOD 08/28/2025 1:59 PM [facility] RDW 14.2 11.0 - 15.0 % LAB HEMETOLOGY METHOD 08/28/2025 1:59 PM [facility] Platelets 451(H) 130 - 400 K/mcL LAB HEMETOLOGY METHOD 08/28/2025 1:59 PM [facility] MPV 10.5 7.0 - 11.0 FL LAB HEMETOLOGY METHOD 08/28/2025 1:59 PM [facility] NRBC 0.0 <1.0 % LAB HEMETOLOGY METHOD 08/28/2025 1:59 PM [facility] NRBC Absolute 0.00 <0.10 K/mcL LAB HEMETOLOGY METHOD 08/28/2025 1:59 PM [facility] Neutrophils Relative 79.9 % LAB HEMETOLOGY METHOD 08/28/2025 1:59 PM [facility] Lymphocytes Relative 10.8 % LAB HEMETOLOGY METHOD 08/28/2025 1:59 PM [facility] Monocytes Relative 8.7 % LAB HEMETOLOGY METHOD 08/28/2025 1:59 PM [facility] Eosinophils Relative 0.1 % LAB HEMETOLOGY METHOD 08/28/2025 1:59 PM [facility] Basophils Relative 0.2 % LAB HEMETOLOGY METHOD 08/28/2025 1:59 PM [facility] Immature Granulocytes Relative 0.3 % LAB HEMETOLOGY METHOD 08/28/2025 1:59 PM [facility] Neutrophils Absolute 8.23(H) 1.50 - 7.00 K/mcL LAB HEMETOLOGY METHOD 08/28/2025 1:59 PM [facility] Lymphocytes Absolute 1.11 1.00 - 5.00 K/mcL LAB HEMETOLOGY METHOD 08/28/2025 1:59 PM EDT [facility] Monocytes Absolute 0.90 0.20 - 1.00 K/mcL LAB HEMETOLOGY METHOD 08/28/2025 1:59 PM EDT [facility] Eosinophils Absolute 0.01 0.00 - 0.50 K/[facility] LAB HEMETOLOGY METHOD 08/28/2025 1:59 PM EDT [facility] Basophils Absolute 0.02 0.00 - 0.20 K/[facility] LAB HEMETOLOGY METHOD 08/28/2025 1:59 PM EDT [facility] Immature Granulocytes Absolute 0.03 0.00 - 0.03 K/[facility] LAB HEMETOLOGY METHOD 08/28/2025 1:59 PM EDT [facility] Blood Venous blood specimen / Unknown Venipuncture / Unknown 08/28/2025 12:48 PM EDT 08/28/2025 1:19 PM EDT Tevin Romo MD LAB BLOOD ORDERABLES Final Resul t [facility] [address] [place] [address], [place] [phone] * hCG, serum, qualitative (08/28/2025 12:48 PM EDT) hCG Qual Negative Negative 08/28/2025 2:16 PM EDT [facility] Blood Venous blood specimen / Unknown Venipuncture / Unknown 08/28/2025 12:48 PM EDT 08/28/2025 1:19 PM EDT Rodolfo Acevedo MD LAB BLOOD ORDERABLES Final Result [facility] [address] [place] [address], [place] [phone] * Magnesium (08/28/2025 12:48 PM EDT) Pathologist [facility] Magnesium 2.5 1.9 - 2.6 mg/dL LAB CHEMISTRY METHOD 08/28/2025 2:04 PM EDT [facility] Blood Venous blood specimen / Unknown Venipuncture / Unknown 08/28/2025 12:48 PM EDT 08/28/2025 1:19 PM EDT Rodolfo Acevedo MD LAB BLOOD ORDERABLES Final Result [facility] [address] [place] [address], [place] [phone] * Lipase (08/28/2025 12:48 PM EDT) [facility] Lipase 21 13 - 75 unit/L LAB CHEMISTRY METHOD 08/28/2025 2:04 PM EDT [facility] Blood Venous blood specimen / Unknown Venipuncture / Unknown 08/28/2025 12:48 PM EDT 08/28/2025 1:19 PM EDT Tevin Romo MD LAB BLOOD ORDERABLES Final Resul t Performing Organization Address [facility]/ZIP Co de Phone Number [facility] [address] [place] [address], [place] [phone] * (ABNORMAL) Comprehensive metabolic panel (08/28/2025 12:48 PM EDT) [facility] Sodium 135 133 - 145 mmol/L LAB CHEMISTRY METHOD 08/28/2025 2:08 PM EDT [facility] Potassium 3.9 3.5 - 5.5 mmol/L LAB CHEMISTRY METHOD 08/28/2025 2:08 PM EDT [facility] Chloride 101 96 - 110 mmol/L LAB CHEMISTRY METHOD 08/28/2025 2:08 PM EDT [facility] CO2 26 21 - 32 mmol/L LAB CHEMISTRY METHOD 08/28/2025 2:08 PM [facility] Anion Gap 8 3 - 11 LAB CHEMISTRY METHOD 08/28/2025 2:08 PM [facility] Glucose 88 70 - 100 mg/dL LAB CHEMISTRY METHOD 08/28/2025 2:08 PM [facility] BUN 18 5 - 25 mg/dL LAB CHEMISTRY METHOD 08/28/2025 2:08 PM [facility] Creatinine 0.88 0.50 - 1.10 mg/dL LAB CHEMISTRY METHOD 08/28/2025 2:08 PM [facility] eGFR 97 >=60 mL/min/1. 73m2 LAB CHEMISTRY METHOD 08/28/2025 2:08 PM [facility] Comment:Calculation based on the Chronic Kidney Disease Epidemiology Collaboration (CKD-EPI) equation refit without adjustment for race. BUN/Creatinine Ratio 20.5 LAB CHEMISTRY METHOD 08/28/2025 2:08 PM [facility] Calcium 9.7 8.5 - 10.5 mg/dL LAB CHEMISTRY METHOD 08/28/2025 2:08 PM [facility] AST (SGOT) 70(H) 10 - 42 unit/L LAB CHEMISTRY METHOD 08/28/2025 2:08 PM [facility] ALT (SGPT) 57 10 - 60 unit/L LAB CHEMISTRY METHOD 08/28/2025 2:08 PM [facility] Alkaline Phosphatase 107 42 - 121 unit/L LAB CHEMISTRY METHOD 08/28/2025 2:08 PM [facility] Total Protein 7.6 6.0 - 8.0 g/dL LAB CHEMISTRY METHOD 08/28/2025 2:08 PM [facility] Albumin 4.2 3.2 - 5.0 g/dL LAB CHEMISTRY METHOD 08/28/2025 2:08 PM EDT [facility] Total Bilirubin 0.7 0.0 - 1.4 mg/dL LAB CHEMISTRY METHOD 08/28/2025 2:08 PM EDT [facility] Blood Venous blood specimen / Unknown Venipuncture / Unknown 08/28/2025 12:48 PM EDT 08/28/2025 1:19 PM EDT us Tevin Romo MD LAB BLOOD ORDERABLES Final Resul t [facility] [address] [place] [address], [place] [phone] from Last 3 Months Insurance MEDICAID - [place] Care Teams Bookkeeping Manager Relationship Specialty Start Date End Date Shane Licona MD [address] [place] [address] PCP - General 12/15/23
[2025-10-19 06:41] LABS: Hematocrit 40.8 % (37.0-47.0); Hemoglobin 13.5 g/dl (12.0-16.0); Imm Gran Abs Auto 0.02 X10*3/uL (0.00-0.03); Imm Gran Pct Auto 0.2 % (0.0-0.4); Lymphocytes Absolute Auto 2.6 X10*3/uL (1.2-4.9); MANUAL DIFF FLAG SCAN; Mean Corpuscular HGB Conc 33.1 g/dl (31.0-35.0); Mean Corpuscular Hemoglobin 28.9 pg (27.0-33.0); Mean Corpuscular Volume 87.4 fL (80.0-98.0); NRBC Abs Auto 0.000 X10*3/uL (0.0-0.012); NRBC Pct Auto 0.0 /100WBC (0.0-0.2); Platelet Count 527 X10*3/uL (160-400); Red Blood Count 4.67 X10*6/uL (4.20-5.50); SCAN SMEAR FLAG 1; White Blood Count 8.6 X10*3/uL (4.8-10.8)
[2025-10-19 06:49] LABS: Appearance Urine Cloudy; Glucose Urine UA Negative (Negative); PH 6.0 (5.0-9.0); Specific Gravity - Urine >= 1.030 (1.005-1.025); UMIC TRIGGER UACC YES
[2025-10-19 06:50] LABS: UACC Culture Trigger YES
[2025-10-19 06:54] LABS: Cannabinoid Screen Urine POSITIVE (Not Detect)
[2025-10-19 07:01] LABS: Lipase 10 U/L (8-78)
--- NOTE | 2025-10-19 07:42 | PC.NURSE ---
Pt sleeping soundly since this RN arrival.
[2025-10-19 08:01] LABS: COVID-19 Test Negative (Negative); IDNOW Serial# 6674DD1D
[2025-10-19 08:38] LABS: Alanine Aminotransferase 31 U/L (0-31); Albumin Level 4.6 g/dL (3.5-5.0); Alkaline Phosphatase 102 U/L (39-117); Anion Gap 15 (12-20); Aspartate Amino Transferase 33 U/L (5-31); Blood Urea Nitrogen 16 mg/dL (9-16); Calcium 9.6 mg/dL (8.4-10.2); Carbon Dioxide 20 mmol/L (22-29); Chloride 110 mmol/L (96-108); Creatinine Clr Calc Pharmacy 82.0; Estimated Glomerular Filt Rate > 60; Potassium 3.8 mmol/L (3.3-5.1); Sodium 141 mmol/L (135-145); Total Protein 7.8 g/dL (6.5-8.0)
--- NOTE | 2025-10-19 10:20 | PC.NURSE ---
continues to complain of abd pain. no vomiting since this RN arrival at 7am
--- NOTE | 2025-10-19 11:05 | PC.NURSE ---
Pt is sleeping on and off. Arousable to light touch. continues to c/o diffuse abd pain. Is aware that she is likely to be discharged.
--- NOTE | 2025-10-19 11:14 | PC.NURSE ---
Assumed care of patient at this time. Pt sleeping at this time, breathing equal and unlabored. Vitals stable on clinical research monitor.
--- NOTE | 2025-10-19 13:00 | PC.NURSE ---
Pt in sound sleep, awoke with verbal stimuli. Attempt by this RN for discharge. Pt stating I am in too much pain you can't discharge me . Explained to patient that there was not much else to be given in this situation and that I would speak with doctor. Pt states as this RN leaving room, If you discharge me I will walk right back in . Vitals remain stable, HR 80s. Awating MD re-eval. Pt up to bathroom with steady gait.
--- NOTE | 2025-10-19 13:05 | PC.NURSE ---
Dr. Freitas at bedside for re-eval.
--- NOTE | 2025-10-19 14:08 | PC.NURSE ---
Pain now controlled at 03/08, pt states she is able to go home. Calling for ride now. Tolerating PO apple juice
== END 2025-10-19 14:13 | disposition home or self-care (01) ==
PROVIDERS: Emergency Provider Emergency Medicine Emergency Medical Services; PCP Internal Medicine
DX: R11.15 Cyclical vomiting syndrome unrelated to migraine (principal); E86.0 Dehydration; R10.9 Unspecified abdominal pain; R11.2 Nausea with vomiting, unspecified; F12.90 Cannabis use, unspecified, uncomplicated; Z11.52 Encounter for screening for COVID-19
CPT/HCPCS: 80053; 80307; 81001; 83690; 84702; 85025; 87086; 87147; 87635; 93005; 96361; 96374; 96375; 99285; J1200; J1885; J2250; J2270; J2405; J2765

== ENCOUNTER → 2025-10-19 06:07 | Outpatient (BNV) | payer OTHER, SELFPAY | PROVIDERS: Emergency Provider Emergency Medicine Emergency Medical Services; PCP Internal Medicine; Visit Provider Internal Medicine Cardiovascular Disease | DX: R10.9 Unspecified abdominal pain (principal) | CPT/HCPCS: 93010 ==

== ENCOUNTER 2025-10-20 06:22 | Emergency (ER) | payer OTHER, SELFPAY ==
[2025-10-20] VITALS (7 sets, daily range): BP systolic 111–145; BP diastolic 70–106; PULSE 76–115; RESP 18–26; TEMP -17.7–36.9; O2SAT 96–98
--- NOTE | ~2025-10-20 | US_ITS ---
EXAMINATION: US OBSTETRICAL/PELVIC ULTRASOUND CLINICAL INFORMATION: Severe lower abdominal pain, beta-hCG = 7 COMPARISON: CT on 09/11/2025 LMP: 08/30/2025. Gestational age by maternal dates is 7 weeks 3 days. Estimated date of delivery by maternal dates is 05/26/2026. TECHNIQUE: Grayscale and color Doppler and spectral interrogation imaging was performed to evaluate the pelvis FINDINGS: There is no gestational sac, visible yolk sac, embryo/fetus, or cardiac activity. There is no significant subchorionic hemorrhage or hematoma. The uterus is anteflexed and measures 3.1 x 3.2 x 6.0 cm. Punctate hyperechogenicity is present in the anterior upper uterine body in the submucosal region. There is no posterior acoustic shadowing. There is an anechoic region in the mid uterine body measuring 3 x 1 x 3 mm without a perceptible wall in the submucosal region adjacent the endometrial stripe. Punctate hyperechogenic foci without posterior acoustic shadowing are evident in the cervix. The endometrial stripe measured 6 mm thick. MATERNAL ADNEXA: The right maternal ovary measures 2.0 x 1.9 x 1.8 cm. Venous and arterial waveforms are documented. The left maternal ovary measures 2.6 x 1.5 x 1.7 cm. Venous and arterial waveforms are documented. There is no significant maternal adnexal mass. No maternal pelvic ascites. US/US OB pelvic and transvaginal IMPRESSION: No definite intrauterine gestational sac. There is a small 3 x 1 x 3 mm cystic region in the mid uterus adjacent the endometrial stripe not clearly representing a gestational sac. Nonspecific echogenic foci in the uterus/cervix probably representing punctate calcifications. Electronically signed by: Chapito Sr MD 10/20/2025 10:42 AM EST
--- NOTE | ~2025-10-20 | US_ITS ---
EXAMINATION: US OBSTETRICAL/PELVIC ULTRASOUND CLINICAL INFORMATION: Severe lower abdominal pain, beta-hCG = 7 COMPARISON: CT on 09/11/2025 LMP: 08/30/2025. Gestational age by maternal dates is 7 weeks 3 days. Estimated date of delivery by maternal dates is 05/26/2026. TECHNIQUE: Grayscale and color Doppler and spectral interrogation imaging was performed to evaluate the pelvis FINDINGS: There is no gestational sac, visible yolk sac, embryo/fetus, or cardiac activity. There is no significant subchorionic hemorrhage or hematoma. The uterus is anteflexed and measures 3.1 x 3.2 x 6.0 cm. Punctate hyperechogenicity is present in the anterior upper uterine body in the submucosal region. There is no posterior acoustic shadowing. There is an anechoic region in the mid uterine body measuring 3 x 1 x 3 mm without a perceptible wall in the submucosal region adjacent the endometrial stripe. Punctate hyperechogenic foci without posterior acoustic shadowing are evident in the cervix. The endometrial stripe measured 6 mm thick. MATERNAL ADNEXA: The right maternal ovary measures 2.0 x 1.9 x 1.8 cm. Venous and arterial waveforms are documented. The left maternal ovary measures 2.6 x 1.5 x 1.7 cm. Venous and arterial waveforms are documented. There is no significant maternal adnexal mass. No maternal pelvic ascites. US/US pelvic ovarian doppler IMPRESSION: No definite intrauterine gestational sac. There is a small 3 x 1 x 3 mm cystic region in the mid uterus adjacent the endometrial stripe not clearly representing a gestational sac. Nonspecific echogenic foci in the uterus/cervix probably representing punctate calcifications. Electronically signed by: Chapito Sr MD 10/20/2025 10:42 AM [facility]
--- NOTE | 2025-10-20 06:35 | ED.NAVMDI ---
HPI - Nausea/Vomiting/Diarrhea General Chief complaint: Nausea/Vomiting/Diarrhea Stated complaint: Ab pain 10/10 sharp all over Time Seen by Provider: 10/20/25 06:27 Source: patient, EMS and old records reviewed Mode of arrival: EMS Limitations: other ( very agitated with any questions being asked) History of Present Illness ED Provider: AYDEN HPI Narrative: 20 yo female who has PMH of GERD, cyclical vomiting, THC use disorder here with recurrent visits to our ED she has had 9 since the start of August of 2025 she comes in with her typical that the vomiting flare-up. She adamantly denies any recent marijuana use and states she smoked THC 2 weeks ago though her drug screen has been consistently positive since the start of August. She comes in she is agitated and yelling. She does not want to answer most of my questions. She states she was seen yesterday she did receive multiple rounds of medications yesterday. No diarrhea or fevers are reported. I asked about the redness around her lips they are not swollen but they are dry she states it is due to nausea. She denies taking any medications at home. MD elicited complaint: nausea, vomiting and abdominal pain Pertinent past history: other Onset (ago): month(s) Description of vomiting: watery Associated nausea: Yes Associated abdominal pain: Yes Location of pain: epigastric Radiation: diffuse Pain consistency: constant Severity: severe Quality: stabbing Exacerbating factors: eating, vomiting and movement Relieving factors: none Context: marijuana use Associated symptoms: myalgias, loss of appetite, malaise, nausea/vomiting and weakness Related Data Previous Rx's ?Medication ?Instructions ?Recorded ondansetron 4 mg disintegrating 4 mg PO Q8H PRN nausea and 09/10/25 tablet vomiting #7 tabs lorazepam 1 mg tablet (Ativan) 1 mg PO BEDTIME PRN anxiety #7 tabs 09/16/25 promethazine 25 mg rectal 25 mg CA Q6H PRN nausea and 09/16/25 suppository vomiting #12 ea ondansetron HCl 4 mg tablet 4 mg PO Q8H PRN nausea and 10/08/25 vomiting #14 tabs diphenhydramine HCl 25 mg capsule 50 mg (2 x 25 mg) PO Q6H PRN 10/19/25 headache, nausea, vomiting #20 caps metoclopramide HCl 10 mg tablet 10 mg PO Q6H PRN Headache, nausea 10/19/25 (Reglan) and vomiting #20 tabs Allergies Allergy/AdvReac Type Severity Reaction Status Date / Time haloperidol (From Haldol) Allergy Mild Anaphylaxis Verified 10/20/25 06:31 Review of Systems Review of Systems: Yes all other systems are reviewed and are negative Gastrointestinal: Gastrointestinal: Reports nausea PMFSH Past Medical History Attestation statement: The following information was validated with the patient. Source: old records reviewed Medical History GERD (gastroesophageal reflux disease) Long QT interval Acute hypokalemia Marijuana use Status post normal delivery in completely normal case Social History Social History Household Members: Family Housing: House Do you presently have visiting nurse or other home services: No Alcohol intake: never Patient Tobacco Use Status: Never used Tobacco Smoked in Last 30 Days: No Use of substances other than those prescribed or required for medical reasons: Yes Substance Use Type: Marijuana Advance Directives: No Advance Directives Information Provided: No Do you have a plan to hurt others: No Plan service: No Physical Exam Vital Signs: Vital Signs: Last Vital Signs Temp 97.9 F 10/20/25 12:12 Pulse 77 10/20/25 13:20 Resp 18 10/20/25 13:20 BP 126/70 10/20/25 13:20 Pulse Ox 98 10/20/25 13:20 O2 Del Method Room Air 10/20/25 13:20 BMI result Body Mass Index 20.0 Appearance: Alert. Oriented X3. yelling, anxious agitated mild acute distress. Eyes: Pupils equal, round and reactive to light. ENT: Pharynx dry MM with dry lips and irritated perioral dermatitis no signs of infection or swelling Neck: Normal inspection. Neck supple. CVS: tachycardic heart rate and rhythm. Pulses normal. Respiratory: No respiratory distress. Breath sounds normal. Abdomen: Soft she reports pain throughout abdomen no rebound Skin: Skin warm and dry. Normal skin color. Extremities: No lower extremity edema. Neuro: Oriented X 3. No motor deficit. No sensory deficit. Course Course Course Narrative: 7:57 AM 10/20/2025 (AYDEN RODRIGUEZ): Repeat nausea medications ordered as well as IV morphine hcg 7 given her complaint and she is unreliable she will need US to evaluate for any acute pathology though clinically low suspicion Reevaluation(s) Reevaluation #1: 11:09 AM 10/20/2025 (AYDEN RODRIGUEZ): We will wait until we obtain urine. She is also able to tolerate p.o. at this time 2:07 PM 10/20/2025 (AYDEN RODRIGUEZ): At this time she is having p.o. and wants to go home Medications Administered Discontinued Medications Generic Name Dose Route Start Last Admin Trade Name Michael PRN Reason Stop Dose Admin Diazepam 5 mg 10/20/25 06:38 10/20/25 06:42 Diazepam 10 Mg/2 Ml Cartridge IM 10/20/25 06:39 5 mg STAT STA Administration Diphenhydramine HCl 50 mg 10/20/25 06:38 10/20/25 06:43 Diphenhydramine Hcl 50 Mg/Ml Vial IM 10/20/25 06:39 50 mg ONCE ONE Administration Lactated Ringer's 1,000 mls @ 999 mls/hr 10/20/25 06:30 10/20/25 12:09 Lr IV 10/20/25 07:30 Infused .Q1H1M ONE Infusion Lactated Ringer's 1,000 mls @ 999 mls/hr 10/20/25 06:49 10/20/25 12:08 Lr IV 10/20/25 07:49 999 mls/hr .Q1H1M ONE Administration Morphine Sulfate 4 mg 10/20/25 07:55 10/20/25 08:02 Morphine Sulfate 4 Mg/Ml Cartridge IVPUSH 10/20/25 07:56 4 mg ONCE ONE Administration Protocol Ondansetron HCl 4 mg 10/20/25 07:55 10/20/25 08:02 Ondansetron Hcl 4 Mg/2 Ml Vial IVPUSH 10/20/25 07:56 4 mg ONCE ONE Administration Ondansetron HCl 4 mg 10/20/25 13:15 10/20/25 13:19 Ondansetron Hcl 4 Mg/2 Ml Vial IVPUSH 10/20/25 13:16 4 mg ONCE ONE Administration Potassium Chloride 20 meq 10/20/25 07:55 10/20/25 10:31 Potassium Chloride Er 20 Meq Tab.Er.Prt PO 10/20/25 07:56 20 meq ONCE ONE Administration Medical Decision Making Medical Decision Making [facility] Narrative: 20 yo female who has PMH of GERD, cyclical vomiting, THC use disorder here with recurrent complaint of upper abdominal pain, nausea, vomiting on exam she is agitated it is hard for the nurse to get an IV I am going to start with IM Valium and IM Benadryl. She will need labs as well as urine study, I do not believe she is abstaining from marijuana and this is resulting in her persistent symptoms. As she has been constantly positive for THC in her drug screen. She has had multiple negative workups for imaging in the past of her abdomen. I will ask that we get an IV and started on 2 L of fluid. She was just seen yesterday for the same late received multiple rounds of medications. She has no localized pain to suggest biliary colic or appendiceal pathology. Differential Diagnosis Differential Diagnoses: The differential diagnosis associated with the presentation includes dehydration, starvation ketosis, marijuana use disorder resulting in hyperemesis Admission/Observation Consideration of admission/observation: Escalation of care including admission/observation considered Lab Data [facility] Lab Attestation statement: I reviewed the patient's lab results. 10/20/25 06:49 10/20/25 06:49 Labs: Lab Results 10/20/25 10/20/25 Range/Units 06:49 13:06 WBC 11.3 H (4.8-10.8) X10*3/uL RBC 4.65 (4.20-5.50) X10*6/uL Hgb 13.6 (12.0-16.0) g/dl Hct 39.6 (37.0-47.0) % MCV 85.2 (80.0-98.0) fL MCH 29.2 (27.0-33.0) pg MCHC 34.3 (31.0-35.0) g/dl RDW 14.5 (11.0-16.0) % Plt Count 542 H (160-400) X10*3/uL MPV 9.4 (9.4-12.3) fL Immature Gran % (Auto) 0.4 (0.0-0.4) % Neut % (Auto) 84.3 H (45-73) % Lymph % (Auto) 10.2 L (20-40) % [place] % (Auto) 4.9 (2-11) % Eos % (Auto) 0.1 (0-4) % Baso % (Auto) 0.1 (0-2) % Lymph # (Auto) 1.2 (1.2-4.9) X10*3/uL [place] # (Auto) 0.6 (0.1-1.2) X10*3/uL Eos # (Auto) 0.0 (0.0-0.4) X10*3/uL Baso # (Auto) 0.0 (0.0-0.2) X10*3/uL Abs Immat Gran (auto) 0.05 H (0.00-0.03) X10*3/uL Absolute Neuts (auto) 9.5 H (2.0-8.3) x10*3/uL Absolute Nucleated RBC 0.000 (0.0-0.012) X10*3/uL Nucleated RBC % (auto) 0.0 (0.0-0.2) /100WBC Smear Tech's Comments VERIFIED Sodium 138 (135-145) mmol/L Potassium 3.2 L (3.3-5.1) mmol/L Chloride 102 (96-108) mmol/L Carbon Dioxide 20 L (22-29) mmol/L Anion Gap 19 (12-20) BUN 18 H (9-16) mg/dL Creatinine 0.79 (0.5-1.4) mg/dL Estim Creat Clear Calc 96.7 Estimated GFR > 60 Random Glucose 119 H (60-115) mg/dL Calcium 9.8 (8.4-10.2) mg/dL Magnesium 2.2 (1.6-2.6) mg/dL Total Bilirubin 0.5 (0.0-1.0) mg/dL Direct Bilirubin 0.2 (0.0-0.5) mg/dL AST 30 (5-31) U/L ALT 28 (0-31) U/L Alkaline Phosphatase 106 (39-117) U/L Total Protein 7.9 (6.5-8.0) g/dL Albumin 4.7 (3.5-5.0) g/dL Beta HCG, Quant 7 mIU/mL Urine Color Yellow Urine Appearance Clear Urine pH 6.0 (5.0-9.0) Ur Specific [place] 1.025 (1.005-1.025) Urine Protein 30 (1+) H (Neg-Trace) mg/dL Urine Glucose (UA) Negative (Negative) mg/dL Urine Ketones 40 (Negative) mg/dL Urine Blood Negative (Negative) Urine Nitrite Negative (Negative) Ur Leukocyte Esterase Negative (Negative) Urine RBC 0-2 (0-2) /HPF Urine WBC 0-5 (0-5) /HPF Ur Squamous Epith Cells 0-2 (0-2) /HPF Urine Bacteria None Seen (None Seen) Hyaline Casts 3-5 (0-2) /LPF Urine Test NEGATIVE (NEGATIVE) Urine Opiates Screen POSITIVE H (Not Detect) Ur Buprenorphine Scrn Not Detected (Not Detect) ng/mL Ur Oxycodone Screen Not Detected (Not Detect) ng/mL Urine Methadone Screen Not Detected (Not Detect) ng/mL Urine Fentanyl Screen Not Detected (Not Detect) Ur Barbiturates Screen Not Detected (Not Detect) Ur Phencyclidine Scrn Not Detected (Not Detect) Ur Amphetamines Screen Not Detected (Not Detect) U Benzodiazepines Scrn POSITIVE H (Not Detect) Urine Cocaine Screen Not Detected (Not Detect) U Marijuana (THC) Screen POSITIVE H (Not Detect) Independent Interpretation I performed an independent interpretation of an: EKG and Ultrasound (possible early gestational sac) Interpretation: Rate: 103 Rhythm: Sinus tachycardia [place]: Normal Normal P waves. Normal ERYN. Normal QRS complex. ST T wave : Inverted T-wave in V1 otherwise normal and no ST-elevation qTC: 468 prior studies: No acute ischemia The study has been interpreted contemporaneously by me. . Radiology Impression Discussion of test interpretation with radiology: I have reviewed the radiologist's reading. Independent Historian Clinical information obtained from an independent historian. History obtained from or confirmed by: EMS External Record Review External record reviewed: Inpatient record and Outpatient record Prescription Management I considered prescription management with: Other Discharge Plan Discharge Clinical Impression: Cyclical vomiting, intractable, Hypokalemia Patient Disposition: Home, Self-Care Instructions: Hypokalemia (ED), Acute Nausea and Vomiting (ED) Additional Instructions: your labs other than a potassium being low were reassuring we did repeat that here Your test was negative on the but today it resulted at 7 this is really in an indeterminate area it means you need a repeat hCG test in 3 days. you can get this done through your primary care doctor, urgent care, emergency department your ultrasound did not show any evidence at this time of it is too early to tell if you are this lab could just be falsely elevated or you could be very early continue to take your nausea medications as well as hydrate. Return for any worsening symptoms or concerns it is imperative you avoid any marijuana products Prescriptions: No Action ondansetron 4 mg tablet,disintegrating 4 mg PO Q8H PRN (Reason: nausea and vomiting) Qty: 7 0RF diphenhydramine HCl 25 mg capsule 50 mg PO Q6H PRN (Reason: headache, nausea, vomiting) Qty: 20 0RF metoclopramide HCl [Reglan] 10 mg tablet 10 mg PO Q6H PRN (Reason: Headache, nausea and vomiting) Qty: 20 0RF promethazine 25 mg suppository 25 mg CA Q6H PRN (Reason: nausea and vomiting) Qty: 12 0RF lorazepam [Ativan] 1 mg tablet 1 mg PO BEDTIME PRN (Reason: anxiety) Qty: 7 0RF ondansetron HCl 4 mg tablet 4 mg PO Q8H PRN (Reason: nausea and vomiting) Qty: 14 0RF Print Language: Gabonese
[2025-10-20] MEDS: diazePAM 10 MG/2 ML CARTRIDGE 5 MG IM (06:42)
--- NOTE | 2025-10-20 06:46 | ECG_ITS ---
Test Reason : check qtc Blood Pressure : */* mmHG Vent. Rate : 103 BPM Atrial Rate : 103 BPM P-R Int : 124 ms QRS Dur : 84 ms QT Int : 358 ms P-R-T Axes : 68 36 55 degrees QTcB Int : 468 ms Sinus tachycardia Otherwise normal ECG When compared with ECG of 19-Oct-2025 06:07, No significant change was found Referred By: Annita Cuevas Electronically Signed By: NANDINI SANTACRUZ MD
[2025-10-20 07:03] LABS: Hematocrit 39.6 % (37.0-47.0); Hemoglobin 13.6 g/dl (12.0-16.0); Imm Gran Abs Auto 0.05 X10*3/uL (0.00-0.03); Imm Gran Pct Auto 0.4 % (0.0-0.4); Lymphocytes Absolute Auto 1.2 X10*3/uL (1.2-4.9); MANUAL DIFF FLAG SCAN; Mean Corpuscular HGB Conc 34.3 g/dl (31.0-35.0); Mean Corpuscular Hemoglobin 29.2 pg (27.0-33.0); Mean Corpuscular Volume 85.2 fL (80.0-98.0); NRBC Abs Auto 0.000 X10*3/uL (0.0-0.012); NRBC Pct Auto 0.0 /100WBC (0.0-0.2); Platelet Count 542 X10*3/uL (160-400); Red Blood Count 4.65 X10*6/uL (4.20-5.50); SCAN SMEAR FLAG 1; White Blood Count 11.3 X10*3/uL (4.8-10.8)
[2025-10-20 07:34] LABS: Alanine Aminotransferase 28 U/L (0-31); Albumin Level 4.7 g/dL (3.5-5.0); Alkaline Phosphatase 106 U/L (39-117); Anion Gap 19 (12-20); Aspartate Amino Transferase 30 U/L (5-31); Blood Urea Nitrogen 18 mg/dL (9-16); Calcium 9.8 mg/dL (8.4-10.2); Carbon Dioxide 20 mmol/L (22-29); Chloride 102 mmol/L (96-108); Creatinine Clr Calc Pharmacy 96.7; Estimated Glomerular Filt Rate > 60; Magnesium 2.2 mg/dL (1.6-2.6); Potassium 3.2 mmol/L (3.3-5.1); Sodium 138 mmol/L (135-145); Total Protein 7.9 g/dL (6.5-8.0)
[2025-10-20] MEDS: Lactated Ringers 1,000 ML 999 ML IV ×2 (07:49→12:08)
--- NOTE | 2025-10-20 08:05 | PC.NURSE ---
pt is alert and oriented, skin appropriate for ethnicity, respirations even and unlabored, pt is thrashing in the bed and yelling that her abdomen is hurting and is reporting nausea and unable to take the potassium tab at this time pt lips and around her lips are very dry in appearance and red pt reports its from all the vomiting she was doing at home
--- NOTE | 2025-10-20 08:45 | PC.NURSE ---
pt is currently asleep, respirations even and unlabored
--- NOTE | 2025-10-20 09:02 | PC.NURSE ---
pt keeps bending her arm so the fluids are not going as well
--- OUTSIDE RECORDS SUMMARY | 2025-10-20 09:03 | XMS_ITS | Clinical Summary ---
Author Organization [facility] Address [address] [place] [address] Phone Care Team Providers Care Technical Sales Engineer Name Role Phone Shane Licona MD Primary Care Provider [phone] Allergies No known active allergies Medications haloperidoL [...] EDT - 08/28/2025 7:14 PM EDT Emergency [facility] Emergency [address] [place] [address] Rodolfo Acevedo MD Gastroenteritis (Primary [...] 2025 , 10/17/2019, 10/04/2018, Additional history exists Cervical Cancer Screening: Pap Smear 2025 DTaP,Tdap,and Td Vaccines (8 - Td or [...] reflex microscopic (08/28/2025 4:20 PM EDT) Specific [place] Urine >1.045(H) 1.003 - 1.030 LAB URINALYSIS - AUTOMATED METHOD 08/28/2025 4:51 PM [facility] pH, Urine 8.0 5.0 - 8.0 pH LAB URINALYSIS - AUTOMATED METHOD 08/28/2025 4:51 PM [facility] Leukocytes, Urine Negative Negative LAB URINALYSIS - AUTOMATED METHOD 08/28/2025 4:51 PM [facility] Nitrite, Urine Negative Negative LAB URINALYSIS - AUTOMATED METHOD 08/28/2025 4:51 PM [facility] Protein, Urine Negative <=Trace mg/dL LAB URINALYSIS - AUTOMATED METHOD 08/28/2025 4:51 PM [facility] Glucose, Urine Negative Negative mg/dL LAB URINALYSIS - AUTOMATED METHOD 08/28/2025 4:51 PM [facility] Ketones, Urine 40(A) Negative mg/dL LAB URINALYSIS - AUTOMATED METHOD 08/28/2025 4:51 PM [facility] Urobilinogen , Urine 1.0 0.2 - 1.0 mg/dL LAB URINALYSIS - AUTOMATED METHOD 08/28/2025 4:51 PM [facility] Bilirubin, Urine Negative Negative LAB URINALYSIS - AUTOMATED METHOD 08/28/2025 4:51 PM [facility] Blood, Urine Large(A) Negative LAB URINALYSIS - AUTOMATED METHOD 08/28/2025 4:51 PM [facility] RBC, Urine 28.6(H) 0 - 4 /HPF LAB URINALYSIS - AUTOMATED METHOD 08/28/2025 4:51 PM EDT [facility] WBC, Urine 1.9 0 - 4 /HPF LAB URINALYSIS - AUTOMATED METHOD 08/28/2025 4:51 PM [facility] Squamous Epithelial, Urine 20 0 - 60 /LPF LAB URINALYSIS - AUTOMATED METHOD 08/28/2025 4:51 PM [facility] Bacteria, Urine Negative Negative /HPF LAB URINALYSIS - AUTOMATED METHOD 08/28/2025 4:51 PM [facility] Hyaline Casts, Urine 0.8 0 - 3 /LPF LAB URINALYSIS - AUTOMATED METHOD 08/28/2025 4:51 PM [facility] Urine Urine specimen obtained by clean catch procedure / Unknown Non-blood Collection / Unknown 08/28/2025 4:20 PM EDT 08/28/2025 4:39 PM EDT us Rodolfo Acevedo MD LAB URINE ORDERABLES Final Result [facility] [address] [place] [address], * (ABNORMAL) Drug abuse screen 8a panel, urine (08/28/2025 4:20 PM EDT) Amphetamine Screen, Ur Negative Negative LAB CHEMISTRY METHOD 5 5:00 PM T [facility] Comment:Certain OTC medicati ons containing ephedrine, phenylephrine, pseudoephedrine and phenylpropanolamine can cause false positive results. Barbiturate Screen, Ur Negative Negative LAB CHEMISTRY METHOD 5 5:00 PM [facility] Benzodiazepine Screen, Ur Negative Negative LAB CHEMISTRY METHOD 5 5:00 PM [facility] Cocaine Screen, Ur Negative Negative LAB CHEMISTRY METHOD 5 5:00 PM [facility] Opiate Screen, Ur Positive(A ) Negative LAB CHEMISTRY METHOD 5 5:00 PM EDT [facility] Cannabinoid (THC) Screen, Ur Positive(A ) Negative LAB CHEMISTRY METHOD 5 5:00 PM EDT [facility] Comment:Specimens from patie nts taking pantoprazole sodium (Protonix) have been shown to produce false positive results. Oxycodone Screen, Ur Negative Negative LAB CHEMISTRY METHOD 5 5:00 PM EDT [facility] Fentanyl, Ur Negative Negative LAB CHEMISTRY METHOD 5 5:00 PM EDT [facility] Urine Urine specimen obtained by clean catch procedure / Unknown Non-blood Collection / Unknown 08/28/2025 4:20 PM EDT 08/28/2025 4:39 PM EDT Narrative [facility] - 08/28/2025 5:00 PM [...] Result [facility] [address] [place] [address], * CT Abdomen Pelvis w Contrast (08/28/2025 [...] Signed Date: 08/28/2025 16:13 ET Workstation ID: [id number] Transcribed By: Self Edit Transcribed Date: 08/28/2025 [...] Signed Date: 08/28/2025 16:13 ET Workstation ID: [id number] Transcribed By: Self Edit Transcribed Date: 08/28/2025 [...] PM EDT [facility] MCV 86.0 79.0 - 98.0 FL LAB HEMETOLOGY METHOD 08/28/2025 1:59 PM EDT [facility] MCH 28.9 27.0 - 32.0 pcg LAB HEMETOLOGY METHOD 08/28/2025 1:59 PM EDT [facility] MCHC 33.6 32.0 - 37.0 g/dL LAB HEMETOLOGY METHOD 08/28/2025 1:59 PM EDT [facility] RDW 14.2 11.0 - 15.0 % LAB HEMETOLOGY METHOD [facility]/28[facility]25 [facility] Platelets 451(H) 130 - 400 K/mcL LAB HEMETOLOGY METHOD 08/28/2025 1:59 PM EDT [facility] MPV 10.5 7.0 - 11.0 FL LAB HEMETOLOGY METHOD 08/28/2025 1:59 [facility] NRBC 0.0 <1.0 % LAB HEMETOLOGY METHOD 08/28/2025 1:59 PM [facility] NRBC Absolute 0.00 <0.10 K/mcL LAB HEMETOLOGY METHOD 08/28/2025 1:59 [facility] Neutrophils Relative 79.9 % LAB HEMETOLOGY METHOD 08/28/2025 1:59 PM [facility] Lymphocytes Relative 10.8 % LAB HEMETOLOGY METHOD 08/28/2025 1:59 PM [facility] Monocytes Relative 8.7 % LAB HEMETOLOGY METHOD 08/28/2025 1:59 PM [facility] Eosinophils Relative 0.1 % LAB HEMETOLOGY METHOD 08/28/2025 1:59 PM EDT [facility] Basophils Relative 0.2 % LAB HEMETOLOGY METHOD 08/28/2025 1:59 PM [facility] Immature Granulocytes Relative 0.3 % LAB HEMETOLOGY METHOD 08/28/2025 1:59 PM [facility] Neutrophils Absolute 8.23(H) 1.50 [...] t [facility] [address] [place] [address], [place] [phone] * hCG, serum, qualitative (08/28/2025 12:48 PM EDT) hCG Qual Negative Negative 08/28/2025 2:16 PM EDT [facility] Blood Venous blood specimen / Unknown Venipuncture / Unknown 08/28/2025 12:48 PM EDT 08/28/2025 1:19 PM EDT Rodolfo Acevedo MD LAB BLOOD ORDERABLES Final Result [facility] [address] [place] [address], [place] [phone] * Magnesium (08/28/2025 12:48 PM EDT) Pathologist [facility] Magnesium 2.5 1.9 - 2.6 mg/dL LAB CHEMISTRY METHOD 08/28/2025 2:04 PM EDT [facility] Blood Venous blood specimen / Unknown Venipuncture / Unknown 08/28/2025 12:48 PM EDT 08/28/2025 1:19 PM EDT Rodolfo Acevedo MD LAB BLOOD ORDERABLES Final Result [facility] [address] [place] [address], [place] [phone] * Lipase (08/28/2025 12:48 PM EDT) [facility] Lipase 21 13 - 75 unit/L LAB CHEMISTRY METHOD 08/28/2025 2:04 PM EDT [facility] Blood Venous blood specimen / Unknown Venipuncture / Unknown 08/28/2025 12:48 PM EDT 08/28/2025 1:19 PM EDT us Tevin Romo MD LAB BLOOD ORDERABLES Final Resul t Performing Organization Address City/[facility]/ZIP Co de Phone Number [facility] [address] [place] [address], [place] [phone] * (ABNORMAL) Comprehensive metabolic panel (08/28/2025 12:48 PM EDT) Pathologist [facility] Sodium 135 133 - 145 mmol/L LAB CHEMISTRY METHOD 08/28/2025 2:08 PM EDT [facility] Potassium 3.9 3.5 - 5.5 mmol/L LAB CHEMISTRY METHOD 08/28/2025 2:08 PM EDT [facility] Chloride 101 96 - 110 mmol/L LAB CHEMISTRY METHOD 08/28/2025 2:08 PM [facility] CO2 26 21 - 32 mmol/L LAB CHEMISTRY METHOD 08/28/2025 2:08 PM [facility] Anion Gap 8 3 - 11 LAB CHEMISTRY METHOD 08/28/2025 2:08 PM [facility] Glucose 88 70 - 100 mg/dL LAB CHEMISTRY METHOD 08/28/2025 2:08 PM [facility] BUN 18 5 - 25 mg/dL LAB CHEMISTRY METHOD 08/28/2025 2:08 PM [facility] Creatinine 0.88 0.50 - 1.10 mg/dL LAB CHEMISTRY METHOD 08/28/2025 2:08 PM [facility] eGFR 97 >=60 mL/min/1. 73m2 LAB CHEMISTRY METHOD 08/28/2025 2:08 PM [facility] Comment:Calculation based on the Chronic Kidney Disease Epidemiology Collaboration (CKD-EPI) equation refit without adjustment for race. BUN/Creatinine Ratio 20.5 LAB CHEMISTRY METHOD 08/28/2025 2:08 PM [facility] Calcium 9.7 8.5 - 10.5 mg/dL LAB CHEMISTRY METHOD 08/28/2025 2:08 PM [facility] AST (SGOT) 70(H) 10 - 42 unit/L LAB CHEMISTRY METHOD 08/28/2025 2:08 PM [facility] ALT (SGPT) 57 10 - 60 unit/L LAB CHEMISTRY METHOD 08/28/2025 2:08 PM [facility] Alkaline Phosphatase 107 42 - 121 unit/L LAB CHEMISTRY METHOD 08/28/2025 2:08 PM [facility] Total Protein 7.6 6.0 - 8.0 g/dL LAB CHEMISTRY METHOD 08/28/2025 2:08 PM [facility] Albumin 4.2 3.2 - 5.0 g/dL LAB CHEMISTRY METHOD 08/28/2025 2:08 PM EDT [facility] Total Bilirubin 0.7 0.0 - 1.4 mg/dL LAB CHEMISTRY METHOD 08/28/2025 2:08 PM EDT [facility] Blood Venous blood specimen / Unknown Venipuncture / Unknown 08/28/2025 12:48 PM EDT 08/28/2025 1:19 PM EDT us Tevin Romo MD LAB BLOOD ORDERABLES Final Resul t [facility] [address] [place] [address], from Last 3 Months Insurance MEDICAID - [place] Care Teams Technical Sales Engineer Relationship Specialty Start Date End Date Shane Licona MD [address] [place] [address] PCP - General 12/15/23
[2025-10-20] MEDS: Potassium Chloride ER 20 MEQ TAB.ER.PRT PO (10:31)
--- NOTE | 2025-10-20 11:16 | PC.NURSE ---
the first bag of fluids put on a pressure pag, pt requested and received ice chips, tolerating well
[2025-10-20 13:13] LABS: Appearance Urine Clear; Glucose Urine UA Negative (Negative); PH 6.0 (5.0-9.0); Specific Gravity - Urine 1.025 (1.005-1.025); UMIC TRIGGER UACC YES
[2025-10-20 13:14] LABS: UPreg QC Valid YES
--- NOTE | 2025-10-20 13:21 | PC.NURSE ---
pt started with this hiccuping/belching and states that her nausea is starting to come back pt has been sleeping for hours while in the ed, no vomiting was tolerating ice chips and sips of water
[2025-10-20 13:34] LABS: Cannabinoid Screen Urine POSITIVE (Not Detect)
== END 2025-10-20 14:21 | disposition home or self-care (01) ==
PROVIDERS: Emergency Provider Emergency Medicine; PCP Internal Medicine
DX: R11.2 Nausea with vomiting, unspecified (principal); E87.6 Hypokalemia; R19.7 Diarrhea, unspecified; R10.20 Pelvic and perineal pain unspecified side; R10.13 Epigastric pain; M79.10 Myalgia, unspecified site; R00.0 Tachycardia, unspecified; F12.90 Cannabis use, unspecified, uncomplicated; Z51.81 Encounter for therapeutic drug level monitoring; Z79.899 Other long term (current) drug therapy
CPT/HCPCS: 36415; 76801; 76817; 80048; 80076; 80307; 81001; 81025; 83735; 84702; 85025; 93005; 93975; 96361; 96372; 96374; 96375; 96376; 99285; J1200; J2270; J2405; J3360; J7120

== ENCOUNTER → 2025-10-20 06:46 | Outpatient (BNV) | payer OTHER, SELFPAY | PROVIDERS: Emergency Provider Emergency Medicine; PCP Internal Medicine; Visit Provider Internal Medicine Cardiovascular Disease | DX: R00.0 Tachycardia, unspecified (principal) | CPT/HCPCS: 93010 ==

== ENCOUNTER → 2025-10-20 08:38 | Outpatient (BNV) | payer OTHER, SELFPAY | PROVIDERS: Emergency Provider Emergency Medicine; PCP Internal Medicine; Visit Provider Radiology Diagnostic Radiology | DX: R10.31 Right lower quadrant pain (principal); R10.32 Left lower quadrant pain; Z03.79 Encounter for other suspected maternal and fetal conditions ruled out | CPT/HCPCS: 76801; 76817; 93975 ==

== ENCOUNTER 2025-10-21 10:57 | Emergency (ER) | payer OTHER, SELFPAY ==
[2025-10-21 11:12] VITALS: BP 126/72; PULSE 90; O2SAT 99
[2025-10-21 11:15] VITALS: BP 160/68; PULSE 80; RESP 18; TEMP 36.6; O2SAT 99; BMI 21.9
--- NOTE | 2025-10-21 11:23 | ED.GENADULT ---
HPI - General Adult General Chief complaint: Abdominal Pain Stated complaint: LOW ABD PAIN,SEEN T-1 FOR SAME PER EMS Time Seen by Provider: 10/21/25 14:41 History of Present Illness ED Provider: Trini Hernandez NP HPI narrative: 20-year-old female medical history significant for GERD, cyclical vomiting, THC use with over 10 ER visits since 08/29/2025 for similar complaints, presents to the ER reporting generalized abdominal pain as well as nausea and vomiting. The patient was seen here yesterday, discharged home, who presents back to the ED with same complaints. No chest pain or pressure, shortness of breath, palpitations. No focal area of abdominal pain. No fever or chills. No urinary complaints. Patient reports that she started on her menstrual cycle today. She also tells me she was supposed to see gastroenterology, but they canceled her appointment. Denies any marijuana use. No alcohol use. Mom is present at bedside. Related Data Previous Rx's ?Medication ?Instructions ?Recorded ondansetron 4 mg disintegrating 4 mg PO Q8H PRN nausea and 09/10/25 tablet vomiting #7 tabs lorazepam 1 mg tablet (Ativan) 1 mg PO BEDTIME PRN anxiety #7 tabs 09/16/25 promethazine 25 mg rectal 25 mg NV Q6H PRN nausea and 09/16/25 suppository vomiting #12 ea ondansetron HCl 4 mg tablet 4 mg PO Q8H PRN nausea and 10/08/25 vomiting #14 tabs diphenhydramine HCl 25 mg capsule 50 mg (2 x 25 mg) PO Q6H PRN 10/19/25 headache, nausea, vomiting #20 caps metoclopramide HCl 10 mg tablet 10 mg PO Q6H PRN Headache, nausea 10/19/25 (Reglan) and vomiting #20 tabs prochlorperazine maleate 10 mg 10 mg PO BID PRN nausea and 10/21/25 tablet (Compazine) vomiting 7 days #14 tabs dicyclomine 20 mg tablet 20 mg PO TID PRN abdominal pain 10/22/25 #14 tabs hyoscyamine sulfate 0.125 mg tablet 0.125 mg PO QID PRN dyspepsia #10 10/22/25 tabs metoclopramide HCl 5 mg tablet 5 mg PO Q8H PRN nausea and 10/22/25 (Reglan) vomiting #10 tabs Allergies Allergy/AdvReac Type Severity Reaction Status Date / Time haloperidol (From Haldol) Allergy Mild Anaphylaxis Verified 10/22/25 01:58 Review of Systems Review of Systems: ROS is otherwise negative unless mentioned in HPI. [facility] Past Medical History Medical History GERD (gastroesophageal reflux disease) Long QT interval Acute hypokalemia Marijuana use Status post normal delivery in completely normal case Social History Social History Household Members: Family Housing: House Do you presently have visiting nurse or other home services: No Alcohol intake: never Patient Tobacco Use Status: Never used Tobacco Smoked in Last 30 Days: No Use of substances other than those prescribed or required for medical reasons: No Substance Use Type: Marijuana Advance Directives: No Advance Directives Information Provided: Yes Do you have a plan to hurt others: No Plan service: No Physical Exam ED Exam Exam: Nursing notes and vital signs reviewed. Constitutional: Well-appearing, NAD. Alert. Oriented X3. Eyes: EOMI. ENT: Pharynx normal. Neck: Normal inspection. Neck supple. CVS: Normal heart rate and rhythm. Pulses normal. Respiratory: No respiratory distress. Breath sounds normal. Abdomen: Subjective diffuse abdominal tenderness. Skin: Skin warm and dry. Normal skin color. Extremities: No lower extremity edema. Neuro: Oriented X 3. No motor deficit. Vital Signs: Vital Signs - 24 hr 10/21/25 14:52 10/21/25 16:08 10/21/25 16:48 Temperature 97.9 F Pulse Rate 80 98 98 Respiratory Rate 18 16 16 Blood Pressure 110/72 113/70 113/70 Pulse Oximetry 100 98 98 Oxygen Delivery Method Room Air Room Air Room Air BMI result Body Mass Index 21.9 Course Course Course Narrative: RME: 20-year-old female history of cyclic vomiting presents to the ED for nausea vomiting and diarrhea. Patient was seen here yesterday for same symptoms improved and was discharged. Patient is having symptoms for 1 year. Labs ordered Medications Administered Discontinued Medications Generic Name Dose Route Start Last Admin Trade Name Freq PRN Reason Stop Dose Admin Diphenhydramine HCl 25 mg 10/21/25 14:54 10/21/25 15:11 Diphenhydramine Hcl 50 Mg/Ml Vial IVPUSH 10/21/25 14:55 25 mg ONCE ONE Administration Ketorolac Tromethamine 15 mg 10/21/25 14:52 10/21/25 15:11 Ketorolac Tromethamine 15 Mg/Ml Vial IVPUSH 10/21/25 14:53 15 mg ONCE ONE Administration Prochlorperazine Edisylate 10 mg 10/21/25 14:54 10/21/25 15:11 Prochlorperazine Edisylate 10 Mg/2 Ml Vial IVPUSH 10/21/25 14:55 10 mg ONCE ONE Administration Medical Decision Making Medical Decision Making MDM Narrative: I was informed by nursing staff with the patient was yelling out in the waiting room, creating a significant disturbance. She was then brought back to a room, she presents with with her mother, and her sister. She tells me she could not see her marketing sales representative today because they canceled her appointment. When I asked her if she has thought about seeing providers and other areas of the state, she tells me she has been all over and nobody has helped her. She has no new medical complaints today. She has subjective diffuse abdominal tenderness on exam. There is no focal area of abdominal tenderness and therefore I do not feel any imaging is warranted at this time, nor do I feel there is any underlying infectious or obstructive pathology. I did review the chart from yesterday, she had an hCG quant of 7. Today her quant is less than 2. She is currently on her menstrual cycle and tells me this started this morning. Yesterday she also had a pelvic and transvaginal ultrasound which showed no intrauterine . Given she is currently on her menstrual cycle, tells me the flow was normal in comparison, I have low clinical suspicion for miscarriage. Her lab work today's similar in comparison to previous. I had an extensive conversation with the patient, and with her mother about not administering benzodiazepines, as well as opiates while she is in the ED, as she has now been in the ED over 10 times in the past 2 months, and this may create a pattern of abuse of medications. The patient and her mother were agreeable with this plan, therefore in the ED she was given Toradol, Compazine, and Benadryl. Upon reassessment she is eating ice chips and able to tolerate crackers. This likely a cyclical vomiting. She will need to see Gastroenterology outpatient. Urine toxicology remains positive for THC though she declines use. We will proceed with discharge plan with outpatient follow up with GI. I offered her capsaicin cream to the abdomen, though she tells me she already has this at home. She was agreeable to PO Compazine. I sent her this prescription. Differential Diagnosis Differential Diagnoses: The differential diagnosis associated with the presentation includes Cyclical vomiting, cannabis hyperemesis Admission/Observation Consideration of admission/observation: Escalation of care including admission/observation considered (Not indicated) Lab Data MDM Lab Attestation statement: I reviewed the patient's lab results. (Reassuring overall. ) 10/21/25 12:10/21/25 12: Labs: Lab Results 10/21/25 10/21/25 Range/Units 12: 15:10 WBC 7.2 (4.8-10.8) X10*3/uL RBC 4.36 (4.20-5.50) X10*6/uL Hgb 12.7 (12.0-16.0) g/dl Hct 37.9 (37.0-47.0) % MCV 86.9 (80.0-98.0) fL MCH 29.1 (27.0-33.0) pg MCHC 33.5 (31.0-35.0) g/dl RDW 14.6 (11.0-16.0) % Plt Count 328 D (160-400) X10*3/uL MPV 9.6 (9.4-12.3) fL Immature Gran % (Auto) 0.3 (0.0-0.4) % Neut % (Auto) 74.2 H (45-73) % Lymph % (Auto) 19.6 L (20-40) % [place] % (Auto) 5.5 (2-11) % Eos % (Auto) 0.1 (0-4) % Baso % (Auto) 0.3 (0-2) % Lymph # (Auto) 1.4 (1.2-4.9) X10*3/uL [place] # (Auto) 0.4 (0.1-1.2) X10*3/uL Eos # (Auto) 0.0 (0.0-0.4) X10*3/uL Baso # (Auto) 0.0 (0.0-0.2) X10*3/uL Abs Immat Gran (auto) 0.02 (0.00-0.03) X10*3/uL Absolute Neuts (auto) 5.3 (2.0-8.3) x10*3/uL Absolute Nucleated RBC 0.000 (0.0-0.012) X10*3/uL Nucleated RBC % (auto) 0.0 (0.0-0.2) /100WBC Smear Tech's Comments VERIFIED Sodium 139 (135-145) mmol/L Potassium 4.1 D (3.3-5.1) mmol/L Chloride 111 H (96-108) mmol/L Carbon Dioxide 19 L (22-29) mmol/L Anion Gap 13 (12-20) BUN 14 (9-16) mg/dL Creatinine 0.81 (0.5-1.4) mg/dL Estim Creat Clear Calc 86.9 Estimated GFR > 60 Random Glucose 88 (60-115) mg/dL Calcium 9.1 D (8.4-10.2) mg/dL Magnesium 2.2 (1.6-2.6) mg/dL Total Bilirubin 0.5 (0.0-1.0) mg/dL AST 47 H (5-31) U/L ALT 27 (0-31) U/L Alkaline Phosphatase 82 (39-117) U/L Total Protein 6.9 (6.5-8.0) g/dL Albumin 4.0 (3.5-5.0) g/dL Beta HCG, Quant < 2 mIU/mL Urine Color Yellow Urine Appearance Turbid Urine pH >= 9.0 (5.0-9.0) Ur Specific [place] 1.020 (1.005-1.025) Urine Protein 30 (1+) H (Neg-Trace) mg/dL Urine Glucose (UA) Negative (Negative) mg/dL Urine Ketones 15 (Negative) mg/dL Urine Blood Large (3+) H (Negative) Urine Nitrite Negative (Negative) Ur Leukocyte Esterase Trace H (Negative) Urine RBC >20 H (0-2) /HPF Urine WBC 6-10 H (0-5) /HPF Ur Squamous Epith Cells 0-2 (0-2) /HPF Urine Bacteria Trace (None Seen) Hyaline Casts 0-2 (0-2) /LPF Urine Opiates Screen POSITIVE H (Not Detect) Ur Buprenorphine Scrn Not Detected (Not Detect) ng/mL Ur Oxycodone Screen Not Detected (Not Detect) ng/mL Urine Methadone Screen Not Detected (Not Detect) ng/mL Urine Fentanyl Screen Not Detected (Not Detect) Ur Barbiturates Screen Not Detected (Not Detect) Ur Phencyclidine Scrn Not Detected (Not Detect) Ur Amphetamines Screen Not Detected (Not Detect) U Benzodiazepines Scrn POSITIVE H (Not Detect) Urine Cocaine Screen Not Detected (Not Detect) U Marijuana (THC) Screen POSITIVE H (Not Detect) Ethyl Alcohol < 10 mg/dL Independent Historian Clinical information obtained from an independent historian. History obtained from or confirmed by: Parent and Other (Sister) External Record Review External record reviewed: Outside ED record and Other (Several ER visits. ) Chronic Conditions Patient?s care impacted by: Other (Hyperemesis.) Social Determinants Patient?s care significantly limited by Social Determinants of Health including: Problems related to primary support group Discharge Plan Discharge Clinical Impression: Cyclical vomiting, intractable Patient Disposition: Home, Self-Care Instructions: Cyclic Vomiting Syndrome (ED) Additional Instructions: As we discussed, you have been seen in the ER several times for cyclical vomiting syndrome. Today, your lab work is reassuring comparison to your previous levels. We gave you antinausea medication, and pain medication. I have prescribed the antinausea medication that I gave you the IV here, called Compazine, to your pharmacy. You may also use [id number] Benadryl. You may use [id number] Tylenol, ibuprofen as needed for pain. Please follow up with your primary care provider. Please also follow up with Gastroenterology. With any worsening complaints, return back to the ED for additional assessment. Prescriptions: New prochlorperazine maleate [Compazine] 10 mg tablet 10 mg PO BID PRN (Reason: nausea and vomiting) 7 Days Qty: 14 0RF No Action ondansetron 4 mg tablet,disintegrating 4 mg PO Q8H PRN (Reason: nausea and vomiting) Qty: 7 0RF diphenhydramine HCl 25 mg capsule 50 mg PO Q6H PRN (Reason: headache, nausea, vomiting) Qty: 20 0RF metoclopramide HCl [Reglan] 10 mg tablet 10 mg PO Q6H PRN (Reason: Headache, nausea and vomiting) Qty: 20 0RF dicyclomine 20 mg tablet 20 mg PO TID PRN (Reason: abdominal pain) Qty: 14 0RF metoclopramide HCl [Reglan] 5 mg tablet 5 mg PO Q8H PRN (Reason: nausea and vomiting) Qty: 10 0RF hyoscyamine sulfate 0.125 mg tablet 0.125 mg PO QID PRN (Reason: dyspepsia) Qty: 10 0RF promethazine 25 mg suppository 25 mg NV Q6H PRN (Reason: nausea and vomiting) Qty: 12 0RF lorazepam [Ativan] 1 mg tablet 1 mg PO BEDTIME PRN (Reason: anxiety) Qty: 7 0RF ondansetron HCl 4 mg tablet 4 mg PO Q8H PRN (Reason: nausea and vomiting) Qty: 14 0RF Referrals: [facility] [Provider Group] Interventions: ED Discharge Assessment Last Done: 10/21/25 16:48 Discharge Date/Time: 10/21/25 16:57 Print Language: Finnish
[2025-10-21 12:38] LABS: Hematocrit 37.9 % (37.0-47.0); Hemoglobin 12.7 g/dl (12.0-16.0); Imm Gran Abs Auto 0.02 X10*3/uL (0.00-0.03); Imm Gran Pct Auto 0.3 % (0.0-0.4); Lymphocytes Absolute Auto 1.4 X10*3/uL (1.2-4.9); MANUAL DIFF FLAG SCAN; Mean Corpuscular HGB Conc 33.5 g/dl (31.0-35.0); Mean Corpuscular Hemoglobin 29.1 pg (27.0-33.0); Mean Corpuscular Volume 86.9 fL (80.0-98.0); NRBC Abs Auto 0.000 X10*3/uL (0.0-0.012); NRBC Pct Auto 0.0 /100WBC (0.0-0.2); Platelet Count 328 X10*3/uL (160-400); Red Blood Count 4.36 X10*6/uL (4.20-5.50); SCAN SMEAR FLAG 1; White Blood Count 7.2 X10*3/uL (4.8-10.8)
[2025-10-21 12:59] LABS: Alanine Aminotransferase 27 U/L (0-31); Albumin Level 4.0 g/dL (3.5-5.0); Alkaline Phosphatase 82 U/L (39-117); Anion Gap 13 (12-20); Aspartate Amino Transferase 47 U/L (5-31); Blood Urea Nitrogen 14 mg/dL (9-16); Calcium 9.1 mg/dL (8.4-10.2); Carbon Dioxide 19 mmol/L (22-29); Chloride 111 mmol/L (96-108); Creatinine Clr Calc Pharmacy 86.9; Estimated Glomerular Filt Rate > 60; Magnesium 2.2 mg/dL (1.6-2.6); Potassium 4.1 mmol/L (3.3-5.1); Sodium 139 mmol/L (135-145); Total Protein 6.9 g/dL (6.5-8.0)
[2025-10-21 14:52] VITALS: BP 110/72; PULSE 80; RESP 18; O2SAT 100
[2025-10-21 15:21] LABS: Appearance Urine Turbid; Glucose Urine UA Negative (Negative); PH >= 9.0 (5.0-9.0); Specific Gravity - Urine 1.020 (1.005-1.025); UMIC TRIGGER UACC YES
[2025-10-21 15:25] LABS: UACC Culture Trigger YES
[2025-10-21 15:29] LABS: Cannabinoid Screen Urine POSITIVE (Not Detect)
--- OUTSIDE RECORDS SUMMARY | 2025-10-21 16:02 | XMS_ITS | Clinical Summary ---
Author Organization [facility] Address [address] [place] [address] Phone Care Team Providers Care Habilitation Assistant Name Role Phone Shane Licona MD Primary Care Provider [phone] Allergies No known active allergies Medications haloperidoL [...] EDT - 08/28/2025 7:14 PM EDT Emergency [facility] [address] [place] [address] Rodolfo Acevedo MD Gastroenteritis (Primary [...] reflex microscopic (08/28/2025 4:20 PM EDT) Specific [place] Urine >1.045(H) 1.003 - 1.030 LAB URINALYSIS - AUTOMATED METHOD 08/28/2025 4:51 PM [facility] pH, Urine 8.0 5.0 - 8.0 pH LAB URINALYSIS - AUTOMATED METHOD 08/28/2025 4:51 PM [facility] Leukocytes, Urine Negative Negative LAB URINALYSIS - AUTOMATED METHOD 08/28/2025 4:51 PM [facility] Nitrite, Urine Negative Negative LAB URINALYSIS - AUTOMATED METHOD 08/28/2025 4:51 PM [facility] Protein, Urine Negative <=Trace mg/dL LAB URINALYSIS - AUTOMATED METHOD 08/28/2025 4:51 PM [facility] Glucose, Urine Negative Negative mg/dL LAB URINALYSIS - AUTOMATED METHOD 08/28/2025 4:51 PM [facility] Ketones, Urine 40(A) Negative mg/dL LAB URINALYSIS - AUTOMATED METHOD 08/28/2025 4:51 PM [facility] Urobilinogen , Urine 1.0 0.2 - 1.0 mg/dL LAB URINALYSIS - AUTOMATED METHOD 08/28/2025 4:51 PM [facility] Bilirubin, Urine Negative Negative LAB URINALYSIS - AUTOMATED METHOD 08/28/2025 4:51 PM [facility] Blood, Urine Large(A) Negative LAB URINALYSIS - AUTOMATED METHOD 08/28/2025 4:51 PM [facility] RBC, Urine 28.6(H) 0 - 4 /HPF LAB URINALYSIS - AUTOMATED METHOD 08/28/2025 4:51 PM EDT [facility] WBC, Urine 1.9 0 - 4 /HPF LAB URINALYSIS - AUTOMATED METHOD 08/28/2025 4:51 PM [facility] Squamous Epithelial, Urine 20 0 - 60 /LPF LAB URINALYSIS - AUTOMATED METHOD 08/28/2025 4:51 PM [facility] Bacteria, Urine Negative Negative /HPF LAB URINALYSIS - AUTOMATED METHOD 08/28/2025 4:51 PM [facility] Hyaline Casts, Urine 0.8 0 - 3 /LPF LAB URINALYSIS - AUTOMATED METHOD 08/28/2025 4:51 PM [facility] Urine Urine specimen obtained by clean catch procedure / Unknown Non-blood Collection / Unknown 08/28/2025 4:20 PM EDT 08/28/2025 4:39 PM EDT us Rodolfo Acevedo MD LAB URINE ORDERABLES Final Result [facility] [address] [place] [address], * (ABNORMAL) Drug abuse screen 8a panel, urine (08/28/2025 4:20 PM EDT) Amphetamine Screen, Ur Negative Negative LAB CHEMISTRY METHOD 5 5:00 PM T [facility] Comment:Certain OTC medicati ons containing ephedrine, phenylephrine, pseudoephedrine and phenylpropanolamine can cause false positive results. Barbiturate Screen, Ur Negative Negative LAB CHEMISTRY METHOD 5 5:00 PM [facility] Benzodiazepine Screen, Ur Negative Negative LAB CHEMISTRY METHOD 5 5:00 PM [facility] Cocaine Screen, Ur Negative Negative LAB CHEMISTRY METHOD 5 5:00 PM [facility] Opiate Screen, Ur Positive(A ) Negative LAB CHEMISTRY METHOD 5 5:00 PM EDT [facility] Cannabinoid (THC) Screen, Ur Positive(A ) Negative LAB CHEMISTRY METHOD 5 5:00 PM EDT [facility] Comment:Specimens from patie nts taking pantoprazole sodium (Protonix) have been shown to produce false positive results. Oxycodone Screen, Ur Negative Negative LAB CHEMISTRY METHOD 5 5:00 PM EDT [facility] Fentanyl, Ur Negative Negative LAB CHEMISTRY METHOD 5 5:00 PM EDT [facility] Urine Urine specimen obtained by clean catch procedure / Unknown Non-blood Collection / Unknown 08/28/2025 4:20 PM EDT 08/28/2025 4:39 PM EDT Narrative [facility] - 08/28/2025 5:00 PM EDT [...] Acevedo MD LAB URINE ORDERABLES Final Result [facility] [address] [place] [address], * CT Abdomen Pelvis w Contrast (08/28/2025 [...] Signed Date: 08/28/2025 16:13 ET Workstation ID: [id number] Transcribed By: Self Edit Transcribed Date: 08/28/2025 [...] Signed Date: 08/28/2025 16:13 ET Workstation ID: [id number] Transcribed By: Self Edit Transcribed Date: 08/28/2025 16:11 ET us Rodolfo Acevedo MD IMG CT PROCEDURES Final Res ult * (ABNORMAL) CBC auto differential (08/28/2025 12:48 PM EDT) WBC 10.3 4.8 - 10.8 K/mcL LAB HEMETOLOGY METHOD 08/28/2025 1:59 PM EDT [facility] RBC 5.00(H) 3.80 - 4.80 M/mcL LAB HEMETOLOGY METHOD 08/28/2025 1:59 PM EDT [facility] Hemoglobin 14.4 11.5 - 16.0 g/dL LAB HEMETOLOGY METHOD 08/28/2025 1:59 PM EDT [facility] Hematocrit 42.9 35.0 - 47.0 % LAB HEMETOLOGY METHOD 08/28/2025 1:59 PM EDT [facility] MCV 86.0 79.0 - 98.0 FL LAB HEMETOLOGY METHOD 08/28/2025 1:59 PM EDT [facility] MCH 28.9 27.0 - 32.0 pcg LAB HEMETOLOGY METHOD 08/28/2025 1:59 PM EDT [facility] MCHC 33.6 32.0 - 37.0 g/dL LAB HEMETOLOGY METHOD 08/28/2025 1:59 PM EDT [facility] RDW 14.2 11.0 - 15.0 % LAB HEMETOLOGY METHOD [facility]28[facility]25 [facility] Platelets 451(H) 130 - 400 K/mcL LAB HEMETOLOGY METHOD 08/28/2025 1:59 PM EDT [facility] MPV 10.5 7.0 - 11.0 FL LAB HEMETOLOGY METHOD 08/28/2025 1:59 [facility] NRBC 0.0 <1.0 % LAB HEMETOLOGY METHOD 08/28/2025 1:59 PM [facility] NRBC Absolute 0.00 <0.10 K/mcL LAB HEMETOLOGY METHOD 08/28/2025 1:59 PM [facility] Neutrophils Relative 79.9 % LAB HEMETOLOGY METHOD 08/28/2025 1:59 [facility] Lymphocytes Relative 10.8 % LAB HEMETOLOGY METHOD 08/28/2025 1:59 PM [facility] Monocytes Relative 8.7 % LAB HEMETOLOGY METHOD 08/28/2025 1:59 PM [facility] Eosinophils Relative 0.1 % LAB HEMETOLOGY METHOD 08/28/2025 1:59 PM EDT [facility] Basophils Relative 0.2 % LAB HEMETOLOGY METHOD 08/28/2025 1:59 [facility] Immature Granulocytes Relative 0.3 % LAB HEMETOLOGY METHOD 08/28/2025 1:59 PM [facility] Neutrophils Absolute 8.23(H) 1.50 - 7.00 K/mcL LAB HEMETOLOGY METHOD 08/28/2025 1:59 PM EDT [facility] Lymphocytes Absolute 1.11 1.00 - 5.00 K/mcL LAB HEMETOLOGY METHOD 08/28/2025 1:59 PM EDT [facility] Monocytes Absolute 0.90 0.20 - 1.00 K/mcL LAB HEMETOLOGY METHOD 08/28/2025 1:59 PM EDT [facility] Eosinophils Absolute 0.01 0.00 - 0.50 K/mcL LAB HEMETOLOGY METHOD 08/28/2025 1:59 PM EDT [facility] Basophils Absolute 0.02 0.00 - 0.20 K/mcL LAB HEMETOLOGY METHOD 08/28/2025 1:59 PM EDT [facility] Immature Granulocytes Absolute 0.03 0.00 - 0.03 K/mcL LAB HEMETOLOGY METHOD 08/28/2025 1:59 PM EDT [facility] Blood Venous blood specimen / Unknown Venipuncture / Unknown 08/28/2025 12:48 PM EDT 08/28/2025 1:19 PM EDT Tevin Romo MD LAB BLOOD ORDERABLES Final Resul t [facility] [address] [place] [address], [place] [phone] * hCG, serum, qualitative (08/28/2025 12:48 PM EDT) hCG Qual Negative Negative 08/28/2025 2:16 PM EDT [facility] Blood Venous blood specimen / Unknown Venipuncture / Unknown 08/28/2025 12:48 PM EDT 08/28/2025 1:19 PM EDT Rodolfo Acevedo MD LAB BLOOD ORDERABLES Final Result [facility] [address] [place] [address], [place] [phone] * Magnesium (08/28/2025 12:48 PM EDT) Pathologist [facility] Magnesium 2.5 1.9 - 2.6 mg/dL LAB CHEMISTRY METHOD 08/28/2025 2:04 PM EDT [facility] Blood Venous blood specimen / Unknown Venipuncture / Unknown 08/28/2025 12:48 PM EDT 08/28/2025 1:19 PM EDT Rodolfo Acevedo MD LAB BLOOD ORDERABLES Final Result [facility] [address] [place] [address], [place] [phone] * Lipase (08/28/2025 12:48 PM EDT) [facility] Lipase 21 13 - 75 unit/L LAB CHEMISTRY METHOD 08/28/2025 2:04 PM EDT [facility] Blood Venous blood specimen / Unknown Venipuncture / Unknown 08/28/2025 12:48 PM EDT 08/28/2025 1:19 PM EDT us Tevin Romo MD LAB BLOOD ORDERABLES Final Resul t Performing Organization Address City/[facility]/ZIP Co de Phone Number [facility] [address] [place] [address], [place] [phone] * (ABNORMAL) Comprehensive metabolic panel (08/28/2025 12:48 PM EDT) Pathologist [facility] Sodium 135 133 - 145 mmol/L LAB CHEMISTRY METHOD 08/28/2025 2:08 PM EDT [facility] Potassium 3.9 3.5 - 5.5 mmol/L LAB CHEMISTRY METHOD 08/28/2025 2:08 PM EDT [facility] Chloride 101 96 - 110 mmol/L LAB CHEMISTRY METHOD 08/28/2025 2:08 PM [facility] CO2 26 21 - 32 mmol/L LAB CHEMISTRY METHOD 08/28/2025 2:08 PM [facility] Anion Gap 8 3 - 11 LAB CHEMISTRY METHOD 08/28/2025 2:08 PM [facility] Glucose 88 70 - 100 mg/dL LAB CHEMISTRY METHOD 08/28/2025 2:08 PM [facility] BUN 18 5 - 25 mg/dL LAB CHEMISTRY METHOD 08/28/2025 2:08 PM [facility] Creatinine 0.88 0.50 - 1.10 mg/dL LAB CHEMISTRY METHOD 08/28/2025 2:08 PM [facility] eGFR 97 >=60 mL/min/1. 73m2 LAB CHEMISTRY METHOD 08/28/2025 2:08 PM [facility] Comment:Calculation based on the Chronic Kidney Disease Epidemiology Collaboration (CKD-EPI) equation refit without adjustment for race. BUN/Creatinine Ratio 20.5 LAB CHEMISTRY METHOD 08/28/2025 2:08 PM [facility] Calcium 9.7 8.5 - 10.5 mg/dL LAB CHEMISTRY METHOD 08/28/2025 2:08 PM [facility] AST (SGOT) 70(H) 10 - 42 unit/L LAB CHEMISTRY METHOD 08/28/2025 2:08 PM [facility] ALT (SGPT) 57 10 - 60 unit/L LAB CHEMISTRY METHOD 08/28/2025 2:08 PM [facility] Alkaline Phosphatase 107 42 - 121 unit/L LAB CHEMISTRY METHOD 08/28/2025 2:08 PM [facility] Total Protein 7.6 6.0 - 8.0 g/dL LAB CHEMISTRY METHOD 08/28/2025 2:08 PM [facility] Albumin 4.2 3.2 - 5.0 g/dL LAB CHEMISTRY METHOD 08/28/2025 2:08 PM EDT [facility] Total Bilirubin 0.7 0.0 - 1.4 mg/dL LAB CHEMISTRY METHOD 08/28/2025 2:08 PM EDT [facility] Blood Venous blood specimen / Unknown Venipuncture / Unknown 08/28/2025 12:48 PM EDT 08/28/2025 1:19 PM EDT us Tevin Romo MD LAB BLOOD ORDERABLES Final Resul t [facility] [address] [place] [address], from Last 3 Months Insurance MEDICAID - [place] [employer] [place] [employer] Care Teams Habilitation Assistant Relationship Specialty Start Date End Date Shane Licona MD [facility] [place] [address] [facility] - General 12/15/23
[2025-10-21 16:08] VITALS: BP 113/70; PULSE 98; RESP 16; O2SAT 98
[2025-10-21 16:48] VITALS: BP 113/70; PULSE 98; RESP 16; TEMP 36.6; O2SAT 98
== END 2025-10-21 16:57 | disposition home or self-care (01) ==
PROVIDERS: Physician Assistant; Emergency Provider Emergency Medicine
DX: R11.15 Cyclical vomiting syndrome unrelated to migraine (principal); F12.90 Cannabis use, unspecified, uncomplicated; K21.9 Gastro-esophageal reflux disease without esophagitis; Z79.899 Other long term (current) drug therapy
CPT/HCPCS: 36415; 80053; 80307; 81001; 83735; 84702; 85025; 87086; 87147; 96374; 96375; 99284; J0737; J1200; J1885

== ENCOUNTER 2025-10-22 01:36 | Emergency (ER) | payer OTHER, SELFPAY ==
[2025-10-22 01:43] VITALS: PULSE 98; O2SAT 99
[2025-10-22 01:57] VITALS: BP 163/108; PULSE 107; RESP 25; TEMP 37.2; O2SAT 100; BMI 22.2
--- NOTE | 2025-10-22 02:49 | ED_ITS ---
HPI - Abdominal Pain General Chief Complaint: Abdominal Pain Stated Complaint: N/V,ABD PAIN PER EMS Time Seen by Provider: 10/22/25 01:40 Source: EMS Mode of arrival: EMS Limitations: other History of Present Illness ED Provider: Dr. Carmen Holguin HPI narrative: Patient comes to emergency room via EMS. Patient reports nausea and vomiting and abdominal pain for 5 hours prior to arrival. Of note, patient was seen here yesterday for the same complaint. This is patient's 12 visit in 2 months for the same complaint. Patient is known to smoke marijuana Related Data Previous Rx's ?Medication ?Instructions ?Recorded ondansetron 4 mg disintegrating 4 mg PO Q8H PRN nausea and 09/10/25 tablet vomiting #7 tabs lorazepam 1 mg tablet (Ativan) 1 mg PO BEDTIME PRN anx iety #7 tabs 09/16/25 promethazine 25 mg rectal 25 mg NV Q6H PRN nausea and 09/16/25 suppository vomiting #12 ea ondansetron HCl 4 mg tablet 4 mg PO Q8H PRN nausea and 10/08/25 vomiting #14 tabs diphenhydramine HCl 25 mg capsule 50 mg (2 x 25 mg) PO Q6H PRN 10/19/25 headache, nausea, vomiting #20 caps metoclopramide HCl 10 mg tablet 10 mg PO Q6H PRN Heada jinny, nausea 10/19/25 (Reglan) and vomiting #20 tabs prochlorperazine maleate 10 mg 10 mg PO BID PRN nausea and 10/21/25 tablet (Compazine) vomiting 7 days #14 tabs dicyclomine 20 mg tablet 20 mg PO TID PRN abdominal p ain 10/22/25 #14 tabs hyoscyamine sulfate 0.125 mg tablet 0.125 mg PO QID NV N dyspepsia #10 10/22/25 tabs metoclopramide HCl 5 mg tablet 5 mg PO Q8H PRN nausea and 10/22/25 (Reglan) vomiting #10 tabs Allergies Allergy/AdvReac Type Severity Reaction Status Date / Time haloperidol (From Haldol) Allergy Mild Anaphylaxis Verified 10/22/25 01:58 Review of Systems Review of Systems Constitutional : No Weight loss, No Fever, No Chills, No Night Sweats, No Fatigue, No Malaise ENT/Mouth : No Hearing loss, No Ear Pain, No Nasal Congestion, No Sinus Pain, No Hoarseness, No sore throat, No Rhinorrhea, No Swallowing Difficulty Eyes: No Eye Pain, No Swelling, No Redness, No Foreign Body, No Discharge, No Vision Changes Cardiovascular : No Chest Pain, No SOB, No Dyspnea on Exertion, No Orthopnea, No Edema, No Palpitations Respiratory : No Cough, No Sputum, No Wheezing, No Smoke Exposure, No Dyspnea Gastrointestinal : Complaining of nausea and vomiting and abdominal pain Pain, No Hematochezia, No Melena Genitourinary : no irregular bleeding, No Dysuria, No Urinary Frequency, No Hematuria, No Urinary Incontinence, No Urgency, No Flank Pain, No Urinary Flow Changes, No Hesitancy Musculoskeletal : No joint pain, No Myalgias, No Joint Swelling Skin : No Skin Lesions, No rash Neuro : No Weakness, No Numbness, No Paresthesias, No Loss of Consciousness, No Dizziness, No Headache Psych : No Anxiety/Panic, No Depression, No SI/HI/AH/VH, No Social Issues, Heme/Lymph: No Bruising, No Bleeding,No Lymphadenopathy Endocrine : No Polyuria, No Polydipsia, No Temperature Intolerance PMFSH Past Medical History Medical History GERD (gastroesophageal reflux disease) Long QT interval Acute hypokalemia Marijuana use Status post normal delivery in completely normal case Social History Social History Household Members: Family Housing: House Do you presently have visiting nurse or other home services: No Alcohol intake: never Patient Tobacco Use Status: Never used Tobacco Smoked in Last 30 Days: No Use of substances other than those prescribed or required for medical reasons: No Substance Use Type: Marijuana Advance Directives: No Advance Directives Information Provided: Yes Do you have a plan to hurt others: No Plan service: No Physical Exam ED Exam Exam: Appearance: Alert. Screaming to the top of her lungs and crying hysterically Eyes: Pupils equal, round and reactive to light. ENT: Pharynx normal. Neck: Normal inspection. Neck supple. No lymph nodes noted. No crepitus CVS: Normal heart rate and rhythm. Pulses normal. Normal S1 and S2 Respiratory: No respiratory distress. Breath sounds normal. No Wheezing. No rales Abdomen: Soft and nontender. No rigidity. No distention. Skin: Skin warm and dry. Normal skin color. Normal skin turgor. Extremities: No lower extremity edema. No Lacerations. No Rash Neuro: Oriented X 3. No motor deficit. No sensory deficit. Moving all extremities. No slurred speech. CN 2 through 12 grossly intact Psych: Very agitated Vital Signs: Vital Signs - 24 hr 10/22/25 01:57 10/22/25 06:09 Temperature 98.9 F 99 F Pulse Rate 107 H 83 Respiratory Rate 25 H 16 Blood Pressure 163/108 H 120/80 Pulse Oximetry 100 99 Oxygen Delivery Method Room Air Room Air BMI result Body Mass Index 22.2 Course Course Course Narrative: On arrival, due to the patient's screaming, it was impossible to give any significant history for her other than she had nausea vomiting and abdominal pain. This is usually how the patient presents. Patient very well known to the emergency department, has history of cyclic vomiting. Does not seem that patient has followed up with gastroenterology. To control her symptoms, patient was given IM ketorolac, diphenhydramine, Solu- Medrol, Compazine and topical capsaicin All of patient's labs pending Medical Decision Making Medical Decision Making MDM Narrative: Initially, patient did not allow the text to do labs because she was screaming, agitated. After the IM medications, patient feeling better, allowing the text to do labs, patient has slept well. My interpretation of labs: Patient's hematology is within normal limits. Patient's chemistry shows a potassium of 3.2, which was repleted p.o.. Patient was able to tolerate p.o. meds and fluids. LFTs within normal limits, lipase normal, hCG negative Patient denies UTI symptoms. Patient has trace leukocyte esterase, large amount of blood in the urine. Patient is currently menstruating. Yesterday patient was here, urine toxicology was positive for opiates, benzodiazepines, marijuana. The opiates and benzodiazepines were likely given here in the emergency department. Also, patient had an ultrasound 2 days ago. To us and nonspecific echogenic foci in the uterus, possible a punctured calcification. HCG is negative Here in the emergency room, patient received acetaminophen, capsaicin, ketorolac, Reglan, Zofran, p.o. potassium, prochlorperazine, diphenhydramine, Solu-Medrol P.o. challenge was tolerated. Patient requesting that we sent to her pharmacy pain medication, states that Tylenol will not help her. I discussed with the patient that she can try Bentyl in or hyoscyamine. Patient states that she has not been drinking water. However, patient has been seen getting up to the bathroom and drinking water from the faucet. Also, patient was able to tolerate the p.o. potassium with a glass of water. I also spoke with the patient's mother over the phone per patient's request. Patient's mother agrees that we can not keep medicating the patient with narcotics or benzodiazepines due to the high risk of dependence and abuse. Patient was supposed to have an appointment yesterday with [facility] for GI, she missed her appointment. Patient is adamant that she is not using any marijuana products at all. However, her urine toxicology indicates otherwise Overall, after a very long discussion with the patient and the mother, seems that patient had good result with capsaicin topical. Patient is requesting to take the capsaicin to home which we agree to it. Differential Diagnosis Differential Diagnoses: The differential diagnosis associated with the presentation includes (Cyclical vomiting, anxiety, gastritis, gastroenteritis) Admission/Observation Consideration of admission/observation: Escalation of care including admission/observation considered (Given patient's multiple ED visits and symptoms, observation was considered) Lab Data MDM Lab Attestation statement: I reviewed the patient's lab results. 10/22/25 02:59 10/22/25 02:59 Labs: Lab Results 10/22/25 Range/Units 02:59 WBC 9.8 (4.8-10.8) X10*3/uL RBC 4.23 (4.20-5.50) X10*6/uL Hgb 12.3 (12.0-16.0) g/dl Hct 36.7 L (37.0-47.0) % MCV 86.8 (80.0-98.0) fL MCH 29.1 (27.0-33.0) pg MCHC 33.5 (31.0-35.0) g/dl RDW 14.4 (11.0-16.0) % Plt Count 400 (160-400) X10*3/uL MPV 8.8 L (9.4-12.3) fL Immature Gran % (Auto) 0.3 (0.0-0.4) % Neut % (Auto) 78.7 H (45-73) % Lymph % (Auto) 12.2 L (20-40) % [place] % (Auto) 8.0 (2-11) % Eos % (Auto) 0.5 (0-4) % Baso % (Auto) 0.3 (0-2) % Lymph # (Auto) 1.2 (1.2-4.9) X10*3/uL [place] # (Auto) 0.8 (0.1-1.2) X10*3/uL Eos # (Auto) 0.1 (0.0-0.4) X10*3/uL Baso # (Auto) 0.0 (0.0-0.2) X10*3/uL Abs Immat Gran (auto) 0.03 (0.00-0.03) X10*3/uL Absolute Neuts (auto) 7.7 (2.0-8.3) x10*3/uL Absolute Nucleated RBC 0.000 (0.0-0.012) X10*3/uL Nucleated RBC % (auto) 0.0 (0.0-0.2) /100WBC Sodium 142 (135-145) mmol/L Potassium 3.2 L D (3.3-5.1) mmol/L Chloride 111 H (96-108) mmol/L Carbon Dioxide 21 L (22-29) mmol/L Anion Gap 13 (12-20) BUN 13 (9-16) mg/dL Creatinine 0.72 (0.5-1.4) mg/dL Estim Creat Clear Calc 93.2 Estimated GFR > 60 Random Glucose 89 (60-115) mg/dL Calcium 8.7 (8.4-10.2) mg/dL Total Bilirubin 0.6 (0.0-1.0) mg/dL Direct Bilirubin 0.3 (0.0-0.5) mg/dL AST 38 H (5-31) U/L ALT 26 (0-31) U/L Alkaline Phosphatase 88 (39-117) U/L Total Protein 6.7 (6.5-8.0) g/dL Albumin 4.0 (3.5-5.0) g/dL Lipase 9 (8-78) U/L Beta HCG, Quant < 2 mIU/mL Tests considered The following testing was considered but not selected: I considered ordering a CT scan of the abdomen. However, patient's presentation is pretty much the same as the last 10 ED visits Medications Administered Discontinued Medications Generic Name Dose Route Start Last Admin Trade Name Paulq PRN Reason Stop Dose Admin Acetaminophen 650 mg 10/22/25 03:45 10/22/25 04:20 Acetaminophen 325 Mg Tablet PO 10/22/25 03:46 650 mg ONCE ONE Administration Capsaicin 1 appl 10/22/25 01:45 10/22/25 02:04 Capsaicin 0.025% Cream 60 Gm Tube TOPICAL 10/22/25 01:46 1 appl NOW STA Administration Protocol Diphenhydramine HCl 50 mg 10/22/25 01:40 10/22/25 01:59 Diphenhydramine Hcl 50 Mg/Ml Vial IM 10/22/25 01:41 50 mg ONCE ONE Administration Ketorolac Tromethamine 60 mg 10/22/25 01:40 10/22/25 01:59 Ketorolac Tromethamine 60 Mg/2 Ml Vial IM 10/22/25 01:41 60 mg ONCE ONE Administration Methylprednisolone Sodium Succinate 60 mg 10/22/25 02:02 10/22/25 02:25 Methylprednisolone Sod Succ 125 Mg/2 Ml Vial IM 10/22/25 02:03 60 mg ONCE ONE Administration Metoclopramide HCl 10 mg 10/22/25 04:34 10/22/25 04:39 Metoclopramide Hcl 10 Mg/2 Ml Vial IM 10/22/25 04:35 10 mg ONCE ONE Administration Ondansetron HCl 4 mg 10/22/25 03:45 10/22/25 04:21 Ondansetron Odt 4 Mg Tab.Rapdis TRANSLINGU 10/22/25 03:46 4 mg ONCE ONE Administration Potassium Chloride 20 meq 10/22/25 04:02 10/22/25 04:20 Potassium Chloride Er 20 Meq Tab.Er.Prt PO 10/22/25 04:03 20 meq ONCE ONE Administration Prochlorperazine Edisylate 10 mg 10/22/25 01:40 10/22/25 01:59 Prochlorperazine Edisylate 10 Mg/2 Ml Vial IM 10/22/25 01:41 10 mg ONCE ONE Administration Discharge Plan Discharge Clinical Impression: Cyclical vomiting Patient Disposition: Home, Self-Care Instructions: Hypokalemia (ED), Cyclic Vomiting Syndrome (ED) Additional Instructions: Please follow-up with your primary care physician tomorrow. If you have any worsening or new symptoms, please return to the emergency room or call 911 Prescriptions: New dicyclomine 20 mg tablet 20 mg PO TID PRN (Reason: abdominal pain) Qty: 14 0RF metoclopramide HCl [Reglan] 5 mg tablet 5 mg PO Q8H PRN (Reason: nausea and vomiting) Qty: 10 0RF hyoscyamine sulfate 0.125 mg tablet 0.125 mg PO QID PRN (Reason: dyspepsia) Qty: 10 0RF No Action ondansetron 4 mg tablet,disintegrating 4 mg PO Q8H PRN (Reason: nausea and vomiting) Qty: 7 0RF diphenhydramine HCl 25 mg capsule 50 mg PO Q6H PRN (Reason: headache, nausea, vomiting) Qty: 20 0RF metoclopramide HCl [Reglan] 10 mg tablet 10 mg PO Q6H PRN (Reason: Headache, nausea and vomiting) Qty: 20 0RF promethazine 25 mg suppository 25 mg NV Q6H PRN (Reason: nausea and vomiting) Qty: 12 0RF lorazepam [Ativan] 1 mg tablet 1 mg PO BEDTIME PRN (Reason: anxiety) Qty: 7 0RF ondansetron HCl 4 mg tablet 4 mg PO Q8H PRN (Reason: nausea and vomiting) Qty: 14 0RF prochlorperazine maleate [Compazine] 10 mg tablet 10 mg PO BID PRN (Reason: nausea and vomiting) 7 Days Qty: 14 0RF Print Language: Lao
--- NOTE | 2025-10-22 02:58 | MHC.EDTECH ---
[email or web address] unable to collect labs. Requested assistance from another tech to try and collect them.
[2025-10-22 03:06] LABS: Hematocrit 36.7 % (37.0-47.0); Hemoglobin 12.3 g/dl (12.0-16.0); Imm Gran Abs Auto 0.03 X10*3/uL (0.00-0.03); Imm Gran Pct Auto 0.3 % (0.0-0.4); Lymphocytes Absolute Auto 1.2 X10*3/uL (1.2-4.9); MANUAL DIFF FLAG NO; Mean Corpuscular HGB Conc 33.5 g/dl (31.0-35.0); Mean Corpuscular Hemoglobin 29.1 pg (27.0-33.0); Mean Corpuscular Volume 86.8 fL (80.0-98.0); NRBC Abs Auto 0.000 X10*3/uL (0.0-0.012); NRBC Pct Auto 0.0 /100WBC (0.0-0.2); Platelet Count 400 X10*3/uL (160-400); Red Blood Count 4.23 X10*6/uL (4.20-5.50); White Blood Count 9.8 X10*3/uL (4.8-10.8)
--- OUTSIDE RECORDS SUMMARY | 2025-10-22 03:08 | XMS_ITS | Clinical Summary ---
Author Organization [facility] Address [address] [place] [address] Phone Care Team Providers Care Clinical Auditor Name Role Phone Shane Licona MD Primary Care Provider [phone] Allergies No known active allergies Medications haloperidoL [...] EDT - 08/28/2025 7:14 PM EDT [facility] Emergency [address] [place] [address] Rodolfo Acevedo MD Gastroenteritis (Primary [...] reflex microscopic (08/28/2025 4:20 PM EDT) Specific [place] Urine >1.045(H) 1.003 - 1.030 LAB URINALYSIS - AUTOMATED METHOD 08/28/2025 4:51 PM [facility] pH, Urine 8.0 5.0 - 8.0 pH LAB URINALYSIS - AUTOMATED METHOD 08/28/2025 4:51 PM [facility] Leukocytes, Urine Negative Negative LAB URINALYSIS - AUTOMATED METHOD 08/28/2025 4:51 PM [facility] Nitrite, Urine Negative Negative LAB URINALYSIS - AUTOMATED METHOD 08/28/2025 4:51 PM [facility] Protein, Urine Negative <=Trace mg/dL LAB URINALYSIS - AUTOMATED METHOD 08/28/2025 4:51 PM [facility] Glucose, Urine Negative Negative mg/dL LAB URINALYSIS - AUTOMATED METHOD 08/28/2025 4:51 PM [facility] Ketones, Urine 40(A) Negative mg/dL LAB URINALYSIS - AUTOMATED METHOD 08/28/2025 4:51 PM [facility] Urobilinogen , Urine 1.0 0.2 - 1.0 mg/dL LAB URINALYSIS - AUTOMATED METHOD 08/28/2025 4:51 PM [facility] Bilirubin, Urine Negative Negative LAB URINALYSIS - AUTOMATED METHOD 08/28/2025 4:51 PM [facility] Blood, Urine Large(A) Negative LAB URINALYSIS - AUTOMATED METHOD 08/28/2025 4:51 PM [facility] RBC, Urine 28.6(H) 0 - 4 /HPF LAB URINALYSIS - AUTOMATED METHOD 08/28/2025 4:51 PM EDT [facility] WBC, Urine 1.9 0 - 4 /HPF LAB URINALYSIS - AUTOMATED METHOD 08/28/2025 4:51 PM [facility] Squamous Epithelial, Urine 20 0 - 60 /LPF LAB URINALYSIS - AUTOMATED METHOD 08/28/2025 4:51 PM [facility] Bacteria, Urine Negative Negative /HPF LAB URINALYSIS - AUTOMATED METHOD 08/28/2025 4:51 PM [facility] Hyaline Casts, Urine 0.8 0 - 3 /LPF LAB URINALYSIS - AUTOMATED METHOD 08/28/2025 4:51 PM [facility] Urine Urine specimen obtained by clean catch procedure / Unknown Non-blood Collection / Unknown 08/28/2025 4:20 PM EDT 08/28/2025 4:39 PM EDT us Rodolfo Acevedo MD LAB URINE ORDERABLES Final Result [facility] [address] [place] [address], * (ABNORMAL) Drug abuse screen 8a panel, urine (08/28/2025 4:20 PM EDT) Amphetamine Screen, Ur Negative Negative LAB CHEMISTRY METHOD 5 5:00 PM T [facility] Comment:Certain OTC medicati ons containing ephedrine, phenylephrine, pseudoephedrine and phenylpropanolamine can cause false positive results. Barbiturate Screen, Ur Negative Negative LAB CHEMISTRY METHOD 5 5:00 PM [facility] Benzodiazepine Screen, Ur Negative Negative LAB CHEMISTRY METHOD 5 5:00 PM [facility] Cocaine Screen, Ur Negative Negative LAB CHEMISTRY METHOD 5 5:00 PM [facility] Opiate Screen, Ur Positive(A ) Negative LAB CHEMISTRY METHOD 5 5:00 PM EDT [facility] Cannabinoid (THC) Screen, Ur Positive(A ) Negative LAB CHEMISTRY METHOD 5 5:00 PM EDT [facility] Comment:Specimens from patie nts taking pantoprazole sodium (Protonix) have been shown to produce false positive results. Oxycodone Screen, Ur Negative Negative LAB CHEMISTRY METHOD 5 5:00 PM EDT [facility] Fentanyl, Ur Negative Negative LAB CHEMISTRY METHOD 5 5:00 PM EDT [facility] Urine Urine specimen obtained by clean catch procedure / Unknown Non-blood Collection / Unknown 08/28/2025 4:20 PM EDT 08/28/2025 4:39 PM EDT Narrative [facility] - 08/28/2025 5:00 PM [...] Acevedo MD LAB URINE ORDERABLES Final Result [facility] [address] [place] [address], * CT Abdomen Pelvis w Contrast (08/28/2025 [...] Signed Date: 08/28/2025 16:13 ET Workstation ID: [id number] Transcribed By: Self Edit Transcribed Date: 08/28/2025 [...] Signed Date: 08/28/2025 16:13 ET Workstation ID: [id number] Transcribed By: Self Edit Transcribed Date: 08/28/2025 16:11 ET us Rodolfo Acevedo MD IMG CT PROCEDURES Final Res ult * (ABNORMAL) CBC auto differential (08/28/2025 12:48 PM EDT) WBC 10.3 4.8 - 10.8 K/mcL LAB HEMETOLOGY METHOD 08/28/2025 1:59 PM EDT [facility] RBC 5.00(H) 3.80 - 4.80 M/mcL LAB HEMETOLOGY METHOD 08/28/2025 1:59 PM EDT [facility] Hemoglobin 14.4 11.5 - 16.0 g/dL LAB HEMETOLOGY METHOD 08/28/2025 1:59 PM EDT [facility] Hematocrit 42.9 35.0 - 47.0 % LAB HEMETOLOGY METHOD 08/28/2025 1:59 PM EDT [facility] MCV 86.0 79.0 - 98.0 FL LAB HEMETOLOGY METHOD 08/28/2025 1:59 PM EDT [facility] MCH 28.9 27.0 - 32.0 pcg LAB HEMETOLOGY METHOD 08/28/2025 1:59 PM EDT [facility] MCHC 33.6 32.0 - 37.0 g/dL LAB HEMETOLOGY METHOD 08/28/2025 1:59 PM EDT [facility] RDW 14.2 11.0 - 15.0 % LAB HEMETOLOGY METHOD [facility]28[facility]25 [facility] Plate[facility] 451(H) 130 - 400 K/mcL LAB HEMETOLOGY METHOD 08/28/2025 1:59 PM EDT [facility] MPV 10.5 7.0 - 11.0 FL LAB HEMETOLOGY METHOD 08/28/2025 1:59 [facility] NRBC 0.0 <1.0 % LAB HEMETOLOGY METHOD 08/28/2025 1:59 PM [facility] NRBC Absolute 0.00 <0.10 K/mcL LAB HEMETOLOGY METHOD 08/28/2025 1:59 [facility] Neutrophils Relative 79.9 % LAB HEMETOLOGY METHOD 08/28/2025 1:59 [facility] Lymphocytes Relative 10.8 % LAB HEMETOLOGY METHOD 08/28/2025 1:59 PM [facility] Monocytes Relative 8.7 % LAB HEMETOLOGY METHOD 08/28/2025 1:59 PM [facility] Eosinophils Relative 0.1 % LAB HEMETOLOGY METHOD 08/28/2025 1:59 PM EDT [facility] Basophils Relative 0.2 % LAB HEMETOLOGY METHOD 08/28/2025 1:59 [facility] Immature Granulocytes Relative 0.3 % LAB HEMETOLOGY METHOD 08/28/2025 1:59 PM [facility] Neutrophils Absolute 8.23(H) 1.50 - 7.00 K/mcL LAB HEMETOLOGY METHOD 08/28/2025 1:59 PM EDT [facility] Lymphocytes Absolute 1.11 1.00 - 5.00 K/mcL LAB HEMETOLOGY METHOD 08/28/2025 1:59 PM EDT [facility] Monocytes Absolute 0.90 0.20 - 1.00 K/mcL LAB HEMETOLOGY METHOD 08/28/2025 1:59 PM EDT [facility] Eosinophils Absolute 0.01 0.00 - 0.50 K/mcL LAB HEMETOLOGY METHOD 08/28/2025 1:59 PM EDT [facility] Basophils Absolute 0.02 0.00 - 0.20 K/mcL LAB HEMETOLOGY METHOD 08/28/2025 1:59 PM EDT [facility] Immature Granulocytes Absolute 0.03 0.00 - 0.03 K/mcL LAB HEMETOLOGY METHOD 08/28/2025 1:59 PM EDT [facility] Blood Venous blood specimen / Unknown Venipuncture / Unknown 08/28/2025 12:48 PM EDT 08/28/2025 1:19 PM EDT Tevin Romo MD LAB BLOOD ORDERABLES Final Resul t [facility] [address] [place] [address], [place] [phone] * hCG, serum, qualitative (08/28/2025 12:48 PM EDT) hCG Qual Negative Negative 08/28/2025 2:16 PM EDT [facility] Blood Venous blood specimen / Unknown Venipuncture / Unknown 08/28/2025 12:48 PM EDT 08/28/2025 1:19 PM EDT Rodolfo Acevedo MD LAB BLOOD ORDERABLES Final Result [facility] [address] [place] [address], [place] [phone] * Magnesium (08/28/2025 12:48 PM EDT) Pathologist [facility] Magnesium 2.5 1.9 - 2.6 mg/dL LAB CHEMISTRY METHOD 08/28/2025 2:04 PM EDT [facility] Blood Venous blood specimen / Unknown Venipuncture / Unknown 08/28/2025 12:48 PM EDT 08/28/2025 1:19 PM EDT Rodolfo Acevedo MD LAB BLOOD ORDERABLES Final Result [facility] [address] [place] [address], [place] [phone] * Lipase (08/28/2025 12:48 PM EDT) [facility] Lipase 21 13 - 75 unit/L LAB CHEMISTRY METHOD 08/28/2025 2:04 PM EDT [facility] Blood Venous blood specimen / Unknown Venipuncture / Unknown 08/28/2025 12:48 PM EDT 08/28/2025 1:19 PM EDT us Tevin Romo MD LAB BLOOD ORDERABLES Final Resul t Performing Organization Address City/[facility]/ZIP Co de Phone Number [facility] [address] [place] [address], [place] [phone] * (ABNORMAL) Comprehensive metabolic panel (08/28/2025 12:48 PM EDT) Pathologist [facility] Sodium 135 133 - 145 mmol/L LAB CHEMISTRY METHOD 08/28/2025 2:08 PM EDT [facility] Potassium 3.9 3.5 - 5.5 mmol/L LAB CHEMISTRY METHOD 08/28/2025 2:08 PM EDT [facility] Chloride 101 96 - 110 mmol/L LAB CHEMISTRY METHOD 08/28/2025 2:08 PM [facility] CO2 26 21 - 32 mmol/L LAB CHEMISTRY METHOD 08/28/2025 2:08 PM [facility] Anion Gap 8 3 - 11 LAB CHEMISTRY METHOD 08/28/2025 2:08 PM [facility] Glucose 88 70 - 100 mg/dL LAB CHEMISTRY METHOD 08/28/2025 2:08 PM [facility] BUN 18 5 - 25 mg/dL LAB CHEMISTRY METHOD 08/28/2025 2:08 PM [facility] Creatinine 0.88 0.50 - 1.10 mg/dL LAB CHEMISTRY METHOD 08/28/2025 2:08 PM [facility] eGFR 97 >=60 mL/min/1. 73m2 LAB CHEMISTRY METHOD 08/28/2025 2:08 PM [facility] Comment:Calculation based on the Chronic Kidney Disease Epidemiology Collaboration (CKD-EPI) equation refit without adjustment for race. BUN/Creatinine Ratio 20.5 LAB CHEMISTRY METHOD 08/28/2025 2:08 PM [facility] Calcium 9.7 8.5 - 10.5 mg/dL LAB CHEMISTRY METHOD 08/28/2025 2:08 PM [facility] AST (SGOT) 70(H) 10 - 42 unit/L LAB CHEMISTRY METHOD 08/28/2025 2:08 PM [facility] ALT (SGPT) 57 10 - 60 unit/L LAB CHEMISTRY METHOD 08/28/2025 2:08 PM [facility] Alkaline Phosphatase 107 42 - 121 unit/L LAB CHEMISTRY METHOD 08/28/2025 2:08 PM [facility] Total Protein 7.6 6.0 - 8.0 g/dL LAB CHEMISTRY METHOD 08/28/2025 2:08 PM [facility] Albumin 4.2 3.2 - 5.0 g/dL LAB CHEMISTRY METHOD 08/28/2025 2:08 PM EDT [facility] Total Bilirubin 0.7 0.0 - 1.4 mg/dL LAB CHEMISTRY METHOD 08/28/2025 2:08 PM EDT [facility] Blood Venous blood specimen / Unknown Venipuncture / Unknown 08/28/2025 12:48 PM EDT 08/28/2025 1:19 PM EDT us Tevin Romo MD LAB BLOOD ORDERABLES Final Resul t [facility] ([facility] [address] [place] [address], from Last 3 Months Insurance MEDICAID - [place] [employer] [place] [employer] Care Teams Clinical Auditor Relationship Specialty Start Date End Date Shane Licona MD [facility] [place] [address] [facility] - General 12/15/23
[2025-10-22 03:28] LABS: Alanine Aminotransferase 26 U/L (0-31); Albumin Level 4.0 g/dL (3.5-5.0); Alkaline Phosphatase 88 U/L (39-117); Anion Gap 13 (12-20); Aspartate Amino Transferase 38 U/L (5-31); Blood Urea Nitrogen 13 mg/dL (9-16); Calcium 8.7 mg/dL (8.4-10.2); Carbon Dioxide 21 mmol/L (22-29); Chloride 111 mmol/L (96-108); Creatinine Clr Calc Pharmacy 93.2; Estimated Glomerular Filt Rate > 60; Lipase 9 U/L (8-78); Potassium 3.2 mmol/L (3.3-5.1); Sodium 142 mmol/L (135-145); Total Protein 6.7 g/dL (6.5-8.0)
[2025-10-22] MEDS: Potassium Chloride ER 20 MEQ TAB.ER.PRT PO (04:20)
[2025-10-22 06:09] VITALS: BP 120/80; PULSE 83; RESP 16; TEMP 37.2; O2SAT 99
[2025-10-22 06:33] VITALS: BP 120/80; PULSE 83; RESP 16; TEMP 37.2; O2SAT 99
--- NOTE | 2025-11-03 12:40 | HO.PTCAREPLN ---
Patient Care Plan Patient Care Plan Details: Lidia Trejo 2005 Patient presentation: Lidia generally presents in distress yelling and crying with dry heaving or vomiting. She frequently continues with distress unless benzodiazepines or narcotics are ordered. She denies THC use but has had positive tox screens for THC consistently since her first visit here in Oct; her most recent THC test was positive on 10/21/25. She has had several visits just in September for intractable nausea and vomiting. Her RUQ US was negative on 08/30/[address] scan of abd/pelvis on 09/11/25. PMH: Cyclical vomiting in suspected setting of continued THC abuse. She has had history of hypokalemia as well as prolonged QTc. GERD but not consistent with taking antacid prescriptions. Prior admissions: Admitted in July 2025, August 2025 for intractable nausea and vomiting with suspected cannabinoid hyperemesis syndrome. ED interventions: Assess for any acute changes from her baseline that are not consistent with her chronic cyclical vomiting. She has history of prolonged qtc (most recent EKGs normal) and hypokalemia. Please be mindful. Patient is no longer to receive IV benzodiazepines and narcotics for her chronic cyclical vomiting. Please use other anti-emetics and capsaicin to alleviate her symptoms. Patient should be PO challenged prior to discharge. Encourage abstinence from THC use. Follow up: ? Lidia has GI services outpatient at [facility] but has missed her most recent appointments. ?
== END 2025-10-22 06:40 | disposition home or self-care (01) ==
PROVIDERS: Emergency Provider Emergency Medicine
DX: R11.15 Cyclical vomiting syndrome unrelated to migraine (principal); E87.6 Hypokalemia; F12.90 Cannabis use, unspecified, uncomplicated; R11.2 Nausea with vomiting, unspecified; Z79.899 Other long term (current) drug therapy
CPT/HCPCS: 36415; 80048; 80076; 83690; 84702; 85025; 96372; 99284; J0737; J1200; J1885; J2765; J2919